=== PATIENT | male | born 1955 | race Caucasian/White ===

== ENCOUNTER 2022-06-04 18:42 | Emergency (ER) | payer MEDICARE, SELFPAY ==
[2022-06-04 18:58] VITALS: BP 175/78; PULSE 93; RESP 16; TEMP 36.4; O2SAT 98; BMI 31.8
--- NOTE | 2022-06-04 19:09 | CRLHL7_ITS ---
For Patients: As a result of the Cures Act, medical imaging exams and procedure reports are released immediately into your electronic medical record. You may view this report before your referring provider. If you have questions, please contact your health care provider. INDICATION: Fall. COMPARISON: None. TECHNIQUE: Standing AP and lateral views of both knees. FINDINGS: Right knee: No acute fracture or dislocation. Mild medial compartment narrowing. Spurring of the patella. Trace knee joint effusion. Mild soft tissue swelling in the infrapatellar region. Left knee: No acute fracture or dislocation. Mild to moderate medial compartment narrowing. Spurring of patella and tibial spines. Trace knee joint effusion. Mild soft tissue swelling in the infrapatellar region. IMPRESSION: 1. Mild soft tissue swelling in the infrapatellar region of both knees. No other acute findings. 2. Degenerative changes of the knees with trace bilateral knee joint effusions. Dictated by Josefina Siu MD @ 06/04/2022 8:05:44 PM (Electronically Signed)
--- NOTE | 2022-06-04 19:09 | ED_ITS ---
HPI - Extremity Injury (Lower) General Chief Complaint: Extremity Pain/Injury, Lower Stated Complaint: Bilateral Knee Injury/Pain Time Seen by Provider: 06/04/22 19:02 History of Present Illness HPI Narrative: This 66-year-old male comes in with an injury to his knees that occurred about 6 hours prior to arrival. He states that he was loading some garbage in a been and bent over to poultry picker a box that was on the ground. The wind blew the box and as he walked forward there was a curb that he did not anticipate. He fell forward onto both of his knees. He did not hit his head or have loss of consciousness. He has an abrasion on his right knee. He has been able to get up and ambulate but does have some discomfort. Related Data Home Medications Medication Instructions Recorded Confirmed albuterol sulfate 90 mcg/actuation 2 puff INHALATION Q4H PRN 06/04/22 06/04/22 aerosol inhaler aspirin 81 mg capsule 81 mg PO DAILY 06/04/22 06/04/22 atorvastatin 80 mg tablet 80 mg PO HS 06/04/22 06/04/22 carbidopa 25 mg-levodopa 100 mg 1 tab PO BID 06/04/22 06/04/22 tablet glipizide 5 mg tablet 5 mg PO BID 06/04/22 06/04/22 lisinopril 20 mg tablet 20 mg PO DAILY 06/04/22 06/04/22 loratadine 10 mg tablet (Claritin) 10 mg PO DAILY 06/04/22 06/04/22 meclizine 25 mg tablet 25 mg PO TID PRN 06/04/22 06/04/22 metformin 1,000 mg tablet 1,000 mg PO BID 06/04/22 06/04/22 Allergies Allergy/AdvReac Type Severity Reaction Status Date / Time gadodiamide Allergy Unknown Verified 06/04/22 19:05 diagnostic x-ray materials Allergy Unknown Uncoded 06/04/22 19:05 Review of Systems Status of ROS: Reports: 10 or more systems reviewed and unremarkable except as noted in History and below Narrative: Constitutional: No fevers, no weight gain or loss. Eyes: No discharge. No vision changes. HENT: No congestion, no sore throat, no ear pain. Cardiovascular: No chest pain, no palpitations. Respiratory: No shortness of breath, no wheezes, no cough. Gastrointestinal: No abdominal pain, no vomiting, no diarrhea. Genitourinary: No dysuria, no hematuria. Musculoskeletal: Normal range of motion. Bilateral knee pain. Skin: No rashes, no pruritis. Neurological: No dizziness, weakness, sensory change, speech change. Endo/Heme/Allergies: No bruising or bleeding. No polydipsia. Pysch: no suicidality, no anxiety, no insomnia. All other systems reviewed and are negative. [facility] Medical History (Updated 06/04/22 @ 20:19 by José Olivares MD) CAD (coronary artery disease) Chest pain COPD (chronic obstructive pulmonary disease) CVA (cerebral vascular accident) Gastric ulcer H/O TIA (transient ischemic attack) and stroke Meniere disease Mixed hyperlipidemia GREGORIO (obstructive sleep apnea) Syncope Type 2 diabetes mellitus Vertigo Surgical History (Updated 06/04/22 @ 19:39 by Luis Daniel Lemons RN) No significant past surgical history Social History Smoking Status: Former smoker How often do you have a drink containing alcohol: never How often do you have six or more drinks on one occasion: Never AUDIT-C Alcohol total score: 0 Non-prescribed substance use: denies use Exam Narrative: Exam Narrative: Constitutional: Well-developed, well-nourished, no acute distress. HEENT: Normocephalic, atraumatic. Neck: Normal range of motion. Nontender. Supple. Heart: Intact distal pulses. Lungs: No chest discomfort. No wheezes, rhonchi, or rales. Abdomen: Nontender. Back: Normal range of motion. Extremities: Normal range of motion. Superficial abrasion over the right knee. There is no joint instability or effusion. Range of motion is intact. He is able to ambulate. Skin: Intact. No rash. Warm. No erythema or pallor. Neurologic: No altered sensation. No weakness. Alert and oriented. Psychiatric: No suicidality. No anxiety or depression. No insomnia. Nursing notes and vitals signs are reviewed. Const: Vital Signs, click to edit/add: Vital Signs - 24 hr 06/04/22 18:58 06/04/22 19:40 Temperature 97.6 F Pulse Rate [Right Pulse Oximeter] 93 89 Respiratory Rate 16 Blood Pressure [Ri ght Upper Arm] 175/78 H Pulse Oximetry 98 Course Vital Signs Vital signs: Initial Vital Signs Temperature 97.6 F 06/04/22 18:58 Temperature Source Temporal Artery Scan 06/04/22 18:58 Pulse Rate 93 06/04/22 18:58 Respiratory Rate 16 06/04/22 18:58 Blood Pressure 175/78 H 06/04/22 18:58 Blood Pressure Mean 110 06/04/22 18:58 Blood Pressure Position Sitting 06/04/22 18:58 Pulse Oximetry 98 06/04/22 18:58 Oxygen Delivery Method 06/04/22 18:58 Vital Signs Temperature 97.6 F 06/04/22 18:58 Pulse Rate 93 06/04/22 18:58 Respiratory Rate 16 06/04/22 18:58 Blood Pressure 175/78 H 06/04/22 18:58 Pulse Oximetry 98 06/04/22 18:58 Temperature 97.6 F 06/04/22 18:58 Pulse Rate 89 06/04/22 19:40 Respiratory Rate 16 06/04/22 18:58 Blood Pressure 175/78 H 06/04/22 18:58 Pulse Oximetry 98 06/04/22 18:58 MDM - Extremity Injury (Lower) MDM Narrative Medical decision making narrative: This patient comes in for evaluation of injury to both knees because of a fall that occurred earlier today. He has been ambulatory since then. He has an abrasion that is superficial on his right knee. X-ray imaging of both knees show no sign of acute injury. There is some degenerative changes that is pre- existing. This was reassuring to the patient who will use Tylenol as needed and directed and increase activity as tolerated. He has a cane that he can use if needed. Imaging Data XR Bilateral knees: Radiologist's impression: 1. Mild soft tissue swelling in the infrapatellar region of both knees. No other acute findings. 2. Degenerative changes of the knees with trace bilateral knee joint effusions. Discharge Plan Discharge Clinical Impression: Contusion of knee, left, Contusion of knee, right Patient Disposition: Home, Self-Care Condition: Stable Instructions: Contusion in Adults (ED) Additional Instructions: Use Tylenol as needed and directed for symptomatic relief. Increase activity as tolerated. Follow up with MD or return if worsening. Prescriptions: No Action albuterol sulfate 90 mcg/actuation HFA aerosol inhaler 2 puff INHALATION Q4H PRN0RF Label Comments: Inhale 2 Puffs by mouth every 4 hours if needed. atorvastatin 80 mg tablet 80 mg PO HS 0RF Label Comments: Take 1 tablet by mouth once daily with evening meal. glipizide 5 mg tablet 5 mg PO BID 0RF lisinopril 20 mg tablet 20 mg PO DAILY 0RF meclizine 25 mg tablet 25 mg PO TID PRN0RF metformin 1,000 mg tablet 1,000 mg PO BID 0RF loratadine [Claritin] 10 mg tablet 10 mg PO DAILY 0RF aspirin 81 mg capsule 81 mg PO DAILY 0RF carbidopa-levodopa 25-100 mg tablet 1 tab PO BID 0RF Follow Up/Referrals: Hannah Stein DO [Primary Care Provider] - Stand Alone Forms: [facility]
[2022-06-04 19:40] VITALS: PULSE 89
[2022-06-04 20:29] VITALS: BP 165/72; PULSE 84; RESP 16; TEMP 36.4; O2SAT 98
== END 2022-06-04 20:30 | disposition home or self-care (01) ==
PROVIDERS: Emergency Provider Emergency Medicine Emergency Medical Services; PCP Family Medicine
DX: S80.02XA Contusion of left knee, initial encounter (principal); S80.01XA Contusion of right knee, initial encounter; W01.0XXA Fall on same level from slipping, tripping and stumbling without subsequent striking against object, initial encounter
CPT/HCPCS: 73560; 99283

== ENCOUNTER 2022-08-14 14:40 | Inpatient (IN) | payer MEDICARE, SELFPAY ==
[2022-08-14] VITALS (11 sets, daily range): BP systolic 160–191; BP diastolic 64–107; PULSE 110–113; RESP 20–28; TEMP 36.8; O2SAT 86–106; BMI 27.5; BMI 39.0
[2022-08-14] MEDS: IPRAT-ALBUT 0.5-2.5 MG/3 ML NEB 1 NEB IH ×4 (15:40→22:00)
--- NOTE | 2022-08-14 16:02 | ED.GENADULT ---
HPI - General Adult General Time Seen by Provider: 16:02 Date Seen: 08/14/22 Chief complaint: Shortness of Breath/Dyspnea Stated complaint: Short of breath Time Seen by Provider: 08/14/22 14:42 Source: patient and RN notes reviewed Mode of arrival: ambulatory Limitations: no limitations History of Present Illness HPI narrative: Patient is standing in the room leaning over the counter when I come into the room, here with complaint of shortness of breath. Patient has known COPD in the last 3 days or so he has been having increasing difficulty breathing, states he cannot catch his breath. He has not had any fevers but is coughing more. He has been trying his albuterol nebs at home without any relief but had not tried any today. He does not think he has used prednisone in quite a long time. Denies any fevers or body aches, has been having a lot of clear nasal drainage but no sore throat, no headache. He states his appetite has been good in there has been no abdominal pain or GI symptoms associated with this. He has had no chest pain. He states he has not had any sense of increased swelling in his extremities or his abdomen. He does tell me he recently got new diabetic shoes and he is happy with them. No travel or no definite known ill contacts. He does think that we should test him for COVID however. He states he is not sure if his albuterol is perhaps out of date at home. Related Data Home Medications Medication Instructions Recorded Confirmed albuterol sulfate 90 mcg/actuation 2 puff inhalation Q4H PRN 06/04/22 08/14/22 aerosol inhaler carbidopa 25 mg-levodopa 100 mg 1 tab PO BID 06/04/22 08/14/22 tablet glipizide 5 mg tablet 5 mg PO BID 06/04/22 08/14/22 lisinopril 20 mg tablet 20 mg PO DAILY 06/04/22 08/14/22 meclizine 25 mg tablet 25 mg PO TID PRN 06/04/22 08/14/22 metformin 1,000 mg tablet 1,000 mg PO BID 06/04/22 08/14/22 Allergies Allergy/AdvReac Type Severity Reaction Status Date / Time gadodiamide Allergy Unknown Verified 08/14/22 21:01 diagnostic x-ray materials Allergy Unknown Uncoded 08/14/22 21:01 Review of Systems Status of ROS: Reports: 10 or more systems reviewed and unremarkable except as noted in History and below [facility] Medical History (Updated 08/14/22 @ 21:40 by Destinee Jensen MD) CAD (coronary artery disease) Chest pain COPD (chronic obstructive pulmonary disease) CVA (cerebral vascular accident) Essential hypertension Gastric ulcer H/O TIA (transient ischemic attack) and stroke Meniere disease Mixed hyperlipidemia GREGORIO (obstructive sleep apnea) Syncope Type 2 diabetes mellitus Vertigo Surgical History (Updated 06/04/22 @ 19:39 by Luis Daniel Lemons RN) No significant past surgical history Social History Smoking Status: Former smoker Do you use any of these nicotine containing products: None How often do you have a drink containing alcohol: never How often do you have six or more drinks on one occasion: Never AUDIT-C Alcohol total score: 0 Non-prescribed substance use: denies use Exam Const: Vital Signs, click to edit/add: Vital Signs - 24 hr 08/14/22 15:26 08/14/22 16:11 08/14/22 17:30 Temperature 98.2 F Pulse Rate [Pulse Oximeter] 113 H 112 H Respiratory Rate 28 H 22 Blood Pressure [Ri ght Upper Arm] 191/91 H 170/107 H Pulse Oximetry 92 96 94 Oxygen Delivery Me thod Room Air Room Air 08/14/22 17:00 08/14/22 16:00 08/14/22 15:30 Temperature Pulse Rate [Pulse Oximeter] 111 H 110 H 111 H Respiratory Rate 22 22 22 Blood Pressure [Ri ght Upper Arm] 164/64 H 160/79 H 185/77 H Pulse Oximetry 94 94 94 Oxygen Delivery Me thod Room Air Room Air Room Air 08/14/22 18:25 08/14/22 20:30 08/14/22 20:00 Temperature Pulse Rate [Pulse Oximeter] 111 H 110 H 110 H Respiratory Rate 20 20 20 Blood Pressure [Ri ght Upper Arm] 169/81 H 173/70 H 168/93 H Pulse Oximetry 92 94 94 Oxygen Delivery Me thod Room Air Room Air Documenting provider has reviewed patient's vital signs: yes Common normals: no apparent distress, oriented x3, no limitations, healthy appearing, alert and well nourished General appearance: cooperative, comfortable and well kempt Nutritional appearance: obese HENMT: Common normals: normocephalic, head/scalp atraumatic, hearing grossly normal bilaterally, external ears normal, EAC's normal, external nose normal, nasal mucous membranes and turbinates normal, moist oral mucous membranes, oropharynx normal (Edentulous) and gingiva normal Head and scalp: normocephalic and atraumatic Nose: external nose normal and nasal mucous membranes and turbinates normal External ear: external ears normal External auditory canal: EAC's normal Eye: Common normals: PERRL, EOMs intact bilaterally, conjunctivae normal and no scleral icterus Conjunctiva: conjunctiva(e) normal Pupil: PERRL Neck & C-Spine: Common normals: full ROM, no lymphadenopathy, supple, no meningeal signs, no JVD and thyroid normal Thyroid: thyroid normal Chest: Common normals: inspection of chest normal and palpation of chest normal Resp: Common normals: normal respiratory effort, no retractions and no use of accessory muscles Other: Diminished lung sounds on the left with prolonged expiratory phase; right side had rhonchi heard throughout. Note patient did get a DuoNeb on arrival per request of nursing staff and auscultation was after this DuoNeb, proximally about 30 minutes after and patient reported he did feel better afterwards. Cardio: Common normals: no JVD, regular rhythm, S1 normal heart sound, S2 normal heart sound, no gallops, no clicks and no murmurs Rate: tachycardic Rhythm: regular rhythm Heart sounds: S1 normal and S2 normal GI: Common normals: Normal to inspection, nondistended, normoactive bowel sounds present, soft to palpation, non-tender, no hepatosplenomegaly and no masses Palpation: soft and no hepatosplenomegaly Extremity: Other: About 2+ pretibial pitting edema and noted bilateral sock lines that are symmetric. No overlying skin changes such as erythema. Calves are nontender. Neuro: Common normals: oriented x3, moves all extremities, no focal motor deficits and gait normal Sensorium/orientation: alert Meningeal signs: no meningeal signs Speech: speech normal Psych: Appearance: well kempt Course Course Hospital Course: Patient will be monitored on pulse oximetry. Will initiate further DuoNebs if needed. He is requesting 1 at this time he is oxygenating at 94% and will start with IV Solu-Medrol 125 mg IV. Will be getting portable chest x-ray, testing for COVID/influenza/RSV. Will also consider bacterial entities such as pneumonia which we should be able to differentiate with labs and chest x-ray. We will consider cardiac possibilities with thromboembolic disease, CHF, ischemic heart disease. Right now is hemodynamically stable and certainly this seems like it is respiratory based on examination. COPD exacerbation versus viral entities such as COVID or pneumonia are all possibilities. Reevaluation(s) Reevaluation #1: Reviewed with patient his elevated troponin and did my best to try to explain what could be elevated. He has not had any chest pain with this. It could conceivably be cardiac strain from COPD with some underlying coronary artery disease. It is possible it is a non-STEMI. At this time we may not have bed availability here. He understands they need to talk to Cardiology but I would like a followup troponin to ensure that it is not changing. I also see that his D-dimer is mildly elevated at 0.98. We ultimately may need to do chest CT PE protocol and then would talk to Radiology given his allergy. He states his breathing is better. Denies any chest pain but notes he is still coughing. Time: 18:31 Reevaluation #2: Nursing staff felt patient was quite wheezy and were wondering about nebulization. I had ordered DuoNebs p.r.n. q.2 hours. I did go back and assessed him and he has audible rhonchi and wheezing throughout the right lung field more rhonchi type sounds on the left. He is oxygenating well with out oxygen. He understands that he is going to get a chest CT PE protocol and we have premedicated. AM awaiting to talk to Cardiology as his troponin did go up. Time: 19:59 Consultations Consultation #1: Spoke with Dr. Peañ from [facility]. He thinks is this is likely the from the COPD, would not treat for any ACS with heparin. He does agree with doing the chest CT PE protocol. He stated that the patient really does not need cardiology and he does not believe the patient needs to be up there to see them. In any event, there on admit gentle which is beyond capacity to accept patients. Time: 20:09 Vital Signs Vital signs: Initial Vital Signs Temperature 98.2 F 08/14/22 15:26 Temperature Source Temporal Artery Scan 08/14/22 15:26 Pulse Rate 113 H 08/14/22 15:26 Respiratory Rate 28 H 08/14/22 15:26 Blood Pressure 191/91 H 08/14/22 15:26 Blood Pressure Mean 124 08/14/22 15:26 Pulse Oximetry 92 08/14/22 15:26 Oxygen Delivery Method 08/14/22 15:26 Vital Signs Temperature 98.2 F 08/14/22 15:26 Pulse Rate 113 H 08/14/22 15:26 Respiratory Rate 28 H 08/14/22 15:26 Blood Pressure 191/91 H 08/14/22 15:26 Pulse Oximetry 92 08/14/22 15:26 Oxygen Delivery Method 08/14/22 15:26 Temperature 98.2 F 08/14/22 15:26 Pulse Rate 110 H 08/14/22 20:30 Respiratory Rate 20 08/14/22 20:30 Blood Pressure 173/70 H 08/14/22 20:30 Pulse Oximetry 94 08/14/22 20:30 Oxygen Delivery Method 08/14/22 20:30 Medical Decision Making Lab Data Lab results reviewed: Yes I reviewed the patient's lab results Labs: Lab Results 08/14/22 08/14/22 08/14/22 Range/Units 16:11 16:11 16:32 WBC 8.04 (4.50-11.00) K/uL RBC 4.51 (4.30-5.90) m/uL Hgb 13.7 (13.5-17.5) gm/dL Hct 42.1 (37.0-53.0) % MCV 93 (80-100) fL MCH 30 (26-34) pg MCHC 33 (32-36) gm/dL RDW Coeff of Scott 12.5 (11.5-15.5) % Plt Count 214 (140-440) K/uL Neut % (Auto) 81.6 H (42.0-72.0) % Lymph % (Auto) 9.0 L (20-44) % Woodford % (Auto) 8.7 (0.0-11.0) % Eos % (Auto) 0.2 (0.0-7.0) % Baso % (Auto) 0.4 (0.0-3.0) % Neut # (Auto) 6.60 (1.7-7.0) K/uL Lymph # (Auto) 0.70 L (0.90-2.90) K/uL Woodford # (Auto) 0.70 (0.00-0.90) K/UL Eos # (Auto) 0.02 (0.00-0.50) K/uL Baso # (Auto) 0.03 (0.00-0.30) K/uL Abs Immat Gran (auto) 0.01 (0.00-0.30) K/uL D-Dimer Quant (PE/DVT) (0.00-0.50) ug/ml VBG pH (7.32-7.43) VBG pCO2 (40-50) mmHG VBG pO2 (25-47) mmHG VBG HCO3 (21-28) mmol/L Sodium 135 (135-149) mmol/L Potassium 3.5 L (3.6-5.1) mmol/L Chloride 99 (96-114) mmol/L Carbon Dioxide 25 (20-32) mmol/L BUN 14 (7-30) mg/dL Creatinine 0.8 (0.5-1.5) mg/dL Estimated Creat Clear 61.67 Estimated GFR 98 ml/min Glucose 244 H (60-115) mg/dL Calcium 9.1 (8.4-10.6) mg/dL Total Bilirubin 0.5 (0.1-1.5) mg/dL AST 41 H (12-35) U/L ALT 37 (4-50) U/L Alkaline Phosphatase 128 (40-150) U/L Troponin I 0.24 H* (0.01-0.04) ng/mL C-Reactive Protein 2.5 H (0.5-1.0) mg/dL NT-Pro-B Natriuret Pep 1440 H (0-125) PG/mL Total Protein 7.6 (6.0-8.3) g/dL Albumin 4.3 (3.3-5.0) g/dL SARS-CoV-2 (PCR) Negative SARS-CoV-2 (Negative) Influenza Type A (PCR) Negative PCR FLU A (Negative) Influenza Type B (PCR) Negative PCR FLU B (Negative) RSV (PCR) Negative PCR RSV (Negative) 09/29/22 09/29/22 09/29/22 Range/Units 16:32 16:32 18:40 WBC (4.50-11.00) K/uL RBC (4.30-5.90) m/uL Hgb (13.5-17.5) gm/dL Hct (37.0-53.0) % MCV (80-100) fL MCH (26-34) pg MCHC (32-36) gm/dL RDW Coeff of Scott (11.5-15.5) % Plt Count (140-440) K/uL Neut % (Auto) (42.0-72.0) % Lymph % (Auto) (20-44) % Woodford % (Auto) (0.0-11.0) % Eos % (Auto) (0.0-7.0) % Baso % (Auto) (0.0-3.0) % Neut # (Auto) (1.7-7.0) K/uL Lymph # (Auto) (0.90-2.90) K/uL Woodford # (Auto) (0.00-0.90) K/UL Eos # (Auto) (0.00-0.50) K/uL Baso # (Auto) (0.00-0.30) K/uL Abs Immat Gran (auto) (0.00-0.30) K/uL D-Dimer Quant (PE/DVT) 0.98 H (0.00-0.50) ug/ml VBG pH 7.397 (7.32-7.43) VBG pCO2 45 (40-50) mmHG VBG pO2 45.6 (25-47) mmHG VBG HCO3 28 (21-28) mmol/L Sodium (135-149) mmol/L Potassium (3.6-5.1) mmol/L Chloride (96-114) mmol/L Carbon Dioxide (20-32) mmol/L BUN (7-30) mg/dL Creatinine (0.5-1.5) mg/dL Estimated Creat Clear Estimated GFR ml/min Glucose (60-115) mg/dL Calcium (8.4-10.6) mg/dL Total Bilirubin (0.1-1.5) mg/dL AST (12-35) U/L ALT (4-50) U/L Alkaline Phosphatase (40-150) U/L Troponin I 0.42 H* (0.01-0.04) ng/mL C-Reactive Protein (0.5-1.0) mg/dL NT-Pro-B Natriuret Pep (0-125) PG/mL Total Protein (6.0-8.3) g/dL Albumin (3.3-5.0) g/dL SARS-CoV-2 (PCR) (Negative) Influenza Type A (PCR) (Negative) Influenza Type B (PCR) (Negative) RSV (PCR) (Negative) Imaging Data CT scan - chest: Attestation: I have reviewed the pertinent imaging results. My impression: On my preliminary review, I do think that there is infiltrates within the lung parenchyma. We will await Radiology over read but given his COPD exacerbation, am initiating antibiotics with Rocephin and azithromycin. Have reviewed this with the hospitalist. Radiologist's impression: Patient: MELISSA INIGUEZ Facility:?[facility] Patient ID:?[id number] Site Patient ID:?[id number]. Site :?[id number] Study:?CT Chest Angio 95CC ISOVUE 370-08/14/2022 9:06:21 PM Ordering Physician:?Guerline Das Final Report: INDICATION: Chest pain, elevated D-dimer. TECHNIQUE: CT chest PE was acquired with 95 mL Isovue 370 IV contrast. Coronal and sagittal reformats were generated. COMPARISON: None. FINDINGS: Pulmonary arteries: The quality of enhancement of the pulmonary arteries is adequate. No filling defects to suggest pulmonary emboli. No findings of pulmonary artery hypertension. Thyroid: Unremarkable. Thoracic lymph nodes: No enlarged supraclavicular, mediastinal, hilar, or axillary lymph nodes. Prominent thoracic nodes could be reactive or infectious. Mediastinum and esophagus: Unremarkable. Heart and vasculature: Unremarkable. Lungs: Numerous patchy ground-glass areas of nodularity distributed throughout the right lung, with few small foci in the left lower lobe. Pleura: Unremarkable. Chest wall: Unremarkable. Upper abdomen: No acute or significant findings. Bones: Unremarkable for age. IMPRESSION: 1. No pulmonary emboli. 2. Numerous patchy ground-glass opacities throughout both lungs are suggestive of infectious or inflammatory etiologies. Please note that all CT scans at this facility use dose modulation, iterative reconstruction, and/or weight-based dosing when appropriate to reduce radiation dose to as low as reasonably achievable. Dictated by Fitz Bull MD @ 08/14/2022 9:20:51 PM (Electronic Signature) ECG Data Attestation: I personally reviewed and interpreted this ECG as follows: (Sinus tachycardia, 109 beats per minute. Left anterior fascicular block, no ischemic changes noted.) Prior ECG tracings: not available for review Interpretation: Repeat EKG at 19:41 shows sinus tachycardia, 110 beats per minute, left anterior fascicular block. No changes compared to prior EKG as far as ischemia. QT corrected 452 milliseconds. Critical Care Time Critical Care Time Critical Care Time: No Discharge Plan Discharge Clinical Impression: Elevated troponin, Acute exacerbation of chronic obstructive pulmonary disease, Pneumonia Patient Disposition: Admitted As Inpatient Condition: Stable
--- NOTE | 2022-08-14 16:11 | CRLHL7_ITS ---
For Patients: As a result of the Century Cures Act, medical imaging exams and procedure reports are released immediately into your electronic medical record. You may view this report before your referring provider. If you have questions, please contact your health care provider. INDICATION: Dyspnea COMPARISON: November 15, 2021 TECHNIQUE: Portable AP semi upright single view examination. FINDINGS: TUBES AND LINES: None. HEART AND MEDIASTINUM: The heart size is normal. The mediastinal contour appears normal for patient age. LUNGS AND PLEURAL SPACES: The lungs appear normal.The pleural spaces are unremarkable. OSSEOUS STRUCTURES: Age-appropriate appearance. No acute focal finding. IMPRESSION: Normal single-view portable chest radiograph. No acute focal finding. Dictated by Dylan Cole MD @ 08/14/2022 5:08:08 PM (Electronically Signed)
[2022-08-14] MEDS: METHYLPREDNISOLONE SOD SUCC 62.5 MG/ML (125) 125 MG IVP ×2 (16:25→23:23)
--- OUTSIDE RECORDS SUMMARY | 2022-08-14 16:29 | XMS_ITS | Clinical Summary ---
:1955 External Reference #:RESEARCH Author Organization [employer] [facility] [place] [address] Care Team Providers Name Role Phone Hannah Stein DO Primary Care Provider Rufus Rucker MD Unavailable Unavailable Sosa Guthrie Unavailable [phone] Allergies Active Allergy Reactions Severity Noted Date Comments Iodinated Contrast Media Syncope 09/26/2008 Medications Medication Sig Dispensed Refills Start Date End Date Status Lancing Device As directed. 3 100 Each 3 01/26/2012 Active (LANCING DEVICE times daily WITH LANCETS) MiscIndications: Diabetes mellitus (HC) blood-glucose As directed. Dispense glucos e meter, test strips and lancets covered by the patient insurance. Test 3 times per day. 1 Device 0 02/06/2012 Active meter Has contour meter aspirin 81 mg Take 81 mg by 0 Ac tive tablet mouth once daily with a meal. CPAPIndications: CPAP, heated 1 unit 0 05/03/2014 Active Obstructive sleep humidifier, apnea (adult) mask, headgear, (pediatric) filters and tubing. For home use. Per Dr. Harris Diabetic As directed 1 1 Each 0 05/24/2018 Activ e ShoeIndications: Each. Type 2 diabetes mellitus without complication, without long-term current use of insulin (HC) blood sugar USE FOR TESTING 100 Each 3 05/10/2019 A ctive diagnostic BLOOD SUGAR (PRODIGY NO ONCE A DAY CODING) stripIndications: Type 2 diabetes mellitus without complication, without long-term current use of insulin (HC) loratadine Take 1 tablet 30 tablet 5 06/13/2020 Acti ve (CLARITIN) 10 mg by mouth once tabletIndications: daily. Non-recurrent acute serous otitis media of right ear carbidopa-levodopa 0 07/02/2020 Active , 25-100 mg, (SINEMET 25-100) 25-100 mg tablet meclizine Take 1 Tablet 30 Tablet 2 04/29/2021 Activ e (ANTIVERT) 25 mg (25 mg) by tabletIndications: mouth 3 times Meniere's disease daily if of left ear needed. albuterol HFA Inhale 2 Puffs 1 Each 3 10/02/2021 Active (ProAir HFA) 90 by mouth every mcg/actuation 4 hours if inhalerIndications needed for : Chronic Shortness of obstructive Breath 1st pulmonary disease, choice. unspecified COPD type (HC) atorvastatin Take 1 Tablet 90 tablet. 3 10/03/2021 A ctive (LIPITOR) 80 mg (80 mg) by tabletIndications: mouth once Type 2 diabetes daily with mellitus without evening meal. complication, without long-term current use of insulin (HC), Mixed hyperlipidemia, Coronary artery disease due to lipid rich plaque lisinopriL TAKE ONE TABLET 90 Tablet 0 02/23/2022 Ac tive (PRINIVIL; BY MOUTH EVERY ZESTRIL) 20 mg DAY tabletIndications: Essential hypertension glipiZIDE TAKE ONE TABLET 60 Tablet 0 08/14/2022 Act paul (GLUCOTROL) 5 mg BY MOUTH TWICE tabletIndications: A DAY BEFORE Type 2 diabetes MEALS mellitus without complication, without long-term current use of insulin (HC) metFORMIN TAKE ONE TABLET 60 Tablet 0 08/14/2022 Act paul (GLUCOPHAGE) 1,000 BY MOUTH TWICE mg A DAY WITH tabletIndications: MEALS Type 2 diabetes mellitus without complication, without long-term current use of insulin (HC) glipiZIDE TAKE 1 TABLET 60 Tablet 0 06/22/2022 Disco ntinued (GLUCOTROL) 5 mg BY MOUTH TWICE 2 tabletIndications: A DAY BEFORE Type 2 diabetes MEALS. mellitus without complication, without long-term current use of insulin (HC) metFORMIN TAKE 1 TABLET 60 Tablet 0 06/22/2022 Disco ntinued (GLUCOPHAGE) 1,000 BY MOUTH TWICE 2 mg A DAY WITH tabletIndications: MEALS. Type 2 diabetes mellitus without complication, without long-term current use of insulin (HC) glipiZIDE TAKE ONE TABLET 60 Tablet 0 07/22/2022 Dis continued (GLUCOTROL) 5 mg BY MOUTH TWICE 2 tabletIndications: DAILY BEFORE Type 2 diabetes MEALS mellitus without complication, without long-term current use of insulin (HC) metFORMIN TAKE ONE TABLET 60 Tablet 0 07/22/2022 Dis continued (GLUCOPHAGE) 1,000 BY MOUTH TWICE 2 mg DAILY WITH tabletIndications: MEALS Type 2 diabetes mellitus without complication, without long-term current use of insulin (HC) Active Problems Problem Noted Date Coronary artery disease, mild 07/17/2015 Type 2 diabetes mellitus without complication, without long-term current 12/12/2013 use of insulin ACP (advance care planning) 12/12/2013 Overview: CODE STATUS: FULL POA: JOEL KHAN ([place]) [phone] or [phone] Hx-TIA (transient ischemic attack) 12/12/2013 Gastric ulcer 09/28/2013 Overview: EGD 09/2013 large ulcer EGD 11/2013 partially healed ulcer, repea t EGD in 3 months EGD 02/2014 ulcer has healed Sensorineural hearing loss, bilateral 03/30/2012 Meniere's disease, unspecified 03/30/2012 Abnormality of gait 01/08/2010 Numbness of leg 01/07/2010 COPD (chronic obstructive pulmonary disease) 0 GREGORIO 08/17/2009 AHI- 18 09/17/2009 Mixed hyperlipidemia 09/11/2003 HYPERTENSION - ESSENTIAL 09/11/2003 Morbid obesity Resolved Problems Problem Noted Date Resolved Date Type 2 diabetes mellitus with complication 04/29/2021 10/03/2021 Acute ischemic stroke 07/14/2018 10/03/2021 Overview: 07/12/2018 brain MRI/MRA results showed: Posterior left limb of the internal caps ule Chronic arterial ischemic stroke 07/14/2018 021 Overview: 07/12/2018 brain MRI/MRA results showed: Small chronic lacunar infarcts in the ri ght basal ganglia and right cerebellar hemisphere Small vessel ischemic changes also noted in the brainstem and deep cerebral white matter Acute chest pain 06/11/2015 10/03/2021 Right sided weakness 12/12/2013 06/09/2015 Diabetes mellitus type II 05/10/2012 10/04/2014 Overview: a system change updated this record. Thi s will not affect patient care or billing. This comment can be deleted. Hyperlipidemia 02/08/2010 04/04/2011 Hypertension 02/08/2010 04/04/2011 Prostatitis 02/08/2010 08/17/2012 Unspecified examination 02/08/2010 08/17/2012 Overview: Last Px 11/2006 Last Lipid 11/2005 Last Colonoscopy 06/2006 Diabetes mellitus type II 01/01/2010 02/27/2010 Overview: a system change updated this record. Thi s will not affect patient care or billing. This comment can be deleted. Chest pain, unspecified 11/06/2009 08/17/2012 Lightheadedness 11/05/2009 08/17/2012 Right hemiparesis 11/05/2009 11/21/2009 Bradycardia 11/01/2009 10/03/2021 Diabetes mellitus type II 08/30/2009 11/30/2009 Overview: a system change updated this record. Thi s will not affect patient care or billing. This comment can be deleted. Presbyopia 08/01/2009 08/17/2012 Hyperopia 08/01/2009 08/17/2012 Headache(784.0) 12/29/2008 08/17/2012 Syncope 12/29/2008 08/17/2012 Acute right hemiparesis 12/29/2008 10/03/2021 SOB (shortness of breath) 11/29/2008 08/17/2012 Smoker 09/26/2008 08/04/2009 Overview: Quit 01/2009 Chest pain, unspecified 09/26/2008 08/17/2012 Overview: Suspect secondary to COPD or GI etiology . Positive D dimer 09/26/2008 12/12/2013 Overview: Barely elevated D-Dimer on 09/26/08; 0.5 5 with <0.51 normal range COPD 09/26/2008 11/30/2009 Encounters Date Type Specialty Care Team Description 08/13/2022 Refill DetertHannah, DO Refil l Request (Glipizide, Metformin) 07/16/2022 Refill DetertHannah DO Refil l Request (Glipizide, Metformin) 06/19/2022 Telephone DetertHannah, DO Form (Diabetic shoes) 06/19/2022 Refill DetertHannah DO Refil l Request (Glipizide, Metformin) 05/15/2022 Refill Detert, Hannah Landis DO Refil l Request (Metformin, Glipizide) from Last 3 Months Immunizations Name Administration Dates Next Due COVID-19 vaccine (Moderna 04/30/2021, 04/03/2021 100mcg/0.5mL) PF, MDV Hepatitis B (Adult) 02/08/2014 Hepatitis B (Peds) 03/20/2014 Influenza A (H1N1), Inactivated 08/07/2021 Influenza, IIV3 (Age >=3 years) 09/28/2012, 10/30/2011, 09/16, 08/15/2009, 09/27/2008, 09/12/2003 Influenza, IIV4 08/07/2021, 09/07/2019, 08/27/2018, 08/1708/10/2017, 10/29/2016, 08/30/2014 Influenza, IIV4 (=>6mos) MDV 09/21/2015 Influenza,CCIIV4 PRESERV FREE 08/22/2020 Pneumococcal Poly,23-Valent 09/27/2008 (Pneumovax) Td (Age >=7 Years) 01/16/2006 Family History Medical History Relation Name Comments Heart Disease Brother 1 Stroke Brother 2 hemorrhagic Heart Disease Father age 54 - he art enlargement Hypertension Father Edema Sister lymphadema Other Sister migraine Relation Name Status Comments Brother 1 Brother 2 Father Sister Social History Tobacco Use Types Packs/Day Years Used Date Light Tobacco Smoker 2 20 Quit: 0 11/16/2008 Smokeless Tobacco: Never Used Tobacco Cessation: Ready to Quit: Yes; C ounseling Given: Yes Alcohol Use Standard Drinks/Week Comments No 0 (1 standard drink = 0.6 oz pure recove rin alcoholicx 12y. alcoholic, alcohol) s/p detox/treatment Alcohol Habits Answer Date Recorded How often do you have a drink Not asked containing alcohol? How many drinks containing alcohol Not asked do you have on a typical day when you are drinking? How often do you have six or more Not asked drinks on one occasion? Comment: henok alcoholicx 13y. 12/12/2013 alcoholic, s/p detox/treatment Sex Assigned at Date Recorded Not on file Obstetrics History Last Filed Vital Signs Vital Sign Reading Time Taken Comments Blood Pressure 170/81 10/28/2021 1:24 PM [employer] Pulse 113 10/28/2021 1:24 PM [employer] Temperature 37.1 ??C (98.8 ??F) 10/25/2021 1:13 PM [employer] Respiratory Rate 16 01/23/2016 10:09 AM [employer] Oxygen Saturation 96% 10/28/2021 1:24 PM [employer]FORM [employer] Inhaled Oxygen Concentration - - Weight 112 kg (247 lb) 10/28/2021 1:24 PM [employer] Height 166.4 cm (5' 5.5) 10/28/2021 1:24 PM [employer] Body Mass Index 40.48 10/28/2021 1:24 PM [employer]FORM [employer] Plan of Treatment Health Maintenance Due Date Last Done Comments Tdap 1967 Zoster (shingles) series 2006 for age 50+ (1 of 2) Pneumococcal series for age 1109/27/2009 09/27/2008 65+ (2 - PCV) AAA screening age 55-77 2011 Tetanus booster 01/17/2016 01/16/2006 Colonoscopy through age 75 01/06/2021 01/06/2011 COVID-19 vaccine series (3 09/30/2021 04/30/2021, 1 - Booster for Moderna series) Medicare Wellness for age 0112/14/2021 05/24/2018 65+ Depression screening for 01/24/2022 01/24/2021, 01/21/2021, age 12+ 09/08/2019, Additional history exists Influenza for age 65+ 07/17/2022 08/07/2021, 08/07/2021, 08/22/2020, Additional history exists BMI (ht and wt on same day) 10/28/2022 10/28/2021, 06/13/20 20, for age 18+ 09/07/2019, Additional history exists Low Dose CT (for lung CA) 12/07/2024 Postpo eduin from age 50-80 2006 (Othe r) Lipids for age 45-75 10/02/2026 10/02/2021, 01/21/2021, 05/18/2020, Additional history exists Hepatitis C screening for Completed 09/07/2019 age 18-79 Goals Goal Patient Goal Associated Recent Patient-Stated? Author Type Problems Progress BLOOD Blood Pressure No Minat, PRESSURE-EVAN Lundberg BP DO LESS THAN 130/80 Results Not on filefrom Last 3 Months Insurance Payer Benefit Plan / Subscriber ID Effective Dates Phone Addre ss Type Group [employer] xxxxARCH 2015-Presen In ternal [address] [address] [facility] MR [id number] 2020-Presen [address] [facility] [place] [address] Advance Directives Latest Code Status on File Code Status Date Activated Date Inactivated Comments Full Code 06/19/2015 12:44 PM 06/21/2015 5:35 PM Full Code 12/12/2013 9:40 AM 12/13/2013 4:52 PM Full Code 01/07/2010 2:39 AM 01/08/2010 3:19 PM Full Code 01/01/2010 8:14 PM 01/03/2010 6:12 PM Full Code 11/05/2009 9:49 PM 11/07/2009 7:22 PM Care Teams Saxophone Teacher Relationship Specialty Start Date End Date Hannah Stein DO PCP - General 06/26/09 Rufus Rucker MD Neurology Neurology 11/29/12 Sosa Guthrie AuD Audiology 02/06/11
[2022-08-14 16:40] LABS: HCO3 VBG 28 mmol/L (21-28); PCO2 VBG 45 mmHG (40-50); PO2 VBG 45.6 mmHG (25-47); pH VBG 7.397 (7.32-7.43)
[2022-08-14 16:44] LABS: Basophils Absolute Auto 0.03 K/uL (0.00-0.30); Basophils Percent Auto 0.4 % (0.0-3.0); Eosinophils Absolute Auto 0.02 K/uL (0.00-0.50); Eosinophils Percent Auto 0.2 % (0.0-7.0); Hematocrit 42.1 % (37.0-53.0); Hemoglobin* 13.7 gm/dL (13.5-17.5); Immature Granulocytes Abs Auto 0.01 K/uL (0.00-0.30); Mean Corpuscular HGB Conc 33 gm/dL (32-36); Mean Corpuscular Hemoglobin 30 pg (26-34); Mean Corpuscular Volume 93 fL (80-100); Monocytes Percent Auto 8.7 % (0.0-11.0); Neutrophils Percent Auto 81.6 % (42.0-72.0); Platelet Count* 214 K/uL (140-440); RDW Coefficient of Variation % 12.5 % (11.5-15.5); Red Blood Count 4.51 m/uL (4.30-5.90); White Blood Count* 8.04 K/uL (4.50-11.00)
[2022-08-14 16:47] LABS: Slide Review Reflex No
[2022-08-14 17:01] LABS: Albumin* 4.3 g/dL (3.3-5.0); Chloride* 99 mmol/L (96-114); Sodium* 135 mmol/L (135-149)
[2022-08-14 17:02] LABS: Potassium* 3.5 mmol/L (3.6-5.1)
[2022-08-14 17:04] LABS: Alkaline Phosphatase* 128 U/L (40-150); Aspartate Amino Transferase* 41 U/L (12-35); Bilirubin Total* 0.5 mg/dL (0.1-1.5); Blood Urea Nitrogen* 14 mg/dL (7-30); Carbon Dioxide* 25 mmol/L (20-32); Creatinine* 0.8 mg/dL (0.5-1.5); Est. Creatinine Clearance* 61.67; Estimated Glomerular Filt Rate 98 ml/min; Total Protein* 7.6 g/dL (6.0-8.3)
[2022-08-14 17:05] LABS: D Dimer Quantitative* 0.98 ug/ml (0.00-0.50)
[2022-08-14 17:05] LABS: Alanine Aminotransferase* 37 U/L (4-50); Calcium* 9.1 mg/dL (8.4-10.6); Glucose* 244 mg/dL (60-115)
[2022-08-14 17:07] LABS: C Reactive Protein* 2.5 mg/dL (0.5-1.0)
[2022-08-14 17:13] LABS: NT Pro B Type NatriureticPept* 1440 PG/mL (0-125)
[2022-08-14 17:20] LABS: Troponin I* 0.24 ng/mL (0.01-0.04)
--- NOTE | 2022-08-14 17:35 | ED.NURSE ---
md feliz updated on elevated troponin
[2022-08-14 18:13] LABS: PCR FLU A Negative PCR FLU A (Negative); PCR FLU B Negative PCR FLU B (Negative); PCR RSV Negative PCR RSV (Negative)
[2022-08-14 18:22] LABS: SARS PCR* Negative SARS-CoV-2 (Negative)
[2022-08-14 19:21] LABS: Troponin I* 0.42 ng/mL (0.01-0.04)
--- NOTE | 2022-08-14 19:28 | CRLHL7_ITS ---
For Patients: As a result of the Century Cures Act, medical imaging exams and procedure reports are released immediately into your electronic medical record. You may view this report before your referring provider. If you have questions, please contact your health care provider. INDICATION: Chest pain, elevated D-dimer. TECHNIQUE: CT chest PE was acquired with 95 mL Isovue 370 IV contrast. Coronal and sagittal reformats were generated. COMPARISON: None. FINDINGS: Pulmonary arteries: The quality of enhancement of the pulmonary arteries is adequate. No filling defects to suggest pulmonary emboli. No findings of pulmonary artery hypertension. Thyroid: Unremarkable. Thoracic lymph nodes: No enlarged supraclavicular, mediastinal, hilar, or axillary lymph nodes. Prominent thoracic nodes could be reactive or infectious. Mediastinum and esophagus: Unremarkable. Heart and vasculature: Unremarkable. Lungs: Numerous patchy ground-glass areas of nodularity distributed throughout the right lung, with few small foci in the left lower lobe. Pleura: Unremarkable. Chest wall: Unremarkable. Upper abdomen: No acute or significant findings. Bones: Unremarkable for age. IMPRESSION: 1. No pulmonary emboli. 2. Numerous patchy ground-glass opacities throughout both lungs are suggestive of infectious or inflammatory etiologies. Please note that all CT scans at this facility use dose modulation, iterative reconstruction, and/or weight-based dosing when appropriate to reduce radiation dose to as low as reasonably achievable. Dictated by Fitz Bull MD @ 08/14/2022 9:20:51 PM (Electronically Signed)
[2022-08-14] MEDS: diphenhydrAMINE 50 MG/ML inj IVP (19:42)
[2022-08-14] MEDS: ASPIRIN 81 MG TAB.CHEW 324 MG PO (19:49)
[2022-08-14] MEDS: METFORMIN 1,000 MG TABLET 1000 MG PO (20:02)
[2022-08-14] MEDS: glipiZIDE 5 MG TABLET PO (20:11)
--- NOTE | 2022-08-14 21:25 | P.IMHP_ITS ---
Hospitalist- H&P: HPI History of Present Illness Date Seen: 08/14/22 Chief complaint: Short of breath Narrative: Dimitri Khan is a 66 year old male who presented to the ED today for a 2-3 day history of dyspnea. Also notes a dry cough, no hemoptysis. No fevers. No chest pain. Symptoms seemed improved when Lalo was outside, didn't not much relief with his inhaler or home nebs. No sick contacts. Notes bilateral lower extremity edema, which is not new. He has not had orthopnea nor PND. Symptoms of dry cough and dyspnea worsened today, which prompted his ER visit. ER Course and Findings: - elevated troponin (0.24 --> 0.42) - bilateral GGOs on Chest CT, no PE - felt better after neb treatments (noted to be wheezing upon arrival) - Negative COVID, flu A/B, and RSV - Dr. Sullivan in the emergency department discussed the patient with Cardiology, who did not feel that is elevated troponin required urgent intervention given his lack of chest pain and clinical COPD exacerbation Hospitalist team was asked to admit patient for COPD exacerbation and ground- glass opacities bilaterally, concerning for infectious process, in addition to followup of elevated troponins. Lalo has a known history of COPD, also has GREGORIO. Not compliant with CPAP (hasn't worn for years). Had a CVA in 2018, has mild residual L sided weakness (uses a cane for ambulation). Also has Meniere's disease, and he uses Meclizine TID prn for symptom management. He is not taking lisinopril for his history of essential hypertension (self discontinued this a few months ago, per his report). PCP is Dr. Emil haile. Lives alone in [place], 2 adult sons (one in [place], one in [place], [place]). Son Gordon and April ([place], ) would be medical decision makers if needed. Quit smoking in approximately 2017. Quit drinking ETOH in 2001. Not currently working (on disability). Has had 4 COVID vaccines. Requests Full Code status. Review of Systems Status of ROS: Reports: 10 or more systems reviewed and unremarkable except as noted in History and below [facility] Medical History (Updated 08/14/22 @ 21:40 by Destinee Jensen MD) CAD (coronary artery disease) Chest pain COPD (chronic obstructive pulmonary disease) CVA (cerebral vascular accident) Essential hypertension Gastric ulcer H/O TIA (transient ischemic attack) and stroke Meniere disease Mixed hyperlipidemia GREGORIO (obstructive sleep apnea) Syncope Type 2 diabetes mellitus Vertigo Surgical History (Updated 06/04/22 @ 19:39 by Luis Daniel Lemons RN) No significant past surgical history Social History Smoking Status: Former smoker Do you use any of these nicotine containing products: None How often do you have a drink containing alcohol: never How often do you have six or more drinks on one occasion: Never AUDIT-C Alcohol total score: 0 Non-prescribed substance use: denies use Meds Home Medications and Allergies Home Medications Medication Instructions Recorded Confirmed Type albuterol sulfate 90 mcg/actuation 2 puff inhalation Q4H PRN 06/04/22 08/14/22 History aerosol inhaler carbidopa 25 mg-levodopa 100 mg 1 tab PO BID 06/04/22 08/14/22 History tablet glipizide 5 mg tablet 5 mg PO BID 06/04/22 08/14/22 History lisinopril 20 mg tablet 20 mg PO DAILY 06/04/22 08/14/22 History meclizine 25 mg tablet 25 mg PO TID PRN 06/04/22 08/14/22 History metformin 1,000 mg tablet 1,000 mg PO BID 06/04/22 08/14/22 History Home Medication Comments: Patient not taking Sinemet (unsure what it was for), also not taking Lisinopril. Allergies Allergy/AdvReac Type Severity Reaction Status Date / Time gadodiamide Allergy Unknown Verified 08/14/22 21:01 diagnostic x-ray materials Allergy Unknown Uncoded 08/14/22 21:01 Exam Narrative: Exam Narrative: GEN: Alert and oriented, answering questions appropriately and speaking in full sentences HEENT: Normal external ears, EOMIs bilaterally, no scleral icterus CV: Regular rhythm, mild tachycardia with rate in the 100 range during my exam. No concerning murmurs, rubs, or gallops R: Mild wheezing and rhonchi in bilateral bases, air movement slightly decreased. Ext: 2-3+ pitting edema to just below the knee bilaterally Skin: No concerning skin lesions or rashes on exposed skin Neuro: Nonfocal, no resting tremor, gait not observed Psych: Appropriate Const: Vital Signs, click to edit/add: Vital Signs - 24 hr 08/14/22 15:26 08/14/22 16:11 08/14/22 17:30 Temperature 98.2 F Pulse Rate [Pulse Oximeter] 113 H 112 H Respiratory Rate 28 H 22 Blood Pressure [Ri ght Upper Arm] 191/91 H 170/107 H Pulse Oximetry 92 96 94 Oxygen Delivery Me thod Room Air Room Air 08/14/22 17:00 08/14/22 16:00 08/14/22 15:30 Temperature Pulse Rate [Pulse Oximeter] 111 H 110 H 111 H Respiratory Rate 22 22 22 Blood Pressure [Ri ght Upper Arm] 164/64 H 160/79 H 185/77 H Pulse Oximetry 94 94 94 Oxygen Delivery Me thod Room Air Room Air Room Air 08/14/22 18:25 08/14/22 20:30 08/14/22 20:00 Temperature Pulse Rate [Pulse Oximeter] 111 H 110 H 110 H Respiratory Rate 20 20 20 Blood Pressure [Ri ght Upper Arm] 169/81 H 173/70 H 168/93 H Pulse Oximetry 92 94 94 Oxygen Delivery Me thod Room Air Room Air Hospitalist - H&P: Result Labs Labs: Short CBC 08/14/22 Range/Units 16:32 WBC 8.04 (4.50-11.00) K/uL Hgb 13.7 (13.5-17.5) gm/dL Hct 42.1 (37.0-53.0) % Plt Count 214 (140-440) K/uL BMP 08/14/22 16:11 Sodium 135 Potassium 3.5 L Chloride 99 Carbon Dioxide 25 BUN 14 Creatinine 0.8 Glucose 244 H Calcium 9.1 Cardiac Enzymes 08/14/22 08/14/22 Range/Units 16:11 18:40 Troponin I 0.24 H* 0.42 H* (0.01-0.04) ng/mL Liver Function 08/14/22 Range/Units 16:11 Total Bilirubin 0.5 (0.1-1.5) mg/dL AST 41 H (12-35) U/L ALT 37 (4-50) U/L Alkaline Phosphatase 128 (40-150) U/L Albumin 4.3 (3.3-5.0) g/dL Assessment and Plan Assessment and plan (1) Ground glass opacity present on imaging of lung: Status: Acute Assessment and Plan: Negative COVID, 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 Amenable to treatment with ceftriaxone and azithromycin. (2) Acute exacerbation of chronic obstructive pulmonary disease: Status: Acute Assessment and Plan: - neb treatments p.r.n. - IV Solu-Medrol - RT referral (3) Elevated troponin: Status: Acute Assessment and Plan: Patient has had no acute EKG changes and has no chest pain. Elevated troponin is likely secondary to demand ischemia from COPD exacerbation, possible CHF exacerbation given clinical findings on exam. - TTE has been ordered - follow troponins to peak (4) Pneumonia: Status: Acute (5) Essential hypertension: Status: Acute Assessment and Plan: Suboptimal control, noncompliant with Lisinopril as an outpatient. Amenable to restarting this now. Plan - per above - Lovenox for prophylaxis - Patient requests full code status
--- NOTE | 2022-08-14 21:47 | W.PC.EDHO ---
Primary Language: Preferred Language: Orientation Status: [x] Alert & Oriented [] Slight Confusion [] Known Dx Dementia Transfers By: [x] Assist of 1 [] Assist of 2 [] Lift Active Medications Generic Name Dose Route Start Last Admin Trade Name Freq PRN Reason Stop Dose Admin Albuterol/Ipratropium 1 neb 08/14/22 16:10 08/14/22 20:02 Iprat-Albut 0.5-2.5 Mg/3 Ml Neb 1 neb Q2H PRN Administration Glipizide 5 mg 08/14/22 19:30 08/14/22 20:11 Glipizide 5 Mg Tablet PO 5 mg DAILYWM JAIRO Administration Metformin HCl 1,000 mg 08/14/22 19:30 08/14/22 20:02 Metformin 1,000 Mg Tablet PO 1,000 mg BIDWM JAIRO Administration Discontinued Medications Generic Name Dose Route Start Last Admin Trade Name Freq PRN Reason Stop Dose Admin Albuterol/Ipratropium 1 neb 08/14/22 16:10 08/14/22 15:40 Iprat-Albut 0.5-2.5 Mg/3 Ml Neb IH 08/14/22 16:11 1 neb ONCE ONE Administration Aspirin 324 mg 08/14/22 19:29 08/14/22 19:49 Aspirin 81 Mg Tab.Chew PO 08/14/22 19:30 324 mg ONCE ONE Administration Diphenhydramine HCl 50 mg 08/14/22 19:31 08/14/22 19:42 Diphenhydramine 50 Mg/Ml Inj IVP 08/14/22 19:32 50 mg ONCE ONE Administration Methylprednisolone Sodium Succinate 125 mg 08/14/22 16:10 08/14/22 16:25 Methylprednisolone Sod Succ 62.5 Mg/Ml (125) IVP 08/14/22 16:11 125 mg ONCE ONE Administration Description of Symptoms ED Triage Present Problem Shortness of breath x3 days, cough. COPD history, Description my breathing treatments aren't working. Hasn't done any breathing treatments today. ED Triage Date of Onset of 08/11/22 Symptoms Pain Pain Scale Used Numeric (1 - 10) IV Insertion/Site Date of IV Line Insertion [ 08/14/22 Right Antecubital] Oxygen Administration Pulse Oximetry 94 Pulse Oximetry 94 Pulse Oximetry 92 Pulse Oximetry 94 Pulse Oximetry 94 Pulse Oximetry 96 Pulse Oximetry 94 Pulse Oximetry 94 Pulse Oximetry 92 Oxygen Delivery Method Room Air Oxygen Delivery Method Room Air Oxygen Delivery Method Room Air Oxygen Delivery Method Room Air Oxygen Delivery Method Room Air Oxygen Delivery Method Room Air Oxygen Delivery Method Room Air Cardiac Monitoring EKG Method 12 Lead EKG Method 12 Lead EKG Method 12 Lead
[2022-08-14] MEDS: AZITHROMYCIN 250 MG TABLET 500 MG PO (21:52)
[2022-08-14] MEDS: cefTRIAXone 2 GM in 0.9 % SODIUM CHLORIDE Mini-bag 100 ML IVPB (21:52)
[2022-08-15] VITALS (9 sets, daily range): BP systolic 138–166; BP diastolic 67–90; PULSE 79–104; RESP 20–33; TEMP 36.5–36.9; O2SAT 90–95
[2022-08-15] MEDS: METHYLPREDNISOLONE SOD SUCC 62.5 MG/ML (125) 125 MG IVP (04:08)
--- NOTE | 2022-08-15 07:25 | PC.NURSE ---
END OF SHIFT NOTE: PT IS PLEASANT AND COOPERATIVE. PT SOB WITH ACTIVITY AND AT REST. TACHYPNEIC WITH RR28 & 26. PT DENIES PAIN. PT AFEBRILE. HR 104 & 101. PT MOVES INDEPENDENTLY WITH CANE IN ROOM. TELE READS NSR.
[2022-08-15 08:40] LABS: Hematocrit 42.8 % (37.0-53.0); Hemoglobin* 13.9 gm/dL (13.5-17.5); Immature Granulocytes Abs Auto 0.03 K/uL (0.00-0.30); Lymphocytes Percent Auto 8.3 % (20-44); Mean Corpuscular HGB Conc 33 gm/dL (32-36); Mean Corpuscular Hemoglobin 31 pg (26-34); Mean Corpuscular Volume 94 fL (80-100); Monocytes Percent Auto 1.9 % (0.0-11.0); Neutrophils Percent Auto 89.3 % (42.0-72.0); Platelet Count* 209 K/uL (140-440); RDW Coefficient of Variation % 12.5 % (11.5-15.5); Red Blood Count 4.56 m/uL (4.30-5.90); White Blood Count* 5.66 K/uL (4.50-11.00)
[2022-08-15 08:44] LABS: Slide Review Reflex No
[2022-08-15 08:52] LABS: Albumin* 4.4 g/dL (3.3-5.0); Chloride* 100 mmol/L (96-114); Sodium* 136 mmol/L (135-149)
[2022-08-15 08:53] LABS: Potassium* 3.9 mmol/L (3.6-5.1)
[2022-08-15 08:55] LABS: Alanine Aminotransferase* 36 U/L (4-50); Alkaline Phosphatase* 133 U/L (40-150); Aspartate Amino Transferase* 27 U/L (12-35); Bilirubin Total* 0.6 mg/dL (0.1-1.5); Blood Urea Nitrogen* 22 mg/dL (7-30); Carbon Dioxide* 26 mmol/L (20-32); Creatinine* 0.7 mg/dL (0.5-1.5); Est. Creatinine Clearance* 61.67; Estimated Glomerular Filt Rate 102 ml/min; Glucose* 260 mg/dL (60-115); Total Protein* 7.7 g/dL (6.0-8.3)
[2022-08-15 08:56] LABS: Calcium* 9.3 mg/dL (8.4-10.6)
[2022-08-15 09:10] LABS: Troponin I* 0.43 ng/mL (0.01-0.04)
[2022-08-15] MEDS: METOPROLOL TARTRATE 25 MG TABLET PO ×3 (09:28→21:02)
[2022-08-15] MEDS: glipiZIDE 5 MG TABLET PO ×2 (09:28→21:02)
[2022-08-15] MEDS: METFORMIN 1,000 MG TABLET 1000 MG PO ×2 (09:28→21:02)
[2022-08-15] MEDS: lisinopriL 5 MG TABLET PO (10:28)
[2022-08-15] MEDS: ASPIRIN 81 MG TAB.CHEW PO (10:29)
[2022-08-15] MEDS: predniSONE 20 MG TABLET 60 MG PO (10:29)
--- NOTE | 2022-08-15 11:58 | P.IMPN_ITS ---
Progress Note: A&P Assessment and plan (1) Acute respiratory failure: Problem details: multifactorial Status: Acute (2) Ground glass opacity present on imaging of lung: Status: Acute (3) Pneumonia: Status: Acute (4) Elevated troponin: Problem details: Possible nonSTEMI, peak 0.43 ECHO 08/15/2022 LVH, nml LV size and systolic funcion, mild-mod MR Status: Acute (5) Acute exacerbation of chronic obstructive pulmonary disease: Status: Acute (6) Ascending aorta dilation: Problem details: 4 cm on ECHO 08/15/2022 Status: Acute (7) Aortic dilatation: Problem details: 3.9 cm on ECHO 08/15/2022 Status: Acute (8) Essential hypertension: Status: Acute (9) Type 2 diabetes mellitus: Status: Chronic (10) H/O medication noncompliance: Status: Acute Plan * Respiratory failure resolving. * Continue IV antibiotics for probable community acquired pneumonia. Physician to oral antibiotics when ready for discharge home, possibly tomorrow. * For history of coronary artery disease, suspect non-STEMI, since troponin has not yet peaked, continue to follow troponins, await final read of echocardiogram, patient was started on a beta-shalom this admission, continue this, consider increasing if blood pressure tolerates addition of lisinopril this morning. Adding statin, daily aspirin, and lisinopril this morning. Patient has self discontinued medications, possibly secondary to cost. I have asked social Work to meet with him regarding outpatient options. * For COPD exacerbation he was started on Solu-Medrol yesterday. Patient also is diabetic. Continue his usual home medications of glipizide and metformin, and add insulin sliding scale. Transition to oral prednisone today and do a rapid taper or stop altogether as he improves and is ready for discharge. * Follow-up with his primary care provider for repeat echocardiogram in 1 year to follow-up ascending aortic and aortic dilatations. Subjective Time Seen by Provider: 09:55 Date Seen: 08/15/22 Interval history: Lalo tells me he is feeling a bit better today. SOB is better, almost back to baseline. Was able to shower off oxygen and was satting 93% on RA after shower. Has not noticed LE edema at home or here, even though it is present. Self discontinued insulin at home due to cost. Also self discontinued lisinopril for unclear reasons. He is okay with restarting this as well as other cardiac meds. States gastric ulcer was many years ago. No problems since. Denies melena or hematechezia. EXAM General: No acute distress. Withdrawn, uses only a word or two to answer. Appeared almost teary-eyed when hearing about staying one more night and starting new meds. Awake, alert, oriented x3. No pallor. No jaundice. Oropharynx: Clear. Mucous membranes moist. Cardiovascular: Regular rate and rhythm. No murmurs, gallops, or rubs. Respiratory: Clear to auscultation bilaterally. No wheezes or crackles. Decreased air movement noted. Abdomen: Bowel sounds present. Soft, nondistended, nontender. Extremities: 1 to 2+ bilateral pretibial edema. Exam Const: Vital Signs, click to edit/add: Vital Signs - 24 hr 08/14/22 15:26 08/14/22 16:11 08/14/22 17:30 Temperature 98.2 F Pulse Rate Pulse Rate [Pulse Oximeter] 113 H 112 H Respiratory Rate 28 H 22 Blood Pressure [Le ft Arm] Blood Pressure [Ri ght Upper Arm] 191/91 H 170/107 H Pulse Oximetry 92 96 94 Oxygen Delivery Me thod Room Air Room Air 08/14/22 17:00 08/14/22 16:00 08/14/22 15:30 Temperature Pulse Rate Pulse Rate [Pulse Oximeter] 111 H 110 H 111 H Respiratory Rate 22 22 22 Blood Pressure [Le ft Arm] Blood Pressure [Ri ght Upper Arm] 164/64 H 160/79 H 185/77 H Pulse Oximetry 94 94 94 Oxygen Delivery Oh thod Room Air Room Air Room Air 08/14/22 18:25 08/14/22 20:30 08/14/22 20:00 Temperature Pulse Rate Pulse Rate [Pulse Oximeter] 111 H 110 H 110 H Respiratory Rate 20 20 20 Blood Pressure [Le ft Arm] Blood Pressure [Ri ght Upper Arm] 169/81 H 173/70 H 168/93 H Pulse Oximetry 92 94 94 Oxygen Delivery Oh thod Room Air Room Air 08/14/22 22:13 08/14/22 23:06 08/15/22 01:15 Temperature 98.2 F Pulse Rate 95 Pulse Rate [Pulse Oximeter] Respiratory Rate 22 Blood Pressure [Le ft Arm] Blood Pressure [Ri ght Upper Arm] Pulse Oximetry 86 L 106 H Oxygen Delivery Me thod Room Air Room Air 08/15/22 00:30 08/15/22 00:40 08/15/22 04:00 Temperature 97.7 F 98.5 F Pulse Rate Pulse Rate [Pulse Oximeter] 104 H 104 H 101 H Respiratory Rate 28 H 28 H 26 H Blood Pressure [Le ft Arm] 138/67 144/79 H Blood Pressure [Ri ght Upper Arm] Pulse Oximetry 93 91 Oxygen Delivery Me thod Room Air Room Air 08/15/22 07:00 08/15/22 07:00 Temperature 98.1 F Pulse Rate Pulse Rate [Pulse Oximeter] 98 98 Respiratory Rate 32 H 32 H Blood Pressure [Le ft Arm] 166/90 H Blood Pressure [Ri ght Upper Arm] Pulse Oximetry 90 Oxygen Delivery Me thod Room Air Documenting provider has reviewed patient's vital signs: yes Labs Labs: Laboratory Results - last 24 hr 08/14/22 08/14/22 08/14/22 16:11 16:11 16:32 WBC 8.04 RBC 4.51 Hgb 13.7 Hct 42.1 MCV 93 MCH 30 MCHC 33 RDW Coeff of Scott 12.5 Plt Count 214 Neut % (Auto) 81.6 H Lymph % (Auto) 9.0 L [place] % (Auto) 8.7 Eos % (Auto) 0.2 Baso % (Auto) 0.4 Neut # (Auto) 6.60 Lymph # (Auto) 0.70 L [place] # (Auto) 0.70 Eos # (Auto) 0.02 Baso # (Auto) 0.03 Abs Immat Gran (auto) 0.01 D-Dimer Quant (PE/DVT) VBG pH VBG pCO2 VBG pO2 VBG HCO3 Sodium 135 Potassium 3.5 L Chloride 99 Carbon Dioxide 25 BUN 14 Creatinine 0.8 Estimated Creat Clear 61.67 Estimated GFR 98 Glucose 244 H Calcium 9.1 Total Bilirubin 0.5 AST 41 H ALT 37 Alkaline Phosphatase 128 Troponin I 0.24 H* C-Reactive Protein 2.5 H NT-Pro-B Natriuret Pep 1440 H Total Protein 7.6 Albumin 4.3 SARS-CoV-2 (PCR) Negative SARS-CoV-2 Influenza Type A (PCR) Negative PCR FLU A Influenza Type B (PCR) Negative PCR FLU B RSV (PCR) Negative PCR RSV 08/14/22 08/14/22 08/14/22 16:32 16:32 18:40 WBC RBC Hgb Hct MCV MCH MCHC RDW Coeff of Scott Plt Count Neut % (Auto) Lymph % (Auto) [place] % (Auto) Eos % (Auto) Baso % (Auto) Neut # (Auto) Lymph # (Auto) [place] # (Auto) Eos # (Auto) Baso # (Auto) Abs Immat Gran (auto) D-Dimer Quant (PE/DVT) 0.98 H VBG pH 7.397 VBG pCO2 45 VBG pO2 45.6 VBG HCO3 28 Sodium Potassium Chloride Carbon Dioxide BUN Creatinine Estimated Creat Clear Estimated GFR Glucose Calcium Total Bilirubin AST ALT Alkaline Phosphatase Troponin I 0.42 H* C-Reactive Protein NT-Pro-B Natriuret Pep Total Protein Albumin SARS-CoV-2 (PCR) Influenza Type A (PCR) Influenza Type B (PCR) RSV (PCR) 08/15/22 08/15/22 08:10 08:10 WBC 5.66 RBC 4.56 Hgb 13.9 Hct 42.8 MCV 94 MCH 31 MCHC 33 RDW Coeff of Scott 12.5 Plt Count 209 Neut % (Auto) 89.3 H Lymph % (Auto) 8.3 L [place] % (Auto) 1.9 Eos % (Auto) 0.0 Baso % (Auto) 0.0 Neut # (Auto) 5.10 Lymph # (Auto) 0.50 L [place] # (Auto) 0.10 Eos # (Auto) 0.00 Baso # (Auto) 0.00 Abs Immat Gran (auto) 0.03 D-Dimer Quant (PE/DVT) VBG pH VBG pCO2 VBG pO2 VBG HCO3 Sodium 136 Potassium 3.9 Chloride 100 Carbon Dioxide 26 BUN 22 Creatinine 0.7 Estimated Creat Clear 61.67 Estimated GFR 102 Glucose 260 H Calcium 9.3 Total Bilirubin 0.6 AST 27 ALT 36 Alkaline Phosphatase 133 Troponin I 0.43 H* C-Reactive Protein NT-Pro-B Natriuret Pep Total Protein 7.7 Albumin 4.4 SARS-CoV-2 (PCR) Influenza Type A (PCR) Influenza Type B (PCR) RSV (PCR)
[2022-08-15] MEDS: IPRAT-ALBUT 0.5-2.5 MG/3 ML NEB 1 NEB IH ×2 (16:23→22:34)
--- NOTE | 2022-08-15 18:29 | PC.NURSE ---
shift [phone] pt this shift calm and cooperative. Pt joking with staff but has a blunted expression. Stable on room air, took shower with assist of OT, and ambulated halls with PT. New IS given and pt educated on use. 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 PRN albuterol neb given for SOB at rest and tachypnea at a rate of 28-32. IV flushed and patent. Increased blood glucose likely due to prednisone treated with sliding scale insulin. Skin intact, pt independent in room.
[2022-08-15] MEDS: cefTRIAXone 1 GM in 0.9 % SODIUM CHLORIDE Mini-bag 100 ML IVPB (21:01)
[2022-08-15] MEDS: ENOXAPARIN 40 MG/0.4 ML INJ SUBCUT (21:02)
[2022-08-15] MEDS: SIMVASTATIN 20 MG TABLET PO (21:02)
[2022-08-15] MEDS: AZITHROMYCIN 250 MG TABLET PO (21:02)
[2022-08-16] VITALS (8 sets, daily range): BP systolic 121–144; BP diastolic 64–86; PULSE 64–84; RESP 18–24; TEMP 36.6–36.8; O2SAT 91–96
[2022-08-16] MEDS: IPRAT-ALBUT 0.5-2.5 MG/3 ML NEB 1 NEB IH ×2 (03:17→20:35)
--- NOTE | 2022-08-16 06:29 | PC.NURSE ---
Shift note: Pt is SOB with rest, RN administered DuoNeb PRN with some relief throughout the night. Pt stated he was crabby, and he thinks about stopping all we are doing here and just let him
[2022-08-16 07:13] LABS: Basophils Percent Auto 0.1 % (0.0-3.0); Eosinophils Percent Auto 0.1 % (0.0-7.0); Hematocrit 42.7 % (37.0-53.0); Hemoglobin* 13.7 gm/dL (13.5-17.5); Immature Granulocytes Abs Auto 0.04 K/uL (0.00-0.30); Lymphocytes Percent Auto 13.4 % (20-44); Mean Corpuscular HGB Conc 32 gm/dL (32-36); Mean Corpuscular Hemoglobin 31 pg (26-34); Mean Corpuscular Volume 95 fL (80-100); Monocytes Percent Auto 8.8 % (0.0-11.0); Neutrophils Percent Auto 77.3 % (42.0-72.0); Platelet Count* 225 K/uL (140-440); RDW Coefficient of Variation % 12.5 % (11.5-15.5); Red Blood Count 4.49 m/uL (4.30-5.90); White Blood Count* 12.24 K/uL (4.50-11.00)
[2022-08-16 07:22] LABS: Slide Review Reflex No
[2022-08-16 07:35] LABS: Chloride* 102 mmol/L (96-114); Potassium* 3.8 mmol/L (3.6-5.1); Sodium* 137 mmol/L (135-149)
[2022-08-16 07:38] LABS: Blood Urea Nitrogen* 40 mg/dL (7-30); Carbon Dioxide* 27 mmol/L (20-32); Creatinine* 0.9 mg/dL (0.5-1.5); Est. Creatinine Clearance* 61.67; Estimated Glomerular Filt Rate 95 ml/min; Glucose* 128 mg/dL (60-115)
[2022-08-16 07:39] LABS: Calcium* 9.2 mg/dL (8.4-10.6)
[2022-08-16] MEDS: predniSONE 20 MG TABLET 60 MG PO (07:41)
[2022-08-16 07:51] LABS: Troponin I* 0.57 ng/mL (0.01-0.04)
[2022-08-16] MEDS: lisinopriL 5 MG TABLET PO (09:03)
[2022-08-16] MEDS: METFORMIN 1,000 MG TABLET 1000 MG PO ×2 (09:03→19:27)
[2022-08-16] MEDS: METOPROLOL TARTRATE 50 MG TABLET PO ×2 (09:04→19:27)
[2022-08-16] MEDS: ASPIRIN 81 MG TAB.CHEW PO (09:04)
[2022-08-16] MEDS: glipiZIDE 5 MG TABLET PO ×2 (09:04→19:27)
--- NOTE | 2022-08-16 13:50 | PM.IMPN1 ---
Progress Note: A&P Assessment and plan (1) Acute respiratory failure: Problem details: multifactorial, both pneumonia and COPD exacerbations appear better Status: Acute (2) Pneumonia: Problem details: Community-acquired pneumonia treatment with a Zithromax and ceftriaxone Status: Acute (3) Elevated troponin: Problem details: Possible nonSTEMI, mild increase in troponin. No chest pain. Uncertain whether his exertional dyspnea may be a sign of this. ECHO 08/15/2022 LVH, nml LV size and systolic funcion, mild-mod MR. Optimize care for coronary disease with statin, beta shalom, aspirin Status: Acute (4) Acute exacerbation of chronic obstructive pulmonary disease: Problem details: Better. Status: Acute (5) Aortic dilatation: Problem details: 3.9 cm on ECHO 08/15/2022 Status: Acute (6) Essential hypertension: Status: Acute (7) Type 2 diabetes mellitus: Problem details: Monitor and manage. Status: Chronic (8) H/O medication noncompliance: Problem details: Address barriers to compliance Status: Acute Time Spent With Patient Total time spent: Total time spent today is 50 minutes, 30 minutes in coordination of care discussing with patient and other providers management of coronary disease, pneumonia. Subjective Date Seen: 08/16/22 Interval history: 66-year-old male seen in followup of hospitalization for pneumonia and non STEMI. On admission patient was primarily noting relatively severe dyspnea and cough. He reports feeling much better today. He thinks his breathing is better. He is not requiring any oxygen. He is not aware of any fever. He has had no chest pain associated with any of these other symptoms of illness. He reports a good appetite no nausea vomiting or diarrhea. He feels like he is back to baseline and is anxious to go home. Exam Narrative: Exam Narrative: He is alert and in no distress. Speech is normal. Respirations with diminished breath sounds. No wheezing, rales, rhonchi. He does have a few basilar crackles. Cardiovascular: S1, S2, regular rate and rhythm. Abdomen is soft without tenderness or mass. Extremities without edema. Const: Vital Signs, click to edit/add: Vital Signs - 24 hr 08/15/22 15:00 08/15/22 15:00 08/15/22 19:15 Temperature 98.2 F Pulse Rate Pulse Rate [Pulse Oximeter] 79 79 91 Respiratory Rate 28 H 33 H 20 Blood Pressure [Le ft Arm] 150/74 H 158/74 H Pulse Oximetry 93 94 Oxygen Delivery Me thod Room Air Room Air 08/15/22 23:00 08/15/22 23:00 08/15/22 23:00 Temperature 98.3 F Pulse Rate 86 Pulse Rate [Pulse Oximeter] 87 Respiratory Rate 22 Blood Pressure [Le ft Arm] 151/73 H Pulse Oximetry 95 95 Oxygen Delivery Me thod Room Air Room Air 08/16/22 03:00 08/16/22 07:00 08/16/22 07:00 Temperature 98 F Pulse Rate Pulse Rate [Pulse Oximeter] 69 68 Respiratory Rate 24 24 24 Blood Pressure [Le ft Arm] 138/66 Pulse Oximetry 94 94 Oxygen Delivery Me thod Room Air Room Air 08/16/22 07:00 08/16/22 07:00 08/16/22 11:00 Temperature 98.1 F 98.2 F Pulse Rate 84 Pulse Rate [Pulse Oximeter] 68 64 Respiratory Rate 24 24 Blood Pressure [Le ft Arm] 121/71 121/86 Pulse Oximetry 93 94 Oxygen Delivery Me thod Room Air Room Air Documenting provider has reviewed patient's vital signs: yes Labs Labs: Laboratory Results - last 24 hr 08/16/22 08/16/22 06:03 06:03 WBC 12.24 H RBC 4.49 Hgb 13.7 Hct 42.7 MCV 95 MCH 31 MCHC 32 RDW Coeff of Scott 12.5 Plt Count 225 Neut % (Auto) 77.3 H Lymph % (Auto) 13.4 L [place] % (Auto) 8.8 Eos % (Auto) 0.1 Baso % (Auto) 0.1 Neut # (Auto) 9.50 H Lymph # (Auto) 1.60 [place] # (Auto) 1.10 H Eos # (Auto) 0.00 Baso # (Auto) 0.00 Abs Immat Gran (auto) 0.04 Sodium 137 Potassium 3.8 Chloride 102 Carbon Dioxide 27 BUN 40 H Creatinine 0.9 Estimated Creat Clear 61.67 Estimated GFR 95 Glucose 128 H Calcium 9.2 Troponin I 0.57 H*
--- NOTE | 2022-08-16 17:19 | W.SUR.HO ---
Primary Language: Occitan Preferred Language: Occitan Orientation Status: [x4] Alert & Oriented [] Slight Confusion [] Known Dx Dementia NPO Since: GREGORIO: IV Size: 20G IV Site Location: right AC EBL: QBL: Duramorph Given (If Yes, Indicate Time): Equipment: [] NG [] Maria [] ARSALAN [] CBI [] Compression Device Name of Patient's Escort: Phone Number of Escort: Escort's Relationship to Patient: Active Medications Generic Name Dose Route Start Last Admin Trade Name Freq PRN Reason Stop Dose Admin Acetaminophen 975 mg 08/14/22 22:13 Acetaminophen 325 Mg Tablet PO Q8H PRN Albuterol 2 puff 08/14/22 21:42 Albuterol Inhaler IH Q4H PRN Albuterol/Ipratropium 1 neb 08/14/22 16:10 08/16/22 03:17 Iprat-Albut 0.5-2.5 Mg/3 Ml Neb IH 1 neb Q2H PRN Administration Aspirin 81 mg 08/15/22 09:55 08/16/22 09:04 Aspirin 81 Mg Tab.Chew PO 81 mg DAILY JAIRO Administration Atorvastatin Calcium 40 mg 08/16/22 21:00 Atorvastatin 10 Mg Tablet PO HS JAIRO Azithromycin 500 mg 08/15/22 21:00 08/15/22 21:02 Azithromycin 250 Mg Tablet PO 08/20/22 20:59 500 mg Q24H JAIRO Administration Taper Enoxaparin Sodium 40 mg 08/15/22 21:00 08/15/22 21:02 Enoxaparin 40 Mg/0.4 Ml Inj SUBCUT 40 mg HS JAIRO Administration Glipizide 5 mg 08/15/22 09:00 08/16/22 09:04 Glipizide 5 Mg Tablet PO 5 mg BID JAIRO Administration Ceftriaxone Sodium 1 gm/ 100 mls @ 200 mls/hr 08/15/22 21:00 08/15/22 21:58 Sodium Chloride IVPB Infused Q24H JAIRO Infusion Insulin Aspart 0 unit 08/15/22 11:30 08/16/22 16:38 Insulin Aspart 100 Unit/Ml (Novolog) SUBCUT 3 unit ACHS JAIRO Administration Protocol Lisinopril 5 mg 08/15/22 10:30 08/16/22 09:03 Lisinopril 5 Mg Tablet PO 5 mg DAILY JAIRO Administration Lorazepam 0.5 - 1 mg 08/14/22 22:13 Lorazepam 0.5 Mg Tablet PO Q4H PRN Meclizine HCl 25 mg 08/14/22 21:42 Meclizine Hcl 25 Mg Tablet PO TID PRN Metformin HCl 1,000 mg 08/15/22 09:00 08/16/22 09:03 Metformin 1,000 Mg Tablet PO 1,000 mg BID JAIRO Administration Metoprolol Tartrate 50 mg 08/16/22 09:00 08/16/22 09:04 Metoprolol Tartrate 50 Mg Tablet PO 50 mg BID JAIRO Administration Prednisone 40 mg 08/17/22 08:00 Prednisone 20 Mg Tablet PO DAILYWM JAIRO
--- NOTE | 2022-08-16 18:16 | PC.NURSE ---
Pt. alert and oriented x3. Pt. is pleasant and cooperative. Pt. denies any pain, no chest pain, N/V. Pt. mildly SOB at exertion. Pt. did not need PRN duoneb and has stated that he feels like he is ready to go home. Pt. afebrile. Pt's BG was 112, 233, and 298. Sliding scale administered. see eMAR. IV in right AC intact and patent. VSS. Pt. on tele w/NSR. Pt. trops elevated and plan for him: will remain in hospital possibly one more day to monitor levels.
[2022-08-16] MEDS: ATORVASTATIN 10 MG TABLET 40 MG PO (19:26)
[2022-08-16] MEDS: ACETAMINOPHEN 325 MG TABLET 975 MG PO (19:26)
[2022-08-16] MEDS: ENOXAPARIN 40 MG/0.4 ML INJ SUBCUT (19:27)
[2022-08-16] MEDS: AZITHROMYCIN 250 MG TABLET PO (19:27)
[2022-08-16] MEDS: cefTRIAXone 1 GM in 0.9 % SODIUM CHLORIDE Mini-bag 100 ML IVPB (20:53)
[2022-08-16 21:58] LABS: Troponin I* 0.34 ng/mL (0.01-0.04)
[2022-08-16] MEDS: LORazepam 0.5 MG TABLET PO (21:59)
[2022-08-17] VITALS (7 sets, daily range): BP systolic 133–178; BP diastolic 67–93; PULSE 62–88; RESP 20–24; TEMP 36.2–37.1; O2SAT 90–96
--- NOTE | 2022-08-17 05:47 | PC.NURSE ---
SHIFT NOTE : Pt A&O. Afebrile. Oxygen saturations 90% and greater on room air. SOB with exertion, pt complained of chest tightness last evening with noted wheezing, duoneb given with some relief. MD updated, EKG obtained and Troponin drawn. EKG unchanged and troponin level was better than previous. Pt relieved and reported his symptoms were better. Tele reads NSR. Pt denies N/V and has had no other episodes of chest pain/pressure/tightness. Pt had a headache last evening, PRN Tylenol given with relief, pt otherwise denies pain. PRN Ativan given for sleep, effective. HS blood sugar 255, SS insulin given per eMAR. Pt up independent in room and tolerating well.
[2022-08-17 06:20] LABS: Eosinophils Percent Auto 0.4 % (0.0-7.0); Hematocrit 44.8 % (37.0-53.0); Hemoglobin* 14.3 gm/dL (13.5-17.5); Immature Granulocytes Abs Auto 0.03 K/uL (0.00-0.30); Lymphocytes Percent Auto 22.5 % (20-44); Mean Corpuscular HGB Conc 32 gm/dL (32-36); Mean Corpuscular Hemoglobin 30 pg (26-34); Mean Corpuscular Volume 95 fL (80-100); Monocytes Percent Auto 8.2 % (0.0-11.0); Neutrophils Percent Auto 68.6 % (42.0-72.0); Platelet Count* 222 K/uL (140-440); RDW Coefficient of Variation % 12.2 % (11.5-15.5); Red Blood Count 4.74 m/uL (4.30-5.90); Slide Review Reflex No; White Blood Count* 11.04 K/uL (4.50-11.00)
[2022-08-17 06:35] LABS: Chloride* 102 mmol/L (96-114); Potassium* 4.1 mmol/L (3.6-5.1); Sodium* 137 mmol/L (135-149)
[2022-08-17 06:37] LABS: Creatinine* 0.8 mg/dL (0.5-1.5); Est. Creatinine Clearance* 61.67; Estimated Glomerular Filt Rate 98 ml/min
[2022-08-17 06:38] LABS: Blood Urea Nitrogen* 42 mg/dL (7-30); Calcium* 9.1 mg/dL (8.4-10.6); Carbon Dioxide* 26 mmol/L (20-32); Glucose* 93 mg/dL (60-115)
[2022-08-17 06:51] LABS: Troponin I* 0.34 ng/mL (0.01-0.04)
[2022-08-17] MEDS: predniSONE 20 MG TABLET 40 MG PO (07:34)
[2022-08-17] MEDS: glipiZIDE 5 MG TABLET PO ×2 (08:58→20:50)
[2022-08-17] MEDS: lisinopriL 5 MG TABLET PO ×2 (08:58→20:50)
[2022-08-17] MEDS: METOPROLOL TARTRATE 50 MG TABLET PO ×2 (08:58→20:50)
[2022-08-17] MEDS: METFORMIN 1,000 MG TABLET 1000 MG PO ×2 (08:59→20:50)
[2022-08-17] MEDS: ASPIRIN 81 MG TAB.CHEW PO (08:59)
[2022-08-17] MEDS: IPRAT-ALBUT 0.5-2.5 MG/3 ML NEB 1 NEB IH ×3 (09:17→22:15)
--- NOTE | 2022-08-17 11:05 | CRLHL7_ITS ---
For Patients: As a result of the Century Cures Act, medical imaging exams and procedure reports are released immediately into your electronic medical record. You may view this report before your referring provider. If you have questions, please contact your health care provider. INDICATION: Hypoxia. TECHNIQUE: PA and lateral. COMPARISON: Chest CT of 08/14/2022. FINDINGS: Lungs low in volume with crowded markings in the bases. No obvious acute infiltrate. No pleural effusion. Heart size and pulmonary vasculature within normal limits, allowing for the shallow inspiration. No significant bony abnormality. IMPRESSION: Negative chest, allowing for shallow inspiration. Dictated by Manuel Ford MD @ 08/17/2022 12:40:26 PM (Electronically Signed)
[2022-08-17 11:56] LABS: NT Pro B Type NatriureticPept* 1750 PG/mL (0-125)
--- NOTE | 2022-08-17 15:56 | PM.IMPN1 ---
Progress Note: A&P Assessment and plan (1) Acute respiratory failure: Problem details: He was getting better until today. Now appears to be a bit worse possibly heart failure with some orthopnea playing a role. Status: Acute (2) Pneumonia: Problem details: Community-acquired pneumonia treatment with a Zithromax and ceftriaxone. Status: Acute (3) Elevated troponin: Problem details: Possible nonSTEMI, mild increase in troponin. No chest pain. Uncertain whether his exertional dyspnea may be a sign of this. I think is a component of heart failure with preserved ejection fraction. ECHO 08/15/2022 LVH, nml LV size and systolic funcion, mild-mod MR. Optimize care for coronary disease with statin, beta shalom, aspirin When clinically stable get outpatient stress test Status: Acute (4) Acute exacerbation of chronic obstructive pulmonary disease: Problem details: Wheezing may be from COPD or possibly from heart failure. Treat both. Status: Acute (5) Aortic dilatation: Problem details: 3.9 cm on ECHO 08/15/2022 Status: Acute (6) Essential hypertension: Problem details: Continue to optimize medicine for coronary disease and heart failure Status: Acute (7) Type 2 diabetes mellitus: Problem details: Monitor and manage. Suboptimal control probably due to prednisone. Patient is reluctant to have additional diabetes medicines due to cost Status: Chronic (8) H/O medication noncompliance: Problem details: It appears financial considerations are barrier to compliance. Will work with him tomorrow to make sure that he can get his prescriptions filled. Status: Acute (9) Heart failure with preserved ejection fraction: Problem details: May need a diuretic. Status: Acute Plan Continue in hospital for another day for treatment of hypoxic respiratory failure. Possible discharge tomorrow if clinically improved. Time Spent With Patient Total time spent: Total time spent today is 45 minutes, 30 minutes in coordination of care discussing management of heart failure, COPD, pneumonia, diabetes. Subjective Date Seen: 08/17/22 Interval history: 66-year-old male seen in followup of hypoxic respiratory distress, pneumonia, acute coronary syndrome. This morning when I saw the patient he was more dyspneic and had an O2 sat in the mid 80s.. Nurse noted that he seemed to be doing okay when he sitting up in the chair but when he was lying down he became more short of breath and wheezy. He did respond nicely to a nebulizer treatment with improvement in his wheezing but was still borderline hypoxic. Chest x-ray did not show significant change in his infiltrates though question of a left lower lobe infiltrate versus atelectasis. He is very anxious to go home. Unfortunately he does not think he has the money to buy his medications until tomorrow. Exam Narrative: Exam Narrative: He is alert and appears mildly dyspneic with increased rate and work of breathing. Respirations initially with diffuse expiratory wheezes and a few basilar crackles. This improved after the nebulizer but did not completely returned to normal. Cardiovascular: S1, S2, regular rate and rhythm. Abdomen is soft without tenderness or mass. Extremities without significant edema. Const: Vital Signs, click to edit/add: Vital Signs - 24 hr 08/16/22 19:00 08/16/22 23:00 08/16/22 23:00 Temperature 98.1 F Pulse Rate Pulse Rate [Pulse Oximeter] 78 68 Respiratory Rate 20 22 22 Blood Pressure [Le ft Arm] 141/80 H Pulse Oximetry 96 93 Oxygen Delivery [facility] Room Air Room Air 08/16/22 23:00 08/16/22 23:00 08/17/22 03:00 Temperature 98 F 98.8 F Pulse Rate 76 Pulse Rate [Pulse Oximeter] 68 74 Respiratory Rate 22 24 Blood Pressure [Le ft Arm] 138/64 133/93 H Pulse Oximetry 93 90 [facility] Room Air 08/17/22 07:00 08/17/22 07:00 08/17/22 07:00 Temperature 97.9 F Pulse Rate Pulse Rate [Pulse Oximeter] 71 71 Respiratory Rate 20 20 20 Blood Pressure [Le ft Arm] 158/84 H Pulse Oximetry 92 92 [facility] Room Air 08/17/22 07:00 08/17/22 11:00 08/17/22 14:45 Temperature 97.1 F L Pulse Rate 79 Pulse Rate [Pulse Oximeter] 85 85 Respiratory Rate 22 20 Blood Pressure [Le ft Arm] 151/71 H Pulse Oximetry 92 [facility] 08/17/22 14:45 08/17/22 14:45 08/17/22 15:00 Temperature 97.9 F Pulse Rate 62 Pulse Rate [Pulse Oximeter] 85 Respiratory Rate 20 20 Blood Pressure [Le ft Arm] 156/67 H Pulse Oximetry 92 92 [facility] Room Air Labs Labs: Laboratory Results - last 24 hr 08/16/22 08/17/22 08/17/22 21:14 06:10 06:10 WBC 11.04 H RBC 4.74 Hgb 14.3 Hct 44.8 MCV 95 MCH 30 MCHC 32 RDW Coeff of Scott 12.2 Plt Count 222 Neut % (Auto) 68.6 Lymph % (Auto) 22.5 [place] % (Auto) 8.2 Eos % (Auto) 0.4 Baso % (Auto) 0.0 Neut # (Auto) 7.60 H Lymph # (Auto) 2.50 [place] # (Auto) 0.90 Eos # (Auto) 0.00 Baso # (Auto) 0.00 Abs Immat Gran (auto) 0.03 Sodium 137 Potassium 4.1 Chloride 102 Carbon Dioxide 26 BUN 42 H Creatinine 0.8 Estimated Creat Clear 61.67 Estimated GFR 98 Glucose 93 Calcium 9.1 Troponin I 0.34 H* 0.34 H* NT-Pro-B Natriuret Pep 1750 H
[2022-08-17] MEDS: POTASSIUM CHLORIDE 10 MEQ CAPSULE ER 20 MEQ PO (16:25)
[2022-08-17] MEDS: FUROSEMIDE 10 MG/ML inj 20 MG IVP (16:25)
--- NOTE | 2022-08-17 18:33 | PC.NURSE ---
Pt. alert and oriented x3. Pt. is pleasant and cooperative. Pt. denies any pain, no chest pain, N/V. Pt. SOB at exertion, Duoneb administered x2. Wheezing on auscultation after pt. ambulated in the hallway. Pt. afebrile. Pt's BG was 86, 143, 220, 263. Sliding scale administered. see eMAR. IV in right AC intact and patent. VSS. Pt. on tele w/NSR. Pt. trops elevated, ProBNP elevated and plan for him: will remain in hospital possibly one more day to monitor levels and see if things improve.?
[2022-08-17] MEDS: ENOXAPARIN 40 MG/0.4 ML INJ SUBCUT (20:49)
[2022-08-17] MEDS: cefTRIAXone 1 GM in 0.9 % SODIUM CHLORIDE Mini-bag 100 ML IVPB (20:49)
[2022-08-17] MEDS: AZITHROMYCIN 250 MG TABLET PO (20:50)
[2022-08-17] MEDS: ATORVASTATIN 10 MG TABLET 40 MG PO (20:50)
[2022-08-17] MEDS: LORazepam 0.5 MG TABLET PO (22:12)
[2022-08-18 03:00] VITALS: BP 148/66; PULSE 75; RESP 22; TEMP 36.6; O2SAT 92
--- NOTE | 2022-08-18 06:14 | PC.NURSE ---
SHIFT NOTE : Pt is anxious about his discharge, states he wants to go home one minute but then he states he is also nervous to go home, PRN Ativan given with minor relief. Pt up independent in room, VSS on RA, tele reads NSR. Pt denies pain, CP, and N/V. Pt gets quite SOB with exertion, PRN nebulizer given x1 with some relief.
[2022-08-18 06:48] LABS: Eosinophils Absolute Auto 0.14 K/uL (0.00-0.50); Eosinophils Percent Auto 1.5 % (0.0-7.0); Hematocrit 46.1 % (37.0-53.0); Immature Granulocytes Abs Auto 0.04 K/uL (0.00-0.30); Lymphocytes Absolute Auto 2.28 K/uL (0.90-2.90); Lymphocytes Percent Auto 23.7 % (20-44); Mean Corpuscular HGB Conc 33 gm/dL (32-36); Mean Corpuscular Hemoglobin 30 pg (26-34); Mean Corpuscular Volume 93 fL (80-100); Monocytes Percent Auto 8.4 % (0.0-11.0); Neutrophils Absolute Auto 6.37 K/uL (1.7-7.0); Platelet Count* 242 K/uL (140-440); Red Blood Count 4.95 m/uL (4.30-5.90); White Blood Count* 9.64 K/uL (4.50-11.00)
[2022-08-18 07:00] VITALS: BP 161/94; PULSE 82; RESP 26; TEMP 36.4; O2SAT 94
[2022-08-18 07:02] LABS: Chloride* 96 mmol/L (96-114); Potassium* 3.8 mmol/L (3.6-5.1); Sodium* 138 mmol/L (135-149)
[2022-08-18 07:05] LABS: Carbon Dioxide* 32 mmol/L (20-32); Creatinine* 0.9 mg/dL (0.5-1.5); Est. Creatinine Clearance* 61.67; Estimated Glomerular Filt Rate 95 ml/min
[2022-08-18 07:06] LABS: Blood Urea Nitrogen* 31 mg/dL (7-30); Calcium* 9.4 mg/dL (8.4-10.6); Glucose* 92 mg/dL (60-115)
[2022-08-18 07:12] LABS: Slide Review Reflex No
[2022-08-18 07:21] LABS: Troponin I* 0.27 ng/mL (0.01-0.04)
[2022-08-18 07:29] VITALS: PULSE 84
[2022-08-18] MEDS: predniSONE 20 MG TABLET 40 MG PO (07:52)
[2022-08-18] MEDS: ASPIRIN 81 MG TAB.CHEW PO (09:27)
[2022-08-18] MEDS: TORSEMIDE 5 MG TABLET 10 MG PO (09:28)
[2022-08-18] MEDS: METOPROLOL TARTRATE 50 MG TABLET PO (09:28)
[2022-08-18] MEDS: METFORMIN 1,000 MG TABLET 1000 MG PO (09:28)
[2022-08-18] MEDS: glipiZIDE 5 MG TABLET PO (09:28)
[2022-08-18] MEDS: POTASSIUM CHLORIDE 10 MEQ CAPSULE ER PO (09:28)
[2022-08-18] MEDS: lisinopriL 5 MG TABLET PO (09:28)
--- NOTE | 2022-08-18 09:46 | PC.SOCIAL ---
Met with pt. who has insurance but has limited income. Advised pt. to go to the [facility] for assistance with applying for additional insurance coverage, food help, and home making if needed. Gave pt. an MA application and a [employer] Rx prescription drug card to assist with medication costs. Pt. states he already utilizes the food shelf at the [facility].
[2022-08-18 09:57] VITALS: PULSE 84; RESP 26; TEMP 36.4
[2022-08-18] MEDS: METOPROLOL SUCCINATE (XL) 50 MG TAB PO (10:08)
[2022-08-18] MEDS: AZITHROMYCIN 250 MG TABLET 500 MG PO (10:08)
--- NOTE | 2022-08-18 10:37 | PC.NURSE ---
Discharge: Patient pleasant and cooperative. Patient hypertensive but vitally stable, lungs with course crackles and expiratory wheezes posteriorly, BS WNL, IV removed, catheter intact. Patient denied pain. Patient independent in room. BS 88, tolerating regular diet, urinating and had 1 small BM. Patient signed belongings sheet and discharge form. Patient had no further questions regarding discharge. Patient educated on weighing self daily and eating low sodium diet. Patient left the floor by wheelchair at 1034 with belongings, driving self home.
--- NOTE | 2022-08-18 11:56 | PM.DS1 ---
DS: Providers Provider Date Seen: 08/18/22 Date of admission: 08/14/22 22:26 Primary care physician: Hannah Stein DO Admitting Clinician: Destinee Jensen MD Attending Physician on discharge: Destinee Jensen MD Date of Discharge: 08/18/22 DS: Diagnosis Discharge Diagnosis (1) Pneumonia: Status: Acute Problem details: Community-acquired pneumonia treatment with a Zithromax and ceftriaxone. (2) Heart failure with preserved ejection fraction: Status: Acute Problem details: Started on torsemide as well as Toprol and lisinopril. (3) Acute respiratory failure: Status: Acute Problem details: Multifactorial. Initially felt to be primarily pneumonia and COPD. Later felt that heart failure also contributing. Episodes of hypoxic respiratory failure occurred but resolved with medical treatment. No longer needing oxygen (4) Acute exacerbation of chronic obstructive pulmonary disease: Status: Acute Problem details: Improved (5) Essential hypertension: Status: Acute Problem details: Added lisinopril, torsemide, Toprol XL to treat heart failure and hypertension (6) Non-STEMI (non-ST elevated myocardial infarction): Status: Acute Problem details: Elevation of troponins to moderate degree with improvement over the last couple days. Not associated with chest pain. Not associated with new wall motion abnormality on echo. No diagnostic EKG changes. Recommend outpatient stress test when clinical symptoms of COPD and pneumonia have resolved (7) H/O medication noncompliance: Status: Acute Problem details: It appears financial considerations are barrier to compliance. Discussed with him the importance of taking medications. I have prescribed a number of new medications which are all generic. At this time he thinks he can work out a plan to get these prescriptions filled (8) Type 2 diabetes mellitus: Status: Chronic Problem details: Monitor and manage. Suboptimal control probably due to prednisone. Patient is reluctant to have additional diabetes medicines due to cost DS: Summary Hospital Course Hospital Course: 66-year-old male admitted to the hospital with cough and dyspnea. He was found to have hypoxic respiratory failure. Imaging showed bilateral pulmonary infiltrates. He is treated for community-acquired pneumonia with ceftriaxone and azithromycin. He was also treated for COPD exacerbation with prednisone and inhaled bronchodilators. At time of admission he was also noted to have elevated troponin. This continued to increase for the 1st 2 days in a hospital. Echocardiogram did not show new wall motion abnormalities. Electrocardiogram did not show diagnostic ST-T changes. He was felt to have heart failure as a contributor to his dyspnea and was initiated on a low dose of torsemide 10 mg daily which seem to be beneficial as well. Blood sugar control was suboptimal during his hospital stay presumably due to prednisone therapy. Status at Discharge Functional status at discharge: independent ambulation Overall status at discharge: patient is back to baseline Time Spent with Patient Time attestation: Total time spent providing and/or coordinating discharge services: Time spent: Greater than 30 minutes Exam Narrative: Exam Narrative: He is alert and appears in no distress. Respiratory effort is improved today. No significant wheezing noted today compared to yesterday where he had moderate wheezing. Cardiovascular: S1, S2, regular rate and rhythm. Abdomen is soft without tenderness. Const: Vital Signs, click to edit/add: Vital Signs - 24 hr 08/17/22 14:45 08/17/22 14:45 08/17/22 14:45 Temperature 97.9 F Pulse Rate Pulse Rate [Pulse Oximeter] 85 85 Respiratory Rate 20 20 20 Blood Pressure [Le ft Arm] 156/67 H Blood Pressure [Ri ght Arm] Pulse Oximetry 92 92 Oxygen Delivery Me thod Room Air Room Air 08/17/22 15:00 08/17/22 19:00 08/17/22 23:00 Temperature 98 F Pulse Rate 62 74 Pulse Rate [Pulse Oximeter] 88 Respiratory Rate 22 Blood Pressure [Le ft Arm] 178/86 H Blood Pressure [Ri ght Arm] Pulse Oximetry 91 Oxygen Delivery Hi thod Room Air 08/17/22 23:00 08/17/22 23:00 08/17/22 23:00 Temperature 98.1 F Pulse Rate Pulse Rate [Pulse Oximeter] 78 78 Respiratory Rate 20 20 20 Blood Pressure [Le ft Arm] 148/73 H Blood Pressure [Ri ght Arm] Pulse Oximetry 96 96 Oxygen Delivery Me thod Room Air Room Air 08/18/22 03:00 08/18/22 07:29 08/18/22 07:00 Temperature 97.9 F Pulse Rate 84 Pulse Rate [Pulse Oximeter] 75 82 Respiratory Rate 22 26 H Blood Pressure [Le ft Arm] 148/66 H Blood Pressure [Ri ght Arm] Pulse Oximetry 92 Oxygen Delivery Me thod Room Air 08/18/22 07:00 08/18/22 07:00 08/18/22 09:57 Temperature 97.6 F 97.6 F Pulse Rate 84 Pulse Rate [Pulse Oximeter] 82 Respiratory Rate 26 H 26 H 26 H Blood Pressure [Le ft Arm] Blood Pressure [Ri ght Arm] 161/94 H Pulse Oximetry 94 94 Oxygen Delivery Me thod Room Air Room Air Documenting provider has reviewed patient's vital signs: yes DS: Data Data Completed and Pending Labs on day of discharge: Labs from last 24 hours 08/18/22 08/18/22 08/17/22 06:23 06:23 06:10 WBC 9.64 RBC 4.95 Hgb 15.0 Hct 46.1 MCV 93 MCH 30 MCHC 33 RDW Coeff of Scott 12.0 Plt Count 242 Neut % (Auto) 66.0 Lymph % (Auto) 23.7 [place] % (Auto) 8.4 Eos % (Auto) 1.5 Baso % (Auto) 0.0 Neut # (Auto) 6.37 Lymph # (Auto) 2.28 [place] # (Auto) 0.80 Eos # (Auto) 0.14 Baso # (Auto) 0.00 Abs Immat Gran (auto) 0.04 Sodium 138 Potassium 3.8 Chloride 96 Carbon Dioxide 32 BUN 31 H Creatinine 0.9 Estimated Creat Clear 61.67 Estimated GFR 95 Glucose 92 Calcium 9.4 Troponin I 0.27 H* NT-Pro-B Natriuret Pep 1750 H Discharge Plan Discharge Disposition: Home, Self-Care Date of Admission: 08/14/22 22:26 Attending Provider on Discharge: Manuel Harper Primary Care Provider: Hannah Stein Condition: Stable Anticipated Discharge Date/Time: 08/18/22 10:00 Discharge Medications: New lisinopril 10 mg tablet 10 mg PO DAILY Qty: 30 2RF torsemide 10 mg tablet 10 mg PO DAILY Qty: 30 2RF potassium chloride 10 mEq capsule, extended release 10 meq PO DAILY Qty: 30 2RF prednisone 20 mg tablet 20 mg PO DAILY Qty: 4 0RF atorvastatin 40 mg tablet 40 mg PO DAILY Qty: 30 2RF metoprolol succinate 100 mg capsule,sprinkle,ER 24hr 100 mg PO DAILY Qty: 30 2RF aspirin 81 mg capsule 81 mg PO DAILY Qty: 30 2RF ipratropium-albuterol 0.5 mg-3 mg(2.5 mg base)/3 mL Solution For Nebulization 3 ml inhalation TID Qty: 180 0RF Continued albuterol sulfate 90 mcg/actuation HFA aerosol inhaler 2 puff INHALATION Q4H PRN Label Comments: Inhale 2 Puffs by mouth every 4 hours if needed. glipizide 5 mg tablet 5 mg PO BID meclizine 25 mg tablet 25 mg PO TID PRN metformin 1,000 mg tablet 1,000 mg PO BID loratadine [Claritin] 10 mg tablet 10 mg PO DAILY PRN aspirin [Adult Low Dose Aspirin] 81 mg tablet,delayed release (DR/EC) 81 mg PO DAILY Discharge Orders: Discharge Order (Routine); Ordered 08/18/22 Ordered By: Manuel Harper Patient Education: Metoprolol (By mouth), Lisinopril (By mouth), Prednisone (By mouth), Potassium Chloride (By mouth), Aspirin (By mouth), Atorvastatin (By mouth), Torsemide (By mouth), Ipratropium/Albuterol (By breathing), Community Acquired Pneumonia (DC) Activity Restrictions/Additional Instructions: Check your weight every day at the same time. Contact your doctor if your weight increases by 2 lb in 1 day or 4 lb in a week. This may indicate more fluid retention. Activity Level: Activity as Tolerated Discharge Diet: 2 gm Sodium Follow Up Appointments: Hannah Stein DO [Primary Care Provider] - 08/22/22 1:50 pm (Check in with lab at 1:30pm for CBC and Basic Metabolic Panel.) Forms: [employer] Info Instructions Discharge Comments: Will need followup of heart failure with monitoring of dyspnea, weight, fluid status and electrolytes. Follow-up of pneumonia with clinical reassessment of signs and symptoms. Follow-up of COPD with clinical reassessment of signs and symptoms. Follow-up of non STEMI with outpatient stress test once his signs and symptoms of pneumonia and COPD have resolved.
== END 2022-08-18 10:34 | disposition home or self-care (01) | DRG 190 ==
LOC: ED 21:33 → MEDSURG 22:29
PROVIDERS: Family Medicine; Admitting Provider Family Medicine; Emergency Provider Family Medicine; PCP Family Medicine; Visit Provider Family Medicine
DX: J44.0 Chronic obstructive pulmonary disease with (acute) lower respiratory infection (principal); J18.9 Pneumonia, unspecified organism; J96.01 Acute respiratory failure with hypoxia; I21.4 Non-ST elevation (NSTEMI) myocardial infarction; I50.30 Unspecified diastolic (congestive) heart failure; J44.1 Chronic obstructive pulmonary disease with (acute) exacerbation; I44.4 Left anterior fascicular block; G47.33 Obstructive sleep apnea (adult) (pediatric); H81.09 Meniere's disease, unspecified ear; Z87.891 Personal history of nicotine dependence; I25.10 Atherosclerotic heart disease of native coronary artery without angina pectoris; I10 Essential (primary) hypertension; Z86.73 Personal history of transient ischemic attack (TIA), and cerebral infarction without residual deficits; E11.9 Type 2 diabetes mellitus without complications; E78.2 Mixed hyperlipidemia; I77.819 Aortic ectasia, unspecified site; I11.0 Hypertensive heart disease with heart failure; Z91.14 Patient's other noncompliance with medication regimen; Z59.89 Other problems related to housing and economic circumstances
CPT/HCPCS: 36415; 71045; 71046; 71260; 80048; 80053; 82803; 82947; 82962; 83880; 84484; 85025; 85379; 86140; 87502; 87634; 87635; 93005; 93306; 94640; 94761; 97161; 97165; 97535; 99284; 99285; A9270; J0696; J1200; J1650; J1940; J2930; J7512; Q9967

== ENCOUNTER 2022-08-29 22:36 | Outpatient (CLI) | payer MEDICARE, SELFPAY ==
--- OUTSIDE RECORDS SUMMARY | 2022-08-30 09:22 | XMS_ITS | Clinical Summary ---
:1955 External Reference #:RESEARCH Author Organization [employer] [facility] [place] [address] Care Team Providers Name Role Phone Emil Hannah Sabiha GAN Primary Care Provider Rufus Rucker MD Unavailable Unavailable Sosa Guthrie Unavailable [phone] Allergies Active Allergy Reactions Severity Noted Date [...] 25-100 mg tablet com plete/Level of care [facility]) atorvastatin Take 1 Tablet 90 tablet. [...] tablet complete/R egimen complete/L evel of care [facility]) aspirin 81 mg cap Daily 0 08/18/2022 D iscontinued 2 (Duplicate therapy (E-cancel not sent)) Active Problems Problem Noted Date Noncompliance with medication regimen 08/22/2022 Coronary artery disease, mild 07/17/2015 Type 2 diabetes mellitus without complication, without long-term current 12/12/2013 use of insulin ACP (advance care planning) 12/12/2013 Overview: CODE STATUS: FULL POA: JOEL KHAN (SON) [phone] or [phone] Hx-TIA (transient ischemic attack) 12/12/2013 Gastric ulcer [...] CDT Respiratory Rate 16 01/23/2016 10:09 AM COMPLIANCE EXAMINER Oxygen Saturation 95% 08/27/2022 11:32 AM CDT Inhaled Oxygen Concentration - - Weight 98.7 kg (217 lb 11.2 oz) 08/27/2022 11:32 AM CDT Height 166.4 cm (5' 5.5) 10/28/2021 1:24 PM COMPLIANCE EXAMINER Body Mass Index 35.68 10/28/2021 1:24 PM COMPLIANCE EXAMINER Plan of Treatment Health Maintenance Due Date [...] WITH AUTO DIFFERENTIAL (08/22/2022 3:14 PM CDT) [facility] gist Method Time Signature WHITE BLOOD 11.5 (H) 4.5 - 11.0 08/22/2022 [facility] COUNT thou/cu mm 4:11 PM T [facility] RED BLOOD COUNT 5.00 4.30 - 08/22/2022 [facility] 5.90 4:11 PM CDT [facility] mil/cu mm CLINIC HEMOGLOBIN 15.3 13.5 - 08/22/2022 [facility] 17.5 g/dL 4:11 PM T [facility] HEMATOCRIT 46.8 37.0 - 08/22/2022 [facility] 53.0 % 4:11 PM CDT [facility] MCV 94 80 - 100 08/22/2022 [facility] fL 4:11 PM CDT [facility] MCH 30.6 26.0 - 08/22/2022 [facility] 34.0 pg 4:11 PM CDT [facility] MCHC 32.7 32.0 - 08/22/2022 [facility] 36.0 g/dL 4:11 PM CDT [facility] RDW 12.8 11.5 - 08/22/2022 [facility] 15.5 % 4:11 PM CDT [facility] PLATELET COUNT 249 140 - 440 08/22/2022 [facility] thou/cu mm 4:11 PM CDT [facility] MPV 9.6 6.5 - 11.0 08/22/2022 [facility] fL 4:11 PM CDT [facility] Specimen Anatomical Collection Method / Collection Time Recei sidney Time (Source) Location / Volume Laterality Blood BLOOD SPECIMEN / Venipuncture / 08/22/2022 3:14 2021 3:15 Unknown Unknown PM CDT PM CDT Hannah Stein DO HEMATOLOGY Performing Organization Address City/State/ZIP Code Phon e Number [facility] [address] [place] [address] [facility]ORPH[facility]Y (08/22/2022 3:14 PM CDT) [facility] Method Time Signature RBC COMMENT RBC RBC 08/22/2022 [facility] morphology morphology 4:11 PM CDT [facility] CLINIC normal normal, RBC morphology within normal limits for newborns. WBC REACTIVE Present 08/22/2022 [facility] LYMPHS 4:11 PM CDT [facility] Specimen Anatomical Collection Method / Collection Time Recei sidney Time (Source) Location / Volume Laterality Blood BLOOD SPECIMEN / Venipuncture / 08/22/2022 3:14 2021 3:15 Unknown Unknown PM CDT PM CDT Hannah Stein DO HEMATOLOGY Performing Organization Address City/State/ZIP Code Phon e Number [facility] [address] [place] [address] PLATELET ESTIMATE (08/22/2022 3:14 PM CDT) Patholo gist Method Time Signature PLATELET Adequate Adequate, No 08/22/2022 [employer] ESTIMATE estimate 4:11 PM CDT [facility] Specimen Anatomical Collection Method / Collection Time Recei sidney Time (Source) Location / Volume Laterality Blood BLOOD SPECIMEN / Venipuncture / 08/22/2022 3:14 2021 3:15 Unknown Unknown PM CDT PM CDT Hannah Stein DO HEMATOLOGY Performing Organization Address City/[facility]/ZIP Code Phon e Number [facility] [address] [place] [address] (ABNORMAL) LIPID PANEL W REFLEX MEASURED LDL (08/22/2022 3:14 PM CDT) [facility] Time Signature CHOLESTEROL,TOTAL 210 (H) 100 - 199 08/23/2022 [facility] mg/dL 10:36 AM CDT [facility] TRIGLYCERIDES 154 (H) <150 08/23/2022 [facility] mg/dL 10:36 AM CDT [facility] HDL CHOLESTEROL 34 (L) >40 mg/dL 08/23/2022 [facility] 10:36 AM CDT [facility] NON-HDL 176 (H) <145 08/23/2022 [facility] CHOLESTEROL mg/dl 10:36 AM CDT [facility] CHOL/HDL RATIO 6.18 (H) <4.50 08/23/2022 [facility] [employer] 10:36 AM CDT [facility] LDL CHOLESTEROL 145 (H) <=130 08/23/2022 [facility] mg/dL 10:36 AM CDT [facility] TRAL [...] Organization Address City/State/ZIP Code Phon e Number [facility] [address] [place] [address] LAB[facility]ATORY-CENTRAL [address] LABORATORY (ABNORMAL) MANUAL DIFFERENTIAL (08/22/2022 3:14 PM CDT) [facility] gist Method Time Signature % NEUTROPHILS 64.0 % 08/22/2022 [facility] 4:11 PM CDT [facility] % LYMPHOCYTES 22.0 % 08/22/2022 [facility] 4:11 PM CDT [facility] % MONOCYTES 12.0 % 08/22/2022 [facility] 4:11 PM CDT [facility] % EOSINOPHILS 2.0 % 08/22/2022 [facility] 4:11 PM CDT [facility] % BASOPHILS 0.0 % 08/22/2022 [facility] 4:11 PM CDT [facility] NEUTROPHILS 7.4 (H) 1.7 - 7.0 08/22/2022 [facility] ABSOLUTE thou/cu mm 4:11 PM CDT [facility] LYMPHOCYTES 2.5 0.9 - 2.9 08/22/2022 [facility] ABSOLUTE thou/cu mm 4:11 PM CDT [facility] MONOCYTES 1.4 (H) <0.9 08/22/2022 [facility] ABSOLUTE thou/cu mm 4:11 PM CDT [facility] EOSINOPHILS 0.2 <0.5 08/22/2022 [facility] ABSOLUTE thou/cu mm 4:11 PM CDT [facility] BASOPHILS 0.0 <0.3 08/22/2022 [facility] ABSOLUTE thou/cu mm 4:11 PM T [facility] Specimen Anatomical Collection Method / Collection Time Recei sidney Time (Source) Location / Volume Laterality Blood BLOOD SPECIMEN / Venipuncture / 08/22/2022 3:14 2021 3:15 Unknown Unknown PM CDT PM CDT Hannah Stein DO HEMATOLOGY Performing Organization Address City/State/ZIP Code Phon e Number [facility] [address] [place] [address] (ABNORMAL) HEMOGLOBIN A1C MONITORING (POCT) (08/22/2022 3:14 PM CDT) Analysis Performed At [facility] logist Time Signature HEMOGLOBIN A1C 7.0 (H) <=6.4 % 08/22/2022 [facility] MONITORING 3:46 PM CDT [facility] (POCT) [facility] Specimen Anatomical Collection Method / Collection Time Recei sidney Time (Source) Location / Volume Laterality Blood BLOOD SPECIMEN / Venipuncture / 08/22/2022 3:14 2021 3:15 Unknown Unknown PM CDT PM CDT Narrative [facility] - 2021 3:46 PM CDT ? (<=6.9%) [...] Organization Address City/State/ZIP Code Phon e Number [facility] [address] [place] [address] (ABNORMAL) BASIC METABOLIC PANEL (08/22/2022 3:14 PM CDT) Analysis Performed At Patho logist Time Signature SODIUM 137 135 - 145 08/23/2022 [employer] mmol/L 10:35 AM CDT [facility] POTASSIUM 4.6 3.5 - 5.0 08/23/2022 [employer] mmol/L 10:35 AM CDT [facility] CHLORIDE 99 98 - 110 08/23/2022 [facility] [employer] mmol/L 10:35 AM CDT [facility] CO2,TOTAL 31 21 - 31 08/23/2022 [employer] mmol/L 10:35 AM CDT [facility] ANION GAP 7 5 - 18 08/23/2022 [employer] 10:35 AM CDT [facility] GLUCOSE 268 (H) 65 - 100 08/23/2022 [facility] mg/dL 10:35 AM CDT [facility] CALCIUM 9.4 8.5 - 10.5 08/23/2022 [facility] mg/dL 10:35 AM CDT [facility] BUN 12 8 - 25 08/23/2022 [facility] mg/dL 10:35 AM CDT [facility] CREATININE 0.87 0.72 - 08/23/2022 [facility] 1.25 mg/dL 10:35 AM CDT [facility] BUN/CREAT RATIO 14 10 - 20 08/23/2022 [facility] 10:35 AM CDT [facility] eGFR >90 >90 08/23/2022 [facility] mL/min/1.7 10:35 AM CDT [facility] 3m2 TRAL [...] Address City/State/ZIP Code Phon e Number [facility] [address] [place] [address] LABORATORY-CENTRAL 1999 LABORATORY SCAN CORRESP-EKG RESULTS (08/21/2022 [...] ECHOCARDIOGRAM MELISSA KHAN ? Accessi on#: ?? [id number] : ?1955 66 years Study Date: ?? 08/15/2022 8:50:49 AM Gender: M ?BP: ? 166/90 mmHg Height: 168.00 cm ?BSA: ?1.83 m? ?? Weight: 73.00 kg ? Tech: ? MJS ? Referring MD: DESTINEE JENSEN Site: ? [facility] Reading Location: MOBILE [...] . This study was interpreted by an [facility] redited facility. CC: [facility] [place], Med/ Surg - IP [facility]. ??Final ?? Procedure Note Hermelindo López MD - 08/15/2022Fo rmatting of this note might be different from the original. ECHOCARDIOGRAM MELISSA KHAN : 1955 66 years Study Date: 08/15 8:50:49 AM Gender: M BP: 166/90 mmHg Height: 168.00 cm BSA: 1.83 m? ?? Weight: 73.00 kg Tech: [facility] Referring MD: DESTINEE JENSEN Site: [facility] Reading Location: MOBILE [place] Procedure: 2D, [...] . This study was interpreted by an [facility] redited facility. CC: [facility] [place], Med/ Surg - IP [facility]. Final Destinee Jensen MD ECHO ORD SCAN-CT INTERPRETATION (08/14/2022 12:00 AM CDT) Narrative This result has an attachment that is no t available. Scanner OTHER from Last 3 Months Insurance Payer Benefit Plan / Subscriber ID Effective Dates Phone Addre ss Type Group [employer] xxxxARCH 2015-Presen In ternal [facility] [facility] [id number] [place] [id number] [facility] MR [id number] 2020-Presen [address] [place] [address] [place] [address] Advance Directives Latest Code Status on File Code Status Date Activated Date Inactivated Comments Full Code 06/19/2015 12:44 PM 06/21/2015 5:35 PM Full Code 12/12/2013 9:40 AM 12/13/2013 4:52 PM Full Code 01/07/2010 2:39 AM 01/08/2010 3:19 PM Full Code 01/01/2010 8:14 PM 01/03/2010 6:12 PM Full Code 11/05/2009 9:49 PM 11/07/2009 7:22 PM Care Teams Slitter And Cutter Operator Relationship Specialty Start Date End Date Hannah Stein DO PCP - General 06/26/09 Rufus Rucker MD Neurology Neurology 11/29/12 Sosa Guthrie, [facility] 02/06/11
== END 2022-08-29 22:37 | disposition home or self-care (01) ==
LOC: AMB 08-30 09:20
PROVIDERS: PCP Family Medicine; Visit Provider Emergency Medicine
DX: R07.89 Other chest pain (principal)
CPT/HCPCS: A0425; A0427

== ENCOUNTER 2022-08-29 23:13 | Inpatient (IN) | payer MEDICARE, SELFPAY ==
[2022-08-29 23:16] VITALS: BP 162/87; PULSE 106; RESP 32; TEMP 36.7; O2SAT 95; BMI 27.5
[2022-08-29 23:30] VITALS: BP 155/77; PULSE 105; RESP 26; O2SAT 94
--- NOTE | 2022-08-29 23:33 | CRLHL7_ITS ---
For Patients: As a result of the Century Cures Act, medical imaging exams and procedure reports are released immediately into your electronic medical record. You may view this report before your referring provider. If you have questions, please contact your health care provider. Indication: Shortness of breath Technique: Chest 1 view Comparison: August 17, 2022 Findings/Impression: Stable cardiomediastinal silhouette. Normal pulmonary vasculature. No pneumothorax or effusion. No focal consolidation. Osseous structures intact. Dictated by Cecilia Cooper MD @ 08/29/2022 11:52:38 PM (Electronically Signed)
--- NOTE | 2022-08-29 23:37 | ED.GENADULT ---
HPI - General Adult General Date Seen: 08/29/22 Chief complaint: Chest Pain Stated complaint: Chest Pain Time Seen by Provider: 08/29/22 23:25 Source: patient History of Present Illness HPI narrative: Patient is a 66-year-old male with complex past medical history including non STEMI, congestive heart failure, COPD, diabetes, who presents by EMS for evaluation of 2 episodes of chest pain today. He was recently hospitalized for COPD exacerbation, pneumonia, and congestive heart failure exacerbation, discharged on August 18. He had elevations in his troponins, but did not have any EKG changes or wall motion abnormalities on echo. He says today he was watching TV at about 130 when he had said some onset of what he rates as severe central chest tightness. He says that lasted for about half an hour and then resolved. He says that it was not bad enough that he decided to come in at the time, he decided just wait and see if it got better. It was not associated with diaphoresis, nausea, vomiting, shortness of breath, lightheadedness or other symptoms. He felt fine afterwards. Tonight, he was again watching TV when he had onset of the same type of pain. This time, he decided to call EMS. He receive 4 baby aspirin and a nitroglycerin in the ambulance, did feel some relief with the nitroglycerin. On arrival, he says the pain is largely gone although not completely. He says since getting home his breathing has been pretty good, he has been using his inhaler sporadically, the last time he used was yesterday. He does not check daily weights. He says he was able to fill all of his medications and has been taking them. He does feel right now like his breathing is a little harder than usual. He is not on home oxygen. He continues to smoke he says ?a little bit?. Pack of cigarettes lasts him approximately 2 weeks. Related Data Home Medications Medication Instructions Recorded Confirmed albuterol sulfate 90 mcg/actuation 2 puff inhalation Q4H PRN 06/04/22 08/29/22 aerosol inhaler glipizide 5 mg tablet 5 mg PO BID 06/04/22 08/29/22 meclizine 25 mg tablet 25 mg PO TID PRN 06/04/22 08/29/22 metformin 1,000 mg tablet 1,000 mg PO BID 06/04/22 08/29/22 aspirin 81 mg tablet,delayed 81 mg PO DAILY 08/15/22 08/15/22 release (Adult Low Dose Aspirin) loratadine 10 mg tablet (Claritin) 10 mg PO DAILY PRN 08/15/22 08/29/22 Previous Rx's Medication Instructions Recorded aspirin 81 mg capsule 81 mg PO DAILY #30 caps 08/18/22 atorvastatin 40 mg tablet 40 mg PO DAILY #30 tabs 08/18/22 ipratropium 0.5 mg-albuterol 3 mg 3 ml inhalation TID #180 mL 08/18/22 (2.5 mg base)/3 mL nebulization soln lisinopril 10 mg tablet 10 mg PO DAILY #30 tabs 08/18/22 metoprolol succinate 100 mg 100 mg PO DAILY #30 ea 08/18/22 capsule sprinkle, ext. release 24 hr potassium chloride 10 mEq 10 meq PO DAILY #30 caps 08/18/22 capsule,extended release prednisone 20 mg tablet 20 mg PO DAILY #4 tabs 08/18/22 torsemide 10 mg tablet 10 mg PO DAILY #30 tabs 08/18/22 Allergies Allergy/AdvReac Type Severity Reaction Status Date / Time gadodiamide Allergy Unknown Verified 08/29/22 23:22 diagnostic x-ray materials Allergy Unknown Uncoded 08/14/22 21:01 Review of Systems Status of ROS: Reports: 10 or more systems reviewed and unremarkable except as noted in History and below [facility] Medical History Aortic dilatation Ascending aorta dilation CAD (coronary artery disease) Chest pain COPD (chronic obstructive pulmonary disease) CVA (cerebral vascular accident) Essential hypertension Gastric ulcer Ground glass opacity present on imaging of lung H/O TIA (transient ischemic attack) and stroke Meniere disease Mixed hyperlipidemia GREGORIO (obstructive sleep apnea) Syncope Type 2 diabetes mellitus Vertigo Surgical History No significant past surgical history Social History Smoking Status: Current every day smoker Do you use any of these nicotine containing products: None How often do you have a drink containing alcohol: never How often do you have six or more drinks on one occasion: Never AUDIT-C Alcohol total score: 0 Non-prescribed substance use: denies use Caffeine: Yes (1 cup of coffee/day) service: No Exam Narrative: Exam Narrative: Vital signs as noted above. In general, an alert, nontoxic male, somewhat tachypneic. Head: Normocephalic, atraumatic. Eyes: Pupils are equal reactive. Extraocular movements are full. Conjunctivae are normal. ENT: Mucous membranes are moist. Throat is normal. Neck: Supple without lymphadenopathy. No stridor. Heart: Mildly tachycardic, regular. No murmur or rub. Lungs: Decreased breath sounds on the left. Couple of wheezes on the right. Tachypneic, no accessory muscle use. Abdomen: Soft and nontender. Protuberant. Extremities: Well perfused. No edema. No calf tenderness. Pulses intact. Neurologic: Patient is alert and oriented to person and place. Speech is fluent. Face is symmetric. Moves all extremities equally. Affect: Normal. Skin: Warm and dry. Well perfused. Const: Vital Signs, click to edit/add: Vital Signs - 24 hr 08/29/22 23:16 08/30/22 00:05 Temperature 98.1 F Pulse Rate [Left P ulse Oximeter] 106 H Respiratory Rate 32 H Blood Pressure [Ri ght Upper Arm] 162/87 H Pulse Oximetry 95 93 Oxygen Delivery Me thod Room Air Documenting provider has reviewed patient's vital signs: yes Course Course Hospital Course: On arrival, patient was maintained on the monitor and oximetry. His O2 sats on room air are 94-95%, and thus I have not placed him on oxygen at this time. Initial EKG shows a sinus tachycardia, ventricular rate of 108 beats per minute. I have compared this with an old EKG, I do not see any acute ST segment changes, nor significant changes compared to previous EKG from August 18 of this year. Point of care troponin and portable chest x-ray at this time show no evidence of significant congestive heart failure or pleural effusion, no change from August 18. Initial point of care troponin is 1.01. It looks like peak troponin during his last hospital stay was about 0.5. I did talk with Cardiology at [facility], Dr. Hatch, about the elevated troponin. He feels overall that this is likely not acute coronary syndrome, and does not recommend heparin at this time. He said that he would recommended the patient have evocative testing, which was the plan on discharge on August 18 but I do not believe has happened yet. He recommended a Lexiscan on Thursday or Thursday, and is aware that the patient will come into the hospital on a weekend and that no other testing will be accomplished prior to the patient's discharge. I did ask if there was a threshold at which he would recommend starting heparin, and he did not feel that there likely was, although if there was a significant increase in the troponin we would consult Cardiology again. There are at this time no available beds in the [facility], so the patient will need to stay here regardless. Other labs at this time show a white blood cell count is 6.65, hemoglobin of 13.8. Venous gas shows a normal pH of 7.39, pCO2 is 47. Bicarb is 29. Metabolic panel is partially returned with a sodium of 133 and a potassium of 4.1 other labs are pending. LFTs are unremarkable. I gave him a DuoNeb after seeing that the chest x-ray was clear. He did improve from a respiratory standpoint after that. His respiratory rate is slower and he is more comfortable, his tachycardia is improved as well. However, D-dimer is elevated at 1.25; was elevated previously as well although to a lesser degree. With his tachycardia, tachypnea, recent hospitalization and chest pain, I do think unfortunately he should have a repeat CT scan of the chest. This is been ordered. I have talked to You, plan at this time will be admission to the hospitalist for repeat troponins and observation. Dr. Garrett will follow-up on the chest CT and make sure that they are aware if there are any acute findings. Patient has been hemodynamically stable and without further complaints of chest pain while in the emergency department. Vital Signs Vital signs: Initial Vital Signs Temperature 98.1 F 08/29/22 23:16 Temperature Source Temporal Artery Scan 08/29/22 23:16 Pulse Rate 106 H 08/29/22 23:16 Respiratory Rate 32 H 08/29/22 23:16 Blood Pressure 162/87 H 08/29/22 23:16 Blood Pressure Mean 112 08/29/22 23:16 Blood Pressure Position Supine 08/29/22 23:16 Pulse Oximetry 95 08/29/22 23:16 Oxygen Delivery Method 08/29/22 23:16 Vital Signs Temperature 98.1 F 08/29/22 23:16 Pulse Rate 106 H 08/29/22 23:16 Respiratory Rate 32 H 08/29/22 23:16 Blood Pressure 162/87 H 08/29/22 23:16 Pulse Oximetry 95 08/29/22 23:16 Oxygen Delivery Method 08/29/22 23:16 Temperature 98.1 F 08/29/22 23:16 Pulse Rate 106 H 08/29/22 23:16 Respiratory Rate 32 H 08/29/22 23:16 Blood Pressure 162/87 H 08/29/22 23:16 Pulse Oximetry 93 08/30/22 00:05 Oxygen Delivery Method 08/29/22 23:16 Medical Decision Making Lab Data Labs: Lab Results 08/29/22 08/29/22 08/29/22 Range/Units 23:36 23:59 23:59 WBC 6.65 (4.50-11.00) K/uL RBC 4.57 (4.30-5.90) m/uL Hgb 13.8 (13.5-17.5) gm/dL Hct 42.4 (37.0-53.0) % MCV 93 (80-100) fL MCH 30 (26-34) pg MCHC 33 (32-36) gm/dL RDW Coeff of Scott 12.0 (11.5-15.5) % Plt Count 204 (140-440) K/uL Neut % (Auto) 76.2 H (42.0-72.0) % Lymph % (Auto) 14.0 L (20-44) % [place] % (Auto) 7.4 (0.0-11.0) % Eos % (Auto) 1.5 (0.0-7.0) % Baso % (Auto) 0.6 (0.0-3.0) % Neut # (Auto) 5.10 (1.7-7.0) K/uL Lymph # (Auto) 0.90 (0.90-2.90) K/uL [place] # (Auto) 0.50 (0.00-0.90) K/UL Eos # (Auto) 0.10 (0.00-0.50) K/uL Baso # (Auto) 0.04 (0.00-0.30) K/uL Abs Immat Gran (auto) 0.02 (0.00-0.30) K/uL INR (0.91-1.10) D-Dimer Quant (PE/DVT) 1.25 H (0.00-0.50) ug/ml VBG pH (7.32-7.43) VBG pCO2 (40-50) mmHG VBG pO2 (25-47) mmHG VBG HCO3 (21-28) mmol/L Sodium (135-149) mmol/L Potassium (3.6-5.1) mmol/L Chloride (96-114) mmol/L Carbon Dioxide (20-32) mmol/L BUN (7-30) mg/dL Creatinine (0.5-1.5) mg/dL Estimated Creat Clear Estimated GFR ml/min Glucose (60-115) mg/dL Calcium (8.4-10.6) mg/dL Total Bilirubin (0.1-1.5) mg/dL Direct Bilirubin (0.0-0.5) mg/dL AST (12-35) U/L ALT (4-50) U/L Alkaline Phosphatase (40-150) U/L C-Reactive Protein (0.5-1.0) mg/dL NT-Pro-B Natriuret Pep (0-125) PG/mL Total Protein (6.0-8.3) g/dL Albumin (3.3-5.0) g/dL SARS-CoV-2 (PCR) Negative SARS-CoV-2 (Negative) POC Troponin I (0.01-0.04) ng/ml 08/29/22 08/29/22 08/29/22 Range/Units 23:59 23:59 23:59 WBC (4.50-11.00) K/uL RBC (4.30-5.90) m/uL Hgb (13.5-17.5) gm/dL Hct (37.0-53.0) % MCV (80-100) fL MCH (26-34) pg MCHC (32-36) gm/dL RDW Coeff of Scott (11.5-15.5) % Plt Count (140-440) K/uL Neut % (Auto) (42.0-72.0) % Lymph % (Auto) (20-44) % [place] % (Auto) (0.0-11.0) % Eos % (Auto) (0.0-7.0) % Baso % (Auto) (0.0-3.0) % Neut # (Auto) (1.7-7.0) K/uL Lymph # (Auto) (0.90-2.90) K/uL [place] # (Auto) (0.00-0.90) K/UL Eos # (Auto) (0.00-0.50) K/uL Baso # (Auto) (0.00-0.30) K/uL Abs Immat Gran (auto) (0.00-0.30) K/uL INR 0.94 (0.91-1.10) D-Dimer Quant (PE/DVT) (0.00-0.50) ug/ml VBG pH (7.32-7.43) VBG pCO2 (40-50) mmHG VBG pO2 (25-47) mmHG VBG HCO3 (21-28) mmol/L Sodium 133 L (135-149) mmol/L Potassium 4.1 (3.6-5.1) mmol/L Chloride 98 (96-114) mmol/L Carbon Dioxide 26 (20-32) mmol/L BUN 13 (7-30) mg/dL Creatinine 0.7 (0.5-1.5) mg/dL Estimated Creat Clear 61.67 Estimated GFR 102 ml/min Glucose 316 H (60-115) mg/dL Calcium 9.0 (8.4-10.6) mg/dL Total Bilirubin 0.3 (0.1-1.5) mg/dL Direct Bilirubin 0.1 (0.0-0.5) mg/dL AST 25 (12-35) U/L ALT 21 (4-50) U/L Alkaline Phosphatase 117 (40-150) U/L C-Reactive Protein < 0.5 L (0.5-1.0) mg/dL NT-Pro-B Natriuret Pep 1960 H (0-125) PG/mL Total Protein 6.6 (6.0-8.3) g/dL Albumin 3.8 (3.3-5.0) g/dL SARS-CoV-2 (PCR) (Negative) POC Troponin I (0.01-0.04) ng/ml 08/29/22 08/29/22 Range/Units 23:59 23:59 WBC (4.50-11.00) K/uL RBC (4.30-5.90) m/uL Hgb (13.5-17.5) gm/dL Hct (37.0-53.0) % MCV (80-100) fL MCH (26-34) pg MCHC (32-36) gm/dL RDW Coeff of Scott (11.5-15.5) % Plt Count (140-440) K/uL Neut % (Auto) (42.0-72.0) % Lymph % (Auto) (20-44) % [place] % (Auto) (0.0-11.0) % Eos % (Auto) (0.0-7.0) % Baso % (Auto) (0.0-3.0) % Neut # (Auto) (1.7-7.0) K/uL Lymph # (Auto) (0.90-2.90) K/uL [place] # (Auto) (0.00-0.90) K/UL Eos # (Auto) (0.00-0.50) K/uL Baso # (Auto) (0.00-0.30) K/uL Abs Immat Gran (auto) (0.00-0.30) K/uL INR (0.91-1.10) D-Dimer Quant (PE/DVT) (0.00-0.50) ug/ml VBG pH 7.394 (7.32-7.43) VBG pCO2 47 (40-50) mmHG VBG pO2 30.8 (25-47) mmHG VBG HCO3 29 H (21-28) mmol/L Sodium (135-149) mmol/L Potassium (3.6-5.1) mmol/L Chloride (96-114) mmol/L Carbon Dioxide (20-32) mmol/L BUN (7-30) mg/dL Creatinine (0.5-1.5) mg/dL Estimated Creat Clear Estimated GFR ml/min Glucose (60-115) mg/dL Calcium (8.4-10.6) mg/dL Total Bilirubin (0.1-1.5) mg/dL Direct Bilirubin (0.0-0.5) mg/dL AST (12-35) U/L ALT (4-50) U/L Alkaline Phosphatase (40-150) U/L C-Reactive Protein (0.5-1.0) mg/dL NT-Pro-B Natriuret Pep (0-125) PG/mL Total Protein (6.0-8.3) g/dL Albumin (3.3-5.0) g/dL SARS-CoV-2 (PCR) (Negative) POC Troponin I 1.01 H (0.01-0.04) ng/ml Discharge Plan Discharge Prescriptions: No Action albuterol sulfate 90 mcg/actuation HFA aerosol inhaler 2 puff INHALATION Q4H PRN Label Comments: Inhale 2 Puffs by mouth every 4 hours if needed. glipizide 5 mg tablet 5 mg PO BID meclizine 25 mg tablet 25 mg PO TID PRN metformin 1,000 mg tablet 1,000 mg PO BID loratadine [Claritin] 10 mg tablet 10 mg PO DAILY PRN aspirin [Adult Low Dose Aspirin] 81 mg tablet,delayed release (DR/EC) 81 mg PO DAILY lisinopril 10 mg tablet 10 mg PO DAILY Qty: 30 2RF torsemide 10 mg tablet 10 mg PO DAILY Qty: 30 2RF potassium chloride 10 mEq capsule, extended release 10 meq PO DAILY Qty: 30 2RF prednisone 20 mg tablet 20 mg PO DAILY Qty: 4 0RF atorvastatin 40 mg tablet 40 mg PO DAILY Qty: 30 2RF metoprolol succinate 100 mg capsule,sprinkle,ER 24hr 100 mg PO DAILY Qty: 30 2RF aspirin 81 mg capsule 81 mg PO DAILY Qty: 30 2RF ipratropium-albuterol 0.5 mg-3 mg(2.5 mg base)/3 mL Solution For Nebulization 3 ml inhalation TID Qty: 180 0RF Follow Up/Referrals: Hannah Stein DO [Primary Care Provider] -
[2022-08-30] VITALS (10 sets, daily range): BP systolic 138–178; BP diastolic 64–83; PULSE 86–98; RESP 20–30; TEMP 36.7–37.4; O2SAT 93–97; BMI 35.4
[2022-08-30] MEDS: IPRAT-ALBUT 0.5-2.5 MG/3 ML NEB 1 NEB IH ×2 (00:04→09:11)
--- OUTSIDE RECORDS SUMMARY | 2022-08-30 00:05 | XMS_ITS | Clinical Summary ---
:1955 External Reference #:RESEARCH Author Organization [facility] [place] [address] Care Team Providers Name Role Phone Emil Hannah Sabiha GAN Primary Care Provider Rufus Rucker MD Unavailable Unavailable Sosa Guthrie Unavailable [phone] Allergies Active Allergy Reactions Severity Noted [...] Active Obstructive sleep humidifier, apnea (adult) mask, (pediatric) headgear, filters and tubing. For home use. Per Dr. Harris Diabetic As directed 1 1 Each 0 05/24/2018 Activ e ShoeIndications: Each. Type 2 diabetes mellitus without complication, without long-term current use of insulin (HC) blood sugar USE FOR 100 Each 3 05/10/2019 Active diagnostic TESTING BLOOD (PRODIGY NO SUGAR ONCE A CODING) DAY stripIndications: Type 2 diabetes mellitus without complication, without long-term current use of insulin (HC) loratadine Take 1 tablet 30 tablet 5 06/13/2020 Acti ve (CLARITIN) 10 mg by mouth once tabletIndications daily. : Non-recurrent acute serous otitis media of right ear meclizine Take 1 Tablet 30 Tablet 2 04/29/2021 Activ e (ANTIVERT) 25 mg (25 mg) by tabletIndications mouth 3 times : Meniere's daily if disease of left needed. 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 disease, unspecified COPD type (HC) lisinopriL TAKE ONE 90 Tablet 0 02/23/2022 Active (PRINIVIL; TABLET BY ZESTRIL) 20 mg MOUTH EVERY tabletIndications DAY : Essential hypertension glipiZIDE TAKE ONE 60 Tablet 0 08/14/2022 Active (GLUCOTROL) 5 mg TABLET BY tabletIndications MOUTH TWICE A : Type 2 diabetes DAY BEFORE mellitus without MEALS complication, without long-term current use of insulin (HC) metFORMIN TAKE ONE 60 Tablet 0 08/14/2022 Active (GLUCOPHAGE) TABLET BY 1,000 mg MOUTH TWICE A tabletIndications DAY WITH MEALS : Type 2 diabetes mellitus without complication, without long-term current use of insulin (HC) potassium 0 08/18/2022 Active chloride (MICRO-K) 10 mEq Controlled-releas e capsule atorvastatin Take 1 Tablet 90 tablet. 3 08/27/2022 A ctive (LIPITOR) 80 mg (80 mg) by tabletIndications mouth once : Type 2 diabetes daily with mellitus without evening meal. complication, without long-term current use of insulin (HC), Mixed hyperlipidemia, Coronary artery disease due to lipid rich plaque metoprolol Take 1 Tablet 90 Tablet 1 08/27/2022 Acti ve succinate (Toprol (100 mg) by XL) 100 mg mouth once Sustained-Release daily. tabletIndications : Coronary artery disease due to lipid rich plaque, HTN (hypertension) torsemide Take 1 Tablet 90 Tablet 0 08/27/2022 Activ e (DEMADEX) 10 mg (10 mg) by tabletIndications mouth once : HTN daily. (hypertension) carbidopa-levodop 0 07/02/2020 D iscontinued a, 25-100 mg, 2 (*Med (SINEMET 25-100) com plete/Regimen 25-100 mg tablet com plete/Level of care [facility]) atorvastatin Take 1 Tablet 90 tablet. 3 10/03/2021 D iscontinued (LIPITOR) 80 mg (80 mg) by 2 (Re order tabletIndications mouth once ( E-cancel not : Type 2 diabetes daily with s ent)) mellitus without evening meal. complication, without long-term current use of insulin (HC), Mixed hyperlipidemia, Coronary artery disease due to lipid rich plaque glipiZIDE TAKE ONE 60 Tablet 0 07/22/2022 Discontin ued (GLUCOTROL) 5 mg TABLET BY 2 tabletIndications MOUTH TWICE : Type 2 diabetes DAILY BEFORE mellitus without MEALS complication, without long-term current use of insulin (HC) metFORMIN TAKE ONE 60 Tablet 0 07/22/2022 Discontin ued (GLUCOPHAGE) TABLET BY 2 1,000 mg MOUTH TWICE tabletIndications DAILY WITH : Type 2 diabetes MEALS mellitus without complication, without long-term current use of insulin (HC) predniSONE 0 08/18/2022 Disconti nued (DELTASONE) 20 mg 2 (* Med tablet complete/R egimen complete/L evel of care [facility]) aspirin 81 mg cap Daily 0 08/18/2022 D iscontinued 2 (Duplicate therapy (E-cancel not sent)) Active Problems Problem Noted Date Noncompliance with medication regimen 08/22/2022 Coronary artery disease, mild 07/17/2015 Type 2 diabetes mellitus without complication, without long-term current 12/12/2013 use of insulin ACP (advance care planning) 12/12/2013 Overview: CODE STATUS: FULL POA: JOEL KHAN (SON) [phone] or [phone] Hx-TIA (transient ischemic attack) 12/12/2013 Gastric ulcer [...] Encounters Date Type Specialty Care Team Description 08/27/2022 Office Visit Hannah Stein DO Follo w Up (Pneumonia ); Immunization/In jection 08/27/2022 Travel 08/26/2022 Patient Outreach [facility] (Referral/) 08/26/2022 Telephone Hannah Stein DO Medic ation Management (non compliance suspected. requ est refill report. ) 08/22/2022 Office Visit Hannah Stein DO Hospi meri F/U (SOB and Pneumonia 09/13 to 08/19) 08/22/2022 Travel 08/20/2022 Orders Only Staff, Other Clinical <No sc ans attached> 08/20/2022 Orders Only Staff, Other Clinical <No sc ans attached> 08/20/2022 Orders Only Staff, Other Clinical <No sc ans attached> 08/20/2022 Orders Only Staff, Other Clinical <No sc ans attached> 08/19/2022 Telephone Hannah Stein DO Lab ( Labwork needed?) 08/17/2022 Orders Only Scanner <No scans attac hed> 08/15/2022 Orders Only <No scans attac hed> 08/14/2022 Orders Only Staff, Other Clinical <No sc ans attached> 08/14/2022 Orders Only Scanner <No scans attac hed> 08/13/2022 Refill Detert, Hannah Landis, DO Refil l Request (Glipizide, Met formin) 07/16/2022 Refill DetertHannah DO Refil l Request (Glipizide, Met formin) 06/19/2022 Telephone DetertHannah, DO Form (Diabetic shoes) 06/19/2022 Refill DetertHannah DO Refil l Request (Glipizide, Met formin) from Last 3 Months Immunizations Name Administration Dates Next Due COVID-19 vaccine (Moderna 04/30/2021, 04/03/2021 100mcg/0.5mL) PF, MDV Hepatitis B (Adult) 02/08/2014 Hepatitis B (Peds) 03/20/2014 Influenza A (H1N1), Inactivated 08/07/2021 Influenza, IIV3 (Age >=3 years) 09/28/2012, 10/30/2011, 09/16, 08/15/2009, 09/27/2008, 09/12/2003 Influenza, IIV4 08/07/2021, 09/07/2019, 08/27/2018, 08/1708/10/2017, 10/29/2016, 08/30/2014 Influenza, IIV4 (=>6mos) MDV 09/21/2015 Influenza, Inactivated AIIV4 (Age 1008/27/2022 65+ Years) Preserv Free Influenza,CCIIV4 PRESERV FREE 08/22/2020 Pneumococcal Poly,23-Valent 09/27/2008 [...] 11/16/2008 Smokeless Tobacco: Never Used Tobacco Cessation: Counseling Given: Yes Alcohol Use Standard Drinks/Week Comments [...] Not asked drinks on one occasion? 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 Obstetrics History Last Filed Vital Signs Vital Sign Reading Time Taken Comments Blood Pressure 185/85 08/27/2022 11:32 AM CDT Pulse 101 08/27/2022 11:32 AM CDT Temperature 36.8 ??C (98.3 ??F) 08/22/2022 2:08 PM CDT Respiratory Rate 16 01/23/2016 10:09 AM BREAKER HAND Oxygen Saturation 95% 08/27/2022 11:32 AM CDT Inhaled Oxygen Concentration - - Weight 98.7 kg (217 lb 11.2 oz) 08/27/2022 11:32 AM CDT Height 166.4 cm (5' 5.5) 10/28/2021 1:24 PM BREAKER HAND Body Mass Index 35.68 10/28/2021 1:24 PM BREAKER HAND Plan of Treatment Health Maintenance Due Date Last Done Comments Tdap 1967 Zoster (shingles) series 2006 for age 50+ (1 of 2) Pneumococcal series for age 1109/27/2009 09/27/2008 65+ (2 - PCV) AAA screening age 55-77 2011 Tetanus booster 01/17/2016 01/16/2006 Colonoscopy through age 75 01/06/2021 01/06/2011 Medicare Wellness for age 0112/14/2021 05/24/2018 65+ COVID-19 vaccine series (5 07/16/2022 05/21/2022, , - Booster for Moderna 04/30/2021, Additional series) history exists BMI (ht and wt on same day) 10/28/2022 10/28/2021, 06/13/20 20, for age 18+ 09/07/2019, Additional history exists Depression screening for 08/27/2023 08/27/2022, 08/26/2022, age 12+ 08/22/2022, Additional history exists Low Dose CT (for lung CA) 12/07/2024 Postpo eduin from age 50-80 2006 (Othe r) Lipids for age 45-75 08/22/2027 08/22/2022, 10/02/2021, 01/21/2021, Additional history exists Hepatitis C screening for Completed 09/07/2019 age 18-79 Influenza for age 65+ Completed 08/27/2022, 08/07/2021, 08/07/2021, Additional history exists Goals Goal Patient Goal Associated Recent Patient-Stated? Author Type Problems Progress BLOOD Blood Pressure No Detert, PRESSURE-EVAN Lundberg BP DO LESS THAN 130/80 Procedures Procedure Name Priority Date/Time Associated Diagnosis Comme nts RED CELL MORPHOLOGY Routine 08/22/2022 3:14 Pulmonary emphysem a, Results for this PM CDT unspecified procedure are i n emphysema type (HC) the resu lts section. PLATELET ESTIMATE Routine 08/22/2022 3:14 Pulmonary emphysema, Results for this PM CDT unspecified procedure are i n emphysema type (HC) the resu lts section. MANUAL DIFFERENTIAL Routine 08/22/2022 3:14 Pulmonary emphysem a, Results for this PM CDT unspecified procedure are i n emphysema type (HC) the resu lts section. CBC WITH AUTO Routine 08/22/2022 3:14 Pulmonary emphysema, Res ults for this DIFFERENTIAL PM CDT unspecified procedure are i n emphysema type (HC) the resu lts section. LIPID PANEL W REFLEX Routine 08/22/2022 3:14 HYPERTENSION - Re sults for this MEASURED LDL PM CDT ESSENTIAL procedure are in Type 2 diabetes the results mellitus without section. complication, without long-term current use of insulin (HC) BASIC METABOLIC PANEL Routine 08/22/2022 3:14 HYPERTENSION - R esults for this PM CDT ESSENTIAL procedure are in Type 2 diabetes the results mellitus without section. complication, without long-term current use of insulin (HC) CBC WITH AUTO Routine 08/22/2022 3:14 Pulmonary emphysema, Res ults for this DIFFERENTIAL PM CDT unspecified procedure are i n emphysema type (HC) the resu lts section. HEMOGLOBIN A1C Routine 08/22/2022 3:14 Type 2 diabetes Results for this PM CDT mellitus without procedure a re in complication, the results without long-term section. current use of insulin (HC) SCAN CORRESP-EKG 08/21/2022 9:39 Results for this RESULTS AM CDT procedure are i n the results section. SCAN 08/20/2022 12:00 Results for this CORRESP-LABORATORY AM CDT procedure are in RESULTS the results section. SCAN CORRESP-IMAGING 08/20/2022 12:00 Res ults for this AM CDT procedure are i n the results section. SCAN CORRESP-IMAGING 08/20/2022 12:00 Res ults for this AM CDT procedure are i n the results section. SCAN 08/20/2022 12:00 Results for this CORRESP-DIAGNOSTICS AM CDT procedur e are in the results section. SCAN-RADIOLOGY REPORT 08/17/2022 12:00 Re sults for this AM CDT procedure are i n the results section. ECHO COMPLETE WO Routine 08/15/2022 9:26 Edema Results for this CONTRAST AM CDT Elevated brain procedure are in natriuretic peptide the resu lts (BNP) level section. SCAN-CT INTERPRETATION 08/14/2022 12:00 AM CDT from Last 3 Months Results (ABNORMAL) CBC WITH AUTO DIFFERENTIAL (08/22/2022 3:14 PM CDT) [facility] gist Method Time Signature WHITE BLOOD 11.5 (H) 4.5 - 11.0 08/22/2022 [facility] COUNT thou/cu mm 4:11 PM T [facility] RED BLOOD COUNT 5.00 4.30 - 08/22/2022 [facility] 5.90 4:11 PM CDT [facility] mil/cu mm CLINIC HEMOGLOBIN 15.3 13.5 - 08/22/2022 [facility] 17.5 g/dL 4:11 PM T [facility] HEMATOCRIT 46.8 37.0 - 08/22/2022 [facility] 53.0 % 4:11 PM CDT [facility] MCV 94 80 - 100 08/22/2022 [facility] fL 4:11 PM CDT [facility] MCH 30.6 26.0 - 08/22/2022 [facility] 34.0 pg 4:11 PM CDT [facility] MCHC 32.7 32.0 - 08/22/2022 [facility] 36.0 g/dL 4:11 PM CDT [facility] RDW 12.8 11.5 - 08/22/2022 [facility] 15.5 % 4:11 PM CDT [facility] PLATELET COUNT 249 140 - 440 08/22/2022 [facility] thou/cu mm 4:11 PM CDT [facility] MPV 9.6 6.5 - 11.0 08/22/2022 [facility] fL 4:11 PM CDT [facility] Specimen Anatomical Collection Method / Collection Time Recei sidney Time (Source) Location / Volume Laterality Blood BLOOD SPECIMEN / Venipuncture / 08/22/2022 3:14 2021 3:15 Unknown Unknown PM CDT PM CDT Hannah Stein DO HEMATOLOGY Performing Organization Address City/State/ZIP Code Phon e Number [facility] [address] [place] [address] RED CELL MORPHOLOGY (08/22/2022 3:14 PM CDT) [facility] Method Time Signature RBC COMMENT RBC RBC 08/22/2022 [facility] morphology morphology 4:11 PM CDT [facility] normal normal, RBC morphology within normal limits for newborns. WBC REACTIVE Present 08/22/2022 [facility] LYMPHS 4:11 PM CDT [facility] Specimen Anatomical Collection Method / Collection Time Recei sidney Time (Source) Location / Volume Laterality Blood BLOOD SPECIMEN / Venipuncture / 08/22/2022 3:14 2021 3:15 Unknown Unknown PM CDT PM CDT Hannah Stein DO HEMATOLOGY Performing Organization Address City/State/ZIP Code Phon e Number [facility] [address] [place] [address] PLATELET ESTIMATE (08/22/2022 3:14 PM CDT) Patholo gist Method Time Signature PLATELET Adequate Adequate, No 08/22/2022 [facility] ESTIMATE estimate 4:11 PM CDT [facility] Specimen Anatomical Collection Method / Collection Time Recei sidney Time (Source) Location / Volume Laterality Blood BLOOD SPECIMEN / Venipuncture / 08/22/2022 3:14 2021 3:15 Unknown Unknown PM CDT PM CDT Hannah Stein DO HEMATOLOGY Performing Organization Address City/[facility]/ZIP Code Phon e Number [facility] [address] [place] [address] (ABNORMAL) LIPID PANEL W REFLEX MEASURED LDL (08/22/2022 3:14 PM CDT) [facility] Method Time Signature CHOLESTEROL,TOTAL 210 (H) 100 - 199 08/23/2022 [facility] mg/dL 10:36 AM CDT [facility] TRIGLYCERIDES 154 (H) <150 08/23/2022 [facility] mg/dL 10:36 AM CDT [facility] HDL CHOLESTEROL 34 (L) >40 mg/dL 08/23/2022 [facility] 10:36 AM CDT [facility] NON-HDL 176 (H) <145 08/23/2022 [facility] CHOLESTEROL mg/dl 10:36 AM CDT [facility] CHOL/HDL RATIO 6.18 (H) <4.50 08/23/2022 [facility] 10:36 AM CDT [facility] LDL CHOLESTEROL 145 (H) <=130 08/23/2022 [facility] mg/dL 10:36 AM CDT [facility] VLDL CHOLESTEROL 31 (H) <=30 08/23/2022 [facility] mg/dL 10:36 AM CDT [facility] PROVIDER ORDERED RANDOM 08/23/2022 [facility] STATUS 10:36 AM CDT [facility] Specimen Anatomical Collection Method / Collection Time Recei sidney Time (Source) Location / Volume Laterality Blood BLOOD SPECIMEN / Venipuncture / 08/22/2022 3:14 2021 3:15 Unknown Unknown PM CDT PM CDT Hannah Stein DO CHEMISTRY Performing Organization Address City/State/ZIP Code Phon e Number [facility] [address] [place] [address] LAB[facility] [address] LABORATORY (ABNORMAL) MANUAL DIFFERENTIAL (08/22/2022 3:14 PM CDT) [facility] gist Method Time Signature % NEUTROPHILS 64.0 % 08/22/2022 [facility] 4:11 PM CDT [facility] % LYMPHOCYTES 22.0 % 08/22/2022 [facility] 4:11 PM CDT [facility] % MONOCYTES 12.0 % 08/22/2022 [facility] 4:11 PM CDT [facility] % EOSINOPHILS 2.0 % 08/22/2022 [facility] 4:11 PM CDT [facility] % BASOPHILS 0.0 % 08/22/2022 [facility] 4:11 PM CDT [facility] NEUTROPHILS 7.4 (H) 1.7 - 7.0 08/22/2022 [facility] ABSOLUTE thou/cu mm 4:11 PM CDT [facility] LYMPHOCYTES 2.5 0.9 - 2.9 08/22/2022 [facility] ABSOLUTE thou/cu mm 4:11 PM CDT [facility] MONOCYTES 1.4 (H) <0.9 08/22/2022 [facility] ABSOLUTE thou/cu mm 4:11 PM CDT [facility] EOSINOPHILS 0.2 <0.5 08/22/2022 [facility] ABSOLUTE thou/cu mm 4:11 PM CDT [facility] BASOPHILS 0.0 <0.3 08/22/2022 [facility] ABSOLUTE thou/cu mm 4:11 PM T [facility] Specimen Anatomical Collection Method / Collection Time Recei sidney Time (Source) Location / Volume Laterality Blood BLOOD SPECIMEN / Venipuncture / 08/22/2022 3:14 2021 3:15 Unknown Unknown PM CDT PM CDT Hannah Stein DO HEMATOLOGY Performing Organization Address City/State/ZIP Code Phon e Number [facility] [address] [place] [address] (ABNORMAL) HEMOGLOBIN A1C MONITORING (POCT) (08/22/2022 3:14 PM CDT) Analysis Performed At [facility] logist Time Signature HEMOGLOBIN A1C 7.0 (H) <=6.4 % 08/22/2022 [facility] MONITORING 3:46 PM CDT [facility] (POCT) [facility] Specimen Anatomical Collection Method / Collection Time Recei sidney Time (Source) Location / Volume Laterality Blood BLOOD SPECIMEN / Venipuncture / 08/22/2022 3:14 2021 3:15 Unknown Unknown PM CDT PM CDT Narrative [facility] - 2021 3:46 PM CDT ? (<=6.9%) ? Indicates good control ? (7.0% to 7.9%) ? Indicates fa ir control ? (>=8.0%) ? Indicates poor control ?? NOTE: ??These thresholds are guideli reji and ?individual targets may va ry. Falsely low levels may be seen with: Recent Transfusion, Recent Significant B lood Loss, Hemolytic Diseases, or Falsely elevated levels may be seen with : Untreated Anemias, Splenectomy ? Hannah Stein DO CHEMISTRY Performing Organization Address City/State/ZIP Code Phon e Number [facility] [address] [place] [address] (ABNORMAL) BASIC METABOLIC PANEL (08/22/2022 3:14 PM CDT) Analysis Performed At Patho logist Time Signature SODIUM 137 135 - 145 08/23/2022 [employer] mmol/L 10:35 AM CDT [facility] POTASSIUM 4.6 3.5 - 5.0 08/23/2022 [facility] mmol/L 10:35 AM CDT [facility] CHLORIDE 99 98 - 110 08/23/2022 [facility] [employer] [facility] mmol/L 10:35 AM CDT [facility] CO2,TOTAL 31 21 - 31 08/23/2022 [employer] mmol/L 10:35 AM CDT [facility] ANION GAP 7 5 - 18 08/23/2022 [facility] 10:35 AM CDT [facility] GLUCOSE 268 (H) 65 - 100 08/23/2022 [facility] mg/dL 10:35 AM CDT [facility] CALCIUM 9.4 8.5 - 10.5 08/23/2022 [facility] mg/dL 10:35 AM CDT [facility] BUN 12 8 - 25 08/23/2022 [facility] mg/dL 10:35 AM CDT [facility] CREATININE 0.87 0.72 - 08/23/2022 [facility] 1.25 mg/dL 10:35 AM CDT [facility] BUN/CREAT RATIO 14 10 - 20 08/23/2022 [facility] 10:35 AM CDT [facility] eGFR >90 >90 08/23/2022 [facility] mL/min/1.7 10:35 AM CDT [facility] 3m2 TRAL LABORATORY Comment: As of 2022, eGFR is calcu lated by the CKD-EPI creatinine equation without race adjustment. eGFR can be inf luenced by muscle mass, exercise, and diet. The reported eGFR is an estimation only and is only applicable if the renal function is stable. Specimen Anatomical Collection Method / Collection Time Recei sidney Time (Source) Location / Volume Laterality Blood BLOOD SPECIMEN / Venipuncture / 08/22/2022 3:14 2021 3:15 Unknown Unknown PM CDT PM CDT Hannah Stein DO CHEMISTRY Performing Organization Address City/State/ZIP Code Phon e Number [facility] [address] [place] [address] LABORATORY-CENTRAL 1999 LABORATORY SCAN CORRESP-EKG RESULTS (08/21/2022 9:39 AM CDT) Narrative 08/21/2022 9:39 AM CDT This result has an attachment that is no t available. Ordered by an unspecified provider. Other Clinical Staff OTHER SCAN CORRESP-LABORATORY RESULTS (08/20/2022 12:00 AM CDT) Narrative 08/20/2022 12:00 AM CDT This result has an attachment that is no t available. Ordered by an unspecified provider. Other Clinical Staff OTHER SCAN CORRESP-DIAGNOSTICS (08/20/2022 12:00 AM CDT) Narrative 08/20/2022 12:00 AM CDT This result has an attachment that is no t available. Ordered by an unspecified provider. Other Clinical Staff OTHER SCAN CORRESP-IMAGING (08/20/2022 12:00 AM CDT)Only the most recent of2 results within the time period is included. Narrative 08/20/2022 12:00 AM CDT This result has an attachment that is no t available. Ordered by an unspecified provider. Other Clinical Staff OTHER SCAN-RADIOLOGY REPORT (08/17/2022 12:00 AM CDT) Narrative This result has an attachment that is no t available. Scanner OTHER ECHO COMPLETE WO CONTRAST (08/15/2022 9:26 AM CDT) P athologist Signature AORTIC VALVE 6 mmHg MEAN PG EJECTION 55 % FRACTION LVEDD 5.2 cm Anatomical Region Laterality Modality HEART Ultrasound Specimen (Source) Anatomical Collection Method Collection Time Re ceived Time Location / / Volume Laterality 08/15/2022 8:50 AM CDT Narrative 08/15/2022 9:54 AM CDT ECHOCARDIOGRAM MELISSA KHAN ? Accessi on#: ?? [id number] : ?1955 66 years Study Date: ?? 08/15/2022 8:50:49 AM Gender: M ?BP: ? 166/90 mmHg Height: 168.00 cm ?BSA: ?1.83 m? ?? Weight: 73.00 kg ? Tech: ? MJS ? Referring MD: DESTINEE JENSEN Site: ? [facility] Reading Location: [facility] Procedure: 2D, Color Doppler and Spectra l Doppler. Indication for study: EDEMA ELEVATED TRO PONIN Cardiac Rhythm: Regular.Study quality: G ood. Final Impressions: 1. Normal left ventricular size, mildly increased wall thickness, normal global systolic function, calculated EF of 55 %. 2. The mitral valve is normal, mild to moderate mitral regurgitation. 3. The ascending aorta is normal for ag e/sex/bsa with a maximal diameter of 4.0 cm. Chamber Sizes and Function Normal left ventricular size, mildly inc reased wall thickness, normal global systolic function, calculated EF of 55 %. Left atrial size is normal. Right ventricular cavity size is normal, global systoli c RV function is normal. The right atriu m is normal. Right atrial volume index is 15 ml/m? ??. Right atrial area is 11 cm? ??. The pulmonary artery is of normal size and origin. The sinus of Valsalva is normal sized. The ascending aorta is no rmal for age/sex/bsa. Valves, RV Pressures and Diastolic Funct ion The aortic valve is trileaflet, no steno sis and mild to moderate regurgitation. The mitral valve is normal in structure, mild to moderate mitral regurgitation. Indeterminate pattern of LV diastolic fill ing. The tricuspid valve is normal in st ructure. Tricuspid regurgitation is regurgitation is not evident. The pulmonic valve is normal. Trace pulmonary regurgitation. TTE images do not appear adequate for transcather intervention with patient supine. Masses, Effusion, Shunts There is no pericardial effusion. The in ferior vena cava is normal sized, respiratory size variation greater than 50%. No left to right shunting was detected by limited color flow Doppler interrogation of the interatrial septum. MEASUREMENTS AND CALCULATIONS 2-D Measurements and LV Function: LVID (d) 5.2 cm Planimetered EF 55 % LVID (s) 3.6 cm LV FS% (2D) ? 30 % IVS (d) ??1.3 cm LVOT diameter ?? 2.2 cm LVPW (d) 1.3 cm HR ?9 9 bpm Ao Sinus 3.9 cm LA Vol index ?28 ml/ m2 Asc Ao ?? 4.0 cm RA Vol index ?15 ml /m2 LA ? 3.9 cm RA area ? 1 1 cm?RV Max 4C (d) ?? 2.8 cm Diastology: Mitral E Peak 1.0 m/s A Peak 1.3 m/s E/A ?0.8 Aortic Valve: Vmax ? 1.6 m/s ??SEPIDEH (V) ?? 2.24 cm? ?? VTI ?0.31 m ?? SEPIDEH (I) ?? 2.33 cm? ?? LVOT V max 0.9 m/s ??Max PG ?10 mmHg LVOT VTI ?? 0.19 m ?? Mean PG ?? 6 mmHg SV ? 71 ml ?Dim Index 0.62 SV index ?? 39 ml/m? ?? CO ?7.0 l/min ?CI ?3.9 l/min/m? ?? Tricuspid Valve and estimated PA pressur es: TAPSE 2.2 cm . This study was interpreted by an [facility] redited facility. CC: [facility] [place], Med/ Surg - IP [facility]. ??Final ?? Procedure Note Hermelindo López MD - 08/15/2022Fo rmatting of this note might be different from the original. ECHOCARDIOGRAM MELISSA KHAN : 1955 66 years Study Date: 08/15 8:50:49 AM Gender: M BP: 166/90 mmHg Height: 168.00 cm BSA: 1.83 m? ?? Weight: 73.00 kg [place] [facility] [place] Referring MD: DESTINEE JENSEN Site: [facility] Reading Location: [facility] Procedure: 2D, Color Doppler and Spectra l Doppler. Indication for study: EDEMA ELEVATED TRO PONIN Cardiac Rhythm: Regular.Study quality: G ood. Final Impressions: 1. Normal left ventricular size, mildly increased wall thickness, normal global systolic function, calculated EF of 55 %. 2. The mitral valve is normal, mild to moderate mitral regurgitation. 3. The ascending aorta is normal for ag e/sex/bsa with a maximal diameter of 4.0 cm. Chamber Sizes and Function Normal left ventricular size, mildly inc reased wall thickness, normal global systolic function, calculated EF of 55 %. Left atrial size is normal. Right ventricular cavity size is normal, global systolic RV function is normal. The right atrium is normal. Right atrial volume index is 15 ml/m? ??. Right atrial area is 11 cm? ??. The pulmonary artery is of normal size and origin. The sinus of Valsalva is normal sized. The ascending aorta is normal for age/sex/bs a. Valves, RV Pressures and Diastolic Funct ion The aortic valve is trileaflet, no steno sis and mild to moderate regurgitation. The mitral valve is normal in structure, mild to moderate mitral regurgitation. Indeterminate pattern of LV diastolic filling. The tricuspid valve is normal in structure. Tricuspid regurgitation is regurgitation is not evident. The pulmonic valve is normal. Trace pulmonary regurgitation. TTE images do not appear adequate for transcather intervention with patient supine. Masses, Effusion, Shunts There is no pericardial effusion. The in ferior vena cava is normal sized, respiratory size variation greater than 50%. No left to right shunting was detected by limited color flow Doppler interrogation of the interatrial septum. MEASUREMENTS AND CALCULATIONS 2-D Measurements and LV Function: LVID (d) 5.2 cm Planimetered EF 55 % LVID (s) 3.6 cm LV FS% (2D) 30 % IVS (d) 1.3 cm LVOT diameter 2.2 cm LVPW (d) 1.3 cm HR 99 bpm Ao Sinus 3.9 cm LA Vol index 28 ml/m2 Asc Ao 4.0 cm RA Vol index 15 ml/m2 LA 3.9 cm RA area 11 cm? ?? RV Max 4C (d) 2.8 cm Diastology: Mitral E Peak 1.0 m/s A Peak 1.3 m/s E/A 0.8 Aortic Valve: Vmax 1.6 m/s SEPIDEH (V) 2.24 cm? ?? VTI 0.31 m SEPIDEH (I) 2.33 cm? ?? LVOT V max 0.9 m/s Max PG 10 mmHg LVOT VTI 0.19 m Mean PG 6 mmHg SV 71 ml Dim Index 0.62 SV index 39 ml/m? ?? CO 7.0 l/min CI 3.9 l/min/m? ?? Tricuspid Valve and estimated PA pressur es: TAPSE 2.2 cm . This study was interpreted by an [facility] redited facility. CC: [facility] [place], [facility] - IP [facility]. Final Destinee Jensen MD ECHO ORD SCAN-CT INTERPRETATION (08/14/2022 12:00 AM CDT) Narrative This result has an attachment that is no t available. Scanner OTHER from Last 3 Months Insurance Payer Benefit Plan / Subscriber ID Effective Dates Phone Addre ss Type Group [employer] xxxxARCH 2015-Presen In ternal [facility] [id number] [place] [id number] [facility] MR [id number] 2020-Presen [address] [place] [address] [place] [address] Advance Directives Latest Code Status on File Code Status Date Activated Date Inactivated Comments Full Code 06/19/2015 12:44 PM 06/21/2015 5:35 PM Full Code 12/12/2013 9:40 AM 12/13/2013 4:52 PM Full Code 01/07/2010 2:39 AM 01/08/2010 3:19 PM Full Code 01/01/2010 8:14 PM 01/03/2010 6:12 PM Full Code 11/05/2009 9:49 PM 11/07/2009 7:22 PM Care Teams Software Client Architect Relationship Specialty Start Date End Date Hannah Stein DO PCP - General 06/26/09 Rufus Rucker MD Neurology Neurology 11/29/12 Sosa Guthrie, [facility] 02/06/11
[2022-08-30 00:09] LABS: HCO3 VBG 29 mmol/L (21-28); PCO2 VBG 47 mmHG (40-50); PO2 VBG 30.8 mmHG (25-47); pH VBG 7.394 (7.32-7.43)
[2022-08-30 00:11] LABS: Basophils Absolute Auto 0.04 K/uL (0.00-0.30); Basophils Percent Auto 0.6 % (0.0-3.0); Eosinophils Percent Auto 1.5 % (0.0-7.0); Hematocrit 42.4 % (37.0-53.0); Hemoglobin* 13.8 gm/dL (13.5-17.5); Immature Granulocytes Abs Auto 0.02 K/uL (0.00-0.30); Mean Corpuscular HGB Conc 33 gm/dL (32-36); Mean Corpuscular Hemoglobin 30 pg (26-34); Mean Corpuscular Volume 93 fL (80-100); Monocytes Percent Auto 7.4 % (0.0-11.0); Neutrophils Percent Auto 76.2 % (42.0-72.0); Platelet Count* 204 K/uL (140-440); Red Blood Count 4.57 m/uL (4.30-5.90); White Blood Count* 6.65 K/uL (4.50-11.00)
[2022-08-30 00:14] LABS: Troponin, Point-of-Care* 1.01 ng/ml (0.01-0.04)
[2022-08-30 00:18] LABS: Slide Review Reflex No
[2022-08-30 00:25] LABS: Albumin* 3.8 g/dL (3.3-5.0)
[2022-08-30 00:28] LABS: Alanine Aminotransferase* 21 U/L (4-50); Alkaline Phosphatase* 117 U/L (40-150); Aspartate Amino Transferase* 25 U/L (12-35); Bilirubin Direct* 0.1 mg/dL (0.0-0.5); Bilirubin Total* 0.3 mg/dL (0.1-1.5); INR 0.94 (0.91-1.10); Prothrombin Time 12.9 Seconds; Total Protein* 6.6 g/dL (6.0-8.3)
[2022-08-30 00:34] LABS: Chloride* 98 mmol/L (96-114); Potassium* 4.1 mmol/L (3.6-5.1); Sodium* 133 mmol/L (135-149)
[2022-08-30 00:37] LABS: Blood Urea Nitrogen* 13 mg/dL (7-30); Carbon Dioxide* 26 mmol/L (20-32); Creatinine* 0.7 mg/dL (0.5-1.5); Est. Creatinine Clearance* 61.67; Estimated Glomerular Filt Rate 102 ml/min; NT Pro B Type NatriureticPept* 1960 PG/mL (0-125)
[2022-08-30 00:38] LABS: Glucose* 316 mg/dL (60-115)
[2022-08-30 00:42] LABS: C Reactive Protein* < 0.5 mg/dL (0.5-1.0)
[2022-08-30 00:49] LABS: SARS PCR* Negative SARS-CoV-2 (Negative)
[2022-08-30 00:49] LABS: D Dimer Quantitative* 1.25 ug/ml (0.00-0.50)
--- NOTE | 2022-08-30 00:55 | CRLHL7_ITS ---
For Patients: As a result of the Century Cures Act, medical imaging exams and procedure reports are released immediately into your electronic medical record. You may view this report before your referring provider. If you have questions, please contact your health care provider. INDICATION: SOB, ELEVATED D-DIMER COMPARISON: 08/14/2022 TECHNIQUE: CT volumetric acquisition was performed of the thorax during intravenous infusion of 95 cc Isovue 370 nonionic intravenous contrast. Please note that all CT scans at this facility use dose modulation, iterative reconstruction, and/or weight-based dosing when appropriate to reduce radiation dose to as low as reasonably achievable. FINDINGS: The CT images are of acceptable quality and demonstrate normal uniform vascular enhancement within the pulmonary arteries. There are no suspicious filling defects which would indicate pulmonary thromboemboli. There is no evidence of pleural or pericardial fluid. Atherosclerotic disease. Coronary artery calcifications. There is no evidence of lymphadenopathy within the central mediastinum or within either axilla. On lung window settings, there is no evidence of pneumothorax. Resolution of previously noted infiltrates. Thickening of the adrenal glands. No hiatal hernia. IMPRESSION: No evidence of pulmonary thromboembolism. Resolution of previously noted infiltrates. Please note that all CT scans at this facility use dose modulation, iterative reconstruction, and/or weight-based dosing when appropriate to reduce radiation dose to as low as reasonably achievable. Dictated by Ted Brown MD @ 09/01/2022 10:52:20 AM (Electronically Signed)
[2022-08-30] MEDS: HYDROCORTISONE SOD SUCCINATE 50 MG/ML inj 200 MG IVP (01:47)
[2022-08-30] MEDS: diphenhydrAMINE 50 MG in 0.9 % SODIUM CHLORIDE 100 ml 100 ML 404 MG IVPB (01:47)
--- NOTE | 2022-08-30 04:42 | W.PC.EDHO ---
Primary Language: Preferred Language: Orientation Status: [x] Alert & Oriented [] Slight Confusion [] Known Dx Dementia Transfers By: [x] Assist of 1 [] Assist of 2 [] Lift Active Medications Discontinued Medications Generic Name Dose Route Start Last Admin Trade Name Lele PRN Reason Stop Dose Admin Albuterol/Ipratropium 1 neb 08/29/22 23:48 08/30/22 00:04 Iprat-Albut 0.5-2.5 Mg/3 Ml Neb IH 08/29/22 23:49 1 neb ONCE ONE Administration Hydrocortisone Sodium Succinate 200 mg 08/30/22 01:24 08/30/22 01:47 Hydrocortisone Sod Succinate 50 Mg/Ml Inj IVP 08/30/22 01:25 200 mg ONCE ONE Administration Diphenhydramine HCl 50 mg/ 101 mls @ 404 mls/hr 08/30/22 01:24 08/30/22 02:10 Sodium Chloride IVPB 08/30/22 01:25 Infused ONCE ONE Infusion Description of Symptoms ED Triage Present Problem was here in ER about a week ago, diagnosed with Description pneum, states heart enzymes were up. this afternoon developed chest pain just watching tv, pain went away and then returned this evening. ems reports systolic bp as high as 200 ED Triage Date of Onset of 08/29/22 Symptoms Female History Patient Pain Pain Intensity [Medial Chest] 4 Pain Intensity 5 Pain Scale Used [Medial Chest] Numeric (1 - 10) Pain Scale Used Numeric (1 - 10) Oxygen Administration Pulse Oximetry 95 Pulse Oximetry 97 Pulse Oximetry 93 Pulse Oximetry 97 Pulse Oximetry 94 Pulse Oximetry 95 Oxygen Delivery Method Room Air Oxygen Delivery Method Room Air Oxygen Delivery Method Room Air Oxygen Delivery Method Room Air Cardiac Monitoring EKG Method arviem AG EKG Method 12 Lead
--- NOTE | 2022-08-30 05:29 | P.IMCN_ITS ---
Date of Consult Consult date: 08/30/22 Primary Care Provider: Hannah Stein DO Consult Narrative Narrative: You Rodgers Hospitalist ADMISSION SUPPORT NOTE eHospitalist was contacted by Dr. Kahn with request of admission support. Chief complaint: Chest Pain HPI: The patient reports that he had 2 episodes of chest pain yesterday. The first was in the afternoon when he was sitting down. This lasted for about 1 hour and then resolved. Later on in the evening he developed chest pain while watching television and this prompted him to call EMS for assistance. The chest pain was worse during the second episode, substernal, described as heavy, nonradiating, 8/10 in intensity. When EMS arrived they gave him aspirin and a sublingual nitroglycerin which he states helped his symptoms but did not completely resolve them. I am uncertain why he did not receive 2 additional doses of nitroglycerin in that regard. He did complain of some shortness of breath. He was recently hospitalized with COPD exacerbation and had elevated troponin. [id number] troponin in the ED was elevated, see ED providers documentation for details regarding the value and the case discussed with cardiology, see ED provider's documentation regarding that discussion. Review of systems other than mentioned above is negative Home Medications/Pertinent Medical History/Pertinent Social History: Reviewed see EMR for details PFSH PFS Medical History Aortic dilatation Ascending aorta dilation CAD (coronary artery disease) Chest pain COPD (chronic obstructive pulmonary disease) CVA (cerebral vascular accident) Essential hypertension Gastric ulcer Ground glass opacity present on imaging of lung H/O TIA (transient ischemic attack) and stroke Meniere disease Mixed hyperlipidemia GREGORIO (obstructive sleep apnea) Syncope Type 2 diabetes mellitus Vertigo Surgical History No significant past surgical history Social History Smoking Status: Current every day smoker Do you use any of these nicotine containing products: None How often do you have a drink containing alcohol: never How often do you have six or more drinks on one occasion: Never AUDIT-C Alcohol total score: 0 Non-prescribed substance use: denies use Caffeine: Yes (1 cup of coffee/day) service: No Meds Home Medications and Allergies Home Medications Medication Instructions Recorded Confirmed Type albuterol sulfate 90 mcg/actuation 2 puff inhalation Q4H PRN 06/04/22 08/29/22 History aerosol inhaler glipizide 5 mg tablet 5 mg PO BID 06/04/22 08/29/22 History meclizine 25 mg tablet 25 mg PO TID PRN 06/04/22 08/29/22 History metformin 1,000 mg tablet 1,000 mg PO BID 06/04/22 08/29/22 History aspirin 81 mg tablet,delayed 81 mg PO DAILY 08/15/22 08/15/22 History release (Adult Low Dose Aspirin) loratadine 10 mg tablet (Claritin) 10 mg PO DAILY PRN 08/15/22 08/29/22 History Allergies Allergy/AdvReac Type Severity Reaction Status Date / Time gadodiamide Allergy Unknown Verified 08/29/22 23:22 diagnostic x-ray materials Allergy Unknown Uncoded 08/14/22 21:01 Exam Narrative: Exam Narrative: Exam (performed via interactive video with assistance of bedside nurse): General: Alert, cooperative, no acute distress, obese HEENT: Oral mucosa pink and moist without erythema Lungs: Clear to auscultation bilaterally without crackle or wheeze but significantly diminished throughout more particularly at the lung bases CV: Regular rate and rhythm without loud murmur rub or gallop Ext: 1+ pitting edema bilaterally Skin: No rashes, bruises or lesions appreciated on gross visualization of exposed skin Neuro: Alert, oriented x 3. CN III -VII, XI, XII grossly intact, moves all extremities without any significant focal deficit appreciated Const: Vital Signs, click to edit/add: Vital Signs - 24 hr 08/29/22 23:16 08/30/22 00:05 08/30/22 02:53 Temperature 98.1 F Pulse Rate [Left P ulse Oximeter] 106 H 92 Respiratory Rate 32 H 20 Blood Pressure [Ri ght Upper Arm] 162/87 H 169/78 H Pulse Oximetry 95 93 95 Oxygen Delivery Me thod Room Air Room Air 08/30/22 00:30 08/30/22 00:00 08/29/22 23:30 Temperature Pulse Rate [Left P ulse Oximeter] 98 96 105 H Respiratory Rate 30 H 21 26 H Blood Pressure [Ri ght Upper Arm] 138/66 141/64 H 155/77 H Pulse Oximetry 97 97 94 Oxygen Delivery Me thod Room Air Room Air Labs Labs: Short CBC 08/29/22 Range/Units 23:59 WBC 6.65 (4.50-11.00) K/uL Hgb 13.8 (13.5-17.5) gm/dL Hct 42.4 (37.0-53.0) % Plt Count 204 (140-440) K/uL BMP 08/29/22 23:59 Sodium 133 L Potassium 4.1 Chloride 98 Carbon Dioxide 26 BUN 13 Creatinine 0.7 Glucose 316 H Calcium 9.0 Liver Function 08/29/22 Range/Units 23:59 Total Bilirubin 0.3 (0.1-1.5) mg/dL Direct Bilirubin 0.1 (0.0-0.5) mg/dL AST 25 (12-35) U/L ALT 21 (4-50) U/L Alkaline Phosphatase 117 (40-150) U/L Albumin 3.8 (3.3-5.0) g/dL Assessment and Plan Assessment and plan (1) Chest pain: Status: Acute Plan Recent lab/CXR: Reviewed see EMR for details EKG: Per my interpretation showed sinus tachycardia at 108 bpm with no acute ST- T wave abnormalities Official report of CTA of chest was pending at the time of this documentation Assessment and Plan: 1. Chest pain-concern for acute coronary syndrome. Continue to trend troponin. Continue aspirin. History of nonobstructive coronary artery disease 2. COPD-as needed albuterol inhaler 3. DM2-stable sliding scale insulin. Hold oral agents for now 4. Dyslipidemia-stable on statin 5. Hypertension-stable continue lisinopril, metoprolol 6. Congestive heart failure with preserved ejection fraction-Per documentation, stable 7. DVT prophylaxis-Lovenox 8. CODE STATUS full code discussed with patient Chart review was performed as well as evaluation of the patient via video. Thank you for involving ehospitalist. Please contact [phone] if further assistance is needed.
--- NOTE | 2022-08-30 06:46 | PC.NURSE ---
admit: patient arrived to unit approx 0540, patient up ad wilver, alert/oriented. no current chest pain, denies SOB.
[2022-08-30 07:25] LABS: Basophils Absolute Auto 0.01 K/uL (0.00-0.30); Basophils Percent Auto 0.2 % (0.0-3.0); Eosinophils Absolute Auto 0.02 K/uL (0.00-0.50); Eosinophils Percent Auto 0.3 % (0.0-7.0); Hematocrit 45.1 % (37.0-53.0); Hemoglobin* 14.8 gm/dL (13.5-17.5); Immature Granulocytes Abs Auto 0.02 K/uL (0.00-0.30); Lymphocytes Percent Auto 8.6 % (20-44); Mean Corpuscular HGB Conc 33 gm/dL (32-36); Mean Corpuscular Hemoglobin 30 pg (26-34); Mean Corpuscular Volume 92 fL (80-100); Monocytes Percent Auto 1.5 % (0.0-11.0); Neutrophils Percent Auto 89.1 % (42.0-72.0); Platelet Count* 223 K/uL (140-440); RDW Coefficient of Variation % 11.9 % (11.5-15.5); Red Blood Count 4.91 m/uL (4.30-5.90); White Blood Count* 6.52 K/uL (4.50-11.00)
[2022-08-30 07:26] LABS: Slide Review Reflex No
[2022-08-30 07:38] LABS: Albumin* 4.2 g/dL (3.3-5.0)
[2022-08-30 07:39] LABS: Chloride* 98 mmol/L (96-114); Potassium* 4.4 mmol/L (3.6-5.1); Sodium* 134 mmol/L (135-149)
[2022-08-30 07:41] LABS: Bilirubin Total* 0.4 mg/dL (0.1-1.5); Creatinine* 0.7 mg/dL (0.5-1.5); Est. Creatinine Clearance* 66.46; Estimated Glomerular Filt Rate 102 ml/min
[2022-08-30 07:42] LABS: Alanine Aminotransferase* 23 U/L (4-50); Alkaline Phosphatase* 131 U/L (40-150); Aspartate Amino Transferase* 26 U/L (12-35); Blood Urea Nitrogen* 12 mg/dL (7-30); Carbon Dioxide* 28 mmol/L (20-32); Glucose* 269 mg/dL (60-115); Total Protein* 7.3 g/dL (6.0-8.3)
--- NOTE | 2022-08-30 08:20 | PC.NURSE ---
Critical value reported by lab - Troponin 1.50, Dr. Goss notified - see orders.
[2022-08-30] MEDS: ASPIRIN 81 MG TAB.CHEW 324 MG PO (08:30)
--- NOTE | 2022-08-30 08:51 | P.IMPN_ITS ---
Subjective Time Seen by Provider: 08:30 Date Seen: 08/30/22 Interval history: Mild diaphoresis noted by nursing staff. Patient had just returned from bathroom after having a normal BM. According to nursing staff, diaphoresis was mild and lasted only a few minutes and had already resolved by the time I saw him. Denied CP, SOB. Denies nausea or lightheadedness. Just ate breakfast, feels fine. Patient did not notice diaphoresis or any symptoms. Exam Narrative: Exam Narrative: General: [No acute distress.] No diaphoresis at this time. [Awake, alert, oriented x3.] [No pallor.] [No jaundice.] Oropharynx: Clear. Mucous membranes [moist]. Cardiovascular: [Regular rate and rhythm]. [No murmurs, gallops, or rubs]. Respiratory: [Clear to auscultation bilaterally. No wheezes or crackles]. Abdomen: Bowel sounds [present]. [Soft, nondistended, nontender]. Extremities: [No] pedal edema. [] Const: Vital Signs, click to edit/add: Vital Signs - 24 hr 08/29/22 23:16 08/30/22 00:05 08/30/22 02:53 Temperature 98.1 F Pulse Rate [Left A pical] Pulse Rate [Left P ulse Oximeter] 106 H 92 Respiratory Rate 32 H 20 Blood Pressure [Le ft Arm] Blood Pressure [Ri ght Upper Arm] 162/87 H 169/78 H Pulse Oximetry 95 93 95 [facility] Room Air 08/30/22 00:30 08/30/22 00:00 08/29/22 23:30 Temperature Pulse Rate [Left A pical] Pulse Rate [Left P ulse Oximeter] 98 96 105 H Respiratory Rate 30 H 21 26 H Blood Pressure [Le ft Arm] Blood Pressure [Ri ght Upper Arm] 138/66 141/64 H 155/77 H Pulse Oximetry 97 97 94 Oxygen Delivery Sc thod Room Air Room Air 08/30/22 05:27 08/30/22 05:27 08/30/22 06:00 Temperature 98.1 F 98.1 F Pulse Rate [Left A pical] 86 86 Pulse Rate [Left P ulse Oximeter] Respiratory Rate 24 24 24 Blood Pressure [Le ft Arm] 178/82 H 178/82 H Blood Pressure [Ri ght Upper Arm] Pulse Oximetry 96 96 96 Oxygen Delivery Me thod Room Air Room Air Room Air Labs Labs: Laboratory Results - last 24 hr 08/29/22 08/29/22 08/29/22 23:36 23:59 23:59 WBC 6.65 RBC 4.57 Hgb 13.8 Hct 42.4 MCV 93 MCH 30 MCHC 33 RDW Coeff of Scott 12.0 Plt Count 204 Neut % (Auto) 76.2 H Lymph % (Auto) 14.0 L Spencer % (Auto) 7.4 Eos % (Auto) 1.5 Baso % (Auto) 0.6 Neut # (Auto) 5.10 Lymph # (Auto) 0.90 Spencer # (Auto) 0.50 Eos # (Auto) 0.10 Baso # (Auto) 0.04 Abs Immat Gran (auto) 0.02 INR D-Dimer Quant (PE/DVT) 1.25 H VBG pH VBG pCO2 VBG pO2 VBG HCO3 Sodium Potassium Chloride Carbon Dioxide BUN Creatinine Estimated Creat Clear Estimated GFR Glucose Calcium Total Bilirubin Direct Bilirubin AST ALT Alkaline Phosphatase Troponin I C-Reactive Protein NT-Pro-B Natriuret Pep Total Protein Albumin SARS-CoV-2 (PCR) Negative SARS-CoV-2 POC Troponin I 08/29/22 08/29/22 08/29/22 23:59 23:59 23:59 WBC RBC Hgb Hct MCV MCH MCHC RDW Coeff of Scott Plt Count Neut % (Auto) Lymph % (Auto) Spencer % (Auto) Eos % (Auto) Baso % (Auto) Neut # (Auto) Lymph # (Auto) Spencer # (Auto) Eos # (Auto) Baso # (Auto) Abs Immat Gran (auto) INR 0.94 D-Dimer Quant (PE/DVT) VBG pH VBG pCO2 VBG pO2 VBG HCO3 Sodium 133 L Potassium 4.1 Chloride 98 Carbon Dioxide 26 BUN 13 Creatinine 0.7 Estimated Creat Clear 61.67 Estimated GFR 102 Glucose 316 H Calcium 9.0 Total Bilirubin 0.3 Direct Bilirubin 0.1 AST 25 ALT 21 Alkaline Phosphatase 117 Troponin I C-Reactive Protein < 0.5 L NT-Pro-B Natriuret Pep 1960 H Total Protein 6.6 Albumin 3.8 SARS-CoV-2 (PCR) POC Troponin I 08/29/22 08/29/2222 23:59 23:59 07:15 WBC 6.52 RBC 4.91 Hgb 14.8 Hct 45.1 MCV 92 MCH 30 MCHC 33 RDW Coeff of Scott 11.9 Plt Count 223 Neut % (Auto) 89.1 H Lymph % (Auto) 8.6 L Spencer % (Auto) 1.5 Eos % (Auto) 0.3 Baso % (Auto) 0.2 Neut # (Auto) 5.80 Lymph # (Auto) 0.60 L Spencer # (Auto) 0.10 Eos # (Auto) 0.02 Baso # (Auto) 0.01 Abs Immat Gran (auto) 0.02 INR D-Dimer Quant (PE/DVT) VBG pH 7.394 VBG pCO2 47 VBG pO2 30.8 VBG HCO3 29 H Sodium Potassium Chloride Carbon Dioxide BUN Creatinine Estimated Creat Clear Estimated GFR Glucose Calcium Total Bilirubin Direct Bilirubin AST ALT Alkaline Phosphatase Troponin I C-Reactive Protein NT-Pro-B Natriuret Pep Total Protein Albumin SARS-CoV-2 (PCR) POC Troponin I 1.01 H 08/30/22 07:15 WBC RBC Hgb Hct MCV MCH MCHC RDW Coeff of Scott Plt Count Neut % (Auto) Lymph % (Auto) Spencer % (Auto) Eos % (Auto) Baso % (Auto) Neut # (Auto) Lymph # (Auto) Spencer # (Auto) Eos # (Auto) Baso # (Auto) Abs Immat Gran (auto) INR D-Dimer Quant (PE/DVT) VBG pH VBG pCO2 VBG pO2 VBG HCO3 Sodium 134 L Potassium 4.4 Chloride 98 Carbon Dioxide 28 BUN 12 Creatinine 0.7 Estimated Creat Clear 66.46 Estimated GFR 102 Glucose 269 H Calcium 9.0 Total Bilirubin 0.4 Direct Bilirubin AST 26 ALT 23 Alkaline Phosphatase 131 Troponin I 1.50 H* C-Reactive Protein NT-Pro-B Natriuret Pep Total Protein 7.3 Albumin 4.2 SARS-CoV-2 (PCR) POC Troponin I
--- NOTE | 2022-08-30 09:00 | PM.IMHP1 ---
Hospitalist- H&P: HPI History of Present Illness Time Seen by Provider: 08:30 Date Seen: 08/30/22 Chief complaint: Chest Pain Narrative: Lalo is a 66-year-old male with a history of coronary artery disease and non STEMI, COPD, congestive heart failure, diabetes mellitus type 2, history of TIA and stroke, and aortic dilatation who is admitted for recurrent chest pain. He was hospitalized earlier this month for chest pain and had elevated troponins without EKG changes or wall motion abnormalities on echocardiogram. An outpatient stress test was recommended. He has not yet had that done. He then had chest pain again at home while watching TV for which he called 911. He was brought to the emergency department where he had recurrent chest pain and was noted to have an elevated troponin. He is admitted overnight for observation on telemetry with serial troponins. His troponin this morning is even more elevated, now at 1.5 up from 1. I went in to see him this morning immediately and his nurses were noting that he had a brief episode of diaphoresis which they noted but he did not. Patient had just returned from bathroom after having a normal BM. According to nursing staff, diaphoresis was mild and lasted only a few minutes and had already resolved by the time I saw him. Denied CP, SOB. Denies nausea or lightheadedness. Just ate breakfast, feels fine. Patient did not notice diaphoresis or any symptoms. EKG was unchanged. I reviewed the preliminary results of the CTA done last night which showed no PE or acute abnormality. Coronary artery disease was noted. Review of Systems Status of ROS: Reports: 10 or more systems reviewed and unremarkable except as noted in History and below [facility] Medical History (Updated 08/30/22 @ 09:08 by Gabrielle Goss MD) Aortic dilatation Ascending aorta dilation CAD (coronary artery disease) Chest pain COPD (chronic obstructive pulmonary disease) CVA (cerebral vascular accident) Essential hypertension Gastric ulcer Ground glass opacity present on imaging of lung H/O TIA (transient ischemic attack) and stroke Meniere disease Mixed hyperlipidemia GREGORIO (obstructive sleep apnea) Syncope Type 2 diabetes mellitus Vertigo Surgical History No significant past surgical history Social History Smoking Status: Current every day smoker Do you use any of these nicotine containing products: None How often do you have a drink containing alcohol: never How often do you have six or more drinks on one occasion: Never AUDIT-C Alcohol total score: 0 Non-prescribed substance use: denies use Caffeine: Yes (1 cup of coffee/day) service: No Meds Home Medications and Allergies Home Medications Medication Instructions Recorded Confirmed Type albuterol sulfate 90 mcg/actuation 2 puff inhalation Q4H PRN 06/04/22 08/29/22 History aerosol inhaler glipizide 5 mg tablet 5 mg PO BID 06/04/22 08/29/22 History meclizine 25 mg tablet 25 mg PO TID PRN 06/04/22 08/29/22 History metformin 1,000 mg tablet 1,000 mg PO BID 06/04/22 08/29/22 History aspirin 81 mg tablet,delayed 81 mg PO DAILY 08/15/22 08/30/22 History release (Adult Low Dose Aspirin) loratadine 10 mg tablet (Claritin) 10 mg PO DAILY PRN 08/15/22 08/29/22 History atorvastatin 80 mg tablet 80 mg PO HS 08/30/22 08/30/22 History metoprolol succinate 100 mg 100 mg PO DAILY 08/30/22 08/30/22 History tablet,extended release 24 hr Allergies Allergy/AdvReac Type Severity Reaction Status Date / Time gadodiamide Allergy Unknown Verified 08/29/22 23:22 diagnostic x-ray materials Allergy Unknown Uncoded 08/14/22 21:01 Exam Narrative: Exam Narrative: General: No acute distress. Awake alert oriented x3. No diaphoresis. HEENT: Normocephalic atraumatic. Oropharynx clear. Mucous membranes are moist. No cervical lymphadenopathy. No JVD. Cardiovascular: Regular rate and rhythm. No murmurs, gallops, or rubs. Chest: No increased work of breathing. Clear to auscultation bilaterally. No crackles. Scattered expiratory wheezes. Abdomen: Bowel sounds present. Soft, nondistended, nontender. No hepatosplenomegaly or masses. Extremities: No edema, no cyanosis or clubbing. Skin: No jaundice, no pallor, no rashes. Const: Vital Signs, click to edit/add: Vital Signs - 24 hr 08/29/22 23:16 08/30/22 00:05 08/30/22 02:53 Temperature 98.1 F Pulse Rate [Left A pical] Pulse Rate [Left P ulse Oximeter] 106 H 92 Respiratory Rate 32 H 20 Blood Pressure [Le ft Arm] Blood Pressure [Ri ght Upper Arm] 162/87 H 169/78 H Pulse Oximetry 95 93 95 Oxygen Delivery Me thod Room Air Room Air 08/30/22 00:30 08/30/22 00:00 08/29/22 23:30 Temperature Pulse Rate [Left A pical] Pulse Rate [Left P ulse Oximeter] 98 96 105 H Respiratory Rate 30 H 21 26 H Blood Pressure [Le ft Arm] Blood Pressure [Ri ght Upper Arm] 138/66 141/64 H 155/77 H Pulse Oximetry 97 97 94 Oxygen Delivery Me thod Room Air Room Air 08/30/22 05:27 08/30/22 05:27 08/30/22 06:00 Temperature 98.1 F 98.1 F Pulse Rate [Left A pical] 86 86 Pulse Rate [Left P ulse Oximeter] Respiratory Rate 24 24 24 Blood Pressure [Le ft Arm] 178/82 H 178/82 H Blood Pressure [Ri ght Upper Arm] Pulse Oximetry 96 96 96 Oxygen Delivery Ks thod Room Air Room Air Room Air Hospitalist - H&P: Result Labs Labs: Short CBC 08/29/22 08/30/22 Range/Units 23:59 07:15 WBC 6.65 6.52 (4.50-11.00) K/uL Hgb 13.8 14.8 (13.5-17.5) gm/dL Hct 42.4 45.1 (37.0-53.0) % Plt Count 204 223 (140-440) K/uL BMP 08/29/22 08/30/22 23:59 07:15 Sodium 133 L 134 L Potassium 4.1 4.4 Chloride 98 98 Carbon Dioxide 26 28 BUN 13 12 Creatinine 0.7 0.7 Glucose 316 H 269 H Calcium 9.0 9.0 Cardiac Enzymes 08/30/22 Range/Units 07:15 Troponin I 1.50 H* (0.01-0.04) ng/mL Liver Function 08/29/22 08/30/22 Range/Units 23:59 07:15 Total Bilirubin 0.3 0.4 (0.1-1.5) mg/dL Direct Bilirubin 0.1 (0.0-0.5) mg/dL AST 25 26 (12-35) U/L ALT 21 23 (4-50) U/L Alkaline Phosphatase 117 131 (40-150) U/L Albumin 3.8 4.2 (3.3-5.0) g/dL Ordering Physician: Nicole Kahn MD Date of Service: 08/29/22 Procedure(s): XR chest 1V portable Accession Number(s): [id number] cc: Nicole Kahn MD; Hannah Stein DO~ For Patients: As a result of the Cures Act, medical imaging exams and procedure reports are released immediately into your electronic medical record. You may view this report before your referring provider. If you have questions, please contact your health care provider. Indication: Shortness of breath Technique: Chest 1 view Comparison: August 17, 2022 Findings/Impression: Stable cardiomediastinal silhouette. Normal pulmonary vasculature. No pneumothorax or effusion. No focal consolidation. Osseous structures intact. Dictated by Cecilia Cooper MD @ 08/29/2022 11:52:38 PM (Electronically Signed) Preliminary results of the CTA chest for PE were: no PE or acute abnormality. CAD. EKG from 08/29/2022, 23:15 Sinus tachycardia, heart rate 108 beats per minute, possible left atrial enlargement, left anterior fascicular block. EKG from 08/30/2022, 08:22 Sinus tachycardia, 104 beats per minute, possible left atrial enlargement, left anterior fascicular block, nonspecific ST abnormality. Assessment and Plan Assessment and plan (1) Chest pain: Status: Acute (2) Non-STEMI (non-ST elevated myocardial infarction): Problem comment: Elevation of troponins to moderate degree with improvement over the last couple days. Not associated with chest pain. Not associated with new wall motion abnormality on echo. No diagnostic EKG changes. Recommend outpatient stress test when clinical symptoms of COPD and pneumonia have resolved Status: Acute (3) Heart failure with preserved ejection fraction: Problem comment: Started on torsemide as well as Toprol and lisinopril. Status: Acute (4) H/O medication noncompliance: Problem comment: It appears financial considerations are barrier to compliance. Discussed with him the importance of taking medications. I have prescribed a number of new medications which are all generic. At this time he thinks he can work out a plan to get these prescriptions filled Status: Acute (5) Type 2 diabetes mellitus: Problem comment: Monitor and manage. Suboptimal control probably due to prednisone. Patient is reluctant to have additional diabetes medicines due to cost Status: Chronic (6) Pneumonia: Problem comment: Community-acquired pneumonia treatment with a Zithromax and ceftriaxone. Status: Acute (7) Elevated troponin: Problem comment: Possible nonSTEMI, mild increase in troponin. No chest pain. Uncertain whether his exertional dyspnea may be a sign of this. I think is a component of heart failure with preserved ejection fraction. ECHO 08/15/2022 LVH, nml LV size and systolic funcion, mild-mod MR. Optimize care for coronary disease with statin, beta shalom, aspirin When clinically stable get outpatient stress test Status: Acute (8) Essential hypertension: Problem comment: Added lisinopril, torsemide, Toprol XL to treat heart failure and hypertension Status: Acute Plan This is a 66-year-old male with known coronary artery disease who has had recurrent chest pain over the last few weeks for which he was admitted last night. He now has a rising troponin associated with diaphoresis. He is otherwise asymptomatic. No changes on telemetry or EKG. Repeat echocardiogram is pending. Have another troponin pending for 10:00 a.m.. He has gotten another 324 mg aspirin this morning, metoprolol, atorvastatin, and lisinopril. Since he was not having chest pain or shortness of breath, no nitroglycerin was admitted this morning. He is no longer diaphoretic. I have ordered nitroglycerin sublingual to be given as needed if any of these symptoms arise. He does have an expiratory wheeze for which he has nebulizers ordered. Have reviewed the ER note as well as the overnight hospitalist note. I have contacted Cardiology from [facility], spoke with Dr. Lovell, who recommended transfer for cardiac catheterization and starting heparin IV, and patient was placed on the waiting list and was at position 11. We called around to 9 more facilities. The closest facility with a bed available now is [facility]. I spoke with Dr. Coronel from cardiology and Dr. Tai from the hospitalist service accepted this patient in transfer. They had a telemetry bed available immediately. I have started heparin IV per ACS protocol.
[2022-08-30] MEDS: METOPROLOL SUCCINATE (XL) 100 MG TAB PO (09:11)
[2022-08-30] MEDS: TORSEMIDE 5 MG TABLET 10 MG PO (09:11)
[2022-08-30] MEDS: lisinopriL 10 MG TABLET PO (09:11)
[2022-08-30 10:14] LABS: Hematocrit 46.4 % (37.0-53.0); Hemoglobin* 15.3 gm/dL (13.5-17.5); Mean Corpuscular HGB Conc 33 gm/dL (32-36); Mean Corpuscular Hemoglobin 30 pg (26-34); Mean Corpuscular Volume 92 fL (80-100); Platelet Count* 243 K/uL (140-440); Red Blood Count 5.05 m/uL (4.30-5.90); White Blood Count* 6.71 K/uL (4.50-11.00)
[2022-08-30 10:19] LABS: Slide Review Reflex No
[2022-08-30 10:31] LABS: INR 0.98 (0.91-1.10); Prothrombin Time 13.4 Seconds
[2022-08-30 10:32] LABS: Partial Thromboplastin Time* 29 Seconds (23-33)
--- NOTE | 2022-08-30 11:15 | PC.NURSE ---
Critical value reported by lab - Troponin 1.30, Dr. Goss notified.
[2022-08-30] MEDS: HEPARIN 25,000 UNIT/500 ML BAG 20 UNIT IV (11:19)
[2022-08-30] MEDS: HEPARIN 5,000 UNIT/0.5 ML INJ 4000 UNIT IVP (11:21)
[2022-08-30] MEDS: ACETAMINOPHEN 325 MG TABLET 650 MG PO (12:41)
--- NOTE | 2022-08-30 12:58 | PM.DS1 ---
DS: Providers Provider Date Seen: 08/30/22 Date of admission: 08/30/22 08:57 Primary care physician: Hannah Stein DO Admitting Clinician: Gabrielle Goss MD Attending Physician on discharge: Gabrielle Goss MD Date of Discharge: 08/30/22 DS: Diagnosis Discharge Diagnosis (1) Non-STEMI (non-ST elevated myocardial infarction): Status: Acute Problem details: Elevation of troponin, no changes on EKG, recurrent CP on admission, none overnight (2) COPD (chronic obstructive pulmonary disease): Status: Chronic (3) Heart failure with preserved ejection fraction: Status: Acute Problem details: Stable on torsemide as well as Toprol and lisinopril. (4) Cognitive decline: Status: Acute (5) H/O medication noncompliance: Status: Acute Problem details: It appears financial considerations are barrier to compliance. Discussed with him the importance of taking medications. (6) Type 2 diabetes mellitus: Status: Chronic Problem details: Patient is reluctant to have additional diabetes medicines due to cost (7) Essential hypertension: Status: Acute Problem details: lisinopril, torsemide, Toprol XL to treat heart failure and hypertension (8) Elevated troponin: Status: Acute Problem details: From 08/18/22: Possible nonSTEMI, mild increase in troponin. No chest pain. Uncertain whether his exertional dyspnea may be a sign of this. I think is a component of heart failure with preserved ejection fraction. ECHO 08/15/2022 LVH, nml LV size and systolic funcion, mild-mod MR. Optimize care for coronary disease with statin, beta shalom, aspirin Outpatient stress test recommended DS: Summary Hospital Course Hospital Course: This is a 66-year-old male with known coronary artery disease who has had recurrent chest pain over the last few weeks for which he was admitted last night. He now has a rising troponin associated with diaphoresis. He is otherwise asymptomatic. No changes on telemetry or EKG. Repeat echocardiogram is pending. Have another troponin pending for 10:00 a.m.. He has gotten another 324 mg aspirin this morning, metoprolol, atorvastatin, and lisinopril. Since he was not having chest pain or shortness of breath, no nitroglycerin was admitted this morning. He is no longer diaphoretic. I have ordered nitroglycerin sublingual to be given as needed if any of these symptoms arise. He does have an expiratory wheeze for which he has nebulizers ordered. Have reviewed the ER note as well as the overnight hospitalist note. I have contacted Cardiology from [place], spoke with Dr. Lovell, who recommended transfer for cardiac catheterization and starting heparin IV, and patient was placed on the waiting list and was at position 11. We called around to 9 more facilities. The closest facility with a bed available now is [facility]. I spoke with Dr. Coronel from cardiology and Dr. Tai from the hospitalist service accepted this patient in transfer. They had a telemetry bed available immediately. I have started heparin IV per ACS protocol. When I went in to tele patient that he would be going to [place] for cardiac catheterization, the patient's son had arrived and told me that he was concerned about Lalo's cognitive decline over the last few months. He is noted worsening short-term memory and over the last few days Lalo has seemed confused and has even been urinating outside instead of in the bathroom in the house. Time Spent with Patient Time attestation: Total time spent providing and/or coordinating discharge services: Exam Narrative: Exam Narrative: See my H&P from the same day. Const: Vital Signs, click to edit/add: Vital Signs - 24 hr 08/29/22 23:16 08/30/22 00:05 08/30/22 02:53 Temperature 98.1 F Pulse Rate Pulse Rate [Left A pical] Pulse Rate [Left P ulse Oximeter] 106 H 92 Respiratory Rate 32 H 20 Blood Pressure [Le ft Arm] Blood Pressure [Ri ght Upper Arm] 162/87 H 169/78 H Pulse Oximetry 95 93 95 Oxygen Delivery Me thod Room Air Room Air 08/30/22 00:30 08/30/22 00:00 08/29/22 23:30 Temperature Pulse Rate Pulse Rate [Left A pical] Pulse Rate [Left P ulse Oximeter] 98 96 105 H Respiratory Rate 30 H 21 26 H Blood Pressure [Le ft Arm] Blood Pressure [Ri ght Upper Arm] 138/66 141/64 H 155/77 H Pulse Oximetry 97 97 94 Oxygen Delivery Me thod Room Air Room Air 08/30/22 05:27 08/30/22 05:27 08/30/22 06:00 Temperature 98.1 F 98.1 F Pulse Rate Pulse Rate [Left A pical] 86 86 Pulse Rate [Left P ulse Oximeter] Respiratory Rate 24 24 24 Blood Pressure [Le ft Arm] 178/82 H 178/82 H Blood Pressure [Ri ght Upper Arm] Pulse Oximetry 96 96 96 Oxygen Delivery Me thod Room Air Room Air Room Air 08/30/22 05:46 08/30/22 07:00 08/30/22 08:58 Temperature 98.1 F Pulse Rate 96 Pulse Rate [Left A pical] 94 Pulse Rate [Left P ulse Oximeter] Respiratory Rate 24 Blood Pressure [Le ft Arm] 165/77 H Blood Pressure [Ri ght Upper Arm] Pulse Oximetry 94 94 Oxygen Delivery Me thod Room Air 08/30/22 08:58 08/30/22 07:00 Temperature Pulse Rate 96 Pulse Rate [Left A pical] 94 Pulse Rate [Left P ulse Oximeter] Respiratory Rate Blood Pressure [Le ft Arm] Blood Pressure [Ri ght Upper Arm] Pulse Oximetry Oxygen Delivery Me thod DS: Data Data Completed and Pending Completed studies during hospitalization: Ordering Physician: Nicole Kahn MD Date of Service: 08/29/22 Procedure(s): XR chest 1V portable Accession Number(s): [id number] cc: Nicole Kahn MD; Hannah Stein DO~ For Patients: As a result of the Cures Act, medical imaging exams and procedure reports are released immediately into your electronic medical record. You may view this report before your referring provider. If you have questions, please contact your health care provider. Indication: Shortness of breath Technique: Chest 1 view Comparison: August 17, 2022 Findings/Impression: Stable cardiomediastinal silhouette. Normal pulmonary vasculature. No pneumothorax or effusion. No focal consolidation. Osseous structures intact. Dictated by Cecilia Cooper MD @ 08/29/2022 11:52:38 PM (Electronically Signed) Preliminary results of the CTA chest for PE were: no PE or acute abnormality. CAD. EKG from 08/29/2022, 23:15 Sinus tachycardia, heart rate 108 beats per minute, possible left atrial enlargement, left anterior fascicular block. EKG from 08/30/2022, 08:22 Sinus tachycardia, 104 beats per minute, possible left atrial enlargement, left anterior fascicular block, nonspecific ST abnormality. Labs on day of discharge: Labs from last 24 hours 08/30/22 08/30/22 08/30/22 09:56 09:56 09:56 WBC 6.71 RBC 5.05 Hgb 15.3 Hct 46.4 MCV 92 MCH 30 MCHC 33 RDW Coeff of Scott Plt Count 243 Neut % (Auto) Lymph % (Auto) [place] % (Auto) Eos % (Auto) Baso % (Auto) Neut # (Auto) Lymph # (Auto) [place] # (Auto) Eos # (Auto) Baso # (Auto) Abs Immat Gran (auto) INR 0.98 APTT 29 D-Dimer Quant (PE/DVT) VBG pH VBG pCO2 VBG pO2 VBG HCO3 Sodium Potassium Chloride Carbon Dioxide BUN Creatinine Estimated Creat Clear Estimated GFR Glucose Calcium Total Bilirubin Direct Bilirubin AST ALT Alkaline Phosphatase Troponin I 1.30 H* C-Reactive Protein NT-Pro-B Natriuret Pep Total Protein Albumin SARS-CoV-2 (PCR) POC Troponin I 08/30/22 08/30/22 08/29/22 07:15 07:15 23:59 WBC 6.52 RBC 4.91 Hgb 14.8 Hct 45.1 MCV 92 MCH 30 MCHC 33 RDW Coeff of Scott 11.9 Plt Count 223 Neut % (Auto) 89.1 H Lymph % (Auto) 8.6 L [place] % (Auto) 1.5 Eos % (Auto) 0.3 Baso % (Auto) 0.2 Neut # (Auto) 5.80 Lymph # (Auto) 0.60 L [place] # (Auto) 0.10 Eos # (Auto) 0.02 Baso # (Auto) 0.01 Abs Immat Gran (auto) 0.02 INR APTT D-Dimer Quant (PE/DVT) VBG pH 7.394 VBG pCO2 47 VBG pO2 30.8 VBG HCO3 29 H Sodium 134 L Potassium 4.4 Chloride 98 Carbon Dioxide 28 BUN 12 Creatinine 0.7 Estimated Creat Clear 66.46 Estimated GFR 102 Glucose 269 H Calcium 9.0 Total Bilirubin 0.4 Direct Bilirubin AST 26 ALT 23 Alkaline Phosphatase 131 Troponin I 1.50 H* C-Reactive Protein NT-Pro-B Natriuret Pep Total Protein 7.3 Albumin 4.2 SARS-CoV-2 (PCR) POC Troponin I 10/08/29/22 08/29/22 23:59 23:59 23:59 WBC RBC Hgb Hct MCV MCH MCHC RDW Coeff of Scott Plt Count Neut % (Auto) Lymph % (Auto) [place] % (Auto) Eos % (Auto) Baso % (Auto) Neut # (Auto) Lymph # (Auto) [place] # (Auto) Eos # (Auto) Baso # (Auto) Abs Immat Gran (auto) INR 0.94 APTT D-Dimer Quant (PE/DVT) VBG pH VBG pCO2 VBG pO2 VBG HCO3 Sodium Potassium Chloride Carbon Dioxide BUN Creatinine Estimated Creat Clear Estimated GFR Glucose Calcium Total Bilirubin 0.3 Direct Bilirubin 0.1 AST 25 ALT 21 Alkaline Phosphatase 117 Troponin I C-Reactive Protein NT-Pro-B Natriuret Pep 1960 H Total Protein 6.6 Albumin 3.8 SARS-CoV-2 (PCR) POC Troponin I 1.01 H 08/29/22 08/29/22 08/29/22 23:59 23:59 23:59 WBC 6.65 RBC 4.57 Hgb 13.8 Hct 42.4 MCV 93 MCH 30 MCHC 33 RDW Coeff of Scott 12.0 Plt Count 204 Neut % (Auto) 76.2 H Lymph % (Auto) 14.0 L [place] % (Auto) 7.4 Eos % (Auto) 1.5 Baso % (Auto) 0.6 Neut # (Auto) 5.10 Lymph # (Auto) 0.90 [place] # (Auto) 0.50 Eos # (Auto) 0.10 Baso # (Auto) 0.04 Abs Immat Gran (auto) 0.02 INR APTT D-Dimer Quant (PE/DVT) 1.25 H VBG pH VBG pCO2 VBG pO2 VBG HCO3 Sodium 133 L Potassium 4.1 Chloride 98 Carbon Dioxide 26 BUN 13 Creatinine 0.7 Estimated Creat Clear 61.67 Estimated GFR 102 Glucose 316 H Calcium 9.0 Total Bilirubin Direct Bilirubin AST ALT Alkaline Phosphatase Troponin I C-Reactive Protein < 0.5 L NT-Pro-B Natriuret Pep Total Protein Albumin SARS-CoV-2 (PCR) POC Troponin I 08/29/22 23:36 WBC RBC Hgb Hct MCV MCH MCHC RDW Coeff of Scott Plt Count Neut % (Auto) Lymph % (Auto) [place] % (Auto) Eos % (Auto) Baso % (Auto) Neut # (Auto) Lymph # (Auto) [place] # (Auto) Eos # (Auto) Baso # (Auto) Abs Immat Gran (auto) INR APTT D-Dimer Quant (PE/DVT) VBG pH VBG pCO2 VBG pO2 VBG HCO3 Sodium Potassium Chloride Carbon Dioxide BUN Creatinine Estimated Creat Clear Estimated GFR Glucose Calcium Total Bilirubin Direct Bilirubin AST ALT Alkaline Phosphatase Troponin I C-Reactive Protein NT-Pro-B Natriuret Pep Total Protein Albumin SARS-CoV-2 (PCR) Negative SARS-CoV-2 POC Troponin I Discharge Plan Discharge Disposition: Xfer Other Date of Admission: 08/30/22 08:57 Attending Provider on Discharge: Gabrielle Goss Primary Care Provider: Hannah Stein Condition: Unchanged Discharge Medications: Continued albuterol sulfate 90 mcg/actuation HFA aerosol inhaler 2 puff INHALATION Q4H PRN Label Comments: Inhale 2 Puffs by mouth every 4 hours if needed. glipizide 5 mg tablet 5 mg PO BID meclizine 25 mg tablet 25 mg PO TID PRN metformin 1,000 mg tablet 1,000 mg PO BID loratadine [Claritin] 10 mg tablet 10 mg PO DAILY PRN aspirin [Adult Low Dose Aspirin] 81 mg tablet,delayed release (DR/EC) 81 mg PO DAILY lisinopril 10 mg tablet 10 mg PO DAILY Qty: 30 2RF torsemide 10 mg tablet 10 mg PO DAILY Qty: 30 2RF potassium chloride 10 mEq capsule, extended release 10 meq PO DAILY Qty: 30 2RF ipratropium-albuterol 0.5 mg-3 mg(2.5 mg base)/3 mL Solution For Nebulization 3 ml inhalation TID Qty: 180 0RF atorvastatin 80 mg tablet 80 mg PO HS metoprolol succinate 100 mg tablet extended release 24 hr 100 mg PO DAILY Discharge Orders: Discharge Order (Routine); Ordered 08/30/22 Ordered By: Gabrielle Goss Additional Instructions: Transfer to [facility] Follow Up Appointments: Hannah Stein DO [Primary Care Provider] - Forms: MyHealth Info Instructions Hospital Course: This is a 66-year-old male with known coronary artery disease who has had recurrent chest pain over the last few weeks for which he was admitted last night. He now has a rising troponin associated with diaphoresis. He is otherwise asymptomatic. No changes on telemetry or EKG. Repeat echocardiogram is pending. Have another troponin pending for 10:00 a.m.. He has gotten another 324 mg aspirin this morning, metoprolol, atorvastatin, and lisinopril. Since he was not having chest pain or shortness of breath, no nitroglycerin was admitted this morning. He is no longer diaphoretic. I have ordered nitroglycerin sublingual to be given as needed if any of these symptoms arise. He does have an expiratory wheeze for which he has nebulizers ordered. Have reviewed the ER note as well as the overnight hospitalist note. I have contacted Cardiology from [place], spoke with Dr. Lovell, who recommended transfer for cardiac catheterization and starting heparin IV, and patient was placed on the waiting list and was at position 11. We called around to 9 more facilities. The closest facility with a bed available now is [facility]. I spoke with Dr. Coronel from cardiology and Dr. Tai from the hospitalist service accepted this patient in transfer. They had a telemetry bed available immediately. I have started heparin IV per ACS protocol. When I went in to tele patient that he would be going to [place] for cardiac catheterization, the patient's son had arrived and told me that he was concerned about Lalo's cognitive decline over the last few months. He is noted worsening short-term memory and over the last few days Lalo has seemed confused and has even been urinating outside instead of in the bathroom in the house.
--- NOTE | 2022-08-30 15:15 | PC.NURSE ---
TROP 1.50 THIS AM- EKG DONE AT THIS TIME WITH BP NOTED TO BE 193/100 HR 105. AFEBRILE AT THIS TIME. PT MADE NPO AT THIS TIME. TEDS PLACED WITH SCD'S AND PT STRICT BED REST. 324MG OF ASA GIVEN AT 0830. PT DENIED CHEST PAIN WITH ALL OF THIS. HEPARIN GTT STARTED AT 1130 WITH 4000U IVP BOLUS AND GTT STARTED AT 1000U/HR. TEMP AT 1230 99.3 - TYLENOL GIVEN FOR THIS. EMS TRANSPORT FOR TRANSFER TO [facility] AT 1400.
== END 2022-08-30 14:00 | disposition short-term general hospital (02) | DRG 280 ==
LOC: ED 08-30 02:23 → MEDSURG 08-30 05:14
PROVIDERS: Emergency Medicine; Family Medicine; Internal Medicine; Admitting Provider Family Medicine; Emergency Provider Family Medicine; PCP Family Medicine; Visit Provider Family Medicine
DX: I21.4 Non-ST elevation (NSTEMI) myocardial infarction (principal); I50.31 Acute diastolic (congestive) heart failure; J18.9 Pneumonia, unspecified organism; J44.9 Chronic obstructive pulmonary disease, unspecified; G31.84 Mild cognitive impairment of uncertain or unknown etiology; Z91.14 Patient's other noncompliance with medication regimen; I11.0 Hypertensive heart disease with heart failure; E11.9 Type 2 diabetes mellitus without complications; I25.10 Atherosclerotic heart disease of native coronary artery without angina pectoris; I44.4 Left anterior fascicular block; Z86.73 Personal history of transient ischemic attack (TIA), and cerebral infarction without residual deficits; G47.33 Obstructive sleep apnea (adult) (pediatric); E78.2 Mixed hyperlipidemia; H81.09 Meniere's disease, unspecified ear; I77.819 Aortic ectasia, unspecified site; F17.210 Nicotine dependence, cigarettes, uncomplicated
CPT/HCPCS: 36415; 71045; 71260; 80048; 80053; 80076; 82803; 82947; 83880; 84484; 85025; 85027; 85379; 85610; 85730; 86140; 87635; 93005; 94640; 94761; 99251; 99284; 99285; A9270; J1200; J1644; J1720; Q9967

== ENCOUNTER 2022-08-30 14:01 | Outpatient (CLI) | payer MEDICARE, SELFPAY ==
--- OUTSIDE RECORDS SUMMARY | 2022-09-29 16:20 | XMS_ITS | Clinical Summary ---
:1955 External Reference #:RESEARCH Author Organization Instant Information & [facility] [place] [address] Care Team Providers Name Role Phone Emil Hannah Sabiha GAN Primary Care Provider Rufus Rucker MD Unavailable Unavailable Sosa Guthrie Unavailable [phone] Allergies Active Allergy Reactions Severity Noted Date Comments Gadolinium-Containing Other - Describe In High 08/29/2022 States that he passed Contrast Media Comment Field out when giv en this. Iodinated Contrast Syncope 09/26/2008 Media Medications Medication Sig Dispensed Refills Start Date [...] pulmonary disease, choice. unspecified COPD type (HC) lisinopriL TAKE ONE TABLET 90 Tablet 0 02/23/2022 Ac tive (PRINIVIL; BY MOUTH EVERY ZESTRIL) 20 mg DAY tabletIndications: Essential hypertension metFORMIN TAKE ONE TABLET 60 Tablet 0 08/14/2022 Act paul (GLUCOPHAGE) 1,000 BY MOUTH TWICE mg A DAY WITH tabletIndications: MEALS Type 2 diabetes mellitus without complication, without long-term current use of insulin (HC) potassium chloride 0 08/18/2022 Active (MICRO-K) 10 mEq Controlled-release capsule atorvastatin Take 1 Tablet 90 tablet. [...] XL) 100 mg mouth once Sustained-Release daily. tabletIndications: Coronary artery disease due to lipid rich plaque, HTN (hypertension) torsemide Take 1 Tablet 90 Tablet 0 08/27/2022 Activ e (DEMADEX) 10 mg (10 mg) by tabletIndications: mouth once HTN (hypertension) daily. glipiZIDE TAKE ONE TABLET 180 Tablet 0 09/11/2022 Ac tive (GLUCOTROL) 5 mg BY MOUTH TWICE tabletIndications: DAILY BEFORE Type 2 diabetes MEALS mellitus without complication, without long-term current use of insulin (HC) atorvastatin Take 80 mg by 0 08/30/2022 Ac tive (LIPITOR) 80 mg mouth at tablet bedtime. metoprolol Take 100 mg by 0 08/30/2022 Act paul succinate mouth once (KAPSPARGO) 100 mg daily. CSpX sprinkle capsule glipiZIDE TAKE ONE TABLET 60 Tablet 0 08/14/2022 Dis continued (GLUCOTROL) 5 mg BY MOUTH TWICE 2 tabletIndications: A DAY BEFORE Type 2 diabetes MEALS mellitus without complication, without long-term current use of insulin (HC) Active Problems Problem Noted Date Noncompliance with medication regimen 08/22/2022 Coronary artery disease, mild 07/17/2015 Type 2 diabetes mellitus without complication, without long-term current 12/12/2013 use of insulin ACP (advance care planning) 12/12/2013 Overview: CODE STATUS: FULL POA: JOEL INIGUEZ (SON) [phone] or [phone] Hx-TIA (transient ischemic attack) 12/12/2013 Gastric ulcer [...] Encounters Date Type Specialty Care Team Description 09/26/2022 Telephone Hannah Stein DO Appoi ntment 09/23/2022 Lab Requisition Rudy Epperson MD 09/12/2022 Emergency Ball, Derek Chest pain, unspecified MD Lin type (Primary D x) 09/11/2022 Telephone Hannah Stein DO Lab ( Labwork needed?) 09/07/2022 Refill Hannah Stein DO Refil l Request (Glipizide) 09/04/2022 Orders Only Scanner <No scans attac hed> 09/04/2022 Orders Only Scanner <No scans attac hed> 09/04/2022 Orders Only Scanner <No scans attac hed> 09/02/2022 Orders Only Scanner <No scans attac hed> 09/01/2022 [facility] 08/30/2022 Orders Only Scanner <No scans attac hed> 08/29/2022 Orders Only Scanner <No scans attac hed> 08/27/2022 Office Visit Hannah Stein DO Follo w Up (Pneumonia ); Immunization/In jection 08/27/2022 Travel 08/26/2022 Patient Outreach Mini [facility] (Referral/) 08/26/2022 Telephone [...] <No sc ans attached> 08/19/2022 Telephone Hannah Stein, DO Lab ( Labwork needed?) 08/17/2022 Orders Only Scanner <No scans attac hed> 08/15/2022 Orders Only <No scans attac hed> 08/14/2022 Orders Only Staff, Other Clinical <No sc ans attached> 08/14/2022 Orders Only Scanner <No scans attac hed> 08/13/2022 Refill DetertHannah DO Refil l Request (Glipizide, Met formin) 07/16/2022 Refill DeterHannah zhu DO Refil l Request (Glipizide, Met formin) [...] Sign Reading Time Taken Comments Blood Pressure 128/56 09/12/2022 5:07 AM CDT Pulse 73 09/12/2022 5:07 AM CDT Temperature 37.1 ??C (98.8 ??F) 09/12/2022 12:24 AM CDT Respiratory Rate 18 09/12/2022 5:07 AM CDT Oxygen Saturation 96% 09/12/2022 5:07 AM CDT Inhaled Oxygen Concentration - - Weight 94.8 kg (208 lb 15.9 oz) 09/12/2022 12:24 AM CDT Height 167.6 cm (5' 6) 09/12/2022 12:24 AM CDT Body Mass Index 33.73 09/12/2022 12:24 AM CDT Plan of Treatment Health Maintenance Due Date Last Done Comments Tdap 1967 Zoster (shingles) series 2006 for age 50+ (1 of 2) Pneumococcal series for age 1109/27/2009 09/27/2008 65+ (2 - PCV) AAA screening age 55-77 2011 Tetanus booster 01/17/2016 01/16/2006 Colonoscopy through age 75 01/06/2021 01/06/2011 Medicare Wellness for age 0112/14/2021 05/24/2018 65+ COVID-19 vaccine series (5 07/16/2022 05/21/2022, 2, - Booster for Moderna 04/30/2021, Additional series) [...] Name Priority Date/Time Associated Diagnosis Comme nts COMP METABOLIC PANEL Routine 09/24/2022 8:19 Presence of Resu lts for this AM [employer] aortocoronary bypass procedu re are in graft the results section. CBC W PLT NO DIFF Routine 09/24/2022 8:19 Presence of Results for this AM [employer] aortocoronary bypass procedu re are in graft the results section. TROPONIN I STAT 09/12/2022 3:55 Results for this AM CDT procedure are i n the results section. XR CHEST 1 VIEW STAT 09/12/2022 12:53 Results for this PORTABLE AM CDT procedure are i n the results section. MAGNESIUM STAT 09/12/2022 12:41 Results for this AM CDT procedure are i n the results section. TROPONIN I STAT 09/12/2022 12:41 Results for this AM CDT procedure are i n the results section. BASIC METABOLIC PANEL STAT 09/12/2022 12:41 Re sults for this AM CDT procedure are i n the results section. CBC W PLT NO DIFF STAT 09/12/2022 12:41 Result s for this AM CDT procedure are i n the results section. EKG 12 LEAD STAT 09/12/2022 12:19 Results for this AM CDT procedure are i n the results section. SCAN-OPERATIVE/PROCEDU 09/04/2022 12:00 R esults for this RE REPORT AM CDT procedure are i n the results section. SCAN-OPERATIVE/PROCEDU 09/04/2022 12:00 R esults for this RE REPORT AM CDT procedure are i n the results section. SCAN-OPERATIVE/PROCEDU 09/04/2022 12:00 R esults for this RE REPORT AM CDT procedure are i n the results section. SCAN-OPERATIVE/PROCEDU 09/02/2022 12:00 R esults for this RE REPORT AM CDT procedure are i n the results section. SCAN-CT INTERPRETATION 08/30/2022 12:00 AM CDT SCAN-RADIOLOGY REPORT 08/29/2022 12:00 Re sults for this AM CDT procedure are i n the results section. RED CELL MORPHOLOGY Routine 08/22/2022 3:14 Pulmonary emphysem a, Results for this PM CDT unspecified emphysema proced ure are in type (HC) the results section. PLATELET ESTIMATE Routine 08/22/2022 3:14 Pulmonary emphysema, Results for this PM CDT unspecified emphysema proced ure are in type (HC) the results section. MANUAL DIFFERENTIAL Routine 08/22/2022 3:14 Pulmonary emphysem a, Results for this PM CDT unspecified emphysema proced ure are in type (HC) the results section. CBC WITH AUTO Routine 08/22/2022 3:14 Pulmonary emphysema, Res ults for this DIFFERENTIAL PM CDT unspecified emphysema proced ure are in type (HC) the results section. LIPID PANEL W REFLEX Routine 08/22/2022 [...] ults for this DIFFERENTIAL PM CDT unspecified emphysema proced ure are in type (HC) the results section. HEMOGLOBIN A1C Routine 08/22/2022 3:14 Type 2 diabetes Results for this PM CDT mellitus without procedure a re in complication, without the re sults long-term current use sectio n. of insulin (HC) SCAN CORRESP-EKG 08/21/2022 9:39 [...] from Last 3 Months Results (ABNORMAL) CBC W PLT NO DIFF (09/24/2022 8:19 AM [facility])Only the most recent of2 resultswithin the time period is included. [facility] gist Method Time Signature WHITE BLOOD 6.4 4.5 - 11.0 09/24/2022 [place] COUNT thou/cu mm 9:24 AM [facility] RED BLOOD COUNT 3.82 (L) 4.30 - 09/24/2022 [place] 5.90 9:24 AM [facility] mil/cu mm LABORATORY HEMOGLOBIN 11.3 (L) 13.5 - 09/24/2022 [place] 17.5 g/dL 9:24 AM [facility] HEMATOCRIT 36.4 (L) 37.0 - 09/24/2022 [place] 53.0 % 9:24 AM [facility] MCV 95 80 - 100 09/24/2022 [place] fL 9:24 AM [facility] MCH 29.6 26.0 - 09/24/2022 [place] 34.0 pg 9:24 AM [facility] MCHC 31.0 (L) 32.0 - 09/24/2022 [place] 36.0 g/dL 9:24 AM [facility] RDW 13.0 11.5 - 09/24/2022 [place] 15.5 % 9:24 AM [facility] PLATELET COUNT 341 140 - 440 09/24/2022 [place] thou/cu mm 9:24 AM [facility] MPV 9.9 6.5 - 11.0 09/24/2022 [place] fL 9:24 AM [facility] Specimen Anatomical Collection Method Collection Time Receive d Time (Source) Location / / Volume Laterality Blood BLOOD SPECIMEN / Butterfly / 09/24/2022 8:19 AM 09/24 9:04 Unknown Unknown [employer] AM [facility] Rudy Epperson MD HEMATOLOGY Performing Organization Address City/State/ZIP Code Phon e Number [facility] [address] [place] [address] (ABNORMAL) COMP METABOLIC PANEL (09/24/2022 8:19 AM [facility]) [facility] Method Time Signature SODIUM 136 135 - 145 09/24/2022 [place] mmol/L 10:05 AM [facility] POTASSIUM 4.8 3.5 - 5.0 09/24/2022 [place] mmol/L 10:05 AM [facility] CHLORIDE 101 98 - 110 09/24/2022 [place] mmol/L 10:05 AM [facility] CO2,TOTAL 25 21 - 31 09/24/2022 [place] mmol/L 10:05 AM [facility] ANION GAP 10 5 - 18 09/24/2022 [place] 10:05 AM [facility] GLUCOSE 146 (H) 65 - 100 09/24/2022 [place] mg/dL 10:05 AM [facility] CALCIUM 9.4 8.5 - 10.5 09/24/2022 [place] mg/dL 10:05 AM [facility] BUN 21 8 - 25 09/24/2022 [place] mg/dL 10:05 AM [facility] CREATININE 1.16 0.72 - 09/24/2022 [place] 1.25 mg/dL 10:05 AM [facility] BUN/CREAT RATIO 18 10 - 20 09/24/2022 [place] 10:05 AM [facility] ALBUMIN 3.6 3.2 - 4.6 09/24/2022 [place] g/dL 10:05 AM [facility] PROTEIN,TOTAL 7.3 6.0 - 8.0 09/24/2022 [place] g/dL 10:05 AM [facility] GLOBULIN 3.7 2.0 - 3.7 09/24/2022 [place] g/dL 10:05 AM [facility] A/G RATIO 1.0 1.0 - 2.0 09/24/2022 [place] 10:05 AM [facility] BILIRUBIN,TOTAL 0.6 0.2 - 1.2 09/24/2022 [place] mg/dL 10:05 AM [facility] ALK PHOSPHATASE 238 (H) 50 - 136 09/24/2022 [place] IU/L 10:05 AM [facility] ALT (SGPT) 26 8 - 45 09/24/2022 [place] IU/L 10:05 AM [facility] AST (SGOT) 13 2 - 40 09/24/2022 [place] IU/L 10:05 AM [facility] eGFR 70 (L) >90 09/24/2022 [facility] mL/min/1.7 10:05 AM [facility] 3m2 LABORATORY Comment: As of 2022, eGFR is calcu lated by the CKD-EPI creatinine equation without race adjustment. eGFR can be inf luenced by muscle mass, exercise, and diet. The reported eGFR is an estimation only and is only applicable if the renal function is stable. Specimen Anatomical Collection Method Collection Time Receive d Time (Source) Location / / Volume Laterality Blood BLOOD SPECIMEN / Butterfly / 09/24/2022 8:19 AM 09/24 9:04 Unknown Unknown [employer] AM [facility] Rudy Epperson MD CHEMISTRY Performing Organization Address City/State/ZIP Code Phon e Number [facility] [address] [place] [address] (ABNORMAL) TROPONIN I (09/12/2022 3:55 AM CDT)Only the most recent of2 results within the time period is included. P athologist Signature TROPONIN I 1.146 (H) <0.034 09/12/2022 [place] ng/mL 4:23 AM CDT [facility] Specimen Anatomical Collection Method Collection Time Receive d Time (Source) Location / / Volume Laterality Blood BLOOD SPECIMEN / Butterfly / 09/12/2022 3:55 AM 09/12 3:57 Unknown Unknown CDT AM CDT Derek Stock MD CHEMISTRY Performing Organization Address City/State/ZIP Code Phon e Number [facility] [address] [place] [address] XR CHEST 1 VIEW PORTABLE (09/12/2022 12:53 AM CDT) Anatomical Region Laterality Modality HEART, THORAX, CHEST Digital Radiography Specimen (Source) Anatomical Collection Method Collection Time Re ceived Time Location / / Volume Laterality 09/12/2022 12:59 AM CDT Impressions 09/12/2022 12:59 AM CDT No evidence of an acute pulmonary process. Dictated by Anson Lepe MD @ 12:59:37 AM (Electronically Signed) Narrative 09/12/2022 12:59 AM CDT For Patients: ??As a result of the Cures Act, medical imaging exams and procedure report s are released immediately into your [facility] medical record. ??You may view this report before your referring provider. ??If you have questions, please contact your health care provider. INDICATION: Chest pain. TECHNIQUE: Chest 1 views. COMPARISON: None. FINDINGS: Cardiovascular and mediastinum: ??Cardio megaly. Median sternotomy wires and mediastinal surgical clips. Uncoiled thoracic aorta. Lungs and pleural spaces: ??No consolida tion. Mild left basilar scarring versus atelectasis. No pleural effusion or pneumothorax. Bones and soft tissues: ??Degenerative c hanges of the spine and bilateral shoulders. Procedure Note Anson Lepe MD - 09/12/2022For matting of this note might be different from the original. For Patients: As a result of the Cures Act, medical imaging exams and procedure reports are released immediately into your electronic medical record. You may view this report before your referring provider. If you have questions, please contact yo ur health care provider. INDICATION: Chest pain. TECHNIQUE: Chest 1 views. COMPARISON: None. FINDINGS: Cardiovascular and mediastinum: Cardiome geraldo. Median sternotomy wires and mediastinal surgical clips. Uncoiled thoracic aorta. Lungs and pleural spaces: No consolidati on. Mild left basilar scarring versus atelectasis. No pleural effusion or pneumothorax. Bones and soft tissues: Degenerative sandrine nges of the spine and bilateral shoulders. IMPRESSION: No evidence of an acute pulmonary proces s. Dictated by Anson Lepe MD @ 12:59:37 AM (Electronically Signed) Derek Stock MD GENERAL IMAGING MAGNESIUM (09/12/2022 12:41 AM CDT) athologist Signature MAGNESIUM 1.9 1.6 - 2.6 09/12/2022 [place] mg/dL 1:03 AM [facility] Specimen Anatomical Collection Method Collection Time Receive d Time (Source) Location / / Volume Laterality Blood BLOOD SPECIMEN / Butterfly / 09/12/2022 12:41 022 Unknown Unknown AM CDT 12:45 AM CDT Derek Stock MD CHEMISTRY Performing Organization Address City/State/ZIP Code Phon e Number [facility] [address] [place] [address] (ABNORMAL) BASIC METABOLIC PANEL (09/12/2022 12:41 AM CDT)Only the most recent of2 resultswithin the time period is included. [facility] Method Time Signature SODIUM 133 (L) 135 - 145 09/12/2022 [place] mmol/L 1:02 AM [facility] POTASSIUM 3.7 3.5 - 5.0 09/12/2022 [place] mmol/L 1:02 AM [facility] CHLORIDE 92 (L) 98 - 110 09/12/2022 [place] mmol/L 1:02 AM [facility] CO2,TOTAL 29 21 - 31 09/12/2022 [place] mmol/L 1:02 AM [facility] ANION GAP 12 5 - 18 09/12/2022 [place] 1:02 AM [facility] GLUCOSE 181 (H) 65 - 100 09/12/2022 [place] mg/dL 1:02 AM [facility] CALCIUM 8.8 8.5 - 10.5 09/12/2022 [place] mg/dL 1:02 AM [facility] BUN 19 8 - 25 09/12/2022 [facility] mg/dL 1:02 AM [facility] CREATININE 1.29 (H) 0.72 - 09/12/2022 [facility] 1.25 mg/dL 1:02 AM [facility] BUN/CREAT RATIO 15 10 - 20 09/12/2022 [facility] 1:02 AM [facility] eGFR 62 (L) >90 09/12/2022 [place] mL/min/1.7 1:02 AM [facility] 3m2 LABORATORY Comment: As of 2022, eGFR is calcu lated by the CKD-EPI creatinine equation without race adjustment. eGFR can be inf luenced by muscle mass, exercise, and diet. The reported eGFR is an estimation only and is only applicable if the renal function is stable. Specimen Anatomical Collection Method Collection Time Receive d Time (Source) Location / / Volume Laterality Blood BLOOD SPECIMEN / Butterfly / 09/12/2022 12:41 022 Unknown Unknown AM CDT 12:45 AM CDT Derek Stock MD CHEMISTRY Performing Organization Address City/State/ZIP Code Phon e Number [facility] [address] [place] [address] EKG 12 LEAD (09/12/2022 12:19 AM CDT) [facility] Method Time Signature Interpretation Normal sinus rhythm BEYON D NOW Incomplete left bundle branch block Prolonged QT Abnormal ECG When compared with ECG of 19-JUN-2015 12:20, Left anterior fascicular block is no longer Present Incomplete left bundle branch block is now Present Criteria for Septal infarct are no longer Present Ventricular Rate 71 BPM BEYOND NOW Atrial Rate 71 BPM BEYOND NOW P-R Interval 168 ms BEYOND NOW QRS Duration 108 ms BEYOND NOW QT 444 ms BEYOND NOW QTc 482 ms BEYOND NOW P [place] 33 degrees BEYOND NOW R [place] -19 degrees BEYOND NOW T [place] 41 degrees BEYOND NOW Specimen Anatomical Collection Method Collection Time Receive d Time (Source) Location / / Volume Laterality 09/12/2022 12:19 09/12/2022 7:59 AM CDT AM CDT Derek Stock MD EKG ORD Performing Organization Address City/[facility]/ZIP Code Phon e Number BEYOND NOW [place], [place] SCAN-OPERATIVE/PROCEDURE REPORT (09/04/2022 12:00 AM CDT) Narrative This result has an attachment that is no t available. Scanner OTHER SCAN-OPERATIVE/PROCEDURE REPORT (09/04/2022 12:00 AM CDT) Narrative This result has an attachment that is no t available. Scanner OTHER SCAN-OPERATIVE/PROCEDURE REPORT (09/04/2022 12:00 AM CDT) Narrative This result has an attachment that is no t available. Scanner OTHER SCAN-OPERATIVE/PROCEDURE REPORT (09/02/2022 12:00 AM CDT) Narrative This result has an attachment that is no t available. Scanner OTHER SCAN-CT INTERPRETATION (08/30/2022 12:00 AM CDT)Only the most recent of2 results within the time period is included. Narrative This result has an attachment that is no t available. Scanner OTHER SCAN-RADIOLOGY REPORT (08/29/2022 12:00 AM CDT)Only the most recent of2 results within the time period is included. Narrative This result has an attachment that is no t available. Scanner OTHER (ABNORMAL) CBC WITH AUTO DIFFERENTIAL (08/22/2022 3:14 PM CDT) [facility] Time Signature WHITE BLOOD 11.5 (H) 4.5 - 11.0 08/22/2022 [facility] COUNT thou/cu mm 4:11 PM CDT [facility] RED BLOOD COUNT 5.00 4.30 - 08/22/2022 [place] [place] 5.90 4:11 PM CDT [place] mil/cu mm CLINIC HEMOGLOBIN 15.3 13.5 - 08/22/2022 [place] [place] 17.5 g/dL 4:11 PM CDT [facility] HEMATOCRIT 46.8 37.0 - 08/22/2022 [place] 53.0 % 4:11 PM CDT [facility] MCV 94 80 - 100 08/22/2022 [facility] [place] fL 4:11 PM CDT [facility] MCH 30.6 26.0 - 08/22/2022 [place] 34.0 pg 4:11 PM CDT [facility] MCHC 32.7 32.0 - 08/22/2022 [facility] 36.0 g/dL 4:11 PM CDT [facility] RDW 12.8 11.5 - 08/22/2022 [facility] 15.5 % 4:11 PM CDT [facility] PLATELET COUNT 249 140 - 440 08/22/2022 [facility] thou/cu mm 4:11 PM CDT [facility] MPV 9.6 6.5 - 11.0 08/22/2022 [facility] fL 4:11 PM CDT [facility] Specimen Anatomical Collection Method / Collection Time Recei sidney Time (Source) Location / Volume Laterality Blood BLOOD SPECIMEN / Venipuncture / 08/22/2022 3:14 2021 3:15 Unknown Unknown PM CDT PM CDT Hannah Stein DO HEMATOLOGY Performing Organization Address City/State/ZIP Code Phon e Number [facility] [address] [place] [address] RED CELL MORPHOLOGY (08/22/2022 3:14 PM CDT) [place] Method Time Signature RBC COMMENT RBC RBC 08/22/2022 [facility] morphology morphology 4:11 PM CDT [facility] normal normal, RBC morphology within normal limits for newborns. WBC REACTIVE Present 08/22/2022 [facility] LYMPHS 4:11 PM CDT [facility] Specimen Anatomical Collection Method / Collection Time Recei sidney Time (Source) Location / Volume Laterality Blood BLOOD SPECIMEN / Venipuncture / 08/22/2022 3:14 2021 3:15 Unknown Unknown PM CDT PM CDT Hannah Stein DO HEMATOLOGY Performing Organization Address City/State/ZIP Code Phon e Number [facility] [address] [place] [address] PLATELET ESTIMATE (08/22/2022 3:14 PM CDT) [place] Method Time Signature PLATELET Adequate Adequate, No 08/22/2022 [facility] ESTIMATE estimate 4:11 PM CDT [facility] Specimen Anatomical Collection Method / Collection Time Recei sidney Time (Source) Location / Volume Laterality Blood BLOOD SPECIMEN / Venipuncture / 08/22/2022 3:14 2021 3:15 Unknown Unknown PM CDT PM CDT Hannah Stein DO HEMATOLOGY Performing Organization Address City/State/ZIP Code Phon e Number [facility] [address] [place] [address] (ABNORMAL) LIPID PANEL W REFLEX MEASURED LDL (08/22/2022 3:14 PM CDT) [facility] [employer] Method Time Signature CHOLESTEROL,TOTAL 210 (H) 100 - 199 08/23/2022 [facility] mg/dL 10:36 AM CDT [facility] TRIGLYCERIDES 154 (H) <150 08/23/2022 [facility] mg/dL 10:36 AM CDT [facility] HDL CHOLESTEROL 34 (L) >40 mg/dL 08/23/2022 [facility] 10:36 AM CDT [facility] NON-HDL 176 (H) <145 08/23/2022 [facility] CHOLESTEROL mg/dl 10:36 AM CDT [facility] CHOL/HDL RATIO 6.18 (H) <4.50 08/23/2022 [facility] 10:36 AM CDT [facility] LDL CHOLESTEROL 145 (H) <=130 08/23/2022 [facility] mg/dL 10:36 AM CDT LABORAT[facility] TRAL [...] Organization Address City/State/ZIP Code Phon e Number [facility] [address] [place] [address] LABORATORY-[facility] [address] LABORATORY (ABNORMAL) MANUAL DIFFERENTIAL (08/22/2022 3:14 PM CDT) [facility] [employer] Method Time Signature % NEUTROPHILS 64.0 % 08/22/2022 [facility] 4:11 PM CDT [facility] % LYMPHOCYTES 22.0 % 08/22/2022 [facility] 4:11 PM CDT [facility] % MONOCYTES 12.0 % 08/22/2022 [facility] 4:11 PM CDT [facility] % EOSINOPHILS 2.0 % 08/22/2022 [facility] 4:11 PM CDT [facility] % BASOPHILS 0.0 % 08/22/2022 [facility] 4:11 PM CDT [facility] NEUTROPHILS 7.4 (H) 1.7 - 7.0 08/22/2022 [facility] ABSOLUTE thou/cu mm 4:11 PM CDT [facility] LYMPHOCYTES 2.5 0.9 - 2.9 08/22/2022 [facility] ABSOLUTE thou/cu mm 4:11 PM CDT [facility] MONOCYTES 1.4 (H) <0.9 08/22/2022 [facility] ABSOLUTE thou/cu mm 4:11 PM CDT [facility] EOSINOPHILS 0.2 <0.5 08/22/2022 [facility] ABSOLUTE thou/cu mm 4:11 PM CDT [facility] BASOPHILS 0.0 <0.3 08/22/2022 [facility] ABSOLUTE thou/cu mm 4:11 PM T [facility] Specimen Anatomical Collection Method / Collection Time Recei sidney Time (Source) Location / Volume Laterality Blood BLOOD SPECIMEN / Venipuncture / 08/22/2022 3:14 2021 3:15 Unknown Unknown PM CDT PM CDT Hannah Stein DO HEMATOLOGY Performing Organization Address City/State/ZIP Code Phon e Number [facility] [address] [place] [address] (ABNORMAL) HEMOGLOBIN A1C MONITORING (POCT) (08/22/2022 3:14 PM CDT) Analysis Performed At Patho logist Time Signature HEMOGLOBIN A1C 7.0 (H) <=6.4 % 08/22/2022 [facility] MON[facility]OR[facility] 3:46 PM CDT [facility] Specimen Anatomical Collection Method / Collection Time Recei sidney Time (Source) Location / Volume Laterality Blood BLOOD SPECIMEN / Venipuncture / 08/22/2022 3:14 2021 3:15 Unknown Unknown PM CDT PM CDT Narrative [facility] - 2021 3:46 PM CDT ? [...] Organization Address City/State/ZIP Code Phon e Number [facility] [address] [place] [address] SCAN CORRESP-EKG RESULTS (08/21/2022 9:39 AM CDT) [...] an unspecified provider. Other Clinical Staff OTHER ECHO COMPLETE WO CONTRAST (08/15/2022 9:26 AM CDT) P athologist Signature AORTIC VALVE 6 mmHg MEAN PG EJECTION 55 % FRACTION LVEDD 5.2 cm Anatomical Region Laterality Modality HEART Ultrasound Specimen (Source) Anatomical Collection Method Collection Time Re ceived Time Location / / Volume Laterality 08/15/2022 8:50 AM CDT Narrative 08/15/2022 9:54 AM CDT ECHOCARDIOGRAM MELISSA INIGUEZ ? Accessi on#: ?? [id number] : ?1955 66 years Study Date: ?? 08/15/2022 8:50:49 AM Gender: M ?BP: ? 166/90 mmHg Height: 168.00 cm ?BSA: ?1.83 m? ?? Weight: 73.00 kg ? Tech: ? MJS ? Referring MD: DESTINEE TAVARES Site: ? [facility] Reading Location: [facility] Procedure: [...] . This study was interpreted by an [facility] redited facility. CC: [facility], Med/ Surg - IP [facility]. ??Final ?? Procedure Note Hermelindo López MD - 08/15/2022Fo rmatting of this note might be different from the original. ECHOCARDIOGRAM MELISSA INIGUEZ : 1955 66 years Study Date: 08/15 8:50:49 AM Gender: M BP: 166/90 mmHg Height: 168.00 cm BSA: 1.83 m? ?? Weight: 73.00 kg Tech: S Referring MD: DESTINEE TAVARES Site: [facility] Reading Location: [facility] [...] . This study was interpreted by an [facility] redited facility. CC: [facility], [facility]urg - IP [facility]. Final Destinee Tavares MD ECHO ORD from Last 3 Months Insurance Payer Benefit Plan / Subscriber ID Effective Dates Phone Addre ss Type Group [employer] INST xxxxARCH 2015-Presen In ternal [facility] [id number] [place] [address] [facility] MR [id number] 2021-Presen [address] [place] [address] Advance Directives Latest Code Status on File Code Status Date Activated Date Inactivated Comments Full Code 06/19/2015 12:44 PM 06/21/2015 5:35 PM Full Code 12/12/2013 9:40 AM 12/13/2013 4:52 PM Full Code 01/07/2010 2:39 AM 01/08/2010 3:19 PM Full Code 01/01/2010 8:14 PM 01/03/2010 6:12 PM Full Code 11/05/2009 9:49 PM 11/07/2009 7:22 PM Care Teams Landscape Nurseryman Relationship Specialty Start Date End Date Hannah Stein DO PCP - General 06/26/09 Rufus Rucker MD Neurology Neurology 11/29/12 Sosa Guthrie, [facility] 02/06/11
== END 2022-08-30 14:02 | disposition home or self-care (01) ==
LOC: AMB 09-29 16:18
PROVIDERS: PCP Family Medicine; Visit Provider Family Medicine
DX: I21.4 Non-ST elevation (NSTEMI) myocardial infarction (principal)
CPT/HCPCS: A0425; A0426

== ENCOUNTER 2023-01-10 08:04 | Outpatient (CLI) | payer MEDICARE, SELFPAY | END 2023-01-10 08:05 | disposition home or self-care (01) | LOC: AMB 01-13 10:25 | PROVIDERS: PCP Family Medicine; Visit Provider Family Medicine | DX: R42 Dizziness and giddiness (principal) | CPT/HCPCS: A0425; A0427 ==

== ENCOUNTER 2023-01-10 08:28 | Emergency (ER) | payer MEDICARE, SELFPAY ==
[2023-01-10] VITALS (15 sets, daily range): BP systolic 124–170; BP diastolic 49–85; PULSE 46–66; RESP 16; TEMP 37.1; O2SAT 98–100; BMI 37.8
--- NOTE | 2023-01-10 09:12 | ED.DIZZY ---
HPI - Dizziness General Chief Complaint: Dizziness/Vertigo Stated Complaint: Dizziness Time Seen by Provider: 01/10/23 08:51 History of Present Illness HPI Narrative: 67-year-old man brought to the emergency department by EMS with complaint of dizziness. He has received some Zofran he says but he denies being nauseated prior or now. Underlying history of many years and some procedure for dizziness. History of TIA. On my review medications looks to be managed on aspirin and Plavix. Was hospitalized in August of this last year and had a triple bypass. He is not feeling chest pain or chest pressure. He maintains that this is dizziness even at rest and just much worse than usual upon waking this morning. He does describe stumbling to the bathroom due to things spinning. He is also feeling lightheaded. I would note that his pulse is in the 40s. He looks to have been on metoprolol at 100 mg when seen at this facility in August of last year with a pulse in the 90s. Orthostatics have already been done by the time I am seeing Mr. Stringer. Pulse does come up to 75 upon standing. He does have a positive systolic drop and elevation and his pulse rate. He does not have a headache. No visual disturbance. He denies a history of heart failure though I note that he is on torsemide and heart failure was noted in August hospitalization. Interview is challenged by some cognitive difficulties I think and being hard of hearing. He does however quickly name the date. Further upon exam I would actually score him 0 on NIH stroke scale though the still the matter of this dizziness Pending record and vital review from heart hospitalization in August of 2022. Reviewing the records that we were able to obtain from [place] end august hospitalization, did have post operative paroxysmal atrial fibrillation apparently. Was given amiodarone at that time. Related Data Home Medications Medication Instructions Recorded Confirmed albuterol sulfate 90 mcg/actuation 2 puff inhalation Q4H PRN 06/04/22 08/29/22 aerosol inhaler glipizide 5 mg tablet 5 mg PO BID 06/04/22 08/29/22 meclizine 25 mg tablet 25 mg PO TID PRN 06/04/22 08/29/22 metformin 1,000 mg tablet 1,000 mg PO BID 06/04/22 08/29/22 aspirin 81 mg tablet,delayed 81 mg PO DAILY 08/15/22 08/30/22 release (Adult Low Dose Aspirin) loratadine 10 mg tablet (Claritin) 10 mg PO DAILY PRN 08/15/22 08/29/22 atorvastatin 80 mg tablet 80 mg PO HS 08/30/22 08/30/22 metoprolol succinate 100 mg 100 mg PO DAILY 08/30/22 08/30/22 tablet,extended release 24 hr Previous Rx's Medication Instructions Recorded ipratropium 0.5 mg-albuterol 3 mg 3 ml inhalation TID #180 mL 08/18/22 (2.5 mg base)/3 mL nebulization soln lisinopril 10 mg tablet 10 mg PO DAILY #30 tabs 08/18/22 potassium chloride 10 mEq 10 meq PO DAILY #30 caps 08/18/22 capsule,extended release torsemide 10 mg tablet 10 mg PO DAILY #30 tabs 08/18/22 aspirin 81 mg tablet,delayed 81 mg PO DAILY stroke prevention 01/10/23 release #30 tabs Allergies Allergy/AdvReac Type Severity Reaction Status Date / Time gadodiamide Allergy Unknown Verified 08/29/22 23:22 diagnostic x-ray materials Allergy Unknown Uncoded 08/14/22 21:01 Review of Systems Status of ROS: Reports: 10 or more systems reviewed and unremarkable except as noted in History and below [facility] Medical History (Updated 01/10/23 @ 15:57 by Ted Rosales MD) Aortic dilatation Ascending aorta dilation CAD (coronary artery disease) Chest pain COPD (chronic obstructive pulmonary disease) CVA (cerebral vascular accident) Essential hypertension Gastric ulcer Ground glass opacity present on imaging of lung H/O medication noncompliance H/O TIA (transient ischemic attack) and stroke Heart failure with preserved ejection fraction Meniere disease Mixed hyperlipidemia GREGORIO (obstructive sleep apnea) Syncope Type 2 diabetes mellitus Vertigo Surgical History No significant past surgical history Social History Smoking Status: Current every day smoker Do you use any of these nicotine containing products: None How often do you have a drink containing alcohol: never How often do you have six or more drinks on one occasion: Never AUDIT-C Alcohol total score: 0 Non-prescribed substance use: denies use Caffeine: Yes (1 cup of coffee/day) service: No Exam Narrative: Exam Narrative: Pleasant. Relaxed. Flatter affect. NAD. Moving all extremities without difficulty. Well perfused peripherally. Breathing easily. Lungs are clear. Heart is bradycardic in a regular rhythm. He has no focal deficits or loss of sensation. There is no nystagmus. Any movement of his head seems to elicit worst dizziness per his report. Abdomen is soft and nontender. There is no peripheral edema. Head impulse testing Const: Vital Signs, click to edit/add: Vital Signs - 24 hr 01/10/23 08:39 01/10/23 09:05 01/10/23 09:26 Temperature 98.7 F Pulse Rate 49 L Pulse Rate [Left P ulse Oximeter] 46 L Respiratory Rate 16 Blood Pressure Blood Pressure [Ri ght Upper Arm] 139/61 Pulse Oximetry 98 99 99 Oxygen Delivery Me thod Room Air 01/10/23 09:30 01/10/23 10:02 01/10/23 10:32 Temperature Pulse Rate 48 L Pulse Rate [Left P ulse Oximeter] Respiratory Rate Blood Pressure 125/50 L 124/49 L Blood Pressure [Ri ght Upper Arm] Pulse Oximetry 98 Oxygen Delivery Me thod 01/10/23 11:01 01/10/23 11:35 01/10/23 12:00 Temperature Pulse Rate 49 L 57 L Pulse Rate [Left P ulse Oximeter] Respiratory Rate Blood Pressure 129/51 L Blood Pressure [Ri ght Upper Arm] Pulse Oximetry 99 98 Oxygen Delivery Me thod 01/10/23 12:03 01/10/23 12:30 01/10/23 12:32 Temperature Pulse Rate 57 L 66 54 L Pulse Rate [Left P ulse Oximeter] Respiratory Rate Blood Pressure 148/82 H 170/68 H Blood Pressure [Ri ght Upper Arm] Pulse Oximetry 98 98 98 Oxygen Delivery Me thod 01/10/23 13:00 01/10/23 13:03 01/10/23 13:30 Temperature Pulse Rate 62 64 62 Pulse Rate [Left P ulse Oximeter] Respiratory Rate Blood Pressure 165/85 H Blood Pressure [Ri ght Upper Arm] Pulse Oximetry 99 100 98 Oxygen Delivery Me thod Documenting provider has reviewed patient's vital signs: yes Course Vital Signs Vital signs: Initial Vital Signs Temperature 98.7 F 01/10/23 08:39 Temperature Source Temporal Artery Scan 01/10/23 08:39 Pulse Rate 46 L 01/10/23 08:39 Pulse Rhythm 01/10/23 08:39 Pulse Strength 3+ Normal 01/10/23 08:39 Respiratory Rate 16 01/10/23 08:39 Blood Pressure 139/61 01/10/23 08:39 Blood Pressure Mean 87 01/10/23 08:39 Blood Pressure Position Sitting 01/10/23 08:39 Pulse Oximetry 98 01/10/23 08:39 Oxygen Delivery Method 01/10/23 08:39 Vital Signs Temperature 98.7 F 01/10/23 08:39 Pulse Rate 46 L 01/10/23 08:39 Respiratory Rate 16 01/10/23 08:39 Blood Pressure 139/61 01/10/23 08:39 Pulse Oximetry 98 01/10/23 08:39 Oxygen Delivery Method 01/10/23 08:39 Temperature 98.7 F 01/10/23 08:39 Pulse Rate 62 01/10/23 13:30 Respiratory Rate 16 01/10/23 08:39 Blood Pressure 165/85 H 01/10/23 13:03 Pulse Oximetry 98 01/10/23 13:30 Oxygen Delivery Method 01/10/23 08:39 MDM - Dizziness MDM Narrative Medical decision making narrative: given ivf and valium. shortly after receiving valium nursing noticed more slurring of speech and decreased alertness. I assessed and when pressed, Mr. Khan alerts normally into typical speech I think. I suspect Valium effect. transient. chronic h/o dizziness but also with new bradycardia. on beta shalom but unchanged dosing. orthostatics positive? dizziness nearly completely resolved after treatment as above. however Mr. Khan notes that this is different than prior and admittedly has been present independent of movement per his report. d-dimer rather elevated. no pulm/chest sxs. I did speak with hospitalist contemplating admission. can't in timely manner do both contrasted head stroke protocol and contrasted chest. already treated for cva; will prioritize chest. further, though it seems that iodine is the issue, will need pretreatment for potential contrast allergy. discussed with radiology. Chest CT reviewed by me and radiology, no pe or acute abn. CT head IMPRESSION: 1. Small focus of hypoattenuation within the right occipital lobe, new since prior CT and possibly reflecting a small area of recent ischemia. Consider MRI for further assessment if clinically indicated. 2. No evidence of recent ischemia elsewhere. No acute intracranial hemorrhage.with small Doubtful to do brain MRI over the weekend and Mr. Khan feels at baseline he says. probably subacute cva per radiology. I discussed admit vs home with close follow up mri. given asa and plavix in ER. Mr. Khan preferes to go home. plans to stay with family. Medical Records Attestation: I reviewed the patient's medical records. Lab Data Attestation: I reviewed the patient's lab results. Labs: Lab Results 01/10/23 01/10/23 01/10/23 Range/Units 09:06 09:40 09:40 WBC 7.49 (4.50-11.00) K/uL RBC 3.79 L (4.30-5.90) m/uL Hgb 11.5 L (13.5-17.5) gm/dL Hct 35.2 L (37.0-53.0) % MCV 93 (80-100) fL MCH 30 (26-34) pg MCHC 33 (32-36) gm/dL RDW Coeff of Scott 13.1 (11.5-15.5) % Plt Count 227 (140-440) K/uL Neut % (Auto) 76.5 H (42.0-72.0) % Lymph % (Auto) 16.7 L (20-44) % [place] % (Auto) 4.8 (0.0-11.0) % Eos % (Auto) 1.2 (0.0-7.0) % Baso % (Auto) 0.4 (0.0-3.0) % Neut # (Auto) 5.70 (1.7-7.0) K/uL Lymph # (Auto) 1.30 (0.90-2.90) K/uL [place] # (Auto) 0.40 (0.00-0.90) K/UL Eos # (Auto) 0.09 (0.00-0.50) K/uL Baso # (Auto) 0.03 (0.00-0.30) K/uL D-Dimer Quant (PE/DVT) 6.19 H (0.00-0.50) ug/ml Sodium (135-149) mmol/L Potassium (3.6-5.1) mmol/L Chloride (96-114) mmol/L Carbon Dioxide (20-32) mmol/L BUN (7-30) mg/dL Creatinine (0.5-1.5) mg/dL Estimated Creat Clear Estimated GFR ml/min Glucose (60-115) mg/dL Calcium (8.4-10.6) mg/dL Magnesium (1.5-2.6) mg/dL Troponin I (0.01-0.04) ng/mL C-Reactive Protein (0.5-1.0) mg/dL NT-Pro-B Natriuret Pep pg/mL Ethyl Alcohol (0.01-0.03) % SARS-CoV-2 (PCR) (Negative) POC Troponin I 0.00 L (0.01-0.04) ng/ml 01/10/23 01/10/23 Range/Units 09:40 11:10 WBC (4.50-11.00) K/uL RBC (4.30-5.90) m/uL Hgb (13.5-17.5) gm/dL Hct (37.0-53.0) % MCV (80-100) fL MCH (26-34) pg MCHC (32-36) gm/dL RDW Coeff of Scott (11.5-15.5) % Plt Count (140-440) K/uL Neut % (Auto) (42.0-72.0) % Lymph % (Auto) (20-44) % [place] % (Auto) (0.0-11.0) % Eos % (Auto) (0.0-7.0) % Baso % (Auto) (0.0-3.0) % Neut # (Auto) (1.7-7.0) K/uL Lymph # (Auto) (0.90-2.90) K/uL [place] # (Auto) (0.00-0.90) K/UL Eos # (Auto) (0.00-0.50) K/uL Baso # (Auto) (0.00-0.30) K/uL D-Dimer Quant (PE/DVT) (0.00-0.50) ug/ml Sodium 135 (135-149) mmol/L Potassium 5.3 H (3.6-5.1) mmol/L Chloride 107 (96-114) mmol/L Carbon Dioxide 20 (20-32) mmol/L BUN 28 (7-30) mg/dL Creatinine 1.4 (0.5-1.5) mg/dL Estimated Creat Clear 43.46 Estimated GFR 55 ml/min Glucose 147 H (60-115) mg/dL Calcium 8.6 (8.4-10.6) mg/dL Magnesium 2.1 (1.5-2.6) mg/dL Troponin I < 0.01 L (0.01-0.04) ng/mL C-Reactive Protein < 0.5 L (0.5-1.0) mg/dL NT-Pro-B Natriuret Pep 454 pg/mL Ethyl Alcohol < 0.01 L (0.01-0.03) % SARS-CoV-2 (PCR) Negative SARS-CoV-2 (Negative) POC Troponin I (0.01-0.04) ng/ml ECG Data Attestation: I personally reviewed and interpreted this ECG as follows: (Sinus bradycardia there is a PAC. Rate of 54) Discharge Plan Discharge Clinical Impression: Dizziness, Bradycardia, CVA (cerebral vascular accident) Patient Disposition: Home w/ Parent or Adult Condition: Improved Additional Instructions: Do stay well hydrated with water. Remember to take your Plavix daily. Would also take 81 mg of aspirin daily. I am refilling the prescription you last got when you were here I think. Please see your primary care provider this next week. It would be important to be scheduled for a brain MRI as soon as possible that we can not do here this weekend. I think staying with family tonight is a fine idea. I would also like you to take half the dose of metoprolol that you have been taking. Just cut 1 of those tablets in half for a total of 50 mg once daily. Then recheck pulse on follow-up in clinic. Prescriptions: New aspirin 81 mg tablet,delayed release (DR/EC) 81 mg PO DAILY Qty: 30 0RF No Action albuterol sulfate 90 mcg/actuation HFA aerosol inhaler 2 puff INHALATION Q4H PRN Label Comments: Inhale 2 Puffs by mouth every 4 hours if needed. glipizide 5 mg tablet 5 mg PO BID meclizine 25 mg tablet 25 mg PO TID PRN metformin 1,000 mg tablet 1,000 mg PO BID loratadine [Claritin] 10 mg tablet 10 mg PO DAILY PRN aspirin [Adult Low Dose Aspirin] 81 mg tablet,delayed release (DR/EC) 81 mg PO DAILY lisinopril 10 mg tablet 10 mg PO DAILY Qty: 30 2RF torsemide 10 mg tablet 10 mg PO DAILY Qty: 30 2RF potassium chloride 10 mEq capsule, extended release 10 meq PO DAILY Qty: 30 2RF ipratropium-albuterol 0.5 mg-3 mg(2.5 mg base)/3 mL Solution For Nebulization 3 ml inhalation TID Qty: 180 0RF atorvastatin 80 mg tablet 80 mg PO HS metoprolol succinate 100 mg tablet extended release 24 hr 100 mg PO DAILY Follow Up/Referrals: Hannah Stein DO [Primary Care Provider] - Stand Alone Forms: [facility] Info Instructions
[2023-01-10] MEDS: diazePAM 5 MG/ML inj IV (09:25)
[2023-01-10] MEDS: 0.9 % SODIUM CHLORIDE 500 ML 500 ML 6000 ML IV (09:44)
[2023-01-10 09:50] LABS: Basophils Absolute Auto 0.03 K/uL (0.00-0.30); Basophils Percent Auto 0.4 % (0.0-3.0); Eosinophils Absolute Auto 0.09 K/uL (0.00-0.50); Eosinophils Percent Auto 1.2 % (0.0-7.0); Hematocrit 35.2 % (37.0-53.0); Hemoglobin* 11.5 gm/dL (13.5-17.5); Immature Granulocytes Abs Auto 0.03 K/uL (0.00-0.30); Immature Granulocytes Pct Auto 0.4 %; Lymphocytes Percent Auto 16.7 % (20-44); Mean Corpuscular HGB Conc 33 gm/dL (32-36); Mean Corpuscular Hemoglobin 30 pg (26-34); Mean Corpuscular Volume 93 fL (80-100); Monocytes Percent Auto 4.8 % (0.0-11.0); Neutrophils Percent Auto 76.5 % (42.0-72.0); Platelet Count* 227 K/uL (140-440); RDW Coefficient of Variation % 13.1 % (11.5-15.5); Red Blood Count 3.79 m/uL (4.30-5.90); White Blood Count* 7.49 K/uL (4.50-11.00)
[2023-01-10 09:59] LABS: Slide Review Reflex No
[2023-01-10 10:02] LABS: Chloride* 107 mmol/L (96-114); Sodium* 135 mmol/L (135-149)
[2023-01-10 10:03] LABS: Potassium* 5.3 mmol/L (3.6-5.1)
[2023-01-10 10:05] LABS: Creatinine* 1.4 mg/dL (0.5-1.5); Est. Creatinine Clearance* 43.46; Estimated Glomerular Filt Rate 55 ml/min
[2023-01-10 10:06] LABS: Blood Urea Nitrogen* 28 mg/dL (7-30); Calcium* 8.6 mg/dL (8.4-10.6); Carbon Dioxide* 20 mmol/L (20-32); Glucose* 147 mg/dL (60-115)
[2023-01-10 10:07] LABS: Magnesium* 2.1 mg/dL (1.5-2.6)
--- NOTE | 2023-01-10 10:10 | ED.NURSE ---
Orthostatic: Lying- 139/61 , 46 Sit- 145/61 , 60 Stand- 125/62 , 75
[2023-01-10 10:14] LABS: D Dimer Quantitative* 6.19 ug/ml (0.00-0.50)
[2023-01-10 10:24] LABS: C Reactive Protein* < 0.5 mg/dL (0.5-1.0); Ethanol* < 0.01 % (0.01-0.03); NT Pro B Type NatriureticPept* 454 pg/mL; Troponin I* < 0.01 ng/mL (0.01-0.04)
--- NOTE | 2023-01-10 10:51 | CRLHL7_ITS ---
For Patients: As a result of the Century Cures Act, medical imaging exams and procedure reports are released immediately into your electronic medical record. You may view this report before your referring provider. If you have questions, please contact your health care provider. INDICATION: High D-dimer. Bradycardia. TECHNIQUE: CT chest PE was acquired with 95 cc Isovue 370 IV contrast. COMPARISON: 08/30/2022. FINDINGS: Heart and vasculature: Contrast opacification of the pulmonary arterial tree is adequate. No sign of pulmonary embolism. Heart size is normal. Thoracic aorta and pulmonary artery are normal in caliber. Lungs and pleura: No suspicious nodules or infiltrates. No pleural effusions, pleural thickening, or pneumothorax. Lymph nodes/mediastinum: No mediastinal, hilar, or axillary adenopathy. Chest wall: No masses. Upper abdomen: No acute or significant findings. Bones: Unremarkable for age. IMPRESSION: No acute or significant findings. No pulmonary embolism and the lungs are clear. Please note that all CT scans at this facility use dose modulation, iterative reconstruction, and/or weight-based dosing when appropriate to reduce radiation dose to as low as reasonably achievable. Dictated by Colt Marrero MD @ 01/10/2023 3:25:11 PM (Electronically Signed)
--- NOTE | 2023-01-10 10:51 | CRLHL7_ITS ---
For Patients: As a result of the Century Cures Act, medical imaging exams and procedure reports are released immediately into your electronic medical record. You may view this report before your referring provider. If you have questions, please contact your health care provider. INDICATION: Dizziness. TECHNIQUE: CT of the head without contrast. Coronal and sagittal reformats are included. COMPARISON: Head CT from 05/07/2022. FINDINGS: Subtle wedge-shaped focus of hypoattenuation within the right occipital lobe, new since prior CT. Possibly a small area of recent ischemia. Scattered foci of hypoattenuation within the supratentorial white matter, typical for chronic microvascular ischemic change. Multiple chronic basal ganglia lacunar infarcts. No hyperdense vessels to suggest intracranial thrombus. No acute intracranial hemorrhage. No mass effect or midline shift. No hydrocephalus or extra-axial collections. No acute osseous abnormalities. Mastoid air cells and paranasal sinuses are clear. Normal soft tissues. IMPRESSION: 1. Small focus of hypoattenuation within the right occipital lobe, new since prior CT and possibly reflecting a small area of recent ischemia. Consider MRI for further assessment if clinically indicated. 2. No evidence of recent ischemia elsewhere. No acute intracranial hemorrhage. Please note that all CT scans at this facility use dose modulation, iterative reconstruction, and/or weight-based dosing when appropriate to reduce radiation dose to as low as reasonably achievable. Dictated by Lionel Baumann MD @ 01/10/2023 12:03:11 PM (Electronically Signed)
[2023-01-10 11:51] LABS: SARS PCR* Negative SARS-CoV-2 (Negative)
[2023-01-10] MEDS: diphenhydrAMINE 50 MG/ML inj IVP (12:53)
[2023-01-10] MEDS: HYDROCORTISONE SOD SUCCINATE 50 MG/ML inj 200 MG IVP (12:53)
[2023-01-10] MEDS: ASPIRIN 81 MG TABLET EC 324 MG PO (16:03)
== END 2023-01-10 16:18 | disposition home or self-care (01) ==
PROVIDERS: Emergency Provider Family Medicine; PCP Family Medicine
DX: R00.1 Bradycardia, unspecified (principal); I63.9 Cerebral infarction, unspecified
CPT/HCPCS: 36415; 70450; 71260; 80048; 82077; 83735; 83880; 84484; 85025; 85379; 86140; 87635; 93005; 94761; 96374; 96375; 99285; A9270; J1200; J1720; J3360; J7120; Q9967

== ENCOUNTER 2023-11-10 10:01 | Emergency (ER) | payer MEDICARE, SELFPAY ==
[2023-11-10] VITALS (14 sets, daily range): BP systolic 117–137; BP diastolic 48–64; PULSE 53–62; RESP 20; TEMP 36.5; O2SAT 94–98; BMI 39.9
--- NOTE | 2023-11-10 10:06 | CRLHL7_ITS ---
For Patients: As a result of the Century Cures Act, medical imaging exams and procedure reports are released immediately into your electronic medical record. You may view this report before your referring provider. If you have questions, please contact your health care provider. Indication: Dizziness and vertigo Technique: Volumetric multidetector CT images of the head were obtained without the administration of low osmolar intravenous contrast. Comparison: None available Findings: Exam is mildly limited due to motion artifact. No obvious intra-axial or extra-axial hemorrhage is identified. There is no mass effect or midline shift. There is age-related cortical atrophy with mild sulcal widening and ex vacuo dilatation of the lateral ventricles. There are chronic small vessel disease changes in the subcortical and periventricular white matter without lost colbert-white differentiation. The orbits and their contents are grossly within normal limits. The bony calvarium is grossly intact. The paranasal sinuses are clear. The mastoid air cells are well aerated. Impression: 1. Age-related changes of the brain without acute intracranial abnormality. A report was sent to Dr. Morgan at 10:43 a.m. November 10, 2023 Please note that all CT scans at this facility use dose modulation, iterative reconstruction, and/or weight-based dosing when appropriate to reduce radiation dose to as low as reasonably achievable. Dictated by Osiel Carpenter MD @ 11/10/2023 10:45:37 AM (Electronically Signed)
--- NOTE | 2023-11-10 10:09 | ED_ITS ---
HPI - Dizziness General Time Seen by Provider: 10:09 Date Seen: 11/10/23 Chief Complaint: Dizziness/Vertigo Stated Complaint: dizziness Time Seen by Provider: 11/10/23 10:06 Source: patient, EMS, RN notes reviewed and old records reviewed Mode of arrival: EMS Limitations: no limitations History of Present Illness HPI Narrative: Patient is a 67-year-old male coming in from home by EMS with complaint vertigo. He got up this morning around 530-6 a.m., got up to go to the bathroom, he noted at that time he felt like he was spinning, had difficulty ambulating to the bathroom due to feeling unsteady. He notes he did urinate. He came back to bed, sat down, took meclizine and rub some type of oil behind his ear that he uses for vertigo, ended up feeling his stomach was irritated and had an episode of fecal incontinence. He continues to feel dizzy or like the room is spinning. He reportedly has had a history of TIAs before, chart notes a history of a CVA but I do not know further details, he did have of I believe a 3 vessel CABG in August of 2022, also diabetic. He is noting no specific incoordination but feels vertigo just lying in bed. He is on aspirin, did have a history of being on both aspirin and Plavix. Of note, we did see him in December of 2022 for dizziness. IMPRESSION: 1. Small focus of hypoattenuation within the right occipital lobe, new since prior CT and possibly reflecting a small area of recent ischemia. Consider MRI for further assessment if clinically indicated. 2. No evidence of recent ischemia elsewhere. No acute intracranial hemorrhage. Please note that all CT scans at this facility use dose modulation, iterative reconstruction, and/or weight-based dosing when appropriate to reduce radiation dose to as low as reasonably achievable. Above is the report from the CT when he was seen in December of 2022. He did go home that night as he felt back to baseline, was on aspirin and Plavix. Did not want hospitalization. He states he has not had symptoms of his vertigo for quite sometime, believes that it may have been the last time we saw him here. I do not know if patient followed up with his primary, followed up with Neurology or had outpatient MRI. He does tell us that he is allergic to contrast dye. He thinks he was going to have a surgery at [facility], the contrast was given in he simply passed out. I do not have further details, this could be an anaphylactic type reaction. My plan is to talk to Stroke Neurology, start with a noncontrast head CT, will do this stroke protocol. Patient realistically is out of the window for any lytic therapy. He does not seem to be on dual anti-platelet therapy anymore. May have to end up gaining a noncontrast MRI. I do not think we can do the CTA is at this time without talking to Neurology and further assessing this allergy history. MD elicited complaint: dizziness, vertigo and disequilibrium History of similar symptoms: Yes Related Data Home Medications Medication Instructions Recorded Confirmed albuterol sulfate 90 mcg/actuation 2 puff inhalation Q4H PRN 06/04/22 08/29/22 aerosol inhaler glipizide 5 mg tablet 5 mg PO BID 06/04/22 08/29/22 meclizine 25 mg tablet 25 mg PO TID PRN 06/04/22 08/29/22 metformin 1,000 mg tablet 1,000 mg PO BID 06/04/22 08/29/22 aspirin 81 mg tablet,delayed 81 mg PO DAILY 08/15/22 08/30/22 release (Adult Low Dose Aspirin) loratadine 10 mg tablet (Claritin) 10 mg PO DAILY PRN 08/15/22 08/29/22 atorvastatin 80 mg tablet 80 mg PO HS 08/30/22 08/30/22 metoprolol succinate 100 mg 100 mg PO DAILY 08/30/22 08/30/22 tablet,extended release 24 hr Previous Rx's Medication Instructions Recorded ipratropium 0.5 mg-albuterol 3 mg 3 ml inhalation TID #180 mL 08/18/22 (2.5 mg base)/3 mL nebulization soln lisinopril 10 mg tablet 10 mg PO DAILY #30 tabs 08/18/22 potassium chloride 10 mEq 10 meq PO DAILY #30 caps 08/18/22 capsule,extended release torsemide 10 mg tablet 10 mg PO DAILY #30 tabs 08/18/22 aspirin 81 mg tablet,delayed 81 mg PO DAILY stroke prevention 01/10/23 release #30 tabs Allergies Allergy/AdvReac Type Severity Reaction Status Date / Time gadodiamide Allergy Unknown Verified 08/29/22 23:22 diagnostic x-ray materials Allergy Unknown Uncoded 08/14/22 21:01 Review of Systems Status of ROS: Reports: 6 or more systems reviewed and unremarkable except as noted in History and below [facility] Medical History Heart failure with preserved ejection fraction ?I50.30 - Unspecified diastolic (congestive) heart failure (ICD-10) H/O medication noncompliance ?Z91.14 - Patient's other noncompliance with medication regimen (ICD-10) Aortic dilatation ?I77.819 - Aortic ectasia, unspecified site (ICD-10) Ascending aorta dilation ?I77.810 - Thoracic aortic ectasia (ICD-10) Essential hypertension ?I10 - Essential (primary) hypertension (ICD-10) Ground glass opacity present on imaging of lung ?R91.8 - Other nonspecific abnormal finding of lung field (ICD-10) Vertigo ?R42 - Dizziness and giddiness (ICD-10) CVA (cerebral vascular accident) ?I63.9 - Cerebral infarction, unspecified (ICD-10) Chest pain ?R07.9 - Chest pain, unspecified (ICD-10) Syncope ?R55 - Syncope and collapse (ICD-10) GREGORIO (obstructive sleep apnea) ?G47.33 - Obstructive sleep apnea (adult) (pediatric) (ICD-10) Mixed hyperlipidemia ?E78.2 - Mixed hyperlipidemia (ICD-10) Meniere disease ?H81.09 - Meniere's disease, unspecified ear (ICD-10) Gastric ulcer ?K25.9 - Gastric ulcer, unspecified as acute or chronic, without hemorrhage or perforation (ICD-10) H/O TIA (transient ischemic attack) and stroke ?Z86.73 - Personal history of transient ischemic attack (TIA), and cerebral infarction without residual deficits (ICD-10) Type 2 diabetes mellitus ?E11.9 - Type 2 diabetes mellitus without complications (ICD-10) CAD (coronary artery disease) ?I25.10 - Atherosclerotic heart disease of creek coronary artery without angina pectoris (ICD-10) COPD (chronic obstructive pulmonary disease) ?J44.9 - Chronic obstructive pulmonary disease, unspecified (ICD-10) Surgical History No significant past surgical history Social History Smoking Status: Former smoker Do you use any of these nicotine containing products: None Second hand tobacco smoke exposure: No How often do you have a drink containing alcohol: never How often do you have six or more drinks on one occasion: Never AUDIT-C Alcohol total score: 0 Non-prescribed substance use: denies use Caffeine: Yes (1 cup of coffee/day) service: No Exam Const: Vital Signs, click to edit/add: Vital Signs - 24 hr 11/10/23 10:04 11/10/23 10:07 11/10/23 10:13 Temperature 97.7 F Pulse Rate 61 Pulse Rate [Pulse Oximeter] 55 L Respiratory Rate 20 Blood Pressure Blood Pressure [Ri ght Upper Arm] 137/64 Pulse Oximetry 94 95 97 Oxygen Delivery Me thod Room Air 11/10/23 10:15 11/10/23 10:52 11/10/23 10:54 Temperature Pulse Rate 57 L 54 L 58 L Pulse Rate [Pulse Oximeter] Respiratory Rate Blood Pressure 127/48 L Blood Pressure [Ri ght Upper Arm] Pulse Oximetry 96 97 97 Oxygen Delivery Me thod 11/10/23 11:00 11/10/23 11:02 11/10/23 11:03 Temperature Pulse Rate 58 L 61 59 L Pulse Rate [Pulse Oximeter] Respiratory Rate Blood Pressure 118/57 L Blood Pressure [Ri ght Upper Arm] Pulse Oximetry 96 95 96 Oxygen Delivery Me thod 11/10/23 11:15 11/10/23 11:16 11/10/23 11:30 Temperature Pulse Rate 53 L 55 L 58 L Pulse Rate [Pulse Oximeter] Respiratory Rate Blood Pressure 117/50 L Blood Pressure [Ri ght Upper Arm] Pulse Oximetry 97 97 97 Oxygen Delivery Me thod 11/10/23 11:32 11/10/23 11:33 Temperature Pulse Rate 60 62 Pulse Rate [Pulse Oximeter] Respiratory Rate Blood Pressure 123/57 L Blood Pressure [Ri ght Upper Arm] Pulse Oximetry 97 98 Oxygen Delivery Me thod This 67-year-old male is alert, interactive, no apparent distress. He is hard of hearing at times. His speech is normal. He has symmetrical facial function. Pupils are equal round and reactive. Extraocular muscles are intact. I do not get any significant nystagmus. He does not appear to have catch-up saccades. Neck is thick, no masses, difficult to assess jugular venous distension. Lungs are clear, no wheezing or crackles. CV regular rate and rhythm, no murmur, normal S1-S2, no S3-S4. He has well-healed scars anteriorly from his prior cardiac surgery. Strength is 5/5 and symmetric throughout. He has no arm drift, no tremor, no dysmetria on [id number] or heel bella. Did not ambulate him at this point. Documenting provider has reviewed patient's vital signs: yes Course Course ED Course: Patient will have a stat head CT, have paged stroke Neurology for guidance on this patient. I do not think that they need to do an emergent stroke telehealth but certainly can do so if they feel applicable. IA just really need to talk to them. He will be on cardiac monitoring, pulse oximetry, will get appropriate labs and EKG. Reevaluation(s) Time of Reevaluation #1: 15:48 Reevaluation #1: Having patient ambulate with staff to see if he is safe to discharge to home. MRI showing old infarcts but no acute ischemic change. Have not been able to touch base with Neurology myself, have had staff call, neurology is aware of his negative MRI report. Based on my prior conversation with Dr. Morgan, patient will be discharged to home with presumed benign positional vertigo with ongoing use of meclizine if he can safely ambulate. Will update patient if we do find out anything new from Neurology, if they have any other recommendations. In the meantime, will allow discharge to home if he safely ambulates. Consultations Consultation #1: Did speak with Stroke Neurology on-call Dr. Morgan. Reviewed my concerns that I do think that this has enough concerning features and with a history, worry that this is cerebrovascular disease for this patient. Reviewed the IV contrast allergy issue with him. Patient's head CT has just been done, make sure this as well as the old head CTs are transmitted to him. He plans on seen the patient once he is reviewed the CTs, will do the tele stroke consult and review with me after that. May be necessary that we might do an MRI later. Reviewed with him that I also see that the patient is only on aspirin now. Time: 10:35 Consultation #2: Did hear Dr. Morgan consulting on this patient and did hear the end where he was talking about having the patient get a brain MRI. I was able to find out that we can do this here today, did jump in and talk to him while he was on the telehealth. He is wondering if this perhaps could be peripheral neuropathy, the meclizine can suppress nystagmus. He agrees he did not see any nystagmus on the exam and when he did get the patient up, patient was quite ataxic. CT in December had a concerning area. Our CT today is not showing this. Thus he wants to ensure no central process for this vertigo with a brain MRI. We will be in touch once we have that result. Time: 11:38 Vital Signs Vital signs: Initial Vital Signs Temperature 97.7 F 11/10/23 10:04 Temperature Source Temporal Artery Scan 11/10/23 10:04 Pulse Rate 55 L 11/10/23 10:04 Respiratory Rate 20 11/10/23 10:04 Blood Pressure 137/64 11/10/23 10:04 Blood Pressure Mean 88 11/10/23 10:04 Blood Pressure Position Supine 11/10/23 10:04 Pulse Oximetry 94 11/10/23 10:04 Oxygen Delivery Method Room Air 11/10/23 10:04 Vital Signs Temperature 97.7 F 11/10/23 10:04 Pulse Rate 55 L 11/10/23 10:04 Respiratory Rate 20 11/10/23 10:04 Blood Pressure 137/64 11/10/23 10:04 Pulse Oximetry 94 11/10/23 10:04 Oxygen Delivery Method Room Air 11/10/23 10:04 Temperature 97.7 F 11/10/23 10:04 Pulse Rate 62 11/10/23 11:33 Respiratory Rate 20 11/10/23 10:04 Blood Pressure 123/57 L 11/10/23 11:32 Pulse Oximetry 98 11/10/23 11:33 Oxygen Delivery Method Room Air 11/10/23 10:04 Medications Administered Medications: Discontinued Medications Generic Name Dose Route Start Last Admin Trade Name Freq PRN Reason Stop Dose Admin Ondansetron HCl 4 mg 11/10/23 10:51 11/10/23 11:01 Ondansetron 2 Mg/Ml Inj IVP 11/10/23 10:52 4 mg ONCE ONE Administration MDM - Dizziness Lab Data Attestation: I reviewed the patient's lab results. Labs: Lab Results 11/10/23 Range/Units 10:30 WBC 7.94 (4.50-11.00) K/uL RBC 3.89 L (4.30-5.90) m/uL Hgb 11.4 L (13.5-17.5) gm/dL Hct 35.9 L (37.0-53.0) % MCV 92 (80-100) fL MCH 29 (26-34) pg MCHC 32 (32-36) gm/dL RDW Coeff of Scott 13.0 (11.5-15.5) % Plt Count 192 (140-440) K/uL Neut % (Auto) 83.4 H (42.0-72.0) % Lymph % (Auto) 12.1 L (20-44) % [place] % (Auto) 3.3 (0.0-11.0) % Eos % (Auto) 0.4 (0.0-7.0) % Baso % (Auto) 0.3 (0.0-3.0) % Neut # (Auto) 6.60 (1.7-7.0) K/uL Lymph # (Auto) 1.00 (0.90-2.90) K/uL [place] # (Auto) 0.30 (0.00-0.90) K/UL Eos # (Auto) 0.03 (0.00-0.50) K/uL Baso # (Auto) 0.02 (0.00-0.30) K/uL Abs Immat Gran (auto) 0.04 (0.00-0.30) K/uL Imm/Tot Granulo (auto) 0.5 % Diff Slide Review Acceptable Review (Acceptable) Sodium 135 (135-149) mmol/L Potassium 5.0 (3.6-5.1) mmol/L Chloride 104 (96-114) mmol/L Carbon Dioxide 20 (20-32) mmol/L Anion Gap 11 (7-15) mEq/L BUN 27 (7-30) mg/dL Creatinine 1.5 (0.5-1.5) mg/dL Estimated Creat Clear 42.14 Estimated GFR 51 ml/min Glucose 181 H (60-115) mg/dL Lactate 1.9 (0.5-1.9) mmol/L Calcium 8.8 (8.4-10.6) mg/dL Magnesium 1.5 (1.5-2.6) mg/dL Total Bilirubin 0.3 (0.1-1.5) mg/dL AST 21 (12-35) U/L ALT 25 (4-50) U/L Alkaline Phosphatase 181 H (40-150) U/L Total Protein 6.9 (6.0-8.3) g/dL Albumin 4.1 (3.3-5.0) g/dL Imaging Data CT scan - head: Attestation: I have reviewed the pertinent imaging results. Radiologist's impression: Patient: MELISSA INIGUEZ Facility:?[facility] Patient ID:?[id number] Site Patient ID:?[id number]. Site :?[id number] Study:?CT Head STROKE CODE without contrast-11/10/2023 10:38:24 AM Ordering Physician:?Guerline Das Final Report: Indication: Dizziness and vertigo Technique: Volumetric multidetector CT images of the head were obtained without the administration of low osmolar intravenous contrast. Comparison: None available Findings: Exam is mildly limited due to motion artifact. No obvious intra-axial or extra- axial hemorrhage is identified. There is no mass effect or midline shift. There is age-related cortical atrophy with mild sulcal widening and ex vacuo dilatation of the lateral ventricles. There are chronic small vessel disease changes in the subcortical and periventricular white matter without lost colbert-white differentiation. The orbits and their contents are grossly within normal limits. The bony calvarium is grossly intact. The paranasal sinuses are clear. The mastoid air cells are well aerated. Impression: 1. Age-related changes of the brain without acute intracranial abnormality. A report was sent to Dr. Morgan at 10:43 a.m. November 10, 20[address] note [address] all [address] scans at this facility use dose modulation, iterative reconstruction, and/or weight-based dosing when appropriate to reduce radiation dose to as low as reasonably achievable. Dictated by Osiel Carpenter MD @ 11/10/2023 10:45:37 AM (Electronic Signature) MRI - head: Attestation: I have reviewed the pertinent imaging results. Radiologist's impression: Patient: MELISSA INIGUEZ Facility:?[facility] Patient ID:?[id number] Site Patient ID:?[id number]. Site :?[id number] Study:?MRI Head W/O-11/10/2023 12:38:14 PM Ordering Physician:Caleb Das Final Report: Indication: Vertigo and ataxia. Technique: Noncontrast sagittal T1 weighted, axial FLAIR, axial T2 weighted, axial SWI, and axial diffusion weighted sequences are provided. Comparison: CT 11/10/2023 Findings: Mild generalized parenchymal volume loss. Prominent perivascular spaces. The midline structures are centrally located with no evidence of shift. Chronic lacunar infarcts in the right cerebellar hemisphere and franco, left thalamus and bilateral caudate nuclei and basal ganglia. No suspicious intra or extra-axial fluid collections. No region of restricted diffusion. Expected flow voids in the cavernous carotids and basilar artery. Moderate left and mild right mastoid effusions. Leftward deviation of the nasal septum. Findings discussed with Dr. Sullivan at 12:45 p.m. Impression: 1. No evidence of acute ischemic infarct. 2. Chronic lacunar infarcts in the right cerebellar hemisphere and franco, left thalamus, bilateral caudate nuclei and basal ganglia. 3. Mild parenchymal volume loss. 4. Moderate left and mild right mastoid effusions. Dictated by Ted Diop MD @ 11/10/2023 12:46:16 PM (Electronic Signature) ECG Data Attestation: I personally reviewed and interpreted this ECG as follows: (Sinus bradycardia, 56 beats per minute. Nonspecific ST segment changes but not definitive of active ischemia. QT corrected 416 milliseconds.) ECG interpretation date: 11/10/23 ECG interpretation time: 10:33 Critical Care Time Critical Care Time Critical Care Time: No Discharge Plan Discharge Clinical Impression: Benign paroxysmal positional vertigo Patient Disposition: Home, Self-Care Condition: Stable Instructions: Benign Paroxysmal Positional Vertigo (ED) Additional Instructions: You do have evidence of old strokes on your MRI but nothing acutely today. This vertigo is likely episodic benign positional vertigo. Can continue with the meclizine that you have at home. If you find that you are unable to safely ambulate because of your symptoms, return to the ER. Activity Level: Activity as Tolerated Prescriptions: No Action albuterol sulfate 90 mcg/actuation HFA aerosol inhaler 2 puff INHALATION Q4H PRN Patient Comments: Inhale 2 Puffs by mouth every 4 hours if needed. glipizide 5 mg tablet 5 mg PO BID meclizine 25 mg tablet 25 mg PO TID PRN metformin 1,000 mg tablet 1,000 mg PO BID aspirin 81 mg tablet,delayed release (DR/EC) 81 mg PO DAILY Qty: 30 0RF loratadine [Claritin] 10 mg tablet 10 mg PO DAILY PRN aspirin [Adult Low Dose Aspirin] 81 mg tablet,delayed release (DR/EC) 81 mg PO DAILY lisinopril 10 mg tablet 10 mg PO DAILY Qty: 30 2RF torsemide 10 mg tablet 10 mg PO DAILY Qty: 30 2RF potassium chloride 10 mEq capsule, extended release 10 meq PO DAILY Qty: 30 2RF ipratropium-albuterol 0.5 mg-3 mg(2.5 mg base)/3 mL Solution For Nebulization 3 ml inhalation TID Qty: 180 0RF atorvastatin 80 mg tablet 80 mg PO HS metoprolol succinate 100 mg tablet extended release 24 hr 100 mg PO DAILY Follow Up/Referrals: Hannah Stein DO [Primary Care Provider] - Stand Alone Forms: [facility] Info Instructions
[2023-11-10 10:41] LABS: Lactate* 1.9 mmol/L (0.5-1.9)
[2023-11-10 10:46] LABS: Basophils Absolute Auto 0.02 K/uL (0.00-0.30); Basophils Percent Auto 0.3 % (0.0-3.0); Eosinophils Absolute Auto 0.03 K/uL (0.00-0.50); Eosinophils Percent Auto 0.4 % (0.0-7.0); Hematocrit 35.9 % (37.0-53.0); Hemoglobin* 11.4 gm/dL (13.5-17.5); Immature Granulocytes Abs Auto 0.04 K/uL (0.00-0.30); Immature Granulocytes Pct Auto 0.5 %; Lymphocytes Percent Auto 12.1 % (20-44); Mean Corpuscular HGB Conc 32 gm/dL (32-36); Mean Corpuscular Hemoglobin 29 pg (26-34); Mean Corpuscular Volume 92 fL (80-100); Monocytes Percent Auto 3.3 % (0.0-11.0); Neutrophils Percent Auto 83.4 % (42.0-72.0); Platelet Count* 192 K/uL (140-440); Red Blood Count 3.89 m/uL (4.30-5.90); White Blood Count* 7.94 K/uL (4.50-11.00)
[2023-11-10] MEDS: ONDANSETRON 2 MG/ML inj 4 MG IVP (11:01)
[2023-11-10 11:09] LABS: Slide Review Reflex Yes
[2023-11-10 11:10] LABS: Slide Review Acceptable Review (Acceptable)
[2023-11-10 11:35] LABS: Albumin* 4.1 g/dL (3.3-5.0); Chloride* 104 mmol/L (96-114)
[2023-11-10 11:36] LABS: Sodium* 135 mmol/L (135-149)
--- NOTE | 2023-11-10 11:37 | CRLHL7_ITS ---
For Patients: As a result of the Century Cures Act, medical imaging exams and procedure reports are released immediately into your electronic medical record. You may view this report before your referring provider. If you have questions, please contact your health care provider. Indication: Vertigo and ataxia. Technique: Noncontrast sagittal T1 weighted, axial FLAIR, axial T2 weighted, axial SWI, and axial diffusion weighted sequences are provided. Comparison: CT 11/10/2023 Findings: Mild generalized parenchymal volume loss. Prominent perivascular spaces. The midline structures are centrally located with no evidence of shift. Chronic lacunar infarcts in the right cerebellar hemisphere and franco, left thalamus and bilateral caudate nuclei and basal ganglia. No suspicious intra or extra-axial fluid collections. No region of restricted diffusion. Expected flow voids in the cavernous carotids and basilar artery. Moderate left and mild right mastoid effusions. Leftward deviation of the nasal septum. Findings discussed with Dr. Sullivan at 12:45 p.m. Impression: 1. No evidence of acute ischemic infarct. 2. Chronic lacunar infarcts in the right cerebellar hemisphere and franco, left thalamus, bilateral caudate nuclei and basal ganglia. 3. Mild parenchymal volume loss. 4. Moderate left and mild right mastoid effusions. Dictated by Ted Diop MD @ 11/10/2023 12:46:16 PM (Electronically Signed)
[2023-11-10 11:38] LABS: Alkaline Phosphatase* 181 U/L (40-150); Anion Gap 11 mEq/L (7-15); Aspartate Amino Transferase* 21 U/L (12-35); Bilirubin Total* 0.3 mg/dL (0.1-1.5); Carbon Dioxide* 20 mmol/L (20-32); Creatinine* 1.5 mg/dL (0.5-1.5); Est. Creatinine Clearance* 42.14; Estimated Glomerular Filt Rate 51 ml/min; Total Protein* 6.9 g/dL (6.0-8.3)
[2023-11-10 11:39] LABS: Alanine Aminotransferase* 25 U/L (4-50); Blood Urea Nitrogen* 27 mg/dL (7-30); Calcium* 8.8 mg/dL (8.4-10.6); Glucose* 181 mg/dL (60-115); Magnesium* 1.5 mg/dL (1.5-2.6)
--- NOTE | 2023-11-10 11:57 | ED.NURSE ---
This movie writer present in room for video assessment performed by Dr. Hunt. Pt very wobbly when attempting to stand at the bedside. This movie writer assisted pt to sit back down after assessment of balance complete.
[2023-11-10] MEDS: METFORMIN 1,000 MG TABLET 1000 MG PO (15:00)
[2023-11-10] MEDS: glipiZIDE 5 MG TABLET PO (15:00)
--- NOTE | 2023-11-10 15:54 | ED.NURSE ---
Pt able to tolerate ambulation around unit w/ standby assist and cane.
== END 2023-11-10 16:12 | disposition home or self-care (01) ==
PROVIDERS: Emergency Provider Family Medicine; PCP Family Medicine
DX: H81.10 Benign paroxysmal vertigo, unspecified ear (principal)
CPT/HCPCS: 36415; 70450; 70551; 80053; 83605; 83735; 85025; 94761; 96374; 99284; 99285; G0427; A9270; J2405

== ENCOUNTER 2023-11-25 08:33 | Outpatient (CLI) | payer MEDICARE, SELFPAY ==
--- OUTSIDE RECORDS SUMMARY | 2023-11-30 00:39 | XMS_ITS | Clinical Summary ---
Author Name Unknown Organization [facility] Address [place], [place] [address] Care Team Providers Care Spray Gun Striper Name Role Phone Hannah Stein DO Primary Care Provider Rufus Rucker MD Unavailable Unavaila Sosa Bates Unavailable [phone] Allergies Active Allergy Reactions Criticality Noted Date [...] long-term current use of insulin (HC),CAD in [place] artery,S/P triple vessel bypass Take 1 Tablet [...] lipid rich plaque,S/P CABG x 3,CAD in [place] artery,HTN (hypertension) TAKE ONE CAPSULE BY MOUTH [...] plaque,HTN (hypertension),S /P CABG x 3,CAD in [place] artery,Type 2 diabetes mellitus without complication, without long-term current use of insulin (HC) TAKE ONE TABLET BY MOUTH ONCE EVERY DAY . 90 Tablet 3 09/04/2023 Active mirtazapine (REMERON) 7.5 mg tabletIndication s:Insomnia, idiopathic TAKE ONE TABLET BY MOUTH AT BEDTIME 90 Tablet 1 09/04/2023 Active clopidogreL (PLAVIX) 75 mg tabletIndication s:S/P CABG x 3,CAD in [place] artery TAKE ONE TABLET BY MOUTH ONCE [...] 270 Tablet 0 08/19/2023 11/09/20 23 Discontinued glipiZIDE (GLUCOTROL) 5 mg tabletIndication s:Type 2 [...] CODE STATUS: FULL POA: JOEL INIGUEZ (SON) [phone] or [phone] Hx-TIA (transient ischemic attack) 12/12/2013 Gastric ulcer [...] 02/08/2010 04/04/2011 Prostatitis 02/08/2010 08/17/2012 Unspecified examination 02/08/2010/12/2011 Overview: Last Px 11/2006 Last Lipid 11/2005 [...] Encounters Date Type Department Care Team Description 11/26/2023 Orders Only [facility] Scanner 1 scan: (1-Ord) INCOMING RECORDS-DIABETIC EYE, [facility], 11/26/2023 11/25/2023 Orders Only [facility] Scanner 1 scan: (1-Ord) TOR CT HEAD/BRAIN WO CON, 11/25/2023 11/20/2023 10:15 AM AUTOMOTIVE PARTS INTERPRETER Office Visit [facility] [address] [place] [address] Hannah Stein DO Diabetes (diabetic check); Immunization/Injecti on 11/20/2023 Travel 11/10/2023 Orders Only [facility] Scanner 1 scan: (1-Ord) [facility], MR HEAD/BRAIN WO CONTRAST, 11/10/2023 11/10/2023 Orders Only [facility] Scanner 1 scan: (1-Ord) [facility], CT HEAD/BRAIN WO CON, 11/10/2023 11/10/2023 Office Visit [facility] [address] [place] [address] Huey Morgan MD Telehealth ([facility]) 11/07/2023 Refill [facility] [address] [place] [address] Hannah Stein DO Refill Request (Glipizide) 10/05/2023 10:30 AM AUTOMOTIVE PARTS INTERPRETER Office Visit [address] [address] Lucia Ray AuD Hearing Aid (RICHEY consult) 10/05/2023 9:30 AM AUTOMOTIVE PARTS INTERPRETER Office Visit [address] [address] Awais Torres AuD Hearing Problem 10/04/2023 Travel 09/09/[address] [address] Hannah Stein DO Referral (Audiological Evaluation) 09/07/[address] [address] Lucia Ray AuD Appointment 09/06/2023 Refill [facility] [address] [place] [address] Hannah Stein DO Refill Request (Atorvastatin) 09/05/2023 Refill [facility] [address] [place] [address] Hannah Stein DO Refill Request (Torsemide) 09/04/2023 Refill [facility] [address] [place] [address] Hannah Stein DO Refill Request (Metoprolol Succinate, Lisinopril, Mirtazapine, Clopidogrel) from Last 3 Months Immunizations Name Administration Dates Next Due COVID-19 Vaccine Spikevax (M oderna 50mcg/0.5mL) 12YO+ [phone] Formula PF 11/20/2023 COVID-19 vaccine (Moderna 100mcg/0.5mL) [...] Comments Blood Pressure 143/77 11/20/2023 10:22 AM AUTOMOTIVE PARTS INTERPRETER Pulse 83 11/20/2023 10:22 AM AUTOMOTIVE PARTS INTERPRETER Temperature 37.1 ??C (98.8 ??F) 09/12/2022 1 2:24 AM CDT Respiratory Rate 18 09/12/2022 5:07 AM CDT Oxygen Saturation 98% 11/20/2023 10: 22 AM AUTOMOTIVE PARTS INTERPRETER Inhaled Oxygen Concentration - - Weight 107.8 kg (237 lb 9.6 oz) 024 10:22 AM AUTOMOTIVE PARTS INTERPRETER Height 167.6 cm (5' 6) 09/12/2022 12:2 4 AM CDT Body Mass Index 38.35 09/12/2022 12:24 AM CDT Plan of Treatment Upcoming Encounters Date Type Department Care Team (Late st Contact Info) Description 12/08/2023 10:30 AM AUTOMOTIVE PARTS INTERPRETER Office [facility] [address] [facility] [address] Claudy Justice MD [address] [place] [address] 02/19/2024 9:00 AM CDT Office Visit [facility] [address] [place] [address] Hannah Stein, [address] [place] [address] Health Maintenance Due Date Last Done Comments [...] LESS THAN 130/80 Blood Pressure No Hannah Stein, Procedures Procedure Name Priority Date/Time Associated Diagnosis Comments SCAN-EYE EXAM 11/26/2023 12:00 AM AUTOMOTIVE PARTS INTERPRETER SCAN-CT INTERPRETATION 12:00 AM AUTOMOTIVE PARTS INTERPRETER CBC WITH AUTO DIFFERENTIAL Add On 11/20/2023 10:13 AM AUTOMOTIVE [employer]S INTERPRETER Low hemoglobin CBC WITH AUTO DIFFERENTIAL Add On 11/20/2023 10:13 AM AUTOMOTIVE [employer]S INTERPRETER Low hemoglobin BASIC METABOLIC PANEL Routine 11/20/2023 10:13 AM AUTOMOTIVE [employer]S INTERPRETER Type 2 diabetes mellitus with diabetic neuropathy, without long-term current use of insulin (HC) HEMOGLOBIN A1C Routine 11/20/2023 10:13 AM AUTOMOTIVE [employer]S INTERPRETER Type 2 diabetes mellitus with diabetic neuropathy, without long-term current use of insulin (HC) SCAN-MRI INTERPRETATION 11/10/20 12:00 AM AUTOMOTIVE PARTS INTERPRETER SCAN-CT INTERPRETATION 12:00 AM AUTOMOTIVE PARTS INTERPRETER from Last 3 Months Results * SCAN-EYE EXAM (11/26/2023 12:00 AM AUTOMOTIVE PARTS INTERPRETER) Scanner OTHER * SCAN-CT INTERPRETATION (11/25/2023 12:00 AM AUTOMOTIVE PARTS INTERPRETER) Only the most recent of2 resultswithin the time period is included. Anatomical Region Laterality Modality Other Scanner OTHER * (ABNORMAL) CBC WITH AUTO DIFFERENTIAL (11/20/2023 10:13 AM AUTOMOTIVE PARTS INTERPRETER) WHITE BLOOD COUNT 7.2 4.5 - 11.0 thou/cu mm 11/20/2023 10:44 AM [facility] RED BLOOD COUNT 4.09(L) 4.30 - 5.90 mil/cu mm 11/20/2023 10:44 AM [facility] HEMOGLOBIN 12.3(L) 13.5 - 17.5 g/dL 11/20/2023 10:44 AM [facility] HEMATOCRIT 38.6 37.0 - 53.0 % 11/20/2023 10:44 AM [facility] MCV 94 80 - 100 fL 11/20/2023 10:44 AM [facility] MCH 30.1 26.0 - 34.0 pg 11/20/2023 10:44 AM [facility] MCHC 31.9(L) 32.0 - 36.0 g/dL 11/20/2023 10:44 AM [facility] RDW 13.7 11.5 - 15.5 % 11/20/2023 10:44 AM [facility] PLATELET COUNT 251 140 - 440 thou/cu mm 11/20/2023 10:44 AM [facility] MPV 9.3 6.5 - 11.0 fL 11/20/2023 10:44 AM [facility] % NEUT 54.3 % 11/20/2023 10:44 AM [facility] % LYMPH 35.3 % 11/20/2023 10:44 AM [facility] % MONO 7.9 % 11/20/2023 10:44 AM [facility] % EOS 1.9 % 11/20/2023 10:44 AM [facility] % BASO 0.6 % 11/20/2023 10:44 AM [facility] ABSOLUTE NEUTROPHILS 3.9 1.7 - 7.0 thou/cu mm 11/20/2023 10:44 AM [facility] ABSOLUTE LYMPHOCYTES 2.5 0.9 - 2.9 thou/cu mm 11/20/2023 10:44 AM [facility] ABSOLUTE MONOCYTES 0.6 <0.9 thou/cu mm 11/20/2023 10:44 AM [facility] ABSOLUTE EOSINOPHILS 0.1 <0.5 thou/cu mm 11/20/2023 10:44 AM [facility] ABSOLUTE BASOPHILS 0.0 <0.3 thou/cu mm 11/20/2023 10:44 AM [facility] Blood BLOOD SPECIMEN / Unknown Venipuncture / Unknown 11/20/2023 10:13 AM AUTOMOTIVE [employer]S INTERPRETER 11/20/2023 10:14 AM AUTOMOTIVE PARTS INTERPRETER Hannah Stein DO HEMATOLOGY [facility] [address] [place] [address], * (ABNORMAL) HEMOGLOBIN A1C MONITORING (POCT) (11/20/2023 10:13 AM AUTOMOTIVE PARTS INTERPRETER) [facility] HEMOGLOBIN A1C MONITORING (POCT) 7.5(H) <=6.4 % 11/20/2023 10:24 AM [facility] Blood BLOOD SPECIMEN / Unknown Venipuncture / Unknown 11/20/2023 10:13 AM AUTOMOTIVE PARTS INTERPRETER 11/20/2023 10:14 AM AUTOMOTIVE PARTS INTERPRETER Narrative [facility] - 11/20/2023 10:24 AM AUTOMOTIVE PARTS INTERPRETER ? (<=6.9%) ? Indicates good control ? (7.0% to 7.9%) ? Indicates fair control ? (>=8.0%) ? Indicates poor control ?? NOTE: ??These thresholds are guidelines and ?individual targets may vary. Falsely low levels may be seen with: Recent Transfusion, Recent Significant Blood Loss, Hemolytic Diseases, or Falsely elevated levels may be seen with: Untreated Anemias, Splenectomy ? Hannah Stein DO CHEMISTRY [facility] [address] [place] [address], * (ABNORMAL) BASIC METABOLIC PANEL (11/20/2023 10:13 AM [facility]) [facility] SODIUM 138 136 - 145 mmol/L 11/20/2023 5:00 PM [facility] POTASSIUM 4.7 3.5 - 5.1 mmol/L 11/20/2023 5:00 PM [facility] CHLORIDE 101 98 - 107 mmol/L 11/20/2023 5:00 PM [facility] CO2,TOTAL 25 22 - 29 mmol/L 11/20/2023 5:00 PM [facility] ANION GAP 12 5 - 18 11/20/2023 5:00 PM [facility] GLUCOSE 220(H) 70 - 99 mg/dL 11/20/2023 5:00 PM [facility] CALCIUM 9.4 8.8 - 10.2 mg/dL 11/20/2023 5:00 PM [facility] BUN 21 8 - 23 mg/dL 11/20/2023 5:00 PM [facility] CREATININE 1.66(H) 0.70 - 1.20 mg/dL 11/20/2023 5:00 PM [facility] BUN/CREAT RATIO 13 10 - 20 5:00 PM [facility] eGFR 45(L) >90 mL/min/1.7 3m2 11/20/2023 5:00 PM [facility] Comment:As of 2022, eG FR is calculated by the CKD-EPI creatinine equation without race adjustment. ??eGFR can be influenced by muscle mass, exercise, and diet. ??The reported eGFR is an estimation only and is only applicable if the renal function is stable. Blood BLOOD SPECIMEN / Unknown Venipuncture / Unknown 11/20/2023 10:13 AM AUTOMOTIVE PARTS INTERPRETER 11/20/2023 10:14 AM AUTOMOTIVE PARTS INTERPRETER Hannah Stein DO CHEMISTRY [facility] [address] [place] [address], * SCAN-MRI INTERPRETATION (11/10/2023 12:00 AM AUTOMOTIVE PARTS INTERPRETER) Anatomical Region Laterality Modality Other Scanner OTHER [...] 9:49 PM 11/07/2009 7:22 PM Care Teams Spray Gun Striper Relationship Specialty Start Date End Date Hannah Stein DO PCP - General 06/26/09 Rufus Rucker MD Neurology Neurology 11/29/12 Sosa Guthrie AuD Audiology 02/06/11
== END 2023-11-25 08:34 | disposition home or self-care (01) ==
LOC: AMB 11-30 00:32
PROVIDERS: PCP Family Medicine; Visit Provider Family Medicine
DX: R42 Dizziness and giddiness (principal)
CPT/HCPCS: A0425; A0427

== ENCOUNTER 2023-11-25 09:05 | Emergency (ER) | payer MEDICARE, SELFPAY ==
[2023-11-25] VITALS (7 sets, daily range): BP systolic 127–130; BP diastolic 62–64; PULSE 58–108; RESP 18; TEMP 36.8; O2SAT 88–98; BMI 41.2
[2023-11-25] MEDS: 0.9 % SODIUM CHLORIDE 500 ML 500 ML IV (09:15)
--- NOTE | 2023-11-25 09:29 | CRLHL7_ITS ---
For Patients: As a result of the Century Cures Act, medical imaging exams and procedure reports are released immediately into your electronic medical record. You may view this report before your referring provider. If you have questions, please contact your health care provider. INDICATION: Vertigo TECHNIQUE: CT head without contrast. COMPARISON: CT and MR brain on 11/10 2023 FINDINGS: CSF spaces: Within normal limits for age and degree of involutional changes. Brain parenchyma and extra-axial spaces: Global cortical involutional changes. Chronic small vessel disease changes in the subcortical and periventricular white matter without lost colbert-white differentiation. Chronic lacunar infarcts in the right cerebellar hemisphere and franco, left thalamus, bilateral caudate nuclei and basal ganglia. No sign of mass, hemorrhage, or midline shift. No extra-axial fluid collection. Skull base and calvarium: The visualized paranasal sinuses and mastoid air cells demonstrate no acute or significant findings. The visualized orbits are grossly unremarkable. No skull fractures. IMPRESSION: 1. No acute intracranial abnormality. 2. Age-related changes of the brain with chronic lacunar infarcts. Please note that all CT scans at this facility use dose modulation, iterative reconstruction, and/or weight-based dosing when appropriate to reduce radiation dose to as low as reasonably achievable. Dictated by Isaac Pitts MD @ 11/25/2023 10:30:42 AM (Electronically Signed)
--- NOTE | 2023-11-25 09:31 | ED_ITS ---
HPI - General Adult General Chief complaint: Dizziness/Vertigo Stated complaint: Dizziness Time Seen by Provider: 11/25/23 09:22 History of Present Illness HPI narrative: Patient is a 67-year-old male brought in by ambulance for dizziness. He was watching TV today and felt dizzy. He has had a recent workup for stroke and he had old evidence of stroke but no acute ischemic event on MRI scan last week. Patient denies fever chills he does report he feels better. He was brought in by ambulance. He had no chest pain, shortness of breath, no weakness or neurologic changes other than feeling the room spinning slightly. He feels a little bit better at this time. He reported that was worse with sitting up or moving. He had old meclizine at home and that did not seem to help much. Related Data Home Medications Medication Instructions Recorded Confirmed albuterol sulfate 90 mcg/actuation 2 puff inhalation Q4H PRN 06/04/22 08/29/22 aerosol inhaler glipizide 5 mg tablet 5 mg PO BID 06/04/22 08/29/22 meclizine 25 mg tablet 25 mg PO TID PRN 06/04/22 08/29/22 metformin 1,000 mg tablet 1,000 mg PO BID 06/04/22 08/29/22 aspirin 81 mg tablet,delayed 81 mg PO DAILY 08/15/22 08/30/22 release (Adult Low Dose Aspirin) loratadine 10 mg tablet (Claritin) 10 mg PO DAILY PRN 08/15/22 08/29/22 atorvastatin 80 mg tablet 80 mg PO HS 08/30/22 08/30/22 metoprolol succinate 100 mg 100 mg PO DAILY 08/30/22 08/30/22 tablet,extended release 24 hr Previous Rx's Medication Instructions Recorded ipratropium 0.5 mg-albuterol 3 mg 3 ml inhalation TID #180 mL 08/18/22 (2.5 mg base)/3 mL nebulization soln lisinopril 10 mg tablet 10 mg PO DAILY #30 tabs 08/18/22 potassium chloride 10 mEq 10 meq PO DAILY #30 caps 08/18/22 capsule,extended release torsemide 10 mg tablet 10 mg PO DAILY #30 tabs 08/18/22 aspirin 81 mg tablet,delayed 81 mg PO DAILY stroke prevention 01/10/23 release #30 tabs meclizine 25 mg tablet 25 mg PO BID PRN #14 tabs 11/25/23 Allergies Allergy/AdvReac Type Severity Reaction Status Date / Time gadodiamide Allergy Unknown Verified 08/29/22 23:22 diagnostic x-ray materials Allergy Unknown Uncoded 08/14/22 21:01 Review of Systems Status of ROS: Reports: 6 or more systems reviewed and unremarkable except as noted in History and below [facility] Medical History Heart failure with preserved ejection fraction ?I50.30 - Unspecified diastolic (congestive) heart failure (ICD-10) H/O medication noncompliance ?Z91.14 - Patient's other noncompliance with medication regimen (ICD-10) Aortic dilatation ?I77.819 - Aortic ectasia, unspecified site (ICD-10) Ascending aorta dilation ?I77.810 - Thoracic aortic ectasia (ICD-10) Essential hypertension ?I10 - Essential (primary) hypertension (ICD-10) Ground glass opacity present on imaging of lung ?R91.8 - Other nonspecific abnormal finding of lung field (ICD-10) Vertigo ?R42 - Dizziness and giddiness (ICD-10) CVA (cerebral vascular accident) ?I63.9 - Cerebral infarction, unspecified (ICD-10) Chest pain ?R07.9 - Chest pain, unspecified (ICD-10) Syncope ?R55 - Syncope and collapse (ICD-10) GREGORIO (obstructive sleep apnea) ?G47.33 - Obstructive sleep apnea (adult) (pediatric) (ICD-10) Mixed hyperlipidemia ?E78.2 - Mixed hyperlipidemia (ICD-10) Meniere disease ?H81.09 - Meniere's disease, unspecified ear (ICD-10) Gastric ulcer ?K25.9 - Gastric ulcer, unspecified as acute or chronic, without hemorrhage or perforation (ICD-10) H/O TIA (transient ischemic attack) and stroke ?Z86.73 - Personal history of transient ischemic attack (TIA), and cerebral infarction without residual deficits (ICD-10) Type 2 diabetes mellitus ?E11.9 - Type 2 diabetes mellitus without complications (ICD-10) CAD (coronary artery disease) ?I25.10 - Atherosclerotic heart disease of [place] coronary artery without angina pectoris (ICD-10) COPD (chronic obstructive pulmonary disease) ?J44.9 - Chronic obstructive pulmonary disease, unspecified (ICD-10) Surgical History No significant past surgical history Social History Smoking Status: Former smoker Do you use any of these nicotine containing products: None Second hand tobacco smoke exposure: No How often do you have a drink containing alcohol: never How often do you have six or more drinks on one occasion: Never AUDIT-C Alcohol total score: 0 Non-prescribed substance use: denies use Caffeine: Yes (1 cup of coffee/day) service: No Exam Narrative: Exam Narrative: Objective: Vital signs are within normal limits Patient is alert orient x3. He is somewhat slow to respond, looks like he has had from his chart review of some cognitive decline. HEENT is unremarkable no facial asymmetry neck is supple chest is clear , heart is rate and rhythm regular 2/6 systolic murmur occasional ectopic beat noted Abdomen obese benign nontender Extremities moves all 4s, no drift in his upper lower extremities. Const: Vital Signs, click to edit/add: Vital Signs - 24 hr 11/25/23 09:12 11/25/23 09:12 11/25/23 09:36 Temperature 98.3 F Pulse Rate 75 Pulse Rate [Pulse Oximeter] 83 Respiratory Rate 18 Blood Pressure Blood Pressure [Ri ght Upper Arm] 130/64 Pulse Oximetry 97 97 97 Oxygen Delivery Me thod Room Air 11/25/23 10:03 11/25/23 10:04 11/25/23 10:31 Temperature Pulse Rate 60 62 108 H Pulse Rate [Pulse Oximeter] Respiratory Rate Blood Pressure Blood Pressure [Ri ght Upper Arm] Pulse Oximetry 97 98 88 Oxygen Delivery Me thod 11/25/23 10:37 11/25/23 10:38 Temperature Pulse Rate 58 L 61 Pulse Rate [Pulse Oximeter] Respiratory Rate Blood Pressure 127/62 Blood Pressure [Ri ght Upper Arm] Pulse Oximetry 98 97 Oxygen Delivery Me thod Course Vital Signs Vital signs: Initial Vital Signs Temperature 98.3 F 11/25/23 09:12 Temperature Source Temporal Artery Scan 11/25/23 09:12 Pulse Rate 83 11/25/23 09:12 Respiratory Rate 18 11/25/23 09:12 Blood Pressure 130/64 11/25/23 09:12 Blood Pressure Mean 86 11/25/23 09:12 Pulse Oximetry 97 11/25/23 09:12 Oxygen Delivery Method Room Air 11/25/23 09:12 Vital Signs Temperature 98.3 F 11/25/23 09:12 Pulse Rate 83 11/25/23 09:12 Respiratory Rate 18 11/25/23 09:12 Blood Pressure 130/64 11/25/23 09:12 Pulse Oximetry 97 11/25/23 09:12 Oxygen Delivery Method Room Air 11/25/23 09:12 Temperature 98.3 F 11/25/23 09:12 Pulse Rate 61 11/25/23 10:38 Respiratory Rate 18 11/25/23 09:12 Blood Pressure 127/62 11/25/23 10:37 Pulse Oximetry 97 11/25/23 10:38 Oxygen Delivery Method Room Air 11/25/23 09:12 Medications Administered Medications: Discontinued Medications Generic Name Dose Route Start Last Admin Trade Name Lele PRN Reason Stop Dose Admin Sodium Chloride 500 mls @ 500 mls/hr 11/25/23 09:29 11/25/23 09:15 0.9 % Sodium Chloride 500 Ml IV 11/25/23 10:28 500 mls/hr .Q1H ONE Administration Meclizine HCl 25 mg 11/25/23 09:29 11/25/23 09:52 Meclizine Hcl 25 Mg Tablet PO 11/25/23 09:30 25 mg ONCE ONE Administration Medical Decision Making MDM Narrative Medical decision making narrative: [age] year white male with cognitive decline, COPD, history of coronary artery disease and history of prior strokes on MRI noted last week. He presented last week with dizziness. He had a little spell today as well. I think repeating his plain CT scan of his head would be reasonable, and then check his laboratory studies given some IV fluid and some Antivert and see if he improves. Will call in additional new Antivert as he reports his medicines at home were old. Would recommend follow-up with his neurologist and regular physician within the next short period of time as discussed with Dr. Margret Ragsdale note. Would have follow-up with primary care in the next 2 days, Neurology as scheduled. He was comfortable this assessment and did not wish further intervention at this time. Addendum 10:45 a.m. the patient's EKG by my read shows sinus tachycardia with frequent PVCs a short MS interval, chronic T-wave abnormality noted on prior EKGs. Head CT scan shows no acute findings, old stroke findings are noted. Lab studies look reassuring, troponin is negative. I think at this point the patient can go home he is feeling better. Nika we called in on a new basis. He reported that his meds might be old at home. He had a full workup last week with MRI scanning and has neurology consult coming up, recommend recheck with primary care in the next few days, return to ED as needed light activity, continue home medications. Lab Data Labs: Lab Results 11/25/23 11/25/23 Range/Units 09:40 09:40 WBC 4.61 (4.50-11.00) K/uL RBC 3.58 L (4.30-5.90) m/uL Hgb 10.6 L (13.5-17.5) gm/dL Hct 33.4 L (37.0-53.0) % MCV 93 (80-100) fL MCH 30 (26-34) pg MCHC 32 (32-36) gm/dL RDW Coeff of Scott 13.1 (11.5-15.5) % Plt Count 189 (140-440) K/uL Neut % (Auto) 67.7 (42.0-72.0) % Lymph % (Auto) 21.0 (20-44) % Evangeline % (Auto) 8.2 (0.0-11.0) % Eos % (Auto) 2.0 (0.0-7.0) % Baso % (Auto) 0.7 (0.0-3.0) % Neut # (Auto) 3.12 (1.7-7.0) K/uL Lymph # (Auto) 0.97 (0.90-2.90) K/uL Evangeline # (Auto) 0.40 (0.00-0.90) K/UL Eos # (Auto) 0.09 (0.00-0.50) K/uL Baso # (Auto) 0.03 (0.00-0.30) K/uL Abs Immat Gran (auto) 0.02 (0.00-0.30) K/uL Imm/Tot Granulo (auto) 0.4 % Sodium 136 (135-149) mmol/L Potassium 4.7 (3.6-5.1) mmol/L Chloride 103 (96-114) mmol/L Carbon Dioxide 27 (20-32) mmol/L Anion Gap 6 L (7-15) mEq/L BUN 23 (7-30) mg/dL Creatinine 1.3 (0.5-1.5) mg/dL Estimated Creat Clear 46.80 Estimated GFR 61 ml/min Glucose 281 H (60-115) mg/dL Calcium 8.6 (8.4-10.6) mg/dL Troponin I < 0.01 L Cancelled (0.01-0.04) ng/mL Discharge Plan Discharge Clinical Impression: Dizziness Patient Disposition: Home w/ Parent or Adult Condition: Improved Additional Instructions: Light activity continue home meds, recheck with the regular doctor within the next few days, follow up with neurology as planned. Will call in new Antivert for you. Use this as needed. Return to ED as needed. Activity Level: Light activity Discharge Diet: Heart Healthy (2 gm sodium, low fat) Prescriptions: New meclizine 25 mg tablet 25 mg PO BID PRNQty: 14 0RF No Action albuterol sulfate 90 mcg/actuation HFA aerosol inhaler 2 puff INHALATION Q4H PRN Patient Comments: Inhale 2 Puffs by mouth every 4 hours if needed. glipizide 5 mg tablet 5 mg PO BID meclizine 25 mg tablet 25 mg PO TID PRN metformin 1,000 mg tablet 1,000 mg PO BID aspirin 81 mg tablet,delayed release (DR/EC) 81 mg PO DAILY Qty: 30 0RF loratadine [Claritin] 10 mg tablet 10 mg PO DAILY PRN aspirin [Adult Low Dose Aspirin] 81 mg tablet,delayed release (DR/EC) 81 mg PO DAILY lisinopril 10 mg tablet 10 mg PO DAILY Qty: 30 2RF torsemide 10 mg tablet 10 mg PO DAILY Qty: 30 2RF potassium chloride 10 mEq capsule, extended release 10 meq PO DAILY Qty: 30 2RF ipratropium-albuterol 0.5 mg-3 mg(2.5 mg base)/3 mL Solution For Nebulization 3 ml inhalation TID Qty: 180 0RF atorvastatin 80 mg tablet 80 mg PO HS metoprolol succinate 100 mg tablet extended release 24 hr 100 mg PO DAILY Follow Up/Referrals: Hannah Stein DO [Primary Care Provider] - Stand Alone Forms: [employer] Info Instructions
[2023-11-25 09:46] LABS: Basophils Absolute Auto 0.03 K/uL (0.00-0.30); Basophils Percent Auto 0.7 % (0.0-3.0); Eosinophils Absolute Auto 0.09 K/uL (0.00-0.50); Hematocrit 33.4 % (37.0-53.0); Hemoglobin* 10.6 gm/dL (13.5-17.5); Immature Granulocytes Abs Auto 0.02 K/uL (0.00-0.30); Immature Granulocytes Pct Auto 0.4 %; Lymphocytes Absolute Auto 0.97 K/uL (0.90-2.90); Mean Corpuscular HGB Conc 32 gm/dL (32-36); Mean Corpuscular Hemoglobin 30 pg (26-34); Mean Corpuscular Volume 93 fL (80-100); Monocytes Percent Auto 8.2 % (0.0-11.0); Neutrophils Absolute Auto 3.12 K/uL (1.7-7.0); Neutrophils Percent Auto 67.7 % (42.0-72.0); Platelet Count* 189 K/uL (140-440); RDW Coefficient of Variation % 13.1 % (11.5-15.5); Red Blood Count 3.58 m/uL (4.30-5.90); White Blood Count* 4.61 K/uL (4.50-11.00)
[2023-11-25 09:47] LABS: Slide Review Reflex No
[2023-11-25] MEDS: MECLIZINE HCL 25 MG TABLET PO (09:52)
[2023-11-25 09:57] LABS: Chloride* 103 mmol/L (96-114); Potassium* 4.7 mmol/L (3.6-5.1); Sodium* 136 mmol/L (135-149)
[2023-11-25 10:00] LABS: Anion Gap 6 mEq/L (7-15); Blood Urea Nitrogen* 23 mg/dL (7-30); Calcium* 8.6 mg/dL (8.4-10.6); Carbon Dioxide* 27 mmol/L (20-32); Creatinine* 1.3 mg/dL (0.5-1.5); Estimated Glomerular Filt Rate 61 ml/min; Glucose* 281 mg/dL (60-115)
[2023-11-25 10:13] LABS: Troponin I* < 0.01 ng/mL (0.01-0.04)
--- OUTSIDE RECORDS SUMMARY | 2023-11-25 10:26 | XMS_ITS | Clinical Summary ---
Author Name Unknown Organization [employer] [facility] [employer] [facility] Address [place], [place] [address] Care Team Providers Care Desktop Technician Name Role Phone Hannah Stein DO Primary Care Provider Rufus Rucker MD Unavailable Unavaila Sosa Bates Unavailable [phone] Allergies Active Allergy Reactions Criticality Noted Date Comments Gadolinium-Containing Contrast Media Other - Describe In Comment Field High 08/29/2022 States that he passed out when given this. Iodinated Contrast Media Syncope 09/26/2008 Medications Medication Sig Dispensed Refills Start Date End Date Status Lancing Device (LANCING DEVICE WITH LANCETS) MiscIndications: Diabetes mellitus (HC) As directed. 3 times daily 100 Each 3 01/26/2012 Active blood-glucose meter As directed. Dispense glucose meter, test strips and lancets covered by the patient insurance. Test 3 times per day. Has contour meter 1 Device 0 02/06/2012 Active CPAPIndications: Obstructive sleep apnea (adult) (pediatric) CPAP, heated humidifier, mask, headgear, filters and tubing. For home use. Per Dr. Harris 1 unit 0 05/03/2014 Active blood sugar diagnostic (PRODIGY NO CODING) stripIndications :Type 2 diabetes mellitus without complication, without long-term current use of insulin (HC) USE FOR TESTING BLOOD SUGAR ONCE A DAY 100 Each 3 05/10/2019 Active albuterol HFA (ProAir HFA) 90 mcg/actuation inhalerIndicatio ns:Chronic obstructive pulmonary disease, unspecified COPD type (HC) Inhale 2 Puffs by mouth every 4 hours if needed for Shortness of Breath 1st choice. 1 Each 3 10/02/2021 Active aspirin (ECOTRIN) 81 mg enteric coated tabletIndication s:Type 2 diabetes mellitus without complication, without long-term current use of insulin (HC),CAD in [place] artery,S/P triple vessel bypass Take 1 Tablet (81 mg) by mouth once daily with a meal. 100 Tablet 3 01/01/2023 Active metFORMIN (GLUCOPHAGE) 1,000 mg tabletIndication s:Type 2 diabetes mellitus with diabetic neuropathy, without long-term current use of insulin (HC) Take 1 Tablet (1,000 mg) by mouth two times daily with meals. 180 Tablet 0 08/19/2023 Active atorvastatin (LIPITOR) 80 mg tabletIndication s:Mixed hyperlipidemia,C oronary artery disease due to lipid rich plaque,Type 2 diabetes mellitus with diabetic neuropathy, without long-term current use of insulin (HC) Take 1 Tablet (80 mg) by mouth once daily with evening meal. 90 Tablet 2 08/19/2023 Active potassium chloride (MICRO-K) 10 mEq Controlled-relea se capsuleIndicatio ns:Coronary artery disease due to lipid rich plaque,S/P CABG x 3,CAD in [place] artery,HTN (hypertension) TAKE ONE CAPSULE BY MOUTH ONCE EVERY DAY - TAKE WITH A MEAL 90 Capsule 1 08/19/2023 Active metoprolol succinate (TOPROL XL) 100 mg Sustained-Releas e tabletIndication s:Coronary artery disease due to lipid rich plaque,HTN (hypertension) TAKE ONE TABLET BY MOUTH ONCE EVERY DAY 90 Tablet 3 09/04/2023 Active lisinopriL (PRINIVIL; ZESTRIL) 2.5 mg tabletIndication s:Coronary artery disease due to lipid rich plaque,HTN (hypertension),S /P CABG x 3,CAD in [place] artery,Type 2 diabetes mellitus without complication, without long-term current use of insulin (HC) TAKE ONE TABLET BY MOUTH ONCE EVERY DAY . 90 Tablet 3 09/04/2023 Active mirtazapine (REMERON) 7.5 mg tabletIndication s:Insomnia, idiopathic TAKE ONE TABLET BY MOUTH AT BEDTIME 90 Tablet 1 09/04/2023 Active clopidogreL (PLAVIX) 75 mg tabletIndication s:S/P CABG x 3,CAD in [place] artery TAKE ONE TABLET BY MOUTH ONCE EVERY DAY IN THE MORNING 90 Tablet 3 09/07/2023 Active torsemide (DEMADEX) 10 mg tabletIndication s:HTN (hypertension) TAKE ONE TABLET BY MOUTH ONCE DAILY 90 Tablet 1 09/05/2023 Active Diabetic ShoeIndications: Type 2 diabetes mellitus with diabetic neuropathy, without long-term current use of insulin (HC) As directed 1 Each. 1 Each 0 10/28/2023 Active glipiZIDE (GLUCOTROL) 5 mg tabletIndication s:Type 2 diabetes mellitus with diabetic neuropathy, without long-term current use of insulin (HC) TAKE TWO TABLETS BY MOUTH EVERY MORNING WITH A MEAL AND TAKE ONE TABLET BY MOUTH IN THE EVENING WITH MEAL 180 Tablet 3 11/20/2023 Active meclizine (ANTIVERT) 25 mg tabletIndication s:Meniere's disease of left ear Take 1 Tablet (25 mg) by mouth 3 times daily if needed for Vertigo. 30 Tablet 2 11/20/2023 Active meclizine (ANTIVERT) 25 mg tabletIndication s:Meniere's disease of left ear Take 1 Tablet (25 mg) by mouth 3 times daily if needed. 30 Tablet 2 04/29/2021 11/20/19 24 Discontinued(Reo rder (E-cancel not sent)) glipiZIDE (GLUCOTROL) 5 mg tabletIndication s:Type 2 diabetes mellitus with diabetic neuropathy, without long-term current use of insulin (HC) Take 2 tablets in the morning with meal and take 1 tablet with evening meal. 270 Tablet 0 08/19/2023 11/09/20 23 Discontinued Diabetic ShoeIndications: Type 2 diabetes mellitus with diabetic neuropathy, without long-term current use of insulin (HC) As directed 1 Each. 1 Each 0 08/19/2023 10/28/20 23 Discontinued(Reo rder (E-cancel not sent)) glipiZIDE (GLUCOTROL) 5 mg tabletIndication s:Type 2 diabetes mellitus with diabetic neuropathy, without long-term current use of insulin (HC) TAKE TWO TABLETS BY MOUTH EVERY MORNING WITH A MEAL AND TAKE ONE TABLET BY MOUTH IN THE EVENING WITH MEAL 90 Tablet 0 11/09/2023 11/20/19 24 Discontinued(Reo rder (E-cancel not sent)) Active Problems Problem Noted Date Diagnosed Date Heart failure with preserved ejection fraction, unspecified HF chronicity 11/22/2023 Moderate dementia without behavioral disturbance 08/20/2023 Ascending aorta dilation 10/08/2022 Noncompliance with medication regimen 08/22/2022 Coronary artery disease, mild 07/17/2015 Type 2 diabetes mellitus wit hout complication, without long-term current use of insulin 12/12/2013 ACP (advance care planning) 12/12/2013 Overview: CODE STATUS: FULL POA: JOEL KHAN (SON) [phone] or [phone] Hx-TIA (transient ischemic attack) 12/12/2013 Gastric ulcer 09/28/2013 Overview: EGD 09/2013 large ulcer EGD 11/2013 partially healed ulcer, repeat EGD in 3 months EGD 02/2014 ulcer has healed Sensorineural hearing loss, bilateral 03/30/2012 Meniere's disease, unspecified 03/30/2012 Abnormality of gait 01/08/2010 Numbness of leg 01/07/2010 COPD (chronic obstructive pulmonary disease) GREGORIO 08/17/2009 AHI- 18 09/17/2009 Mixed hyperlipidemia 09/11/2003 HYPERTENSION - ESSENTIAL 09/11/2003 Morbid obesity Resolved Problems Problem Noted Date Diagnosed Date Resolved Date Type 2 diabetes mellitus with complication 04/29/2021 10/03/2021 Acute ischemic stroke 07/14/20182020 Overview: 07/12/2018 brain MRI/MRA results showed: Posterior left limb of the internal capsule Chronic arterial ischemic stroke 07/14/2018 10/03/2021 Overview: 07/12/2018 brain MRI/MRA results showed: Small chronic lacunar infarcts in the right basal ganglia and right cerebellar hemisphere Small vessel ischemic changes also noted in the brainstem and deep cerebral white matter Acute chest pain 06/11/2015 10/03/2021 Right sided weakness 12/12/2013 015 Diabetes mellitus type II 05/10/2012 Overview: a system change updated this record. This will not affect patient care or billing. This comment can be deleted. Hyperlipidemia 02/08/2010 04/04/2011 Hypertension 02/08/2010 04/04/2011 Prostatitis 02/08/2010 08/17/2012 Unspecified examination 02/08/201012/2011 Overview: Last Px 11/2006 Last Lipid 11/2005 Last Colonoscopy 06/2006 Diabetes mellitus type II 01/01/2010 Overview: a system change updated this record. This will not affect patient care or billing. This comment can be deleted. Chest pain, unspecified 11/06/200912/2011 Lightheadedness 11/05/2009 08/17/2012 Right hemiparesis 11/05/2009 11/21/2009 Bradycardia 11/01/2009 10/03/2021 Diabetes mellitus type II 08/30/2009 Overview: a system change updated this record. This will not affect patient care or billing. This comment can be deleted. Presbyopia 08/01/2009 08/17/2012 Hyperopia 08/01/2009 08/17/2012 Headache(784.0) 12/29/2008 08/17/2012 Syncope 12/29/2008 08/17/2012 Acute right hemiparesis 12/29/200809/16 SOB (shortness of breath) 11/29/2008 Smoker 09/26/2008 08/04/2009 Overview: Quit 01/2009 Chest pain, unspecified 09/26/200812/2011 Overview: Suspect secondary to COPD or GI etiology. Positive D dimer 09/26/2008 12/12/2013 Overview: Barely elevated D-Dimer on 09/26/08; 0.55 with <0.51 normal range COPD 09/26/2008 11/30/2009 Encounters Date Type Department Care Team Description 11/20/2023 10:15 AM [employer] Office Visit [facility] [address] [place] [address] Hannah Stein, Diabetes (diabetic check); Immunization/Injecti on 11/20/2023 Travel 11/10/2023 Orders Only [facility] Scanner 1 scan: (1-Ord) [facility], MR HEAD/BRAIN WO CONTRAST, 11/10/2023 11/10/2023 Orders Only [facility] Scanner 1 scan: (1-Ord) [facility], CT HEAD/BRAIN WO CON, 11/10/2023 11/10/2023 Office Visit [facility] [address] [place] [phone] Huey Morgan MD Telehealth ([facility]) 11/07/2023 Refill [facility] [address] [place] [address] Hannah Stein DO Refill Request (Glipizide) 10/05/2023 10:30 AM [employer] Office Visit [address] [address] Lucia Ray AuD Hearing Aid (RICHEY consult) 10/05/2023 9:30 AM [employer] Office Visit [address] [address] Awais Torres AuD Hearing Problem 10/04/2023 Travel 09/09/[address] [address] Hannah Stein DO Referral (Audiological Evaluation) 09/07/[address] [address] Lucia Ray AuD Appointment 09/06/2023 Refill [facility] [address] [place] [address] Hannah Stein DO Refill Request (Atorvastatin) 09/05/2023 Refill [facility] [address] [place] [address] Hannah Stein DO Refill Request (Torsemide) 09/04/2023 [address] [place] [address] Hannah Stein DO Refill Request (Metoprolol Succinate, Lisinopril, Mirtazapine, Clopidogrel) from Last 3 Months Immunizations Name Administration Dates Next Due COVID-19 Vaccine Spikevax (M oderna 50mcg/0.5mL) 12YO+ [id number] Formula PF 11/20/2023 COVID-19 vaccine (Moderna 100mcg/0.5mL) PF, MDV 04/30/2021,04/03/2021 Hepatitis B (Adult) 02/08/2014 Hepatitis B (Peds) 03/20/2014 Influenza A (H1N1), Inactivated 08/07/2021 Influenza Virus, Unspecified 08/28/2022 Influenza, IIV3 (Age 6-35 mos) 10/30/2011 Influenza, IIV3 (Age >=3 years) 09/28/20 12,10/30/2011,09/25/2010,08/15,09/27/2008,09/12/2003 Influenza, IIV4 08/07/2021, 9,08/27/2018,08/10,10/29/2016,08/30/2014 09/07/2020 Influenza, IIV4 (=>6mos) MDV 09/21/2015 Influenza, Inactivated AIIV4 (Age 65+ Years) Preserv Free 08/27/2022 Influenza,CCIIV4 PRESERV FREE 08/22/2020 Pneumococcal Conj 20-valent (Prevnar 20) 11/20/2023 Pneumococcal Poly,23-Valent (Pneumovax) 09/27/2008 Td (Age >=7 Years) 01/16/2006 Family History Medical History Relation Name Comments Heart Disease Brother 1 Stroke Brother 2 hemorrhagic Heart Disease Father age 54 - heart enlargement Hypertension Father Edema Sister lymphadema Other Sister migraine Relation Name Status Comments Brother 1 Brother 2 Father Sister Social History Tobacco Use Types Packs/Day Years Used Date Smoking Tobacco: Former Cigarettes 1.9 21.2 0 11/16/1988 - 11/16/2008 Smokeless Tobacco: Former Quit: 08/29/2022 Tobacco Cessation:Counseling Given: Not Answered Comments:quit 08/2022 Alcohol Use Standard Drinks/Week Comments No 0 (1 standard drink = 0.6 oz pure alcohol) recoverin alcoholicx 13y. alcoholic, s/p detox/treatment PHQ-2 Answer Date Recorded PHQ-2 TOTAL SCORE 1 08/22/2022 Social Connections Answer Date Recorded Frequency of Communication with Friends and Fami ly Not on file 08/24/2023 Financial Resource Strain Answer Date R ecorded Difficulty of Paying Living Expenses 2 08/22/2022 Difficulty of Paying Living Expenses 1 08/22/2022 Food Insecurity Answer Date Recorded Worried About Running Out of Food in the Last Ye ar 1 08/22/2022 Transportation Needs Answer Date Record ed Lack of Transportation (Medical) 1 08/22/2022 Housing Stability Answer Date Recorded Unable to Pay for Housing in the Last Year 1 08/22/2022 Sex and Gender Information Value Date Recorded Sex Assigned at Not on file Gender Identity Not on file Sexual Orientation Not on file Obstetrics History Last Filed Vital Signs Vital Sign Reading Time Taken Comments Blood Pressure 143/77 11/20/2023 10:22 AM [employer] Pulse 83 11/20/2023 10:22 AM [employer] Temperature 37.1 ??C (98.8 ??F) 09/12/2022 1 2:24 AM CDT Respiratory Rate 18 09/12/2022 5:07 AM CDT Oxygen Saturation 98% 11/20/2023 10: 22 AM [employer] Inhaled Oxygen Concentration - - Weight 107.8 kg (237 lb 9.6 oz) 024 10:22 AM [employer] Height 167.6 cm (5' 6) 09/12/2022 12:2 4 AM CDT Body Mass Index 38.35 09/12/2022 12:24 AM CDT Plan of Treatment Upcoming Encounters Date Type Department Care Team (Late st Contact Info) Description 12/08/2023 10:30 AM [employer] Office Visit [facility] [address] [place] [address] Claudy Justice MD [address] [place] [address] 02/19/2024 9:00 AM CDT Office Visit [facility] [address] [place] [address] Hannah Stein, DO [address] [place] [address] Health Maintenance Due Date Last Done Comments Tdap 1967 Zoster (shingles) series for age 50+ (1 of 2) 2006 Tetanus booster 01/17/2016 01/16/2006 Colonoscopy through age 75 01/06/2021 01/06/2011 AAA screening age 65-74 2021 Medicare Wellness for age 65+ 2021 05/24/2018 BMI (ht and wt on same day) for age 18+ 10/28/2022 10/28/2021, 06/13/2020, 09/07/2019, Additional history exists Influenza for age 65+ 07/17/2023 08/28/2022 , 08/27/2022, 08/07/2021, Additional history exists Depression screening for age 12+ 08/27/2023 08/27/2022, 08/26/2022, 08/22/2022, Additional history exists Low Dose CT (for lung CA) age 50-80 12/07/2024 Postponed from 2006 (Other) Lipids for age 45-75 08/19/2028 08/19/2023, 08/22/2022, 10/02/2021, Additional history exists Hepatitis C screening for age 18-79 Completed 09/07/2019 COVID-19 vaccine series Completed 11/20/19 24, 05/21/2022, 11/26/2021, Additional history exists Pneumococcal series for age 65+ Completed 11/20/2023, 09/27/2008 Goals Goal Patient Goal Type Associated Problems Recent Progress Patient-Stated? Author BLOOD PRESSURE-MA INTAINS BP LESS THAN 130/80 Blood Pressure No Hannah Stein DO Procedures Procedure Name Priority Date/Time Associated Diagnosis Comments CBC WITH AUTO DIFFERENTIAL Add On 11/20/2023 10:13 AM [employer] Low hemoglobin CBC WITH AUTO DIFFERENTIAL Add On 11/20/2023 10:13 AM [employer] Low hemoglobin BASIC METABOLIC PANEL Routine 11/20/2023 10:13 AM [employer] Type 2 diabetes mellitus with diabetic neuropathy, without long-term current use of insulin (HC) HEMOGLOBIN A1C Routine 11/20/2023 10:13 AM [employer] Type 2 diabetes mellitus with diabetic neuropathy, without long-term current use of insulin (HC) SCAN-MRI INTERPRETATION 11/10/20 12:00 AM [employer] SCAN-CT INTERPRETATION 12:00 AM [employer] from Last 3 Months Results * (ABNORMAL) CBC WITH AUTO DIFFERENTIAL (11/20/2023 10:13 AM [facility]) WHITE BLOOD COUNT 7.2 4.5 - 11.0 thou/cu mm 11/20/2023 10:44 AM [facility] RED BLOOD COUNT 4.09(L) 4.30 - 5.90 mil/cu mm 11/20/2023 10:44 AM [facility] HEMOGLOBIN 12.3(L) 13.5 - 17.5 g/dL 11/20/2023 10:44 AM [facility] HEMATOCRIT 38.6 37.0 - 53.0 % 11/20/2023 10:44 AM [facility] MCV 94 80 - 100 fL 11/20/2023 10:44 AM [facility] MCH 30.1 26.0 - 34.0 pg 11/20/2023 10:44 AM [facility] MCHC 31.9(L) 32.0 - 36.0 g/dL 11/20/2023 10:44 AM [facility] RDW 13.7 11.5 - 15.5 % 11/20/2023 10:44 AM [facility] PLATELET COUNT 251 140 - 440 thou/cu mm 11/20/2023 10:44 AM [facility] MPV 9.3 6.5 - 11.0 fL 11/20/2023 10:44 AM [facility] % NEUT 54.3 % 11/20/2023 10:44 AM [facility] % LYMPH 35.3 % 11/20/2023 10:44 AM [facility] % MONO 7.9 % 11/20/2023 10:44 AM [employer] [facility] % EOS 1.9 % 11/20/2023 10:44 AM [employer] [facility] % BASO 0.6 % 11/20/2023 10:44 AM [employer] [facility] ABSOLUTE NEUTROPHILS 3.9 1.7 - 7.0 thou/cu mm 11/20/2023 10:44 AM [employer] [facility] ABSOLUTE LYMPHOCYTES 2.5 0.9 - 2.9 thou/cu mm 11/20/2023 10:44 AM [employer] [facility] ABSOLUTE MONOCYTES 0.6 <0.9 thou/cu mm 11/20/2023 10:44 AM [employer] [facility] ABSOLUTE EOSINOPHILS 0.1 <0.5 thou/cu mm 11/20/2023 10:44 AM [employer] [facility] ABSOLUTE BASOPHILS 0.0 <0.3 thou/cu mm 11/20/2023 10:44 AM [employer] [facility] Blood BLOOD SPECIMEN / Unknown Venipuncture / Unknown 11/20/2023 10:13 AM [employer] 11/20/2023 10:14 AM [employer] Hannah Stein DO HEMATOLOGY [facility] [address] [place] [address], * (ABNORMAL) HEMOGLOBIN A1C MONITORING (POCT) (11/20/2023 10:13 AM [employer]) Pathologist [facility] HEMOGLOBIN A1C MONITORING (POCT) 7.5(H) <=6.4 % 11/20/2023 10:24 AM [employer] [facility] Blood BLOOD SPECIMEN / Unknown Venipuncture / Unknown 11/20/2023 10:13 AM [employer] 11/20/2023 10:14 AM [employer] Narrative [facility] - 11/20/2023 10:24 AM [employer] ? (<=6.9%) ? Indicates good control ? (7.0% to 7.9%) ? Indicates fair control ? (>=8.0%) ? Indicates poor control ?? NOTE: ??These thresholds are guidelines and ?individual targets may vary. Falsely low levels may be seen with: Recent Transfusion, Recent Significant Blood Loss, Hemolytic Diseases, or Falsely elevated levels may be seen with: Untreated Anemias, Splenectomy ? Hannah Stein DO CHEMISTRY [facility] [address] [place] [address], [place] [phone] * (ABNORMAL) BASIC METABOLIC PANEL (11/20/2023 10:13 AM [facility]) SODIUM 138 136 - 145 mmol/L 11/20/2023 5:00 PM [facility] POTASSIUM 4.7 3.5 - 5.1 mmol/L 11/20/2023 5:00 PM [facility] CHLORIDE 101 98 - 107 mmol/L 11/20/2023 5:00 PM [facility] CO2,TOTAL 25 22 - 29 mmol/L 11/20/2023 5:00 PM [facility] ANION GAP 12 5 - 18 11/20/2023 5:00 PM [facility] GLUCOSE 220(H) 70 - 99 mg/dL 11/20/2023 5:00 PM [facility] CALCIUM 9.4 8.8 - 10.2 mg/dL 11/20/2023 5:00 PM [facility] BUN 21 8 - 23 mg/dL 11/20/2023 5:00 PM [facility] CREATININE 1.66(H) 0.70 - 1.20 mg/dL 11/20/2023 5:00 PM [facility] BUN/CREAT RATIO 13 10 - 20 5:00 PM [employer] eGFR 45(L) >90 mL/min/1.7 3m2 11/20/2023 5:00 PM [employer] Comment:As of 2022, eG FR is calculated by the CKD-EPI creatinine equation without race adjustment. ??eGFR can be influenced by muscle mass, exercise, and diet. ??The reported eGFR is an estimation only and is only applicable if the renal function is stable. Blood BLOOD SPECIMEN / Unknown Venipuncture / Unknown 11/20/2023 10:13 AM [employer] 11/20/2023 10:14 AM [employer] Hannah Stein DO CHEMISTRY [facility] [address] [place] [id number], * SCAN-MRI INTERPRETATION (11/10/2023 12:00 AM [employer]) Anatomical Region Laterality Modality Other Scanner OTHER * SCAN-CT INTERPRETATION (11/10/2023 12:00 AM [employer]) Anatomical Region Laterality Modality Other Scanner OTHER from Last 3 Months Advance Directives Latest Code Status on File Code Status Date Activated Date Inactivated Comments Full Code 06/19/2015 12:44 PM 06/21/2015 5:35 PM Code Status History Code Status Date Activated Date Inactivated Comments Full Code 12/12/2013 9:40 AM 12/13/2013 4:52 PM Full Code 01/07/2010 2:39 AM 01/08/2010 3:19 PM Full Code 01/01/2010 8:14 PM 01/03/2010 6:12 PM Full Code 11/05/2009 9:49 PM 11/07/2009 7:22 PM Care Teams Desktop Technician Relationship Specialty Start Date End Date Hannah Stein DO PCP - General 06/26/09 Rufus Rucker MD Neurology Neurology 11/29/12 Sosa Guthrie AuD Audiology 02/06/11
--- NOTE | 2023-11-25 10:55 | ED.NURSE ---
pt trying to find ride home
== END 2023-11-25 11:05 | disposition home or self-care (01) ==
PROVIDERS: Emergency Provider Family Medicine; PCP Family Medicine
DX: R42 Dizziness and giddiness (principal)
CPT/HCPCS: 36415; 70450; 80048; 84484; 85025; 93005; 94761; 99284; 99285; A9270; J7030

== ENCOUNTER 2024-01-13 05:56 | Outpatient (CLI) | payer MEDICARE, SELFPAY | END 2024-01-13 05:57 | disposition home or self-care (01) | LOC: AMB 01-21 22:33 | PROVIDERS: PCP Family Medicine; Visit Provider Family Medicine | DX: R53.1 Weakness (principal); R42 Dizziness and giddiness | CPT/HCPCS: A0425; A0429 ==

== ENCOUNTER 2024-01-13 06:40 | Inpatient (IN) | payer MEDICARE, SELFPAY ==
[2024-01-13] VITALS (27 sets, daily range): BP systolic 90–132; BP diastolic 53–84; PULSE 82–100; RESP 20–24; TEMP 36.3–37.5; O2SAT 89–94; BMI 39.5
--- NOTE | 2024-01-13 07:01 | XR_ITS ---
Patient: MELISSA INIGUEZ Facility:?[facility] Patient ID:?[id number] Site Patient ID:?[id number]. Site :?1955 Study:?XRay-Extremity Right 2V SHOULDER-01/13/2024 8:00:12 AM Ordering Physician:?DR. WHITE Final Report: Indication: Fall Technique: Two views Comparison: None Findings/Impression: Bones: No evidence of fracture. Status post median sternotomy. Joint spaces: No dislocation. Small marginal osteophytes at the acromioclavicular joint. Soft tissues: Unremarkable. Dictated by Raffi Mendoza MD @ 01/13/2024 8:15:39 AM Signed by:?Raffi Mendoza MD @01/13/2024 8:15:39 AM (Electronic Signature)
--- NOTE | 2024-01-13 07:01 | XR_ITS ---
Patient: MELISSA INIGUEZ Facility:?[facility] Patient ID:?[id number] Site Patient ID:?[id number]. Site :?1955 Study:?XRay-Extremity Right 3V ELBOW-01/13/2024 7:58:24 AM Ordering Physician:?DR. WHITE Final Report: Indication: Fall Technique: Three views, 5 films Comparison: None Findings/Impression: Bones: No definite evidence of fracture. Joint spaces: No dislocation. No definite effusion. Soft tissues: Enthesopathic spurring at the olecranon process. Prominent soft tissue swelling, greater medially. Dictated by Raffi Mendoza MD @ 01/13/2024 8:12:59 AM Signed by:?Raffi Mendoza MD @01/13/2024 8:12:59 AM (Electronic Signature)
--- NOTE | 2024-01-13 07:01 | CT_ITS ---
Patient: MELISSA INIGUEZ Facility:?[facility] Patient ID:?[id number] Site Patient ID:?[id number]. Site :?1955 Study:?CT-Spine Cervical W/O-01/13/2024 8:05:27 AM Ordering Physician:JAVAN Final Report: INDICATION: Neck pain, fall TECHNIQUE: CT cervical spine without contrast. COMPARISON: None FINDINGS: Vertebrae: No evidence of fracture. Status post median sternotomy. Status post left partial mastoidectomy. Discs and facet joints: Facet hypertrophy with small posterior osteophytes at C4-5 without significant stenosis. Small posterior osteophytes at C5-6 without significant stenosis. Mild facet hypertrophy C7-T1 without significant stenosis. Extraspinal findings: Atherosclerosis. IMPRESSION: Mild degenerative changes cervical spine without evidence of cervical spine fracture. Please note that all CT scans at this facility use dose modulation, iterative reconstruction, and/or weight-based dosing when appropriate to reduce radiation dose to as low as reasonably achievable. Dictated by Raffi Mendoza MD @ 01/13/2024 8:23:12 AM Signed by:?Raffi Mendoza MD @01/13/2024 8:23:12 AM (Electronic Signature)
--- NOTE | 2024-01-13 07:04 | ED_ITS ---
HPI - General Adult General Chief complaint: Fall/Minor Trauma <Maggi Garrett MD - Last Filed: 01/14/24 23:56> Stated complaint: Repeated falls, arm pain <Maggi Garrett MD - Last Filed: 01/14/24 23:56> Time Seen by Provider: 01/13/24 06:51 <Maggi Garrett MD - Last Filed: 01/14/24 23:56> Source: patient and EMS <Maggi Garrett MD - Last Filed: 01/14/24 23:56> Mode of arrival: EMS <Maggi Garrett MD - Last Filed: 01/14/24 23:56> History of Present Illness HPI narrative: 68-year-old male presents to the emergency department by EMS after a fall in his home. He reports that he has frequent vertigo, an ongoing issue. He states that he got up to go to the bathroom at 5:30 a.m. in the morning. While he was sitting to urinate, he felt the room start to spin. When he tried to get up from the toilet, he fell to the side from a sitting height. Reports that he hit his arm on the floor but not his head. He called EMS for assistance. He states that he has pain in the right elbow area, he points diffusely all over and it is difficult to get him to narrow down. He also states that he has pain on his neck but can not really clarify for me where that is. He states that he falls frequently, last being about 2 weeks ago. He tripped over his shoes attempting to go outside by the door. He states that he has had some mild rib pain ever since. He notes no pain in the abdomen, lower extremities, pelvis, back or hips. He denies any acute illness. No fever, nausea, diarrhea. He states that he has been coughing a little more than usual but is not more short of breath. He denies chest pain or cardiac symptoms. Appetite has been stable. He falls frequently, lives in an apartment complex. He does live in his apartment alone but states that his [id number] lives in the same complex and checks on him frequently. She runs his errands for him as he does not get out much. It looks as though he has been seen in the emergency department 3 times within the last year and a half for similar circumstances. He is a little bit hard of hearing and I do question if he is fully understanding my questions rather than giving answers to the questions he expected me to ask. For example, when I ask him about taking any prescription pain medications, he says ?lots of them?. But when I check his medicine list, he is not prescribed any and I do not have record of him receiving these. I think instead, he takes multiple medications which he does not manage or set up. Blood sugar was normal per EMS. He was able to get himself dressed with EMS standing by and transfer with his walker without much difficulty per their report. Past medical history notable for COPD, chronic cardiac disease, sleep apnea, cognitive decline. Prior notes reviewed. Medications reviewed, he is unable to accurately list these for me. Allergies are really just precautions. Former smoker, quitting a year and half ago, denies use of any alcohol. ROS is positive for generalized weakness, chronic dizziness which are unchanged but acutely for right sided neck and elbow area pain. Otherwise, he denies times 12 systems. <Maggi Garrett MD - Last Filed: 01/14/24 23:56> Related Data Home medications: Home Medications Medication Instructions Recorded Confirmed albuterol sulfate 90 mcg/actuation 2 puff inhalation Q4H PRN 06/04/22 01/13/24 aerosol inhaler glipizide 5 mg tablet 5 - 10 mg PO BID 06/04/22 01/13/24 meclizine 25 mg tablet 25 mg PO TID PRN 06/04/22 01/13/24 metformin 1,000 mg tablet 1,000 mg PO BID 06/04/22 01/13/24 atorvastatin 80 mg tablet 80 mg PO HS 08/30/22 01/13/24 lisinopril 2.5 mg tablet 2.5 mg PO DAILY 01/13/24 01/13/24 mirtazapine 7.5 mg tablet 7.5 mg PO HS 01/13/24 01/13/24 Previous Rx's Medication Instructions Recorded potassium chloride 10 mEq 10 meq PO DAILY #30 caps 08/18/22 capsule,extended release torsemide 10 mg tablet 10 mg PO DAILY #30 tabs 08/18/22 aspirin 81 mg tablet,delayed 81 mg PO DAILY stroke prevention 01/10/23 release #30 tabs <Maggi Garrett MD - Last Filed: 01/14/24 23:56> Allergies/adverse reactions: Allergies Allergy/AdvReac Type Severity Reaction Status Date / Time gadodiamide Allergy Unknown Verified 08/29/22 23:22 diagnostic x-ray materials Allergy Unknown Uncoded 08/14/22 21:01 <Maggi Garrett MD - Last Filed: 01/14/24 23:56> [facility] Medical History: Medical History (Updated 01/14/24 @ 11:21 by Petrona Rogers MD) Heart failure with preserved ejection fraction ?I50.30 - Unspecified diastolic (congestive) heart failure (ICD-10) H/O medication noncompliance ?Z91.14 - Patient's other noncompliance with medication regimen (ICD-10) Ascending aorta dilation ?I77.810 - Thoracic aortic ectasia (ICD-10) Essential hypertension ?I10 - Essential (primary) hypertension (ICD-10) Vertigo ?R42 - Dizziness and giddiness (ICD-10) CVA (cerebral vascular accident) ?I63.9 - Cerebral infarction, unspecified (ICD-10) Syncope ?R55 - Syncope and collapse (ICD-10) GREGORIO (obstructive sleep apnea) ?G47.33 - Obstructive sleep apnea (adult) (pediatric) (ICD-10) Mixed hyperlipidemia ?E78.2 - Mixed hyperlipidemia (ICD-10) Meniere disease ?H81.09 - Meniere's disease, unspecified ear (ICD-10) Gastric ulcer ?K25.9 - Gastric ulcer, unspecified as acute or chronic, without hemorrhage or perforation (ICD-10) H/O TIA (transient ischemic attack) and stroke ?Z86.73 - Personal history of transient ischemic attack (TIA), and cerebral infarction without residual deficits (ICD-10) Type 2 diabetes mellitus ?E11.9 - Type 2 diabetes mellitus without complications (ICD-10) CAD (coronary artery disease) ?I25.10 - Atherosclerotic heart disease of [place] coronary artery without angina pectoris (ICD-10) <Maggi Garrett MD - Last Filed: 01/14/24 23:56> Surgical History: Surgical History (Updated 01/13/24 @ 12:54 by Petrona Rogers MD) History of esophagogastroduodenoscopy ?Z98.890 - Other specified postprocedural states (ICD-10) History of mastoidectomy ?Z90.89 - Acquired absence of other organs (ICD-10) S/P CABG x 3 ?Z95.1 - Presence of aortocoronary bypass graft (ICD-10) <Maggi Garrett MD - Last Filed: 01/14/24 23:56> Social History: Social History What is your current living situation?: I presently have a place to live Problems where you live: no known problems Problems where you live details: N/A In the past 12 months, utilities in danger of being shut off: no In past 12 months, lack of transportation kept you from medical appts, meetings, work, or getting things needed for daily living: no In the past 12 mos, have been you worried that your food would run out before you had money to buy more?: never true In the past 12 mos, the food you bought just didn't last and you didn't have money to buy more?: never true Smoking Status: Former smoker Do you use any of these nicotine containing products: None How often do you have a drink containing alcohol: never How often do you have six or more drinks on one occasion: Never AUDIT-C Alcohol total score: 0 Non-prescribed substance use: denies use Caffeine: Yes (1 cup of coffee/day) How often does anyone, including family, friends and others, physically hurt you : never How often does anyone, including family, friends and others, insult or talk down to you: never How often does anyone, including family, friends and others, threaten you with harm: never How often does anyone, including family, friends and others, scream or curse at you: never service: No <Maggi Garrett MD - Last Filed: 01/14/24 23:56> Exam Const: Vital Signs, click to edit/add: Vital Signs - 24 hr 01/13/24 06:44 01/13/24 08:07 01/13/24 08:08 Temperature 97.5 F L Pulse Rate 89 87 Pulse Rate [Left P ulse Oximeter] 100 Pulse Rate [Right Radial] Respiratory Rate 24 22 Blood Pressure 112/59 L Blood Pressure [Ri ght Arm] Blood Pressure [Ri ght Upper Arm] 100/82 Pulse Oximetry 94 93 90 Oxygen Delivery Me od Room Air 01/13/24 08:15 01/13/24 08:35 01/13/24 08:35 Temperature 97.4 F L Pulse Rate 82 90 Pulse Rate [Left P ulse Oximeter] Pulse Rate [Right Radial] Respiratory Rate Blood Pressure Blood Pressure [Ri ght Arm] Blood Pressure [Ri ght Upper Arm] Pulse Oximetry 90 89 Oxygen Delivery Me od 01/13/24 08:45 01/13/24 09:00 01/13/24 09:02 Temperature Pulse Rate 87 84 86 Pulse Rate [Left P ulse Oximeter] Pulse Rate [Right Radial] Respiratory Rate 22 Blood Pressure 113/58 L Blood Pressure [Ri ght Arm] Blood Pressure [Ri ght Upper Arm] Pulse Oximetry 89 90 [facility] 09:15 01/13/24 09:30 01/13/24 09:32 Temperature Pulse Rate 89 88 90 Pulse Rate [Left P ulse Oximeter] Pulse Rate [Right Radial] Respiratory Rate Blood Pressure 94/53 L Blood Pressure [Ri ght Arm] Blood Pressure [Ri ght Upper Arm] Pulse Oximetry 92 93 92 [facility] 01/13/24 09:45 01/13/24 10:00 01/13/24 10:04 Temperature 97.7 F Pulse Rate 89 91 95 Pulse Rate [Left P ulse Oximeter] Pulse Rate [Right Radial] Respiratory Rate Blood Pressure 124/63 Blood Pressure [Ri ght Arm] Blood Pressure [Ri ght Upper Arm] Pulse Oximetry 92 91 92 [facility] 01/13/24 10:05 01/13/24 10:12 01/13/24 10:14 Temperature Pulse Rate 92 90 94 Pulse Rate [Left P ulse Oximeter] Pulse Rate [Right Radial] Respiratory Rate Blood Pressure 95/58 L 94/56 L Blood Pressure [Ri ght Arm] Blood Pressure [Ri ght Upper Arm] Pulse Oximetry 93 93 93 [facility] 01/13/24 10:15 01/13/24 10:16 01/13/24 10:18 Temperature Pulse Rate 89 93 91 Pulse Rate [Left P ulse Oximeter] Pulse Rate [Right Radial] Respiratory Rate Blood Pressure 90/53 L 117/62 Blood Pressure [Ri ght Arm] Blood Pressure [Ri ght Upper Arm] Pulse Oximetry 93 90 92 Oxygen Delivery Me thod 01/13/24 10:19 01/13/24 10:22 01/13/24 11:36 Temperature 97.7 F 99.5 F Pulse Rate 89 91 Pulse Rate [Left P ulse Oximeter] Pulse Rate [Right Radial] 92 Respiratory Rate 22 20 Blood Pressure 123/57 L 127/84 Blood Pressure [Ri ght Arm] 132/61 Blood Pressure [Ri ght Upper Arm] Pulse Oximetry 93 94 93 Oxygen Delivery Me thod Room Air 01/13/24 11:36 01/13/24 11:36 Temperature Pulse Rate Pulse Rate [Left P ulse Oximeter] Pulse Rate [Right Radial] Respiratory Rate 20 Blood Pressure Blood Pressure [Ri ght Arm] Blood Pressure [Ri ght Upper Arm] Pulse Oximetry 93 93 Oxygen Delivery Me thod Room Air <Maggi Garrett MD - Last Filed: 01/14/24 23:56> Vital Signs, click to edit/add: Vital Signs - 24 hr 01/13/24 06:44 01/13/24 08:07 01/13/24 08:08 Temperature 97.5 F L Pulse Rate 89 87 Pulse Rate [Left P ulse Oximeter] 100 Pulse Rate [Right Radial] Respiratory Rate 24 22 Blood Pressure 112/59 L Blood Pressure [Ri ght Arm] Blood Pressure [Ri ght Upper Arm] 100/82 Pulse Oximetry 94 93 90 Oxygen Delivery Me thod Room Air 01/13/24 08:15 01/13/24 08:35 01/13/24 08:35 Temperature 97.4 F L Pulse Rate 82 90 Pulse Rate [Left P ulse Oximeter] Pulse Rate [Right Radial] Respiratory Rate Blood Pressure Blood Pressure [Ri ght Arm] Blood Pressure [Ri ght Upper Arm] Pulse Oximetry 90 89 Oxygen Delivery Me thod 01/13/24 08:45 01/13/24 09:00 01/13/24 09:02 Temperature Pulse Rate 87 84 86 Pulse Rate [Left P ulse Oximeter] Pulse Rate [Right Radial] Respiratory Rate 22 Blood Pressure 113/58 L Blood Pressure [Ri ght Arm] Blood Pressure [Ri ght Upper Arm] Pulse Oximetry 89 90 89 Oxygen Delivery Me thod 01/13/24 09:15 01/13/24 09:30 01/13/24 09:32 Temperature Pulse Rate 89 88 90 Pulse Rate [Left P ulse Oximeter] Pulse Rate [Right Radial] Respiratory Rate Blood Pressure 94/53 L Blood Pressure [Ri ght Arm] Blood Pressure [Ri ght Upper Arm] Pulse Oximetry 92 93 92 Oxygen Delivery Me thod 01/13/24 09:45 01/13/24 10:00 01/13/24 10:04 Temperature 97.7 F Pulse Rate 89 91 95 Pulse Rate [Left P ulse Oximeter] Pulse Rate [Right Radial] Respiratory Rate Blood Pressure 124/63 Blood Pressure [Ri ght Arm] Blood Pressure [Ri ght Upper Arm] Pulse Oximetry 92 91 92 Oxygen Delivery Me thod 01/13/24 10:05 01/13/24 10:12 01/13/24 10:14 Temperature Pulse Rate 92 90 94 Pulse Rate [Left P ulse Oximeter] Pulse Rate [Right Radial] Respiratory Rate Blood Pressure 95/58 L 94/56 L Blood Pressure [Ri ght Arm] Blood Pressure [Ri ght Upper Arm] Pulse Oximetry 93 93 93 Oxygen Delivery Me thod 01/13/24 10:15 01/13/24 10:16 01/13/24 10:18 Temperature Pulse Rate 89 93 91 Pulse Rate [Left P ulse Oximeter] Pulse Rate [Right Radial] Respiratory Rate Blood Pressure 90/53 L 117/62 Blood Pressure [Ri ght Arm] Blood Pressure [Ri ght Upper Arm] Pulse Oximetry 93 90 92 Oxygen Delivery Me thod 01/13/24 10:19 01/13/24 10:22 01/13/24 11:36 Temperature 97.7 F 99.5 F Pulse Rate 89 91 Pulse Rate [Left P ulse Oximeter] Pulse Rate [Right Radial] 92 Respiratory Rate 22 20 Blood Pressure 123/57 L 127/84 Blood Pressure [Ri ght Arm] 132/61 Blood Pressure [Ri ght Upper Arm] Pulse Oximetry 93 94 93 Oxygen Delivery Me thod Room Air 01/13/24 11:36 01/13/24 11:36 Temperature Pulse Rate Pulse Rate [Left P ulse Oximeter] Pulse Rate [Right Radial] Respiratory Rate 20 Blood Pressure Blood Pressure [Ri ght Arm] Blood Pressure [Ri ght Upper Arm] Pulse Oximetry 93 93 Oxygen Delivery Me thod Room Air <Miguel Angel Shrestha MD - Last Filed: 01/13/24 13:24> Documenting provider has reviewed patient's vital signs: yes <Maggi Garrett MD - Last Filed: 01/14/24 23:56> Common normals: alert <Maggi Garrett MD - Last Filed: 01/14/24 23:56> Other: Mildly hard of hearing but cooperative. Smells of urine, slightly unkempt. No signs of agitation or chemical impairment. I do suspect some mild chronic memory impairment from our interaction. <Maggi Garrett MD - Last Filed: 01/14/24 23:56> HENMT: Common normals: normocephalic and head/scalp atraumatic <Maggi Garrett MD - Last Filed: 01/14/24 23:56> Head and scalp: normocephalic and atraumatic <Maggi Garrett MD - Last Filed: 01/14/24 23:56> Face and sinus: normal facial exam <Maggi Garrett MD - Last Filed: 01/14/24 23:56> Mouth: oral and palatal mucosa normal <Maggi Garrett MD - Last Filed: 01/14/24 23:56> Throat: posterior oropharynx normal <Maggi Garrett MD - Last Filed: 01/14/24 23:56> Eye: Common normals: PERRL and EOMs intact bilaterally <Maggi Garrett MD - Last Filed: 01/14/24 23:56> General eye: normal appearance of both eyes <Maggi Garrett MD - Last Filed: 01/14/24 23:56> Pupil: PERRL <Maggi Garrett MD - Last Filed: 01/14/24 23:56> Neck & C-Spine: Other: Exam is limited by what appears to be chronic kyphosis and difficult range of motion. The tenderness seems to be more muscular than midline cervical spine tenderness but the exam was very difficult and I was not clear that he was accurately understanding my questions. Pain increases with range of motion in every direction which is concerning. <Maggi Garrett MD - Last Filed: 01/14/24 23:56> Chest: Common normals: inspection of chest normal and palpation of chest normal <Maggi Garrett MD - Last Filed: 01/14/24 23:56> Resp: Common normals: normal respiratory effort and no use of accessory muscles <Maggi Garrett MD - Last Filed: 01/14/24 23:56> Effort & inspection: able to speak in complete sentences <Maggi Garrett MD - Last Filed: 01/14/24 23:56> Other: Some mild coarse upper airway sounds and decreased at the bases but the lungs seem without obvious acute crackles or rhonchi. <Maggi Garrett MD - Last Filed: 01/14/24 23:56> Cardio: Common normals: regular rate and regular rhythm <Maggi Garrett MD - Last Filed: 01/14/24 23:56> Rate: regular rate <Maggi Garrett MD - Last Filed: 01/14/24 23:56> Rhythm: regular rhythm <Maggi Garrett MD - Last Filed: 01/14/24 23:56> Other: Heart sounds are distant but I do hear S1 and S2 with no obvious murmur. <Maggi Garrett MD - Last Filed: 01/14/24 23:56> GI: Common normals: Normal to inspection, nondistended, normoactive bowel sounds present, soft to palpation, non-tender, no hepatosplenomegaly and no masses <Maggi Garrett MD - Last Filed: 01/14/24 23:56> Palpation: soft and no hepatosplenomegaly <Maggi Garrett MD - Last Filed: 01/14/24 23:56> Back & Pelvis: Other: Chronic loss of lumbar lordosis but no midline bony tenderness to the thoracic or lumbar spine <Maggi Garrett MD - Last Filed: 01/14/24 23:56> Extremity: Other: Slight abrasion to the right olecranon area. He does not seem reliable with reporting the point of maximal pain on elbow exam as it changed frequently throughout my repeated exams. Mostly seems to localize at the right medial epicondyle, but not well reproducible. He can flex, extend, supinate and pronate. Right wrist is without point bony tenderness. He does have some tenderness to palpation of the very distal humerus. He has tenderness to palpation of the distal clavicle, scapula and glenoid area but can move the shoulder for me on exam. There does not seem to be any effusion to the shoulder. <Maggi Garrett MD - Last Filed: 01/14/24 23:56> Neuro: [place] Coma Scale: document GCS findings (15) <Maggi Garrett MD - Last Filed: 01/14/24 23:56> Common normals: CN's II-XII intact bilaterally, moves all extremities and no focal motor deficits <Maggi Garrett MD - Last Filed: 01/14/24 23:56> Sensorium/orientation: alert <Maggi Garrett MD - Last Filed: 01/14/24 23:56> Psych: Other: Fair insight and judgment. Mildly unkempt but friendly. No signs of paranoia, psychosis or intoxication. <Maggi Garrett MD - Last Filed: 01/14/24 23:56> Skin: Narrative: Other than the mild abrasion on the right elbow, do not appear to be any other injuries today. <Maggi Garrett MD - Last Filed: 01/14/24 23:56> Course Course ED Course: 68-year-old male, rather frail for his age with history of frequent falls, chronic dizziness and COPD. No signs of hypoxia, fever or obvious cardiac issues today contributing to the fall. Nonspecific pain in the elbow and neck difficult to clarify on exam. With his cognitive impairment, I recommend CT scan of the neck with x-rays of the shoulder and elbow. I will give 1 tablet of [place] for pain while we await and SS. Basic labs for hemoglobin, white count, electrolytes, magnesium level, CRP, cardiac enzymes and EKG. He does live alone but has family support nearby. Uses a walker at baseline. Will need a trial of ambulation prior to discharge but I do suspect he will be able to go home. It sounds as though he was able to ambulate reasonably safely with EMS prior to coming to the ED. this is encouraging. Will likely be handing over care to incoming day shift partner. <Maggi Garrett MD - Last Filed: 01/14/24 23:56> Vital Signs Vital signs: Initial Vital Signs Temperature 97.5 F L 01/13/24 06:44 Temperature Source Temporal Artery Scan 01/13/24 06:44 Pulse Rate 100 01/13/24 06:44 Pulse Rhythm Regular 01/13/24 06:44 Respiratory Rate 24 01/13/24 06:44 Blood Pressure 100/82 01/13/24 06:44 Blood Pressure Mean 88 01/13/24 06:44 Blood Pressure Position Semi-Fowlers 01/13/24 06:44 Pulse Oximetry 94 01/13/24 06:44 Oxygen Delivery Method Room Air 01/13/24 06:44 Vital Signs Temperature 97.5 F L 01/13/24 06:44 Pulse Rate 100 01/13/24 06:44 Respiratory Rate 24 01/13/24 06:44 Blood Pressure 100/82 01/13/24 06:44 Pulse Oximetry 94 01/13/24 06:44 Oxygen Delivery Method Room Air 01/13/24 06:44 Temperature 97.3 F L 01/14/24 22:58 Pulse Rate 114 H 01/14/24 22:58 Respiratory Rate 20 01/14/24 22:58 Blood Pressure 149/87 H 01/14/24 22:58 Pulse Oximetry 96 01/14/24 22:58 Oxygen Delivery Method Room Air 01/14/24 22:58 <Maggi Garrett MD - Last Filed: 01/14/24 23:56> Initial Vital Signs Temperature 97.5 F L 01/13/24 06:44 Temperature Source Temporal Artery Scan 01/13/24 06:44 Pulse Rate 100 01/13/24 06:44 Pulse Rhythm Regular 01/13/24 06:44 Respiratory Rate 24 01/13/24 06:44 Blood Pressure 100/82 01/13/24 06:44 Blood Pressure Mean 88 01/13/24 06:44 Blood Pressure Position Semi-Fowlers 01/13/24 06:44 Pulse Oximetry 94 01/13/24 06:44 Oxygen Delivery Method Room Air 01/13/24 06:44 Vital Signs Temperature 97.5 F L 01/13/24 06:44 Pulse Rate 100 01/13/24 06:44 Respiratory Rate 24 01/13/24 06:44 Blood Pressure 100/82 01/13/24 06:44 Pulse Oximetry 94 01/13/24 06:44 Oxygen Delivery Method Room Air 01/13/24 06:44 Temperature 97.3 F L 01/14/24 22:58 Pulse Rate 114 H 01/14/24 22:58 Respiratory Rate 20 01/14/24 22:58 Blood Pressure 149/87 H 01/14/24 22:58 Pulse Oximetry 96 01/14/24 22:58 Oxygen Delivery Method Room Air 01/14/24 22:58 <Miguel Angel Shrestha MD - Last Filed: 01/13/24 13:24> Medications Administered Medications: Generic Name Dose Route Start Last Admin Trade Name Freq PRN Reason Stop Dose Admin Albuterol/Ipratropium 1 neb 01/13/24 12:05 01/14/24 17:43 Iprat-Albut 0.5-2.5 Mg/3 Ml Neb IH 1 neb Q6H JAIRO Administration Aspirin 81 mg 01/14/24 09:00 01/14/24 08:08 Aspirin 81 Mg Tablet Ec PO 81 mg DAILY JAIRO Administration Atorvastatin Calcium 80 mg 01/13/24 21:00 01/14/24 20:39 Atorvastatin Calcium 40 Mg Tablet PO 80 mg HS JAIRO Administration Budesonide 0.5 mg 01/13/24 21:00 01/14/24 20:40 Budesonide 0.5 Mg/2ml Neb NEB 0.5 mg BID JAIRO Administration Doxycycline Hyclate 100 mg 01/14/24 09:00 01/14/24 20:40 Doxycycline Hyclate 100 Mg PO 100 mg BID JAIRO Administration Enoxaparin Sodium 40 mg 01/13/24 21:00 01/14/24 20:40 Enoxaparin 40 Mg/0.4 Ml Inj SUBCUT 40 mg HS JAIRO Administration Glipizide 10 mg 01/14/24 08:00 01/14/24 08:08 Glipizide 5 Mg Tablet PO 10 mg DAILY@0800 JAIRO Administration Glipizide 5 mg 01/14/24 17:30 01/14/24 17:42 Glipizide 5 Mg Tablet PO 5 mg DAILY@1730 JAIRO Administration Insulin Aspart 0 unit 01/13/24 17:30 01/14/24 20:54 Insulin Aspart 100 Unit/Ml SUBCUT 6 unit ACHS JAIRO Administration Protocol Lisinopril 2.5 mg 01/14/24 09:00 01/14/24 08:08 Lisinopril 5 Mg Tablet PO 2.5 mg DAILY JAIRO Administration Mirtazapine 7.5 mg 01/13/24 21:00 01/14/24 20:42 Mirtazapine 15 Mg Tablet PO 7.5 mg HS JAIRO Administration Oseltamivir Phosphate 30 mg 01/14/24 21:00 01/14/24 20:41 Oseltamivir 30 Mg Capsule PO 01/17/24 21:01 30 mg BID JAIRO Administration Potassium Chloride 10 meq 01/14/24 08:00 01/14/24 08:08 Potassium Chloride 10 Meq Capsule Er PO 10 meq DAILYWM JAIRO Administration Prednisone 40 mg 01/14/24 08:00 01/14/24 08:08 Prednisone 20 Mg Tablet PO 40 mg DAILYWM JAIRO Administration Sodium Chloride 5 ml 01/13/24 21:00 01/14/24 20:41 Sodium Chloride 0.9 % (Flush) 10 Ml Syringe IVF 5 ml BID JAIRO Administration Sodium Chloride 1 gm 01/14/24 13:20 01/14/24 18:54 Sodium Chloride 1 Gm Tablet PO 1 gm TIDWM JAIRO Administration Torsemide 20 mg 01/14/24 08:00 01/14/24 08:09 Torsemide 20 Mg Tablet PO 20 mg DAILY@0800 JAIRO Administration Discontinued Medications Generic Name Dose Route Start Last Admin Trade Name Lele PRN Reason Stop Dose Admin Hydrocodone Bitart/Acetaminophen 1 tab 01/13/24 07:01 01/13/24 07:11 Hydrocodone-Acetamin 5-325 Mg 1 Tab PO 01/13/24 07:02 1 tab ONCE ONE Administration Furosemide 60 mg 01/13/24 09:57 01/13/24 10:07 Furosemide 10 Mg/Ml Inj IVP 01/13/24 09:58 60 mg ONCE ONE Administration Sodium Chloride 1,000 mls @ 500 mls/hr 01/13/24 12:00 01/13/24 13:55 0.9 % Sodium Chloride 1000 Ml IV 01/13/24 13:59 500 mls/hr .Q2H JAIRO Administration Sodium Chloride 250 mls @ 250 mls/hr 01/14/24 22:04 01/14/24 22:17 0.9 % Sodium Chloride 250 Ml IV 01/14/24 23:03 250 mls/hr .Q1H ONE Administration Insulin Aspart 10 unit 01/13/24 17:47 01/13/24 18:01 Insulin Aspart 100 Unit/Ml SUBCUT 01/13/24 17:48 10 unit ONCE ONE Administration Insulin Aspart 10 unit 01/14/24 20:45 01/14/24 20:53 Insulin Aspart 100 Unit/Ml SUBCUT 01/14/24 20:46 10 unit ONCE ONE Administration Insulin Aspart 6 unit 01/14/24 23:02 01/14/24 23:25 Insulin Aspart 100 Unit/Ml SUBCUT 01/14/24 23:03 6 unit ONCE ONE Administration Insulin Human Regular 10 unit 01/14/24 07:24 01/14/24 08:22 Insulin Regular 100 Unit/Ml Inj SUBCUT 01/14/24 07:25 10 unit ONCE ONE Administration Insulin Human Regular 10 unit 01/14/24 16:56 01/14/24 17:42 Insulin Regular 100 Unit/Ml Inj IVP 01/14/24 16:57 10 unit ONCE ONE Administration Meclizine HCl 25 mg 01/13/24 08:21 01/13/24 08:34 Meclizine Hcl 25 Mg Tablet PO 01/13/24 08:22 25 mg ONCE ONE Administration Methylprednisolone Sodium Succinate 125 mg 01/13/24 09:58 01/13/24 10:07 Methylprednisolone Sod Succ 62.5 Mg/Ml (125) IVP 01/13/24 09:59 125 mg ONCE ONE Administration Methylprednisolone Sodium Succinate 40 mg 01/13/24 16:00 01/13/24 16:07 Methylprednisolone Sod Succ 40 Mg/Ml IVP 01/13/24 16:01 40 mg ONCE ONE Administration Oseltamivir Phosphate 75 mg 01/13/24 10:07 01/13/24 11:00 Oseltamivir Phosphate 75 Mg Capsule PO 01/13/24 10:08 75 mg ONCE ONE Administration Oseltamivir Phosphate 75 mg 01/13/24 21:00 01/14/24 08:09 Oseltamivir Phosphate 75 Mg Capsule PO 01/18/24 09:01 75 mg BID JAIRO Administration <Maggi Garrett MD - Last Filed: 01/14/24 23:56> Generic Name Dose Route Start Last Admin Trade Name Lele PRN Reason Stop Dose Admin Albuterol/Ipratropium 1 neb 01/13/24 12:05 01/14/24 17:43 Iprat-Albut 0.5-2.5 Mg/3 Ml Neb IH 1 neb Q6H JAIRO Administration Aspirin 81 mg 01/14/24 09:00 01/14/24 08:08 Aspirin 81 Mg Tablet Ec PO 81 mg DAILY JAIRO Administration Atorvastatin Calcium 80 mg 01/13/24 21:00 01/14/24 20:39 Atorvastatin Calcium 40 Mg Tablet PO 80 mg HS JAIRO Administration Budesonide 0.5 mg 01/13/24 21:00 01/14/24 20:40 Budesonide 0.5 Mg/2ml Neb NEB 0.5 mg BID JAIRO Administration Doxycycline Hyclate 100 mg 01/14/24 09:00 01/14/24 20:40 Doxycycline Hyclate 100 Mg PO 100 mg BID JAIRO Administration Enoxaparin Sodium 40 mg 01/13/24 21:00 01/14/24 20:40 Enoxaparin 40 Mg/0.4 Ml Inj SUBCUT 40 mg HS JAIRO Administration Glipizide 10 mg 01/14/24 08:00 01/14/24 08:08 Glipizide 5 Mg Tablet PO 10 mg DAILY@0800 JAIRO Administration Glipizide 5 mg 01/14/24 17:30 01/14/24 17:42 Glipizide 5 Mg Tablet PO 5 mg DAILY@1730 JAIRO Administration Insulin Aspart 0 unit 01/13/24 17:30 01/14/24 20:54 Insulin Aspart 100 Unit/Ml SUBCUT 6 unit ACHS JAIRO Administration Protocol Lisinopril 2.5 mg 01/14/24 09:00 01/14/24 08:08 Lisinopril 5 Mg Tablet PO 2.5 mg DAILY JAIRO Administration Mirtazapine 7.5 mg 01/13/24 21:00 01/14/24 20:42 Mirtazapine 15 Mg Tablet PO 7.5 mg HS JAIRO Administration Oseltamivir Phosphate 30 mg 01/14/24 21:00 01/14/24 20:41 Oseltamivir 30 Mg Capsule PO 01/17/24 21:01 30 mg BID JAIRO Administration Potassium Chloride 10 meq 01/14/24 08:00 01/14/24 08:08 Potassium Chloride 10 Meq Capsule Er PO 10 meq DAILYWM JAIRO Administration Prednisone 40 mg 01/14/24 08:00 01/14/24 08:08 Prednisone 20 Mg Tablet PO 40 mg DAILYWM JAIRO Administration Sodium Chloride 5 ml 01/13/24 21:00 01/14/24 20:41 Sodium Chloride 0.9 % (Flush) 10 Ml Syringe IVF 5 ml BID JAIRO Administration Sodium Chloride 1 gm 01/14/24 13:20 01/14/24 18:54 Sodium Chloride 1 Gm Tablet PO 1 gm TIDWM JAIRO Administration Torsemide 20 mg 01/14/24 08:00 01/14/24 08:09 Torsemide 20 Mg Tablet PO 20 mg DAILY@0800 JAIRO Administration Discontinued Medications Generic Name Dose Route Start Last Admin Trade Name Freq PRN Reason Stop Dose Admin Hydrocodone Bitart/Acetaminophen 1 tab 01/13/24 07:01 01/13/24 07:11 Hydrocodone-Acetamin 5-325 Mg 1 Tab PO 01/13/24 07:02 1 tab ONCE ONE Administration Furosemide 60 mg 01/13/24 09:57 01/13/24 10:07 Furosemide 10 Mg/Ml Inj IVP 01/13/24 09:58 60 mg ONCE ONE Administration Sodium Chloride 1,000 mls @ 500 mls/hr 01/13/24 12:00 01/13/24 13:55 0.9 % Sodium Chloride 1000 Ml IV 01/13/24 13:59 500 mls/hr .Q2H JAIRO Administration Sodium Chloride 250 mls @ 250 mls/hr 01/14/24 22:04 01/14/24 22:17 0.9 % Sodium Chloride 250 Ml IV 01/14/24 23:03 250 mls/hr .Q1H ONE Administration Insulin Aspart 10 unit 01/13/24 17:47 01/13/24 18:01 Insulin Aspart 100 Unit/Ml SUBCUT 01/13/24 17:48 10 unit ONCE ONE Administration Insulin Aspart 10 unit 01/14/24 20:45 01/14/24 20:53 Insulin Aspart 100 Unit/Ml SUBCUT 01/14/24 20:46 10 unit ONCE ONE Administration Insulin Aspart 6 unit 01/14/24 23:02 01/14/24 23:25 Insulin Aspart 100 Unit/Ml SUBCUT 01/14/24 23:03 6 unit ONCE ONE Administration Insulin Human Regular 10 unit 01/14/24 07:24 01/14/24 08:22 Insulin Regular 100 Unit/Ml Inj SUBCUT 01/14/24 07:25 10 unit ONCE ONE Administration Insulin Human Regular 10 unit 01/14/24 16:56 01/14/24 17:42 Insulin Regular 100 Unit/Ml Inj IVP 01/14/24 16:57 10 unit ONCE ONE Administration Meclizine HCl 25 mg 01/13/24 08:21 01/13/24 08:34 Meclizine Hcl 25 Mg Tablet PO 01/13/24 08:22 25 mg ONCE ONE Administration Methylprednisolone Sodium Succinate 125 mg 01/13/24 09:58 01/13/24 10:07 Methylprednisolone Sod Succ 62.5 Mg/Ml (125) IVP 01/13/24 09:59 125 mg ONCE ONE Administration Methylprednisolone Sodium Succinate 40 mg 01/13/24 16:00 01/13/24 16:07 Methylprednisolone Sod Succ 40 Mg/Ml IVP 01/13/24 16:01 40 mg ONCE ONE Administration Oseltamivir Phosphate 75 mg 01/13/24 10:07 01/13/24 11:00 Oseltamivir Phosphate 75 Mg Capsule PO 01/13/24 10:08 75 mg ONCE ONE Administration Oseltamivir Phosphate 75 mg 01/13/24 21:00 01/14/24 08:09 Oseltamivir Phosphate 75 Mg Capsule PO 01/18/24 09:01 75 mg BID JAIRO Administration <Miguel Angel Shrestha MD - Last Filed: 01/13/24 13:24> Medical Decision Making [facility] Narrative Medical decision making narrative: Addendum 01/13/2024 9:12 a.m.: Patient has negative CT scan of the neck, negative shoulder and elbow x-ray. He continues to have an O2 sat that is in the 88 and 89% range, he has got some gurgly respirations, he has a frequent cough. I think checking viral studies, as well as an x-ray and a proBNP would be appropriate. Will check these and disposition pending findings he feels less dizzy. Addendum 10:00 a.m. the patient has a very coarse cough, real readily almost as if fluid related, his chest x-ray appears to show some chronic changes may be some mild haziness at the bases consistent with CHF, he has a history of COPD as well. His proBNP is elevated at 3100. He has O2 sats on room air running 88%. He does feel his breathing is worse than it has been. He has had COPD in the past. I think a course of steroid possibly antibiotic, and hospitalization for some mild diuresis might be helpful. The patient is really weak and really has difficulty even sitting up in bed. I do not think his living arrangement is probably best for him will discuss with hospitalist. He also has influenza a and B started on Tamiflu. Certainly the influenza could exacerbate CHF and exacerbated COPD, which is likely the source of his O2 sat problem. Will get a non-con CT scan given his creatinine being elevated and also a VBG. Dr. Rogers is accepted to as hospital physician <Miguel Angel Shrestha MD - Last Filed: 01/13/24 13:24> Lab Data Lab results reviewed: Yes I reviewed the patient's lab results <Maggi Garrett MD - Last Filed: 01/14/24 23:56> Labs: Lab Results 01/13/24 01/13/24 01/13/24 Range/Units 06:50 07:01 09:13 WBC 8.74 (4.50-11.00) K/uL RBC 3.87 L (4.30-5.90) m/uL Hgb 11.4 L (13.5-17.5) gm/dL Hct 35.8 L (37.0-53.0) % MCV 93 (80-100) fL MCH 30 (26-34) pg MCHC 32 (32-36) gm/dL RDW Coeff of Scott 13.1 (11.5-15.5) % Plt Count 206 (140-440) K/uL Neut % (Auto) 89.6 H (42.0-72.0) % Lymph % (Auto) 3.1 L (20-44) % [place] % (Auto) 6.5 (0.0-11.0) % Eos % (Auto) 0.0 (0.0-7.0) % Baso % (Auto) 0.2 (0.0-3.0) % Neut # (Auto) 7.80 H (1.7-7.0) K/uL Lymph # (Auto) 0.30 L (0.90-2.90) K/uL [place] # (Auto) 0.60 (0.00-0.90) K/UL Eos # (Auto) 0.00 (0.00-0.50) K/uL Baso # (Auto) 0.02 (0.00-0.30) K/uL Abs Immat Gran (auto) 0.05 (0.00-0.30) K/uL Imm/Tot Granulo (auto) 0.6 % VBG pH (7.32-7.43) VBG pCO2 (40-50) mmHG VBG pO2 (25-47) mmHG VBG HCO3 (21-28) mmol/L Sodium 132 L (135-149) mmol/L Potassium 4.4 (3.6-5.1) mmol/L Chloride 101 (96-114) mmol/L Carbon Dioxide 19 L (20-32) mmol/L Anion Gap 12 (7-15) mEq/L BUN 28 (7-30) mg/dL Creatinine 1.8 H (0.5-1.5) mg/dL Estimated GFR 41 ml/min Glucose 212 H (60-115) mg/dL Hemoglobin A1c 8.1 H (0-5.6) % Lactate (0.5-1.9) mmol/L Calcium 8.7 (8.4-10.6) mg/dL Magnesium 1.7 (1.5-2.6) mg/dL Total Bilirubin 0.6 (0.1-1.5) mg/dL GGT 26 (8-55) U/L AST 50 H (12-35) U/L ALT 32 (4-50) U/L Alkaline Phosphatase 170 H (40-150) U/L Total Creatine Kinase 890 H (54-186) U/L Troponin I 0.02 (0.01-0.04) ng/mL C-Reactive Protein 1.8 H (0.5-1.0) mg/dL NT-Pro-B Natriuret Pep 3100 pg/mL Total Protein 7.5 (6.0-8.3) g/dL Albumin 4.1 (3.3-5.0) g/dL Procalcitonin 0.24 (<0.50) ng/mL Urine Color Yellow (Yellow) Urine Appearance Slightly Cloudy A (Clear) Urine pH 5.5 (5.0-8.5) Ur Specific [place] 1.025 (1.000-1.030) Urine Protein 2+ A (Negative) Urine Glucose (UA) Trace A (Negative) Urine Ketones Negative (Negative) Urine Blood 3+ A (Negative) Urine Nitrite Negative (Negative) Urine Bilirubin Negative (Negative) Urine Urobilinogen 0.2 (0.2-1.0) Ur Leukocyte Esterase Negative (Negative) Urine RBC 0-2 (0-2) Urine WBC 2-5 (0-5) Ur Squamous Epith Cells Few (None-Few) Amorphous Sediment Few A (None) Urine Bacteria Few A (None) Hyaline Casts Few (None-Few) Ethyl Alcohol < 0.01 L (0.01-0.03) % SARS-CoV-2 (PCR) Negative SARS-CoV-2 (Negative) Influenza Type A (PCR) POSITIVE PCR FLU A A (Negative) Influenza Type B (PCR) Negative PCR FLU B (Negative) RSV (PCR) Negative PCR RSV (Negative) POC Troponin I 0.03 (0.01-0.04) ng/ml 01/13/24 Range/Units 10:28 WBC (4.50-11.00) K/uL RBC (4.30-5.90) m/uL Hgb (13.5-17.5) gm/dL Hct (37.0-53.0) % MCV (80-100) fL MCH (26-34) pg MCHC (32-36) gm/dL RDW Coeff of Scott (11.5-15.5) % Plt Count (140-440) K/uL Neut % (Auto) (42.0-72.0) % Lymph % (Auto) (20-44) % [place] % (Auto) (0.0-11.0) % Eos % (Auto) (0.0-7.0) % Baso % (Auto) (0.0-3.0) % Neut # (Auto) (1.7-7.0) K/uL Lymph # (Auto) (0.90-2.90) K/uL [place] # (Auto) (0.00-0.90) K/UL Eos # (Auto) (0.00-0.50) K/uL Baso # (Auto) (0.00-0.30) K/uL Abs Immat Gran (auto) (0.00-0.30) K/uL Imm/Tot Granulo (auto) % VBG pH 7.292 L (7.32-7.43) VBG pCO2 50 (40-50) mmHG VBG pO2 32.4 (25-47) mmHG VBG HCO3 24 (21-28) mmol/L Sodium (135-149) mmol/L Potassium (3.6-5.1) mmol/L Chloride (96-114) mmol/L Carbon Dioxide (20-32) mmol/L Anion Gap (7-15) mEq/L BUN (7-30) mg/dL Creatinine (0.5-1.5) mg/dL Estimated GFR ml/min Glucose (60-115) mg/dL Hemoglobin A1c (0-5.6) % Lactate 1.9 (0.5-1.9) mmol/L Calcium (8.4-10.6) mg/dL Magnesium (1.5-2.6) mg/dL Total Bilirubin (0.1-1.5) mg/dL GGT (8-55) U/L AST (12-35) U/L ALT (4-50) U/L Alkaline Phosphatase (40-150) U/L Total Creatine Kinase (54-186) U/L Troponin I (0.01-0.04) ng/mL C-Reactive Protein (0.5-1.0) mg/dL NT-Pro-B Natriuret Pep pg/mL Total Protein (6.0-8.3) g/dL Albumin (3.3-5.0) g/dL Procalcitonin (<0.50) ng/mL Urine Color (Yellow) Urine Appearance (Clear) Urine pH (5.0-8.5) Ur Specific [place] (1.000-1.030) Urine Protein (Negative) Urine Glucose (UA) (Negative) Urine Ketones (Negative) Urine Blood (Negative) Urine Nitrite (Negative) Urine Bilirubin (Negative) Urine Urobilinogen (0.2-1.0) Ur Leukocyte Esterase (Negative) Urine RBC (0-2) Urine WBC (0-5) Ur Squamous Epith Cells (None-Few) Amorphous Sediment (None) Urine Bacteria (None) Hyaline Casts (None-Few) Ethyl Alcohol (0.01-0.03) % SARS-CoV-2 (PCR) (Negative) Influenza Type A (PCR) (Negative) Influenza Type B (PCR) (Negative) RSV (PCR) (Negative) POC Troponin I (0.01-0.04) ng/ml <Maggi Garrett MD - Last Filed: 01/14/24 23:56> Lab Results 01/13/24 01/13/24 01/13/24 Range/Units 06:50 07:01 09:13 WBC 8.74 (4.50-11.00) K/uL RBC 3.87 L (4.30-5.90) m/uL Hgb 11.4 L (13.5-17.5) gm/dL Hct 35.8 L (37.0-53.0) % MCV 93 (80-100) fL MCH 30 (26-34) pg MCHC 32 (32-36) gm/dL RDW Coeff of Scott 13.1 (11.5-15.5) % Plt Count 206 (140-440) K/uL Neut % (Auto) 89.6 H (42.0-72.0) % Lymph % (Auto) 3.1 L (20-44) % [place] % (Auto) 6.5 (0.0-11.0) % Eos % (Auto) 0.0 (0.0-7.0) % Baso % (Auto) 0.2 (0.0-3.0) % Neut # (Auto) 7.80 H (1.7-7.0) K/uL Lymph # (Auto) 0.30 L (0.90-2.90) K/uL [place] # (Auto) 0.60 (0.00-0.90) K/UL Eos # (Auto) 0.00 (0.00-0.50) K/uL Baso # (Auto) 0.02 (0.00-0.30) K/uL Abs Immat Gran (auto) 0.05 (0.00-0.30) K/uL Imm/Tot Granulo (auto) 0.6 % VBG pH (7.32-7.43) VBG pCO2 (40-50) mmHG VBG pO2 (25-47) mmHG VBG HCO3 (21-28) mmol/L Sodium 132 L (135-149) mmol/L Potassium 4.4 (3.6-5.1) mmol/L Chloride 101 (96-114) mmol/L Carbon Dioxide 19 L (20-32) mmol/L Anion Gap 12 (7-15) mEq/L BUN 28 (7-30) mg/dL Creatinine 1.8 H (0.5-1.5) mg/dL Estimated GFR 41 ml/min Glucose 212 H (60-115) mg/dL Hemoglobin A1c 8.1 H (0-5.6) % Lactate (0.5-1.9) mmol/L Calcium 8.7 (8.4-10.6) mg/dL Magnesium 1.7 (1.5-2.6) mg/dL Total Bilirubin 0.6 (0.1-1.5) mg/dL GGT 26 (8-55) U/L AST 50 H (12-35) U/L ALT 32 (4-50) U/L Alkaline Phosphatase 170 H (40-150) U/L Total Creatine Kinase 890 H (54-186) U/L Troponin I 0.02 (0.01-0.04) ng/mL C-Reactive Protein 1.8 H (0.5-1.0) mg/dL NT-Pro-B Natriuret Pep 3100 pg/mL Total Protein 7.5 (6.0-8.3) g/dL Albumin 4.1 (3.3-5.0) g/dL Procalcitonin 0.24 (<0.50) ng/mL Urine Color Yellow (Yellow) Urine Appearance Slightly Cloudy A (Clear) Urine pH 5.5 (5.0-8.5) Ur Specific [place] 1.025 (1.000-1.030) Urine Protein 2+ A (Negative) Urine Glucose (UA) Trace A (Negative) Urine Ketones Negative (Negative) Urine Blood 3+ A (Negative) Urine Nitrite Negative (Negative) Urine Bilirubin Negative (Negative) Urine Urobilinogen 0.2 (0.2-1.0) Ur Leukocyte Esterase Negative (Negative) Urine RBC 0-2 (0-2) Urine WBC 2-5 (0-5) Ur Squamous Epith Cells Few (None-Few) Amorphous Sediment Few A (None) Urine Bacteria Few A (None) Hyaline Casts Few (None-Few) Ethyl Alcohol < 0.01 L (0.01-0.03) % SARS-CoV-2 (PCR) Negative SARS-CoV-2 (Negative) Influenza Type A (PCR) POSITIVE PCR FLU A A (Negative) Influenza Type B (PCR) Negative PCR FLU B (Negative) RSV (PCR) Negative PCR RSV (Negative) POC Troponin I 0.03 (0.01-0.04) ng/ml 01/13/24 Range/Units 10:28 WBC (4.50-11.00) K/uL RBC (4.30-5.90) m/uL Hgb (13.5-17.5) gm/dL Hct (37.0-53.0) % MCV (80-100) fL MCH (26-34) pg MCHC (32-36) gm/dL RDW Coeff of Scott (11.5-15.5) % Plt Count (140-440) K/uL Neut % (Auto) (42.0-72.0) % Lymph % (Auto) (20-44) % [place] % (Auto) (0.0-11.0) % Eos % (Auto) (0.0-7.0) % Baso % (Auto) (0.0-3.0) % Neut # (Auto) (1.7-7.0) K/uL Lymph # (Auto) (0.90-2.90) K/uL [place] # (Auto) (0.00-0.90) K/UL Eos # (Auto) (0.00-0.50) K/uL Baso # (Auto) (0.00-0.30) K/uL Abs Immat Gran (auto) (0.00-0.30) K/uL Imm/Tot Granulo (auto) % VBG pH 7.292 L (7.32-7.43) VBG pCO2 50 (40-50) mmHG VBG pO2 32.4 (25-47) mmHG VBG HCO3 24 (21-28) mmol/L Sodium (135-149) mmol/L Potassium (3.6-5.1) mmol/L Chloride (96-114) mmol/L Carbon Dioxide (20-32) mmol/L Anion Gap (7-15) mEq/L BUN (7-30) mg/dL Creatinine (0.5-1.5) mg/dL Estimated GFR ml/min Glucose (60-115) mg/dL Hemoglobin A1c (0-5.6) % Lactate 1.9 (0.5-1.9) mmol/L Calcium (8.4-10.6) mg/dL Magnesium (1.5-2.6) mg/dL Total Bilirubin (0.1-1.5) mg/dL GGT (8-55) U/L AST (12-35) U/L ALT (4-50) U/L Alkaline Phosphatase (40-150) U/L Total Creatine Kinase (54-186) U/L Troponin I (0.01-0.04) ng/mL C-Reactive Protein (0.5-1.0) mg/dL NT-Pro-B Natriuret Pep pg/mL Total Protein (6.0-8.3) g/dL Albumin (3.3-5.0) g/dL Procalcitonin (<0.50) ng/mL Urine Color (Yellow) Urine Appearance (Clear) Urine pH (5.0-8.5) Ur Specific [place] (1.000-1.030) Urine Protein (Negative) Urine Glucose (UA) (Negative) Urine Ketones (Negative) Urine Blood (Negative) Urine Nitrite (Negative) Urine Bilirubin (Negative) Urine Urobilinogen (0.2-1.0) Ur Leukocyte Esterase (Negative) Urine RBC (0-2) Urine WBC (0-5) Ur Squamous Epith Cells (None-Few) Amorphous Sediment (None) Urine Bacteria (None) Hyaline Casts (None-Few) Ethyl Alcohol (0.01-0.03) % SARS-CoV-2 (PCR) (Negative) Influenza Type A (PCR) (Negative) Influenza Type B (PCR) (Negative) RSV (PCR) (Negative) POC Troponin I (0.01-0.04) ng/ml <Miguel Angel Shrestha MD - Last Filed: 01/13/24 13:24> Discharge Plan Discharge Clinical Impression: Fall, COPD (chronic obstructive pulmonary disease), Influenza A, CHF (congestive heart failure) <Maggi Garrett MD - Last Filed: 01/14/24 23:56> Patient Disposition: Admitted As Observation <Maggi Garrett MD - Last Filed: 01/14/24 23:56>
[2024-01-13] MEDS: HYDROCODONE-ACETAMIN 5-325 MG 1 TAB PO (07:11)
[2024-01-13 07:17] LABS: Troponin, Point-of-Care* 0.03 ng/ml (0.01-0.04)
[2024-01-13 07:27] LABS: Basophils Absolute Auto 0.02 K/uL (0.00-0.30); Basophils Percent Auto 0.2 % (0.0-3.0); Hematocrit 35.8 % (37.0-53.0); Hemoglobin* 11.4 gm/dL (13.5-17.5); Immature Granulocytes Abs Auto 0.05 K/uL (0.00-0.30); Immature Granulocytes Pct Auto 0.6 %; Lymphocytes Percent Auto 3.1 % (20-44); Mean Corpuscular HGB Conc 32 gm/dL (32-36); Mean Corpuscular Hemoglobin 30 pg (26-34); Mean Corpuscular Volume 93 fL (80-100); Monocytes Percent Auto 6.5 % (0.0-11.0); Neutrophils Percent Auto 89.6 % (42.0-72.0); Platelet Count* 206 K/uL (140-440); RDW Coefficient of Variation % 13.1 % (11.5-15.5); Red Blood Count 3.87 m/uL (4.30-5.90); White Blood Count* 8.74 K/uL (4.50-11.00)
[2024-01-13 07:29] LABS: Slide Review Reflex No
[2024-01-13 07:40] LABS: Albumin* 4.1 g/dL (3.3-5.0); Chloride* 101 mmol/L (96-114)
[2024-01-13 07:41] LABS: Potassium* 4.4 mmol/L (3.6-5.1); Sodium* 132 mmol/L (135-149)
[2024-01-13 07:43] LABS: Anion Gap 12 mEq/L (7-15); Aspartate Amino Transferase* 50 U/L (12-35); Bilirubin Total* 0.6 mg/dL (0.1-1.5); Carbon Dioxide* 19 mmol/L (20-32); Creatinine* 1.8 mg/dL (0.5-1.5); Estimated Glomerular Filt Rate 41 ml/min; Total Protein* 7.5 g/dL (6.0-8.3)
[2024-01-13 07:44] LABS: Alanine Aminotransferase* 32 U/L (4-50); Alkaline Phosphatase* 170 U/L (40-150); Blood Urea Nitrogen* 28 mg/dL (7-30); Calcium* 8.7 mg/dL (8.4-10.6); Glucose* 212 mg/dL (60-115); Magnesium* 1.7 mg/dL (1.5-2.6)
[2024-01-13 07:49] LABS: Ethanol* < 0.01 % (0.01-0.03)
--- NOTE | 2024-01-13 08:15 | ED.NURSE ---
Patient complains of dizziness. States he takes meclizine at home every 3 weeks on average. Notified MD that patient is feeling dizzy. Also notified that patient sounds very wet in lungs.
[2024-01-13 08:17] LABS: Appearance Urine Slightly Cloudy (Clear); Bilirubin Urine Negative (Negative); Blood Urine 3+ (Negative); Color Urine Yellow (Yellow); Glucose Urine Trace (Negative); Ketones Urine Negative (Negative); Leukocyte Esterase Urine Negative (Negative); Nitrite Urine Negative (Negative); Protein Urine 2+ (Negative); Specific Gravity Urine 1.025 (1.000-1.030); Urobilinogen Urine 0.2 (0.2-1.0); pH Urine 5.5 (5.0-8.5)
[2024-01-13] MEDS: MECLIZINE HCL 25 MG TABLET PO (08:34)
[2024-01-13 08:41] LABS: C Reactive Protein* 1.8 mg/dL (0.5-1.0)
[2024-01-13 08:42] LABS: Amorphous Sediment Urine Few; Bacteria Urine Few; RBC Urine 0-2 (0-2); Squamous Epithelial Cell Urine Few (None-Few)
[2024-01-13 08:43] LABS: Hyaline Casts Urine Few (None-Few)
--- NOTE | 2024-01-13 09:11 | XR_ITS ---
Patient: MELISSA INIGUEZ Facility:?[facility] Patient ID:?[id number] Site Patient ID:?[id number]. Site :?[id number] Study:?XRay-Chest 1V-01/13/2024 9:29:05 AM Ordering Physician:?DR. GOMEZ Final Report: Indication: Cough. Technique: One view(s) of the chest. Comparison: 08/29/2022. Findings: Interval median sternotomy and left atrial appendage ligation. Unchanged enlargement of the cardiomediastinal silhouette. Pulmonary vasculature is normal. Lungs are well inflated and clear. No focal consolidation, pleural effusion or pneumothorax. No acute osseous abnormality identified.. Impression: Postoperative chest. No acute cardiopulmonary abnormality identified and otherwise no significant change from prior. Dictated by Anita Escobar MD @ 01/13/2024 9:38:07 AM Signed by:?Anita Escobar MD @01/13/2024 9:38:07 AM (Electronic Signature)
[2024-01-13 09:54] LABS: NT Pro B Type NatriureticPept* 3100 pg/mL
--- NOTE | 2024-01-13 09:54 | ED.NURSE ---
Patient ate all his breakfast
[2024-01-13 09:59] LABS: PCR FLU A POSITIVE PCR FLU A (Negative); PCR FLU B Negative PCR FLU B (Negative); PCR RSV Negative PCR RSV (Negative); SARS PCR* Negative SARS-CoV-2 (Negative)
[2024-01-13] MEDS: METHYLPREDNISOLONE SOD SUCC 62.5 MG/ML (125) 125 MG IVP (10:07)
[2024-01-13] MEDS: FUROSEMIDE 10 MG/ML inj 60 MG IVP (10:07)
--- NOTE | 2024-01-13 10:13 | CT_ITS ---
Patient: MELISSA INIGUEZ Facility:?[facility] Patient ID:?[id number] Site Patient ID:?[id number]. Site :?[id number] Study:?CT-Chest W/O-01/13/2024 11:02:26 AM Ordering Physician:JET Final Report: Indication: Cough Technique: CT of the chest was performed without intravenous contrast. Please note that all CT scans at this facility use dose modulation, iterative reconstruction, and/or weight-based dosing when appropriate to reduce radiation dose to as low as reasonably achievable. Comparison: 01/13/2024, 01/10/2023 Findings: Slightly suboptimal examination secondary to motion artifact. Medical devices: None. Thyroid: Normal. Lymph nodes: Limited evaluation without IV contrast. No supraclavicular, axillary, mediastinal, or hilar lymphadenopathy. Nonspecific mildly prominent subcentimeter mediastinal lymph nodes are favored to be reactive. Vasculature: Limited evaluation without IV contrast. Aorta and main pulmonary artery diameters are within normal range. Moderate aortic calcification. Common origin of the right brachiocephalic and left common carotid arteries. Heart: Moderate coronary artery calcification. No pericardial effusion. 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 Other mediastinal structures: No significant abnormality. Lung parenchyma: Possible scattered areas of centrilobular nodularity in the posterior right upper lobe (3/32). Airways: Mild bronchial wall thickening. Pleura: No significant abnormality. Chest wall: Postsurgical changes from median sternotomy. Moderate fat containing ventral hernia along the inferior aspect of the sternal incision. Upper abdomen: Normal. Musculoskeletal: Moderate multilevel degenerative changes of the visualized spine. Impression: Slightly suboptimal examination secondary to motion artifact. Possible scattered areas of centrilobular nodularity in the posterior right upper lobe and mild bronchial wall thickening. Findings may represent airways infection or inflammation. Please note that all CT scans at this facility use dose modulation, iterative reconstruction, and/or weight-based dosing when appropriate to reduce radiation dose to as low as reasonably achievable. Dictated by Claudy Funez MD @ 01/13/2024 11:35:55 AM Signed by:?Claudy Funez MD @01/13/2024 11:35:55 AM (Electronic Signature)
[2024-01-13 10:32] LABS: HCO3 VBG 24 mmol/L (21-28); PCO2 VBG 50 mmHG (40-50); PO2 VBG 32.4 mmHG (25-47); pH VBG 7.292 (7.32-7.43)
[2024-01-13] MEDS: OSELTAMIVIR PHOSPHATE 75 MG CAPSULE PO ×2 (11:00→20:58)
--- NOTE | 2024-01-13 11:01 | PC.NURSE ---
Patient and belongings transported to Med surg. Report given to CHANTAL Harrington. Patient will update his son.
--- NOTE | 2024-01-13 11:35 | P.IMHP_ITS ---
Hospitalist- H&P: HPI History of Present Illness Date Seen: 01/13/24 Chief complaint: Repeated falls, arm pain Narrative: ADMISSION HISTORY AND PHYSICAL - HOSPITALIST Chief Complaint: Influenza A, Fall, COPD - multiple medical problems HPI: 68-year-old male with a history of coronary artery disease status post three-vessel CABG, diabetes, stroke, COPD, sleep apnea, obesity, cognitive decline and history of compensated heart failure presents after a fall and inability to get up in his apartment early this morning. ER note reviewed. He was able to have his [id number] and son tried to help him. This was not successful. He they called EMS. It took 3 people from EMS to stand him up. Then he was able to uses walker and partially dressed himself in order to then decided to come in for further evaluation. He states he has been coughing and slightly unwell for about 2 weeks. In the ED he tested positive for influenza A, mild elevation in his BNP was also noted. Chest x-ray and non con chest CT were reassuring. His COVID and RSV were negative. His troponin was negative. Basic chemistry showed he has a mild KURTIS. His previous creatinine was 1.6 and he is currently 1.8. Venous blood gas showed he was mildly acidotic at 7.2. He is not typically on home O2 but had some mild hypoxia noted in the ED 86-88%. Supplemental oxygen was subsequently applied. However by the time he got to the floor he was able to be weaned on to room air. ER COURSE: Patient was given his 1st dose of Tamiflu, IV dose of Solu-Medrol 125 mg, furosemide 60 mg IV, a dose of his Lortab in meclizine that he has used previous Given his oxygen requirement at least in the emergency room and his tachypnea, KURTIS, influenza diagnosis with weakness and history of several chronic medical conditions it felt best for hospital medicine to evaluate and admit for further cares. CODE STATUS: FULL CODE EMERGENCY CONTACT PLAN: Gordon Khan? Son?Rel to Pat? [phone]?Cell Phone I've updated the PFSH, medications and allergies in the Expanse tabs. INVESTIGATIONS: LABS/MICRO/ECG/IMAGING -I reviewed shoulder, elbow, chest xray and cspine CT done in the ED -I reviewed labs and ordered new labs: lactate, A1C, magnesium, procalcitonin, and GGT -continued tamiflu and ordered bolus and updated Echo labs thus far: No elevation is white blood cell count. His hemoglobin is stable. Blood gas 7.29, lactate normal CO2 is normal at 50, glucose 212 Troponin 0.02 BNP previously was 250 and is now 3100 Sodium is little low at 132. His bicarb is 19. His creatinine is 1.8 with a BUN of 28. -positive influenza a CT Chest w/o contrast (KURTIS) - today Impression: Slightly suboptimal examination secondary to motion artifact. Possible scattered areas of centrilobular nodularity in the posterior right upper lobe and mild bronchial wall thickening. Findings may represent airways infection or inflammation. 08/15/22 Final Impressions: 1. Normal left ventricular size, mildly increased wall thickness, normal global systolic function, calculated EF of 55 %. 2. The mitral valve is normal, mild to moderate mitral regurgitation. 3. The ascending aorta is normal for age/sex/bsa with a maximal diameter of 4.0 cm. REVIEW OF SYSTEMS: 12-point ROS completed with patient and negative unless otherwise stated in HPI or below. PHYSICAL EXAM: CONSTITUTIONAL: [place], disshelved, looks older than stated age, mild tachypnea noted without overt resp distress VITAL SIGNS: see record. HEENT: Normocephalic, atraumatic. PERRL, EOMI, conjunctivae pink, no scleral ict erus. Ears and nose externally normal. Pharynx normal. NECK: No JVD. No carotid bruit, no thyromegaly, no adenopathy. CHEST: Clear to auscultation bilaterally HEART: S1 and S2 normal. No harsh murmurs. Edema MUSCULOSKELETAL: No gross joint deformity or swelling. NEURO: Cranial nerves intact. Grossly intact. No asymmetric findings. SKIN: No rashes, petechiae, concerning changes PSYCHIATRIC: Euthymic. ADMIT TO MEDSURG: FLOOR CARE DVT: Lovenox GI: PO intake Time spent: Today I spent 75 minutes seeing the patient, discussing the patient with ER staff, reviewing Expanse and EPIC notes/diagnostics, discussing the care plan with our care time that includes social work, PT/OT, pharmacy, RT, penitentiary and documenting my impressions and plan in the medical record. coronary artery disease and non STEMI, COPD, congestive heart failure, diabetes mellitus type 2, history of TIA and stroke, and aortic dilatation [facility] Medical History (Updated 01/13/24 @ 13:02 by Petrona Rogers MD) Heart failure with preserved ejection fraction ?I50.30 - Unspecified diastolic (congestive) heart failure (ICD-10) H/O medication noncompliance ?Z91.14 - Patient's other noncompliance with medication regimen (ICD-10) Ascending aorta dilation ?I77.810 - Thoracic aortic ectasia (ICD-10) Essential hypertension ?I10 - Essential (primary) hypertension (ICD-10) Vertigo ?R42 - Dizziness and giddiness (ICD-10) CVA (cerebral vascular accident) ?I63.9 - Cerebral infarction, unspecified (ICD-10) Syncope ?R55 - Syncope and collapse (ICD-10) GREGORIO (obstructive sleep apnea) ?G47.33 - Obstructive sleep apnea (adult) (pediatric) (ICD-10) Mixed hyperlipidemia ?E78.2 - Mixed hyperlipidemia (ICD-10) Meniere disease ?H81.09 - Meniere's disease, unspecified ear (ICD-10) Gastric ulcer ?K25.9 - Gastric ulcer, unspecified as acute or chronic, without hemorrhage or perforation (ICD-10) H/O TIA (transient ischemic attack) and stroke ?Z86.73 - Personal history of transient ischemic attack (TIA), and cerebral infarction without residual deficits (ICD-10) Type 2 diabetes mellitus ?E11.9 - Type 2 diabetes mellitus without complications (ICD-10) CAD (coronary artery disease) ?I25.10 - Atherosclerotic heart disease of [place] coronary artery without angina pectoris (ICD-10) Surgical History (Updated 01/13/24 @ 12:54 by Petrona Rogers MD) History of esophagogastroduodenoscopy ?Z98.890 - Other specified postprocedural states (ICD-10) History of mastoidectomy ?Z90.89 - Acquired absence of other organs (ICD-10) S/P CABG x 3 ?Z95.1 - Presence of aortocoronary bypass graft (ICD-10) Social History Smoking Status: Former smoker Do you use any of these nicotine containing products: None Second hand tobacco smoke exposure: No How often do you have a drink containing alcohol: never How often do you have six or more drinks on one occasion: Never AUDIT-C Alcohol total score: 0 Non-prescribed substance use: denies use Caffeine: Yes (1 cup of coffee/day) service: No Meds Home Medications and Allergies Home Medications Medication Instructions Recorded Confirmed Type albuterol sulfate 90 mcg/actuation 2 puff inhalation Q4H PRN 06/04/22 01/13/24 History aerosol inhaler glipizide 5 mg tablet 5 - 10 mg PO BID 06/04/22 01/13/24 History meclizine 25 mg tablet 25 mg PO TID PRN 06/04/22 01/13/24 History metformin 1,000 mg tablet 1,000 mg PO BID 06/04/22 01/13/24 History atorvastatin 80 mg tablet 80 mg PO HS 08/30/22 01/13/24 History lisinopril 2.5 mg tablet 2.5 mg PO DAILY 01/13/24 01/13/24 History mirtazapine 7.5 mg tablet 7.5 mg PO HS 01/13/24 01/13/24 History Allergies Allergy/AdvReac Type Severity Reaction Status Date / Time gadodiamide Allergy Unknown Verified 08/29/22 23:22 diagnostic x-ray materials Allergy Unknown Uncoded 08/14/22 21:01 Exam Const: Vital Signs, click to edit/add: Vital Signs - 24 hr 01/13/24 06:44 01/13/24 08:07 01/13/24 08:08 Temperature 97.5 F L Pulse Rate 89 87 Pulse Rate [Left P ulse Oximeter] 100 Respiratory Rate 24 22 Blood Pressure 112/59 L Blood Pressure [Ri ght Upper Arm] 100/82 Pulse Oximetry 94 93 90 Oxygen Delivery Me thod Room Air 01/13/24 08:15 01/13/24 08:35 01/13/24 08:35 Temperature 97.4 F L Pulse Rate 82 90 Pulse Rate [Left P ulse Oximeter] Respiratory Rate Blood Pressure Blood Pressure [Ri ght Upper Arm] Pulse Oximetry 90 89 Oxygen Delivery Me thod 01/13/24 08:45 01/13/24 09:00 01/13/24 09:02 Temperature Pulse Rate 87 84 86 Pulse Rate [Left P ulse Oximeter] Respiratory Rate 22 Blood Pressure 113/58 L Blood Pressure [Ri ght Upper Arm] Pulse Oximetry 89 90 [facility] 01[facility] 09:15 01/13/24 09:30 01/13/24 09:32 Temperature Pulse Rate 89 88 90 Pulse Rate [Left P ulse Oximeter] Respiratory Rate Blood Pressure 94/53 L Blood Pressure [Ri ght Upper Arm] Pulse Oximetry 92 93 92 [facility] 01/13/24 09:45 01/13/24 10:00 01/13/24 10:04 Temperature 97.7 F Pulse Rate 89 91 95 Pulse Rate [Left P ulse Oximeter] Respiratory Rate Blood Pressure 124/63 Blood Pressure [Ri ght Upper Arm] Pulse Oximetry 92 91 92 [facility] 01/13/24 10:05 01/13/24 10:12 01/13/24 10:14 Temperature Pulse Rate 92 90 94 Pulse Rate [Left P ulse Oximeter] Respiratory Rate Blood Pressure 95/58 L 94/56 L Blood Pressure [Ri ght Upper Arm] Pulse Oximetry 93 93 93 [facility] 01/13/24 10:15 01/13/24 10:16 01/13/24 10:18 Temperature Pulse Rate 89 93 91 Pulse Rate [Left P ulse Oximeter] Respiratory Rate Blood Pressure 90/53 L 117/62 Blood Pressure [Ri ght Upper Arm] Pulse Oximetry 93 90 92 [facility] 01/13/24 10:19 01/13/24 10:22 Temperature 97.7 F Pulse Rate 89 91 Pulse Rate [Left P ulse Oximeter] Respiratory Rate 22 Blood Pressure 123/57 L 127/84 Blood Pressure [Ri ght Upper Arm] Pulse Oximetry 93 94 Oxygen Delivery [facility] Hospitalist - H&P: Result Labs Labs: Short CBC 01/13/24 Range/Units 06:50 WBC 8.74 (4.50-11.00) K/uL Hgb 11.4 L (13.5-17.5) gm/dL Hct 35.8 L (37.0-53.0) % Plt Count 206 (140-440) K/uL BMP 01/13/24 06:50 Sodium 132 L Potassium 4.4 Chloride 101 Carbon Dioxide 19 L BUN 28 Creatinine 1.8 H Glucose 212 H Calcium 8.7 Liver Function 02/28/24 Range/Units 06:50 Total Bilirubin 0.6 (0.1-1.5) mg/dL AST 50 H (12-35) U/L ALT 32 (4-50) U/L Alkaline Phosphatase 170 H (40-150) U/L Albumin 4.1 (3.3-5.0) g/dL Urine 01/13/24 Range/Units 07:01 Urine Color Yellow (Yellow) Urine Appearance Slightly Cloudy A (Clear) Urine pH 5.5 (5.0-8.5) Ur Specific [place] 1.025 (1.000-1.030) Urine Protein 2+ A (Negative) Urine Glucose (UA) Trace A (Negative) Assessment and Plan Assessment and plan (1) Influenza A: Problem comment: tamiflu started 01/13 with first dose in the ED on room air upon arrival to the floor - mildly tachypneic but otherwise stable Status: Acute (2) Acute exacerbation of chronic obstructive pulmonary disease: Problem comment: steroids in the ED, IV solumederol RT evaluated: Aerobika and nebs oxygen initially administered in the ED - weaned to room air Status: Acute (3) Metabolic acidosis: Status: Acute (4) KURTIS (acute kidney injury): Status: Acute (5) Hyponatremia: Status: Acute (6) Cognitive decline: Status: Acute (7) Fall: Problem comment: DOI 01/13 - bumped and bruised. CT reviewed. -family tried to get him up, needed EMS - brought in for eval Status: Acute (8) CAD (coronary artery disease): Problem comment: NSTEMI August 2022, status post 3-vessel CABG with a MICHEL to the LAD, SVG to RCA, and SVG to OM. Status: Acute (9) Type 2 diabetes mellitus: Problem comment: orals on hold; SSI Status: Acute (10) Vertigo: Problem comment: OT to see continue meclizine prn Status: Acute (11) Essential hypertension: Problem comment: lisinopril, torsemide Status: Acute (12) CHF (congestive heart failure): Problem comment: 2021 3V CABG BNP elevated from previous rec'd lasix IV in the ED but has KURTIS fluid bolus with concern for inducing pulmonary edema concern noted echo will be updated troponin neg ECG reviewed Status: Acute
[2024-01-13 11:57] LABS: Lactate* 1.9 mmol/L (0.5-1.9)
[2024-01-13 12:14] LABS: Gamma Glutamyl Transpeptidase* 26 U/L (8-55)
--- NOTE | 2024-01-13 12:18 | RESP.RT ---
Patient admitted with influenza. Per patient he takes Albuterol inhaler at home as needed. Coarse breathsounds throughout. Patient with shortness of breath at rest however does not feel short of breath. States this is how I usually am. RR 24, Spo2 95 % on room air, HR 90. Discussed assessment with .
[2024-01-13 12:27] LABS: Troponin I* 0.02 ng/mL (0.01-0.04)
[2024-01-13 12:31] LABS: Procalcitonin* 0.24 ng/mL (<0.50)
[2024-01-13 13:22] LABS: Hemoglobin A1C* 8.1 % (0-5.6)
[2024-01-13] MEDS: 0.9 % SODIUM CHLORIDE 1000 ml 1,000 ML 500 ML IV (13:55)
[2024-01-13] MEDS: IPRAT-ALBUT 0.5-2.5 MG/3 ML NEB 1 NEB IH ×2 (14:31→17:47)
[2024-01-13] MEDS: METHYLPREDNISOLONE SOD SUCC 40 MG/ML IVP (16:07)
[2024-01-13] MEDS: INSULIN ASPART 100 UNIT/ML SUBCUT ×2 (16:40→21:04)
[2024-01-13 17:16] LABS: HCO3 VBG 21 mmol/L (21-28); PCO2 VBG 41 mmHG (40-50); pH VBG 7.314 (7.32-7.43)
[2024-01-13] MEDS: INSULIN ASPART 100 UNIT/ML 10 UNIT SUBCUT (18:01)
[2024-01-13] MEDS: ATORVASTATIN CALCIUM 40 MG TABLET 80 MG PO (20:50)
[2024-01-13] MEDS: MIRTAZAPINE 15 MG TABLET 7.5 MG PO (20:51)
[2024-01-13] MEDS: ENOXAPARIN 40 MG/0.4 ML INJ SUBCUT (20:51)
[2024-01-13] MEDS: SODIUM CHLORIDE 0.9 % (FLUSH) 10 ML SYRINGE 5 ML IVF (20:53)
[2024-01-13] MEDS: BUDESONIDE 0.5 MG/2ML NEB NEB (20:57)
[2024-01-14] VITALS (10 sets, daily range): BP systolic 95–149; BP diastolic 60–87; PULSE 91–126; RESP 20; TEMP 36.3–36.4; O2SAT 92–97; BMI 41.5
--- NOTE | 2024-01-14 03:24 | PC.NURSE ---
Pt sleeping well. VSS He is up with SBA of 1, gait belt and walker. When fast asleep his O2 sats dropped to 86% on RA. When awake he has been 93% on RA. He stayed at 86% for about 5 min so oxygen put on at .5L NC and has been 95%
[2024-01-14 06:13] LABS: HCO3 VBG 22 mmol/L (21-28); PCO2 VBG 45 mmHG (40-50); PO2 VBG 52.8 mmHG (25-47); pH VBG 7.291 (7.32-7.43)
[2024-01-14 06:18] LABS: Hematocrit 34.8 % (37.0-53.0); Hemoglobin* 11.2 gm/dL (13.5-17.5); Mean Corpuscular HGB Conc 32 gm/dL (32-36); Mean Corpuscular Hemoglobin 30 pg (26-34); Mean Corpuscular Volume 93 fL (80-100); Platelet Count* 195 K/uL (140-440); Red Blood Count 3.75 m/uL (4.30-5.90); White Blood Count* 9.79 K/uL (4.50-11.00)
[2024-01-14 06:21] LABS: Slide Review Reflex No
[2024-01-14 06:36] LABS: Albumin* 3.7 g/dL (3.3-5.0); Chloride* 100 mmol/L (96-114); Sodium* 129 mmol/L (135-149)
[2024-01-14 06:37] LABS: Potassium* 4.3 mmol/L (3.6-5.1)
[2024-01-14 06:38] LABS: Creatinine* 1.8 mg/dL (0.5-1.5); Estimated Glomerular Filt Rate 41 ml/min
[2024-01-14 06:39] LABS: Alanine Aminotransferase* 36 U/L (4-50); Alkaline Phosphatase* 143 U/L (40-150); Anion Gap 11 mEq/L (7-15); Aspartate Amino Transferase* 68 U/L (12-35); Bilirubin Total* 0.4 mg/dL (0.1-1.5); Blood Urea Nitrogen* 45 mg/dL (7-30); Carbon Dioxide* 18 mmol/L (20-32); Total Protein* 6.9 g/dL (6.0-8.3)
[2024-01-14 06:40] LABS: Calcium* 8.2 mg/dL (8.4-10.6)
[2024-01-14 06:42] LABS: C Reactive Protein* 3.2 mg/dL (0.5-1.0)
[2024-01-14] MEDS: IPRAT-ALBUT 0.5-2.5 MG/3 ML NEB 1 NEB IH ×4 (06:45→17:43)
[2024-01-14 06:50] LABS: Troponin I* 0.02 ng/mL (0.01-0.04)
[2024-01-14 07:01] LABS: Glucose* 414 mg/dL (60-115); NT Pro B Type NatriureticPept* 2370 pg/mL
[2024-01-14 07:45] LABS: Creatine Kinase* 890 U/L (54-186)
[2024-01-14] MEDS: INSULIN ASPART 100 UNIT/ML SUBCUT ×4 (08:07→20:54)
[2024-01-14] MEDS: lisinopriL 5 MG TABLET 2.5 MG PO (08:08)
[2024-01-14] MEDS: POTASSIUM CHLORIDE 10 MEQ CAPSULE ER PO (08:08)
[2024-01-14] MEDS: glipiZIDE 5 MG TABLET 10 MG PO (08:08)
[2024-01-14] MEDS: ASPIRIN 81 MG TABLET EC PO (08:08)
[2024-01-14] MEDS: predniSONE 20 MG TABLET 40 MG PO (08:08)
[2024-01-14] MEDS: OSELTAMIVIR PHOSPHATE 75 MG CAPSULE PO (08:09)
[2024-01-14] MEDS: TORSEMIDE 20 MG TABLET PO (08:09)
[2024-01-14] MEDS: DOXYCYCLINE HYCLATE 100 MG PO ×2 (11:01→20:40)
[2024-01-14] MEDS: BUDESONIDE 0.5 MG/2ML NEB NEB ×2 (11:02→20:40)
[2024-01-14] MEDS: SODIUM CHLORIDE 0.9 % (FLUSH) 10 ML SYRINGE 5 ML IVF ×2 (11:02→20:41)
--- NOTE | 2024-01-14 11:14 | P.IMPN_ITS ---
Progress Note: A&P Assessment and plan (1) Influenza A: Problem details: tamiflu started 01/13 with first dose in the ED on room air, resp distress improved Status: Acute (2) Acute exacerbation of chronic obstructive pulmonary disease: Problem details: steroids in the ED, IV solumederol (transition to oral ) RT evaluated: Aerobika and nebs oxygen initially administered in the ED - weaned to room air procalcitonin and crp trending up; added oral doxycycline Status: Acute (3) Metabolic acidosis: Problem details: mild CKD Status: Acute (4) KURTIS (acute kidney injury): Problem details: may be progressive CKD. 1.6 --> 1.8 Status: Acute (5) Hyponatremia: Problem details: 132 --> 129 1800 cc fluid restriction salt tabs Status: Acute (6) Cognitive decline: Problem details: on MOCA Status: Acute (7) Fall: Problem details: DOI 01/13 - bumped and bruised. CT reviewed. -family tried to get him up, needed EMS - brought in for eval Status: Acute (8) CAD (coronary artery disease): Problem details: NSTEMI August 2022, status post 3-vessel CABG with a MICHEL to the LAD, SVG to RCA, and SVG to OM. Status: Acute (9) Type 2 diabetes mellitus: Problem details: orals on hold; SSI Status: Acute (10) Vertigo: Problem details: OT to see continue meclizine prn Status: Acute (11) Essential hypertension: Problem details: lisinopril, torsemide Status: Acute (12) CHF (congestive heart failure): Problem details: 2021 3V CABG BNP elevated from previous increased daily torsemide 10mg --> 20mg echo will be updated troponin neg ECG reviewed Status: Acute (13) Hyperglycemia: Problem details: held metformin due to metabolic acidosis, restarted glucotrol SSI likely from IV steroids Status: Acute Subjective Date Seen: 01/14/24 Interval history: Daily Progress Note - Hospital Medicine Day #: 2 CC: Influenza A, COPD/CHF mild excerbations, fall without injury, dementia OVERNIGHT UPDATES FROM STAFF & MED, LAB, IMAGING UPDATES -stable night -remains on room air - dips to 88% when he is sleeping -no fever -eating well Objective: disshelved. no resp distress. tachypnea looks improved. Vitals: see above Lungs: scattered rhonchi. Cardiac: S1S2. Disposition/Potential discharge - Likely to return to previous living situation. Today I spent 50minutes seeing the patient, reviewing Expanse and EPIC notes/diagnostics, discussing the care plan with our care time that includes social work, PT/OT, pharmacy, RT, long term and documenting my impressions and plan in the medical record. Exam Const: Vital Signs, click to edit/add: Vital Signs - 24 hr 01/13/24 11:36 01/13/24 11:36 01/13/24 11:36 Temperature 99.5 F Pulse Rate Pulse Rate [Right Radial] 92 Respiratory Rate 20 20 Blood Pressure [Ri ght Arm] 132/61 Pulse Oximetry 93 93 93 Oxygen Delivery Me thod Room Air Room Air 01/13/24 12:01 01/13/24 12:08 01/13/24 15:00 Temperature 99.5 F Pulse Rate 95 Pulse Rate [Right Radial] 90 Respiratory Rate 20 Blood Pressure [Ri ght Arm] 131/58 L Pulse Oximetry 93 Oxygen Delivery Me thod Room Air Room Air 01/13/24 15:00 01/13/24 16:05 01/13/24 23:21 Temperature Pulse Rate 88 88 Pulse Rate [Right Radial] 90 Respiratory Rate 20 Blood Pressure [Ri ght Arm] Pulse Oximetry Oxygen Delivery Me thod 01/14/24 00:03 01/14/24 03:00 01/14/24 07:00 Temperature 97.6 F 97.6 F 97.3 F L Pulse Rate Pulse Rate [Right Radial] 91 97 111 H Respiratory Rate 20 20 20 Blood Pressure [Ri ght Arm] 117/66 126/67 95/70 Pulse Oximetry 93 97 93 Oxygen Delivery Me thod Room Air Room Air Room Air Labs Labs: Laboratory Results - last 24 hr 01/13/24 01/13/24 01/13/24 06:50 10:28 11:49 WBC RBC Hgb Hct MCV MCH MCHC Plt Count VBG pH VBG pCO2 VBG pO2 VBG HCO3 Sodium Potassium Chloride Carbon Dioxide Anion Gap BUN Creatinine Estimated GFR Glucose Hemoglobin A1c 8.1 H Lactate 1.9 Calcium Total Bilirubin GGT 26 AST ALT Alkaline Phosphatase Total Creatine Kinase 890 H Troponin I 0.02 C-Reactive Protein NT-Pro-B Natriuret Pep Total Protein Albumin Procalcitonin 0.24 Lab Acknowledgement Test Added 01/13/24 01/14/24 01/14/24 17:00 05:53 07:20 WBC 9.79 RBC 3.75 L Hgb 11.2 L Hct 34.8 L MCV 93 MCH 30 MCHC 32 Plt Count 195 VBG pH 7.314 L 7.291 L VBG pCO2 41 45 VBG pO2 48.0 H 52.8 H VBG HCO3 21 22 Sodium 129 L Potassium 4.3 Chloride 100 Carbon Dioxide 18 L Anion Gap 11 BUN 45 H Creatinine 1.8 H Estimated GFR 41 Glucose 414 H* Hemoglobin A1c Lactate Calcium 8.2 L Total Bilirubin 0.4 GGT AST 68 H ALT 36 Alkaline Phosphatase 143 Total Creatine Kinase Troponin I 0.02 C-Reactive Protein 3.2 H NT-Pro-B Natriuret Pep 2370 Total Protein 6.9 Albumin 3.7 Procalcitonin 0.60 H Lab Acknowledgement Test Added
--- NOTE | 2024-01-14 16:48 | PC.SOCIAL ---
Addendum entered by TAINA Preston 01/14/24 17:06: Phone call to pt's [id number] April Khan and provided update on home care per pt's request. Addendum entered by TAINA Preston 01/14/24 17:02: Provided update to pt on home care. Pt will be at home and confirms the dates/times for home care work for him. Original Note: Discharge planning- Per MD, pt will likely discharge tomorrow. Per therapy, pt will need home care for PT and OT. Contacted Fariba at [facility]. [facility] can admit pt for services with nurse Mary Ann at 9:00 am on Thursday (01/18/24), Physical therapy (Kari) will go to home on Thursday (01/17) at 1:00 pm, and OT worker Alia will go to pt's home next Thursday (time is TBD). Completed face to face for home care orders and secure e-mailed to Theresa at [facility]. Provided update to charge nurse. Social work will follow up as needed.
[2024-01-14] MEDS: SODIUM CHLORIDE 1 GM TABLET PO ×2 (17:41→18:54)
[2024-01-14] MEDS: glipiZIDE 5 MG TABLET PO (17:42)
--- NOTE | 2024-01-14 20:33 | PC.NURSE ---
End of shift [id number] - Pt alert, oriented to self, place, situation. Frequently asked to orient to time during shift. Pt continent of bowel and bladder, up to bathroom with standby assistance and walker. Tolerating RA, regular diet, fluids. Pt blood glucose reading consistently high during shift, MD made aware. Orders given per JAN. Pt denies pain, SOB, dizziness during shift, however pt did have episode of dizziness at end of shift. Blood glucose reading taken, orders given. Pt appears to be resting at end of shift.
[2024-01-14] MEDS: ATORVASTATIN CALCIUM 40 MG TABLET 80 MG PO (20:39)
[2024-01-14] MEDS: ENOXAPARIN 40 MG/0.4 ML INJ SUBCUT (20:40)
[2024-01-14] MEDS: OSELTAMIVIR 30 MG CAPSULE PO (20:41)
[2024-01-14] MEDS: MIRTAZAPINE 15 MG TABLET 7.5 MG PO (20:42)
[2024-01-14] MEDS: INSULIN ASPART 100 UNIT/ML 10 UNIT SUBCUT (20:53)
--- NOTE | 2024-01-14 21:46 | PC.NURSE ---
EKG completed at approximately 1945 per order given MD Jensen due to tachycardia of 147 noted with movement and blood glucose of 590. EKG results given to MD Jensen for review.
[2024-01-14] MEDS: 0.9 % SODIUM CHLORIDE 250 ml 250 ML IV (22:17)
[2024-01-14] MEDS: INSULIN ASPART 100 UNIT/ML 6 UNIT SUBCUT (23:25)
[2024-01-15] VITALS (8 sets, daily range): BP systolic 98–159; BP diastolic 58–68; PULSE 91–126; RESP 20; TEMP 36.4–37.2; O2SAT 94–98
[2024-01-15] MEDS: IPRAT-ALBUT 0.5-2.5 MG/3 ML NEB 1 NEB IH ×5 (00:07→23:50)
[2024-01-15] MEDS: MECLIZINE HCL 25 MG TABLET PO (03:43)
--- NOTE | 2024-01-15 06:37 | PC.NURSE ---
End of shift note [id number]: Pt noted to be alert & oriented x 4 and able to make needs known though does have signs of cognitive impairment. He has been continent of bowel and bladder. Pt afebrile throughout the shift. Pt has been noted to be tachycardic throughout the shift which was also noted by day shift RN yesterday. MD Jensen updated of pt?s tachycardia of 126 noted at start of shift and EKG was completed per order. Pt on tele with sinus arrhythmia with tachycardia noted. Pt noted to be hyperglycemic throughout the shift with blood glucose readings of 590 and 529 with Novolog insulin given per SS order and orders given by MD Jensen after being updated regarding pt?s elevated blood sugar readings. Blood glucose of 368 noted at 0237. Pt has?been denying symptoms of hyperglycemia noted when asked. IV to L AC patent and SL. Pt wears 0.5 liter oxygen at NOC due to hx of GREGORIO. Pt MODOC at baseline and wears bilateral hearing aids. Pt transfers/ambulates in room with SBA using 4WW though technical document writer noted pt to have gotten up out of bed?without putting call light on or using walker at approximately 0345. Change Lead noted pt to be in his bathroom trying to fill his water pitcher up. Change Lead provided reeducation of the importance of adhering to current [address]. Pt was accepting of reeducation though has needed reminders several times throughout the shift as to the fluid restriction in place as well as why it has been ordered. Bed alarm initiated after technical document writer noted pt to have self-transferred to bathroom without using his walker. Pt noted to have shortness of breath with exertion and is currently on continuous pulse ox monitoring.
[2024-01-15 06:56] LABS: HCO3 VBG 22 mmol/L (21-28); PCO2 VBG 44 mmHG (40-50); PO2 VBG 46.1 mmHG (25-47); pH VBG 7.307 (7.32-7.43)
[2024-01-15 07:31] LABS: Chloride* 99 mmol/L (96-114); Sodium* 128 mmol/L (135-149)
[2024-01-15 07:32] LABS: Potassium* 4.1 mmol/L (3.6-5.1)
--- NOTE | 2024-01-15 07:32 | PC.NURSE ---
Pt refused to wash up and change clothes last evening despite staff encouragement and reapproaching.
[2024-01-15 07:34] LABS: Creatinine* 2.1 mg/dL (0.5-1.5); Estimated Glomerular Filt Rate 34 ml/min
[2024-01-15 07:35] LABS: Anion Gap 12 mEq/L (7-15); Blood Urea Nitrogen* 57 mg/dL (7-30); Carbon Dioxide* 17 mmol/L (20-32); Glucose* 318 mg/dL (60-115)
[2024-01-15 07:36] LABS: Calcium* 8.2 mg/dL (8.4-10.6)
[2024-01-15 07:38] LABS: C Reactive Protein* 1.2 mg/dL (0.5-1.0)
[2024-01-15 07:49] LABS: Procalcitonin* 0.63 ng/mL (<0.50)
--- NOTE | 2024-01-15 08:18 | PM.IMPN1 ---
Progress Note: A&P Assessment and plan (1) Influenza A: Problem details: tamiflu started 01/13 (5 day regimen) with first dose in the ED on room air, resp distress improved Status: Acute (2) Acute exacerbation of chronic obstructive pulmonary disease: Problem details: steroids in the ED, IV solumederol (transition to oral - holding all steroids 01/14 --> BS 600) RT evaluated: Aerobika and nebs oxygen initially administered in the ED - weaned to room air procalcitonin and crp trending up; added oral doxycycline Status: Acute (3) Sinus tachycardia: Problem details: starting on HR>100 consistently EKG sinus no chest pain/SOB that is new KURTIS/CKD precludes CTA 01/14 = increasing lovenox to treatment dosing and getting b/l LE u/s (neg) IV metoprolol Status: Acute (4) Hyperglycemia: Problem details: held metformin due to metabolic acidosis restarted 01/14, restarted glucotrol SSI likely from IV steroids Status: Acute (5) KURTIS (acute kidney injury): Problem details: may be progressive CKD. 1.6 --> 1.8 --> 2.1 Status: Acute (6) Metabolic acidosis: Problem details: mild CKD Status: Acute (7) Cognitive decline: Problem details: on MOCA Status: Acute (8) Fall: Problem details: DOI 01/13 - bumped and bruised. CT reviewed. -family tried to get him up, needed EMS - brought in for eval Status: Acute (9) CAD (coronary artery disease): Problem details: NSTEMI August 2022, status post 3-vessel CABG with a MICHEL to the LAD, SVG to RCA, and SVG to OM. Status: Acute (10) Type 2 diabetes mellitus: Problem details: restarted home orals held prednisone 01/14 hyperglycemic response extreme to 600 with steroids for COPD Status: Acute (11) Vertigo: Problem details: OT to see continue meclizine prn Status: Acute (12) Essential hypertension: Problem details: lisinopril, torsemide Status: Acute (13) Hyponatremia: Problem details: 132 --> 129 --> 128. corrects to 133. all pseudo given hyperglycemia Status: Acute (14) CHF (congestive heart failure): Problem details: 2022 3V CABG BNP elevated from previous increased daily torsemide 10mg --> 20mg --> given KURTIS, back to 10mg on 01/15 echo will be updated troponin neg ECG reviewed Status: Acute Subjective Date Seen: 01/15/24 Interval history: Daily Progress Note - Hospital Medicine #: 3 CC: Influenza A, COPD/CHF mild excerbations, fall without injury, dementia OVERNIGHT UPDATES FROM STAFF & MED, LAB, IMAGING UPDATES -more sinus tachycardia noted in the last 24 hours - EKG = sinus -creat in climbing -procal is climbing -BS have been high (12/18 solu-medrol and prednisone, holding orals ...) -dizzy spell overnight Objective: disshelved. no resp distress. tachypnea looks improved. Vitals: see above Lungs: scattered rhonchi. Cardiac: S1S2. Disposition/Potential discharge - Likely to return to previous living situation vs TCU Today I spent 50minutes seeing the patient, reviewing Expanse and EPIC notes/diagnostics, discussing the care plan with our care time that includes social work, PT/OT, pharmacy, RT, shelter and documenting my impressions and plan in the medical record. Exam Const: Vital Signs, click to edit/add: Vital Signs - 24 hr 01/14/24 11:00 01/14/24 11:43 01/14/24 15:00 Temperature 97.4 F L Pulse Rate Pulse Rate [Pulse Oximeter] 118 H Pulse Rate [Right Radial] 105 H Respiratory Rate 20 Blood Pressure [Ri ght Arm] 132/80 Pulse Oximetry 95 95 Oxygen Delivery Me thod Room Air Oxygen Flow Rate 01/14/24 15:00 01/14/24 19:38 01/14/24 22:58 Temperature 97.6 F 97.3 F L Pulse Rate 122 H Pulse Rate [Pulse Oximeter] Pulse Rate [Right Radial] 126 H 114 H Respiratory Rate 20 20 Blood Pressure [Ri ght Arm] 111/60 149/87 H Pulse Oximetry 92 96 Oxygen Delivery Me thod Room Air Room Air Oxygen Flow Rate 01/14/24 23:00 01/14/24 23:07 01/15/24 02:42 Temperature 98.1 F Pulse Rate 113 H Pulse Rate [Pulse Oximeter] 109 H Pulse Rate [Right Radial] 114 H Respiratory Rate 20 20 Blood Pressure [Ri ght Arm] 127/68 Pulse Oximetry 94 Oxygen Delivery Me thod Nasal Cannula Oxygen Flow Rate 0.5 Labs Labs: Laboratory Results - last 24 hr 01/15/24 06:02 VBG pH 7.307 L VBG pCO2 44 VBG pO2 46.1 VBG HCO3 22 Sodium 128 L Potassium 4.1 Chloride 99 Carbon Dioxide 17 L Anion Gap 12 BUN 57 H Creatinine 2.1 H Estimated GFR 34 Glucose 318 H Calcium 8.2 L C-Reactive Protein 1.2 H Procalcitonin 0.63 H
[2024-01-15] MEDS: INSULIN ASPART 100 UNIT/ML SUBCUT ×4 (08:43→21:25)
[2024-01-15] MEDS: TORSEMIDE 20 MG TABLET PO (08:44)
[2024-01-15] MEDS: glipiZIDE 5 MG TABLET 10 MG PO (08:44)
[2024-01-15] MEDS: POTASSIUM CHLORIDE 10 MEQ CAPSULE ER PO (08:44)
[2024-01-15] MEDS: DOXYCYCLINE HYCLATE 100 MG PO ×2 (08:44→21:18)
[2024-01-15] MEDS: lisinopriL 5 MG TABLET 2.5 MG PO (08:45)
[2024-01-15] MEDS: ASPIRIN 81 MG TABLET EC PO (08:45)
[2024-01-15] MEDS: SODIUM CHLORIDE 0.9 % (FLUSH) 10 ML SYRINGE 5 ML IVF ×2 (08:45→21:20)
[2024-01-15] MEDS: METFORMIN 1,000 MG TABLET 1000 MG PO ×2 (08:45→17:41)
[2024-01-15] MEDS: OSELTAMIVIR 30 MG CAPSULE PO ×2 (08:45→21:20)
[2024-01-15] MEDS: SODIUM CHLORIDE 1 GM TABLET PO ×3 (08:45→17:42)
[2024-01-15] MEDS: ENOXAPARIN 100 MG/ML INJ SUBCUT ×2 (08:50→21:18)
[2024-01-15] MEDS: BUDESONIDE 0.5 MG/2ML NEB NEB ×2 (08:50→21:21)
--- NOTE | 2024-01-15 09:15 | US_ITS ---
Patient: MELISSA INIGUEZ Facility:?[facility] Patient ID:?[id number] Site Patient ID:?[id number]. Site :?[id number] Study:?US-Extremity Bilateral LEV BILATERAL-01/15/2024 9:44:25 AM Ordering Physician:?DORA HAMMER Final Report: INDICATION: Leg swelling. TECHNIQUE: Ultrasound venous duplex bilateral lower extremity. Compression venous exam was performed using colbert-scale, color Doppler, and spectral Doppler analysis. COMPARISON: None available. FINDINGS: Deep veins: Sonographic imaging demonstrates the bilateral common femoral, deep femoral, superficial femoral, popliteal, posterior tibial and peroneal veins to be fully compressible with normal color Doppler blood flow. Superficial veins: Visualized portions of the greater saphenous veins are fully compressible. IMPRESSION: Normal bilateral lower extremity venous ultrasound, no sign of deep venous thrombosis. Dictated by Anita Escobar MD @ 01/15/2024 9:49:24 AM Signed by:?Anita Escobar MD @01/15/2024 9:49:24 AM (Electronic Signature)
[2024-01-15] MEDS: METOPROLOL TARTRATE 1 MG/ML inj 5 MG IVP (12:40)
[2024-01-15 13:04] LABS: Creatine Kinase* 2142 U/L (54-186)
--- NOTE | 2024-01-15 13:51 | PC.SOCIAL ---
Discharge planning: Physician added home health nursing to home care order for PT and OT. New face to face with these orders was sent to [facility] and confirmed receipt. [facility] plans to open pt to care on Thursday as discharge is expected over the weekend.
[2024-01-15] MEDS: glipiZIDE 5 MG TABLET PO (17:41)
[2024-01-15] MEDS: SODIUM BICARBONATE 650 MG TABLET PO (17:42)
--- NOTE | 2024-01-15 18:43 | PC.NURSE ---
End of Shift: Patient pleasant and cooperative. [place], ambulates to BR using GB and 4 wheeled walker and tolerating well. Patient on RA and sating at 94%. Patient denies N/V/Pain, BG 294, 382, 356 Sliding scale novolog administered. Patient Sinus Tach on Tele. MD aware.
[2024-01-15] MEDS: ATORVASTATIN CALCIUM 40 MG TABLET 80 MG PO (21:18)
[2024-01-15] MEDS: METOPROLOL TARTRATE 25 MG TABLET PO (21:18)
[2024-01-15] MEDS: MIRTAZAPINE 15 MG TABLET 7.5 MG PO (21:19)
[2024-01-16] VITALS (9 sets, daily range): BP systolic 102–155; BP diastolic 53–76; PULSE 76–106; RESP 20; TEMP 36.1–36.9; O2SAT 91–95
[2024-01-16] MEDS: MECLIZINE HCL 25 MG TABLET PO (03:01)
[2024-01-16] MEDS: ALBUTEROL INHALER 2 PUFF IH (03:05)
[2024-01-16] MEDS: ONDANSETRON 2 MG/ML inj 4 MG IVP (03:44)
[2024-01-16] MEDS: SODIUM CHLORIDE 0.9 % (FLUSH) 10 ML SYRINGE 5 ML IVF ×3 (03:44→20:31)
[2024-01-16] MEDS: IPRAT-ALBUT 0.5-2.5 MG/3 ML NEB 1 NEB IH ×4 (05:41→23:43)
--- NOTE | 2024-01-16 06:36 | PC.NURSE ---
End of shift note [id number]: Pt continues to be alert & oriented x 4 though does have signs of dementia noted such as attempting to self-transfer despite education from staff to use call light and wait for assistance. Therefore, bed and chair alarms utilized due to pt fall risk. Pt remains on tele with sinus arrhythmia noted. Heart rate WNL this shift and pt has been afebrile. He continues to transfer with SBA using GB and walker. Pt mostly continent of bladder with occasional urinary incontinence. IV to L AC patent and SL. PRN Albuterol inhaler given for audible wheezing noted after transferring from bathroom to bed this morning. Pt did have one episode of clear emesis after taking HS medications last evening and c/o nausea later on in the shift with both PRN Zofran and Meclizine given. Blood glucose of 268 last evening with no s/s of hyperglycemia noted.
[2024-01-16 06:52] LABS: Hemoglobin* 10.1 gm/dL (13.5-17.5); Mean Corpuscular HGB Conc 33 gm/dL (32-36); Mean Corpuscular Hemoglobin 30 pg (26-34); Mean Corpuscular Volume 91 fL (80-100); Platelet Count* 184 K/uL (140-440); Red Blood Count 3.42 m/uL (4.30-5.90)
[2024-01-16 07:15] LABS: Slide Review Reflex No
[2024-01-16 07:20] LABS: Albumin* 3.3 g/dL (3.3-5.0); Chloride* 96 mmol/L (96-114); Sodium* 127 mmol/L (135-149)
[2024-01-16 07:23] LABS: Alkaline Phosphatase* 133 U/L (40-150); Anion Gap 14 mEq/L (7-15); Aspartate Amino Transferase* 60 U/L (12-35); Bilirubin Total* 0.4 mg/dL (0.1-1.5); Blood Urea Nitrogen* 66 mg/dL (7-30); Carbon Dioxide* 17 mmol/L (20-32); Creatinine* 2.9 mg/dL (0.5-1.5); Estimated Glomerular Filt Rate 23 ml/min; Total Protein* 6.3 g/dL (6.0-8.3)
[2024-01-16 07:24] LABS: Alanine Aminotransferase* 42 U/L (4-50); Calcium* 7.9 mg/dL (8.4-10.6); Glucose* 174 mg/dL (60-115); Phosphorus* 3.4 mg/dL (2.5-4.5)
[2024-01-16 07:26] LABS: C Reactive Protein* 0.9 mg/dL (0.5-1.0)
[2024-01-16 07:35] LABS: Procalcitonin* 0.58 ng/mL (<0.50)
[2024-01-16 08:26] LABS: HCO3 VBG 21 mmol/L (21-28); PCO2 VBG 39 mmHG (40-50); PO2 VBG 30.4 mmHG (25-47); pH VBG 7.344 (7.32-7.43)
[2024-01-16] MEDS: ENOXAPARIN 100 MG/ML INJ SUBCUT (08:42)
[2024-01-16] MEDS: INSULIN ASPART 100 UNIT/ML SUBCUT ×4 (08:43→20:31)
[2024-01-16] MEDS: POTASSIUM CHLORIDE 10 MEQ CAPSULE ER PO (08:44)
[2024-01-16] MEDS: ASPIRIN 81 MG TABLET EC PO (08:44)
[2024-01-16] MEDS: glipiZIDE 5 MG TABLET 10 MG PO (08:44)
[2024-01-16] MEDS: OSELTAMIVIR 30 MG CAPSULE PO ×2 (08:44→20:31)
[2024-01-16] MEDS: METFORMIN 1,000 MG TABLET 500 MG PO ×2 (08:45→17:31)
[2024-01-16] MEDS: SODIUM BICARBONATE 650 MG TABLET PO ×3 (08:45→17:31)
[2024-01-16] MEDS: DOXYCYCLINE HYCLATE 100 MG PO ×2 (08:45→20:29)
[2024-01-16] MEDS: TORSEMIDE 5 MG TABLET 10 MG PO (08:46)
[2024-01-16] MEDS: METOPROLOL TARTRATE 25 MG TABLET PO ×2 (08:51→20:29)
[2024-01-16] MEDS: BUDESONIDE 0.5 MG/2ML NEB NEB ×2 (08:55→20:29)
--- NOTE | 2024-01-16 12:57 | RESP.RT ---
Patient sitting up in chair, appears comfortable, no SOB at this time. On room air, SaO2 95%, BBS with rhonchi inspiratory/expiratory all tatum. Use of IS when encouraged to do so. Patient given extension for MDI with explanation for use. Patient needs re-enforcement for use of extension and IS.
--- NOTE | 2024-01-16 15:49 | P.IMPN_ITS ---
Progress Note: A&P Assessment and plan (1) Influenza A: Problem details: tamiflu started 01/13 (5 day regimen) with first dose in the ED on room air, resp distress improved Status: Acute (2) Acute exacerbation of chronic obstructive pulmonary disease: Problem details: Treated with inhaled bronchodilators and doxycycline. Probably due to influenza. Given Solu-Medrol but this caused severe hyperglycemia so was discontinued. Status: Acute (3) Sinus tachycardia: Problem details: starting on HR>100 consistently EKG sinus no chest pain/SOB that is new Status: Acute (4) Hyperglycemia: Problem details: held metformin due to metabolic acidosis restarted 01/14, restarted glucotrol SSI likely from IV steroids Status: Acute (5) KURTIS (acute kidney injury): Problem details: may be progressive CKD. 1.6 to 2.9. Continue to monitor. Status: Acute (6) Metabolic acidosis: Problem details: mild CKD. sodium bicarb added. Continue to monitor. Status: Acute (7) Cognitive decline: Problem details: on MOCA Status: Acute (8) Fall: Problem details: DOI 01/13 - bumped and bruised. CT reviewed. -family tried to get him up, needed EMS - brought in for eval Status: Acute (9) CAD (coronary artery disease): Problem details: NSTEMI August 2022, status post 3-vessel CABG with a MICHEL to the LAD, SVG to RCA, and SVG to OM. Status: Acute (10) Type 2 diabetes mellitus: Problem details: restarted home orals. Reduce metformin due to renal function. hyperglycemic response extreme to 600 with steroids for COPD Status: Acute (11) Vertigo: Problem details: OT to see continue meclizine prn Status: Acute (12) Essential hypertension: Problem details: lisinopril, torsemide Status: Acute (13) Hyponatremia: Problem details: 132 to 127 . Still abnormal despite correction from hyperglycemia. Sodium bicarb, fluid restriction and monitor. Status: Acute (14) CHF (congestive heart failure): Problem details: 2021 3V CABG BNP elevated from previous Does not appear to be having pulmonary edema. No extra tremor edema of significance either. Resume baseline medications. Status: Acute Time Spent With Patient Total time spent: Total time spent is 60minutes, 40 minutes in coordination care, chart review, discussion with patient other providers ongoing management of multiple problems noted above. Subjective Date Seen: 01/16/24 Interval history: 68-year-old male admitted to the hospital even with the assistance of his daughter in-law and son. He EMS was called to transport the hospital. He was profoundly weak. He was found to have influenza a in the emergency department. Started on treatment with Tamiflu. There is also concern about COPD and CHF exacerbations. He is given systemic corticosteroids but this causes severe hyperglycemia and so this was stopped. Blood sugars have improved since then He was treated with furosemide for possible heart failure. He has over last 2 days qiu maintaining his O2 sats on room air and reports his breathing is close to baseline. He has had a resting sinus tachycardia and he was started on metoprolol for this. This is thought to be a new problem. He is not having any chest pain or fever. He had an echocardiogram which showed heart failure with preserved ejection fraction. He had acute kidney injury with his creatinine going from 1.3 November 25 2023 to 1.8 on admission to 2.9 today. He developed hyponatremia with his sodium going from 136 November 25 2023 to 127 today. He has been on a fluid restriction and just started on sodium chloride and then sodium bicarbonate tablets. Functional evaluation raise concerns about his ability to ambulate independently in his apartment. Initially it was thought that he would not bili do this but he has made some improvement over the last 2 days. His walking well with a walker. He had cognitive evaluation and scored 14/30 on a [place]. He is anxious to go home and with the support and supervision of his son and [id number] this may yet be possible. Exam Narrative: Exam Narrative: He is alert and appears in no distress. He has audible wheezing and rhonchi heard which is suspected to be upper airway. Respirations through an open mouth are relatively clear to auscultation. He has somewhat diminished breath sounds but no marked wheezing or rales or rhonchi. Fair air exchange in all lung f ields. Cardiovascular: S1, S2, regular rate and rhythm. Abdomen: Bowel sounds active. Abdomen is soft without tenderness or mass. Const: Vital Signs, click to edit/add: Vital Signs - 24 hr 01/15/24 19:35 01/15/24 23:00 01/15/24 23:08 Temperature 98.1 F Pulse Rate 91 Pulse Rate [Pulse Oximeter] 98 91 Respiratory Rate 20 20 Blood Pressure [Ri ght Arm] 98/58 L Pulse Oximetry 94 Oxygen Delivery Me thod Room Air 01/15/24 23:47 01/16/24 03:00 01/16/24 07:00 Temperature 97.5 F L 98.0 F Pulse Rate Pulse Rate [Pulse Oximeter] 91 92 106 H Respiratory Rate 20 20 20 Blood Pressure [Ri ght Arm] 120/65 116/62 Pulse Oximetry 97 93 Oxygen Delivery Me thod Room Air Room Air 01/16/24 07:00 01/16/24 07:00 01/16/24 11:00 Temperature 98.5 F Pulse Rate 76 Pulse Rate [Pulse Oximeter] 106 H Respiratory Rate 20 Blood Pressure [Ri ght Arm] 102/53 L Pulse Oximetry 95 95 Oxygen Delivery Me thod Room Air 01/16/24 11:00 01/16/24 12:56 01/16/24 15:00 Temperature 98.1 F Pulse Rate Pulse Rate [Pulse Oximeter] 82 87 Respiratory Rate 20 20 20 Blood Pressure [Ri ght Arm] 108/76 Pulse Oximetry 95 95 Oxygen Delivery Me thod Room Air Room Air 01/16/24 15:00 01/16/24 15:00 Temperature 98.1 F Pulse Rate 92 Pulse Rate [Pulse Oximeter] 87 Respiratory Rate 20 Blood Pressure [Ri ght Arm] 155/69 H Pulse Oximetry 93 Oxygen Delivery Me thod Room Air Documenting provider has reviewed patient's vital signs: yes Labs Labs: Laboratory Results - last 24 hr 01/16/24 01/16/24 05:37 07:53 WBC 7.70 RBC 3.42 L Hgb 10.1 L Hct 31.0 L MCV 91 MCH 30 MCHC 33 Plt Count 184 VBG pH 7.344 VBG pCO2 39 L VBG pO2 30.4 VBG HCO3 21 Sodium 127 L Potassium 4.0 Chloride 96 Carbon Dioxide 17 L Anion Gap 14 BUN 66 H Creatinine 2.9 H Estimated Creat Clear 20.70 Estimated GFR 23 Glucose 174 H Calcium 7.9 L Phosphorus 3.4 Total Bilirubin 0.4 AST 60 H ALT 42 Alkaline Phosphatase 133 C-Reactive Protein 0.9 Total Protein 6.3 Albumin 3.3 Procalcitonin 0.58 H TSH 1.430 Free T4 Cancelled Lab Acknowledgement Test Added
[2024-01-16] MEDS: glipiZIDE 5 MG TABLET PO (17:31)
--- NOTE | 2024-01-16 19:07 | PC.NURSE ---
End of Shift: Patient pleasant and cooperative. [place], ambulates to BR using GB and 4 wheeled walker and tolerating well. Patient on RA and sating at 94%. Patient denies N/V/Pain, Patient Sinus Arrhythmia on Tele. MD aware.
[2024-01-16] MEDS: ATORVASTATIN CALCIUM 40 MG TABLET 80 MG PO (20:29)
[2024-01-16] MEDS: MIRTAZAPINE 15 MG TABLET 7.5 MG PO (20:30)
[2024-01-16] MEDS: ACETAMINOPHEN 325 MG TABLET PO (21:24)
[2024-01-17] VITALS (8 sets, daily range): BP systolic 124–161; BP diastolic 55–79; PULSE 66–99; RESP 20; TEMP 36.4–36.7; O2SAT 92–96
[2024-01-17] MEDS: IPRAT-ALBUT 0.5-2.5 MG/3 ML NEB 1 NEB IH ×4 (05:30→23:41)
--- NOTE | 2024-01-17 06:38 | PC.NURSE ---
End of shift note [id number]: Pt alert & oriented x 4 when assessed last evening though has intermittent forgetfulness at times and needs reminders with safety such as alerting staff when needing to get up to go to the bathroom. He also believed it was evening time when assisted with toileting this morning. He transfers/ambulates with SBA using walker and GB. Pt continues to have intermittent nonproductive cough. Pulse noted to be slightly tachycardic at start of shift though has been WNL remainder of shift. Pt remains on telemetry with NSR noted and he has been afebrile throughout the shift. Pt continent of bladder. IV to L AC patent and SL. PRN Tylenol given this shift for pt c/o ?08/25? R rib pain likely due to coughing and pt having a fall to R side before admission. No further c/o pain noted. O2 0.5 LPM administered via NC when pt sleeping as he has hx of GREGORIO and O2 sat drops as low as mid 80's when sleeping on RA. Pt does take continuous pulse ox sensor off at times and needs staff reminders to leave on. Blood glucose of 288 last evening.
[2024-01-17 06:59] LABS: HCO3 VBG 25 mmol/L (21-28); PCO2 VBG 46 mmHG (40-50); PO2 VBG 37.7 mmHG (25-47); pH VBG 7.334 (7.32-7.43)
[2024-01-17 07:27] LABS: Chloride* 98 mmol/L (96-114); Potassium* 4.6 mmol/L (3.6-5.1); Sodium* 128 mmol/L (135-149)
[2024-01-17 07:30] LABS: Anion Gap 9 mEq/L (7-15); Blood Urea Nitrogen* 70 mg/dL (7-30); Carbon Dioxide* 21 mmol/L (20-32); Creatinine* 2.3 mg/dL (0.5-1.5); Estimated Glomerular Filt Rate 30 ml/min
[2024-01-17 07:31] LABS: Calcium* 8.3 mg/dL (8.4-10.6); Glucose* 184 mg/dL (60-115)
[2024-01-17 07:34] LABS: C Reactive Protein* 1.7 mg/dL (0.5-1.0)
[2024-01-17 07:48] LABS: Procalcitonin* 0.37 ng/mL (<0.50)
[2024-01-17] MEDS: INSULIN ASPART 100 UNIT/ML SUBCUT ×3 (07:56→20:30)
[2024-01-17] MEDS: OSELTAMIVIR 30 MG CAPSULE PO (09:14)
[2024-01-17] MEDS: ASPIRIN 81 MG TABLET EC PO (09:32)
[2024-01-17] MEDS: ENOXAPARIN 100 MG/ML INJ SUBCUT (09:32)
[2024-01-17] MEDS: glipiZIDE 5 MG TABLET 10 MG PO (09:32)
[2024-01-17] MEDS: BUDESONIDE 0.5 MG/2ML NEB NEB ×2 (09:32→19:56)
[2024-01-17] MEDS: METOPROLOL TARTRATE 25 MG TABLET PO ×2 (09:32→20:27)
[2024-01-17] MEDS: DOXYCYCLINE HYCLATE 100 MG PO (09:32)
[2024-01-17] MEDS: METFORMIN 1,000 MG TABLET 500 MG PO ×2 (09:35→17:57)
[2024-01-17] MEDS: POTASSIUM CHLORIDE 10 MEQ CAPSULE ER PO (09:35)
[2024-01-17] MEDS: SODIUM BICARBONATE 650 MG TABLET PO ×2 (09:35→17:57)
[2024-01-17] MEDS: TORSEMIDE 5 MG TABLET 10 MG PO (09:35)
[2024-01-17] MEDS: SODIUM CHLORIDE 0.9 % (FLUSH) 10 ML SYRINGE 5 ML IVF ×2 (09:40→20:28)
--- NOTE | 2024-01-17 12:33 | US_ITS ---
Final Report Patient: MELISSA INIGUEZ Facility:?[facility] Patient ID:?[id number] Site Patient ID:?[id number]. Site :?[id number] Study:?US Abdomen RUQ-01/17/2024 1:56:45 PM Ordering Physician:DORA LOPEZ Final Report: Indication: Postprandial nausea TECHNIQUE: Ultrasound abdomen limited. Sonographic images of the right upper quadrant were obtained using colbert-scale and color Doppler images. Comparison: None FINDINGS: Liver: Mildly heterogeneous echotexture. No masses. No intrahepatic biliary dilatation. Gallbladder: No stones or sludge. Normal wall thickness. No pericholecystic fluid. Common bile duct: 5 mm. Pancreas: Not well visualized. Right kidney: Grossly unremarkable kidney without evidence of hydronephrosis or mass. Aorta: Mildly ectatic infrarenal abdominal aorta measuring up to 3 centimeters. Impression: Mildly heterogeneous echotexture. Otherwise, unremarkable right upper quadrant ultrasound Dictated by Osiel Carpenter MD @ 01/17/2024 2:34:08 PM (Electronic Signature)
[2024-01-17 13:03] LABS: Albumin* 3.8 g/dL (3.3-5.0)
[2024-01-17 13:06] LABS: Alanine Aminotransferase* 44 U/L (4-50); Alkaline Phosphatase* 132 U/L (40-150); Aspartate Amino Transferase* 59 U/L (12-35); Bilirubin Direct* 0.5 mg/dL (0.0-0.5); Bilirubin Total* 0.8 mg/dL (0.1-1.5); Creatine Kinase* 856 U/L (54-186); Total Protein* 7.1 g/dL (6.0-8.3)
[2024-01-17 13:18] LABS: Troponin I* 0.02 ng/mL (0.01-0.04)
--- NOTE | 2024-01-17 14:31 | PM.IMPN1 ---
Progress Note: A&P Assessment and plan (1) Influenza A: Problem details: tamiflu started 01/13 (5 day regimen) with first dose in the ED on room air, resp distress improved. Status: Acute (2) Acute exacerbation of chronic obstructive pulmonary disease: Problem details: Treated with inhaled bronchodilators and doxycycline. Probably due to influenza. Given Solu-Medrol but this caused severe hyperglycemia so was discontinued. Status: Acute (3) Sinus tachycardia: Problem details: starting on HR>100 consistently EKG sinus no chest pain/SOB that is new Status: Acute (4) Hyperglycemia: Problem details: held metformin due to metabolic acidosis restarted 01/14, restarted glucotrol SSI likely from IV steroids Status: Acute (5) KURTIS (acute kidney injury): Problem details: may be progressive CKD. 1.6 to 2.9. Continue to monitor. Renal dosing of medications. Status: Acute (6) Metabolic acidosis: Problem details: mild CKD. sodium bicarb added. Continue to monitor. Status: Acute (7) Cognitive decline: Problem details: on MOCA Status: Acute (8) Fall: Problem details: DOI 01/13 - bumped and bruised. CT reviewed. -family tried to get him up, needed EMS - brought in for eval Status: Acute (9) CAD (coronary artery disease): Problem details: NSTEMI August 2022, status post 3-vessel CABG with a MICHEL to the LAD, SVG to RCA, and SVG to OM. Status: Acute (10) Type 2 diabetes mellitus: Problem details: restarted home orals. Reduce metformin due to renal function. hyperglycemic response extreme to 600 with steroids for COPD Status: Acute (11) Vertigo: Problem details: OT to see continue meclizine prn Status: Acute (12) Essential hypertension: Problem details: Continue torsemide. Hold lisinopril due to kidney injury Status: Acute (13) Hyponatremia: Problem details: 132 to 127 . Still abnormal despite correction from hyperglycemia. Sodium bicarb, fluid restriction and monitor. Status: Acute (14) CHF (congestive heart failure): Problem details: 2021 3V CABG BNP elevated from previous Does not appear to be having pulmonary edema. No extra tremor edema of significance either. Resume baseline medications. Status: Acute (15) Nausea: Problem details: Right upper quadrant ultrasound does not show obvious biliary disease. Discontinue doxycycline and Tamiflu as a potential cause for this. Status: Acute (16) Suspected venous thromboembolism (VTE): Problem details: On therapeutic Lovenox. Plan chest CT for definitive diagnosis when renal function improves Status: Acute Plan Continue in-hospital for monitoring of electrolyte abnormalities, respiratory status, nausea and anorexia, acute kidney injury. Anticipate discharge to home when clinically improved. Time Spent With Patient Total time spent: Total time spent today is 45 minutes, 30 minutes in coordination of care discussing with patient and other providers ongoing management of multiple problems noted above Subjective Date Seen: 01/17/24 Interval history: 68-year-old male admitted to the hospital even with the assistance of his daughter in-law and son. He EMS was called to transport the hospital. He was profoundly weak. He was found to have influenza a in the emergency department. Started on treatment with Tamiflu. There is also concern about COPD and CHF exacerbations. He is given systemic corticosteroids but this causes severe hyperglycemia and so this was stopped. Blood sugars have improved since then He was treated with furosemide for possible heart failure. He has over last 2 days qiu maintaining his O2 sats on room air and reports his breathing is close to baseline. He has had a resting sinus tachycardia and he was started on metoprolol for this. This is thought to be a new problem. He is not having any chest pain or fever. He had an echocardiogram which showed heart failure with preserved ejection fraction. He had acute kidney injury with his creatinine going from 1.3 November 25 2023 to 1.8 on admission to 2.9 today. He developed hyponatremia with his sodium going from 136 November 25 2023 to 127 today. He has been on a fluid restriction and just started on sodium chloride and then sodium bicarbonate tablets. Functional evaluation raise concerns about his ability to ambulate independently in his apartment. Initially it was thought that he would not bili do this but he has made some improvement over the last 2 days. His walking well with a walker. He had cognitive evaluation and scored 14/30 on a [place]. He is anxious to go home and with the support and supervision of his son and [id number] this may yet be possible. Today reports that he has been having postprandial nausea. He has been eating very little because he gets an upset stomach. He remains on therapeutic dose of Lovenox for concern about VTE/PE. Consider CT for PE study when creatinine improves Exam Narrative: Exam Narrative: He is alert and appears in no distress. He has noisy breathing but not increased rate or work of breathing. Respirations with rhonchi but otherwise clear. Minimal expiratory wheezing. Mildly decreased breath sounds throughout. Cardiovascular: S1, S2, regular rate and rhythm. Abdomen: Bowel sounds active. Abdomen is soft without tenderness. Extremities with 1 to 2+ edema bilaterally. Const: Vital Signs, click to edit/add: Vital Signs - 24 hr 01/16/24 15:00 01/16/24 15:00 01/16/24 15:00 Temperature 98.1 F Pulse Rate 92 Pulse Rate [Pulse Oximeter] 87 87 Respiratory Rate 20 20 Blood Pressure [Ri ght Arm] 155/69 H Pulse Oximetry 93 Oxygen Delivery Me thod Room Air Oxygen Flow Rate 01/16/24 19:34 01/16/24 22:55 01/16/24 23:05 Temperature 98.5 F Pulse Rate 78 Pulse Rate [Pulse Oximeter] 105 H 105 H Respiratory Rate 20 20 Blood Pressure [Ri ght Arm] 106/60 Pulse Oximetry 93 Oxygen Delivery Me thod Room Air Oxygen Flow Rate 01/16/24 23:44 01/17/24 03:10 01/17/24 07:00 Temperature 96.9 F L 97.6 F Pulse Rate Pulse Rate [Pulse Oximeter] 77 66 94 Respiratory Rate 20 20 20 Blood Pressure [Ri ght Arm] 139/57 L 124/55 L Pulse Oximetry 91 92 Oxygen Delivery Me thod Nasal Cannula Nasal Cannula Oxygen Flow Rate 0.5 0.5 01/17/24 07:00 01/17/24 07:00 01/17/24 11:00 Temperature 97.6 F Pulse Rate 91 Pulse Rate [Pulse Oximeter] 94 Respiratory Rate 20 Blood Pressure [Ri ght Arm] 136/69 Pulse Oximetry 93 93 Oxygen Delivery Me thod Room Air Oxygen Flow Rate 01/17/24 11:00 Temperature 98.0 F Pulse Rate Pulse Rate [Pulse Oximeter] 83 Respiratory Rate 20 Blood Pressure [Ri ght Arm] 139/68 Pulse Oximetry 93 Oxygen Delivery Me thod Room Air Oxygen Flow Rate Documenting provider has reviewed patient's vital signs: yes Labs Labs: Laboratory Results - last 24 hr 01/17/24 01/17/24 01/17/24 05:44 12:35 12:45 VBG pH 7.334 VBG pCO2 46 VBG pO2 37.7 VBG HCO3 25 Sodium 128 L Potassium 4.6 Chloride 98 Carbon Dioxide 21 Anion Gap 9 BUN 70 H Creatinine 2.3 H Estimated Creat Clear 26.10 Estimated GFR 30 Glucose 184 H Calcium 8.3 L Total Bilirubin 0.8 Direct Bilirubin 0.5 AST 59 H ALT 44 Alkaline Phosphatase 132 Total Creatine Kinase 856 H Troponin I 0.02 C-Reactive Protein 1.7 H Total Protein 7.1 Albumin 3.8 Procalcitonin 0.37 Lab Acknowledgement Test Added Test Added
[2024-01-17] MEDS: glipiZIDE 5 MG TABLET PO (17:57)
[2024-01-17] MEDS: ATORVASTATIN CALCIUM 40 MG TABLET 80 MG PO (20:26)
[2024-01-17] MEDS: MIRTAZAPINE 15 MG TABLET 7.5 MG PO (20:27)
[2024-01-17] MEDS: MELATONIN 3 MG TABLET PO (23:40)
--- NOTE | 2024-01-18 | CT_ITS ---
Patient: MELISSA INIGUEZ Facility:?[facility] Patient ID:?[id number] Site Patient ID:?[id number]. Site :?[id number] Study:?CT-Chest PE 95CC ISOVUE 370-01/18/2024 10:22:28 AM Ordering Physician:ARCHANA Final Report: Indication: Dyspnea, tachycardia Technique: CT angiogram of the chest was performed for evaluation of pulmonary embolism. 95 mL of Isovue 370 intravenous contrast was administered. Comparison: 01/10/2023 Findings: CARDIOVASCULAR: Diagnostic quality: Contrast opacification of the pulmonary arterial circulation is adequate for assessment of pulmonary embolism. Study is not significantly limited by respiratory motion artifact. Pulmonary arteries: No filling defects to suggest pulmonary embolism. Not enlarged. Heart: No interventricular septal deviation. Normal in size. Moderate coronary artery calcification. No significant valvular calcification. Postsurgical changes from coronary artery bypass grafting. Pericardium: No pericardial effusion. Thoracic aorta: Moderate aortic calcification. Common origin of the right brachiocephalic and left common carotid arteries. REMAINING CHEST: Medical devices: None. Thyroid: Normal. Lymph nodes: No supraclavicular, axillary, mediastinal, or hilar lymphadenopathy. Nonspecific mildly prominent subcentimeter mediastinal lymph nodes are favored to be reactive. Other mediastinal structures: No significant abnormality. Lung parenchyma: No significant abnormality. Airways: Moderate bronchial wall thickening. Pleura: No significant abnormality. Chest wall: Postsurgical changes from median sternotomy. Moderate fat containing ventral hernia is seen in the lower chest/upper abdomen. Upper abdomen: No significant abnormality. Musculoskeletal: Moderate multilevel degenerative changes of the visualized spine. Impression: 1. No acute pulmonary embolism. 2. Moderate bronchial wall thickening may represent airways infection or inflammation. Please note that all CT scans at this facility use dose modulation, iterative reconstruction, and/or weight-based dosing when appropriate to reduce radiation dose to as low as reasonably achievable. Dictated by Claudy Funez MD @ 01/18/2024 10:39:51 AM ----- ADDENDUM ----- Report communicated to Dr. Manuel Harper at 10:43 a.m. on 01/18/2024. Dictated by Claudy Funez MD @ Jan 18 2024 10:43AM Signed by:?Claudy Funez MD @01/18/2024 10:39:51 AM (Electronic Signature)
[2024-01-18] MEDS: MELATONIN 3 MG TABLET PO (01:17)
[2024-01-18 03:11] VITALS: BP 147/67; PULSE 86; RESP 18; TEMP 36.1; O2SAT 92
[2024-01-18] MEDS: IPRAT-ALBUT 0.5-2.5 MG/3 ML NEB 1 NEB IH ×2 (05:35→12:12)
--- NOTE | 2024-01-18 06:37 | PC.NURSE ---
End of shift note [id number]: Pt noted to be alert & oriented x 4 and able to make needs known though does attempt self-transfer at times. Bed alarm utilized d/t fall risk. Pt continues to report nonproductive and coarse cough with scheduled nebulizer treatments administered. IS performed though pt only able to achieve 1000 mL. VSS and pt has been afebrile throughout the shift. Blood glucose of 244 last evening. Pt slept intermittently throughout the night despite receiving 6 mg of PRN Melatonin. He has been continent of bladder throughout the night. IV to L AC patent and SL. Pt continues to transfer with SBA. Tubigrip in place to R arm to help protect healing abrasion near R elbow.
[2024-01-18 06:43] LABS: HCO3 VBG 23 mmol/L (21-28); PCO2 VBG 31 mmHG (40-50); pH VBG 7.482 (7.32-7.43)
[2024-01-18 07:00] VITALS: BP 144/63; PULSE 89; PULSE 95; RESP 20; TEMP 36.6; O2SAT 93
[2024-01-18 07:17] LABS: Chloride* 101 mmol/L (96-114); Potassium* 4.7 mmol/L (3.6-5.1); Sodium* 129 mmol/L (135-149)
[2024-01-18 07:19] LABS: Creatinine* 1.5 mg/dL (0.5-1.5); Est. Creatinine Clearance* 40.01; Estimated Glomerular Filt Rate 51 ml/min
[2024-01-18 07:20] LABS: Anion Gap 9 mEq/L (7-15); Blood Urea Nitrogen* 55 mg/dL (7-30); Carbon Dioxide* 19 mmol/L (20-32); Glucose* 136 mg/dL (60-115)
[2024-01-18 07:21] LABS: Calcium* 8.2 mg/dL (8.4-10.6)
[2024-01-18 07:23] LABS: C Reactive Protein* 1.4 mg/dL (0.5-1.0)
[2024-01-18 07:37] LABS: Procalcitonin* 0.25 ng/mL (<0.50)
[2024-01-18] MEDS: BUDESONIDE 0.5 MG/2ML NEB NEB (08:28)
[2024-01-18] MEDS: METOPROLOL TARTRATE 25 MG TABLET PO (08:28)
[2024-01-18] MEDS: ASPIRIN 81 MG TABLET EC PO (08:28)
[2024-01-18] MEDS: SODIUM BICARBONATE 650 MG TABLET PO (08:28)
[2024-01-18] MEDS: glipiZIDE 5 MG TABLET 10 MG PO (08:28)
[2024-01-18] MEDS: POTASSIUM CHLORIDE 10 MEQ CAPSULE ER PO (08:28)
[2024-01-18] MEDS: diphenhydrAMINE 25 MG CAPSULE 50 MG PO (08:28)
[2024-01-18] MEDS: ENOXAPARIN 100 MG/ML INJ SUBCUT (08:29)
[2024-01-18] MEDS: SODIUM CHLORIDE 0.9 % (FLUSH) 10 ML SYRINGE 5 ML IVF (08:29)
[2024-01-18] MEDS: METFORMIN 1,000 MG TABLET 500 MG PO (08:29)
[2024-01-18] MEDS: HYDROCORTISONE SOD SUCCINATE 50 MG/ML inj 200 MG IVP (08:29)
--- NOTE | 2024-01-18 09:30 | CT_ITS ---
Patient: MELISSA INIGUEZ Facility:?[facility] Patient ID:?[id number] Site Patient ID:?[id number]. Site :?[id number] Study:?CT-Abdomen/Pelvis 95CC ISOVUE 370-01/18/2024 10:24:04 AM Ordering Physician:?DR. HARPER Final Report: INDICATION: Abdominal pain, nausea TECHNIQUE: CT of the abdomen and pelvis was obtained with 95 mL of Isovue 370 intravenous contrast. Please note that all CT scans at this facility use dose modulation, iterative reconstruction, and/or weight-based dosing when appropriate to reduce radiation dose to as low as reasonably achievable. COMPARISON: 09/30/2016 FINDINGS: Suboptimal examination as a small portion of the right abdomen was excluded from the field of view. Lower thorax: Please see separately dictated same day CT of the chest. Liver and biliary tree: Small amount of focal fat is seen adjacent to the falciform ligament. Gallbladder: Normal. Spleen: Normal. Pancreas: Mild fatty atrophy. Adrenal glands: Normal. Kidneys and ureters: No hydronephrosis. No obstructing renal calculi. Gastrointestinal tract: Moderate sigmoid diverticulosis without CT evidence of acute diverticulitis. No evidence of bowel obstruction. Normal appendix. Peritoneal cavity: Normal. Bladder: Normal. Pelvic organs: Normal. Vasculature: Moderate calcification. Lymph nodes: Normal. Abdominal wall: Moderate fat containing upper abdominal ventral hernia. Small fat containing periumbilical hernia. Moderate fat containing left inguinal hernia. Musculoskeletal: Moderate degenerative changes of the bilateral hips. Moderate multilevel degenerative changes of the visualized spine. IMPRESSION: 1. Suboptimal examination as a small portion of the right abdomen was excluded from the field of view. 2. Moderate sigmoid diverticulosis without CT evidence of acute diverticulitis. No evidence of bowel obstruction. Please note that all CT scans at this facility use dose modulation, iterative reconstruction, and/or weight-based dosing when appropriate to reduce radiation dose to as low as reasonably achievable. Dictated by Claudy Funez MD @ 01/18/2024 10:55:54 AM ----- ADDENDUM ----- Report confirmed with Dr. Harper at 11:01 on 01/18/2024. Dictated by Claudy Funez MD @ Jan 18 2024 11:12AM Signed by:?Claudy Funez MD @01/18/2024 10:55:54 AM (Electronic Signature)
[2024-01-18 11:00] VITALS: BP 134/60; PULSE 84; RESP 18; TEMP 36.4; O2SAT 93
[2024-01-18] MEDS: INSULIN ASPART 100 UNIT/ML SUBCUT (12:12)
--- NOTE | 2024-01-18 12:20 | PM.DS1 ---
DS: Providers Provider Date Seen: 01/18/24 Date of admission: 01/13/24 11:41 Primary care physician: Hannah Stein DO Admitting Clinician: Petrona Rogers MD Attending Physician on discharge: Manoj Harper MD Date of Discharge: 01/18/24 DS: Diagnosis Discharge Diagnosis (1) Influenza A: Status: Acute Problem details: tamiflu started 01/13 (5 day regimen) with first dose in the ED on room air, resp distress improved. (2) KURTIS (acute kidney injury): Status: Acute Problem details: may be progressive CKD. 1.6 to 2.9 and down to 1.5 on discharge. Continue to monitor. Renal dosing of medications. (3) Metabolic acidosis: Status: Acute Problem details: mild CKD. sodium bicarb added. Continue to monitor. Bicarb is 19 on discharge (4) Acute exacerbation of chronic obstructive pulmonary disease: Status: Acute Problem details: Treated with inhaled bronchodilators and doxycycline. Probably due to influenza. Given Solu-Medrol but this caused severe hyperglycemia so was discontinued. Chest CT showed radiographic evidence of bronchitis/bronchial wall thickening (5) Cognitive decline: Status: Acute Problem details: on MOCA. Current plan is for home health nursing and family to provide some support and supervision. (6) Fall: Status: Acute Problem details: DOI 01/13 - bumped and bruised. CT reviewed. -family tried to get him up, needed EMS - brought in for eval (7) CAD (coronary artery disease): Status: Acute Problem details: NSTEMI August 2022, status post 3-vessel CABG with a MICHEL to the LAD, SVG to RCA, and SVG to OM. (8) Type 2 diabetes mellitus: Status: Acute Problem details: restarted home orals. Reduce metformin due to renal function. hyperglycemic response to steroids for COPD. Blood sugar got as high as 600 (9) Vertigo: Status: Acute Problem details: Chronic recurrent problem. (10) Essential hypertension: Status: Acute Problem details: Continue torsemide. Lisinopril held briefly due to acute kidney injury. Close outpatient following of renal function and electrolytes (11) CHF (congestive heart failure): Status: Acute Problem details: Echo shows preserved ejection fraction. Volume status is been relatively stable during his hospital stay (12) Physical deconditioning: Status: Acute Problem details: Quite weak and quite dyspneic with activity. Strongly encouraged him to be more physically active at home (13) Suspected venous thromboembolism (VTE): Status: Acute Problem details: On admission had tachycardia dyspnea and elevated D-dimer. Was treated initially with therapeutic Lovenox. Today chest CT shows no PE. (14) Nausea: Status: Acute Problem details: Right upper quadrant ultrasound does not show obvious biliary disease. Discontinue doxycycline and Tamiflu as a potential cause for this. (15) Sinus tachycardia: Status: Acute Problem details: Had sinus tachycardia through his hospital stay. Other than influenza no other obvious cause. Started on metoprolol for this with good rate control and tolerated it well (16) Hyperglycemia: Status: Acute Problem details: Severe hyperglycemia from systemic steroids. Resumed on home medications with fair blood sugar control. Metformin reduced due to reduced kidney function (17) Hyponatremia: Status: Acute Problem details: 132 to 129 on discharge . Still abnormal despite correction from hyperglycemia. Started on sodium bicarbonate. Needs close follow-up (18) Contrast media allergy: Status: Acute Problem details: Patient's record indicates an allergy to IV contrast. [facility] records indicated that he passed out when he received IV contrast in the past. Over the past urine half he has had 3 pulmonary CTA studies. With each study he had premedication and no complications. DS: Summary Hospital Course Hospital Course: 68-year-old male admitted to the hospital even with the assistance of his daughter in-law and son. He EMS was called to transport the hospital. He was profoundly weak. He was found to have influenza a in the emergency department. Started on treatment with Tamiflu. There is also concern about COPD and CHF exacerbations. He is given systemic corticosteroids but this causes severe hyperglycemia and so this was stopped. Blood sugars have improved since then He was treated with furosemide for possible heart failure. He has over last 2 days qiu maintaining his O2 sats on room air and reports his breathing is close to baseline. He has had a resting sinus tachycardia and he was started on metoprolol for this. This is thought to be a new problem. He is not having any chest pain or fever. He had an echocardiogram which showed heart failure with preserved ejection fraction. He had acute kidney injury with his creatinine going from 1.3 November 25 2023 to 1.8 on admission to 2.9 down to 1.5 on discharge today. He developed hyponatremia with his sodium going from 136 November 25 2023 to 127 today. He has been on a fluid restriction and just started on sodium chloride and then sodium bicarbonate tablets. Functional evaluation raise concerns about his ability to ambulate independently in his apartment. Initially it was thought that he would not bili do this but he has made some improvement over the last 3 days. His walking well with a walker. He had cognitive evaluation and scored 14/30 on a [place]. He is anxious to go home and with the support and supervision of his son and [id number]. Yesterday he had postprandial nausea. He has been eating very little because he gets an upset stomach. On discharge this is better. He remains on therapeutic dose of Lovenox for concern about VTE/PE. Chest abdomen and pelvis CT done today without findings of PE. He did have bronchial wall thickening on his chest CT. No acute abdominal findings. Time Spent with Patient Time attestation: Total time spent providing and/or coordinating discharge services: Exam Narrative: Exam Narrative: He is alert and appears in no distress. He is oriented to his circumstances. Oropharynx small airway. Prominent upper respiratory breath sounds with rhonchi and wheezing. Lung sounds are relatively normal with occasional rhonchi. No marked wheezing no marked prolonged expiratory phase. Modestly decreased air exchange in all lung ttaum. Cardiovascular: S1, S2, regular rate and rhythm. Abdomen is soft without tenderness. Extremities with 1+ edema bilaterally. Const: Vital Signs, click to edit/add: Vital Signs - 24 hr 01/17/24 15:00 01/17/24 15:00 01/17/24 15:00 Temperature 98.0 F Pulse Rate 91 Pulse Rate [Pulse Oximeter] 83 83 Respiratory Rate 20 20 Blood Pressure [Le ft Arm] Blood Pressure [Ri ght Arm] 161/79 H Pulse Oximetry 96 Oxygen Delivery Me thod Room Air 01/17/24 19:23 01/17/24 23:00 01/17/24 23:02 Temperature 98.0 F Pulse Rate 73 Pulse Rate [Pulse Oximeter] 99 99 Respiratory Rate 20 20 Blood Pressure [Le ft Arm] Blood Pressure [Ri ght Arm] 133/70 Pulse Oximetry 92 Oxygen Delivery Me thod Room Air 01/17/24 23:37 01/18/24 03:11 01/18/24 07:00 Temperature 97.5 F L 97.0 F L Pulse Rate 89 Pulse Rate [Pulse Oximeter] 79 86 Respiratory Rate 20 18 Blood Pressure [Le ft Arm] Blood Pressure [Ri ght Arm] 145/68 H 147/67 H Pulse Oximetry 92 92 Oxygen Delivery Me thod Room Air Room Air 01/18/24 07:00 01/18/24 07:00 01/18/24 11:00 Temperature 97.9 F Pulse Rate Pulse Rate [Pulse Oximeter] 95 95 Respiratory Rate 20 20 Blood Pressure [Le ft Arm] 144/63 H Blood Pressure [Ri ght Arm] Pulse Oximetry 93 93 Oxygen Delivery Me thod Room Air 01/18/24 11:00 Temperature 97.5 F L Pulse Rate Pulse Rate [Pulse Oximeter] 84 Respiratory Rate 18 Blood Pressure [Le ft Arm] 134/60 Blood Pressure [Ri ght Arm] Pulse Oximetry 93 Oxygen Delivery Me thod Room Air Documenting provider has reviewed patient's vital signs: yes DS: Data Data Completed and Pending Labs on day of discharge: Labs from last 24 hours 01/18/24 01/17/24 01/17/24 06:05 12:45 12:35 VBG pH 7.482 H VBG pCO2 31 L VBG pO2 77.0 H VBG HCO3 23 Sodium 129 L Potassium 4.7 Chloride 101 Carbon Dioxide 19 L Anion Gap 9 BUN 55 H Creatinine 1.5 Estimated Creat Clear 40.01 Estimated GFR 51 Glucose 136 H Calcium 8.2 L Total Bilirubin Direct Bilirubin AST ALT Alkaline Phosphatase Total Creatine Kinase Troponin I C-Reactive Protein 1.4 H Total Protein Albumin Procalcitonin 0.25 Lab Acknowledgement Test Added Test Added 01/17/24 05:44 VBG pH VBG pCO2 VBG pO2 VBG HCO3 Sodium Potassium Chloride Carbon Dioxide Anion Gap BUN Creatinine Estimated Creat Clear Estimated GFR Glucose Calcium Total Bilirubin 0.8 Direct Bilirubin 0.5 AST 59 H ALT 44 Alkaline Phosphatase 132 Total Creatine Kinase 856 H Troponin I 0.02 C-Reactive Protein Total Protein 7.1 Albumin 3.8 Procalcitonin Lab Acknowledgement Preliminary micro results at discharge 01/13/24 17:00 Blood Culture - Preliminary Blood NO GROWTH AFTER 96 HOURS 01/13/24 17:09 Blood Culture - Preliminary Blood NO GROWTH AFTER [address] scan - chest: My impression: Indication: Dyspnea, tachycardia Technique: CT angiogram of the chest was performed for evaluation of pulmonary embolism. 95 mL of Isovue 370 intravenous contrast was administered. Comparison: 01/10/2023 Findings: CARDIOVASCULAR: Diagnostic quality: Contrast opacification of the pulmonary arterial circulation is adequate for assessment of pulmonary embolism. Study is not significantly limited by respiratory motion artifact. Pulmonary arteries: No filling defects to suggest pulmonary embolism. Not enlarged. Heart: No interventricular septal deviation. Normal in size. Moderate coronary artery calcification. No significant valvular calcification. Postsurgical changes from coronary artery bypass grafting. Pericardium: No pericardial effusion. Thoracic aorta: Moderate aortic calcification. Common origin of the right brachiocephalic and left common carotid arteries. REMAINING CHEST: Medical devices: None. Thyroid: Normal. Lymph nodes: No supraclavicular, axillary, mediastinal, or hilar lymphadenopathy. Nonspecific mildly prominent subcentimeter mediastinal lymph nodes are favored to be reactive. Other mediastinal structures: No significant abnormality. Lung parenchyma: No significant abnormality. Airways: Moderate bronchial wall thickening. Pleura: No significant abnormality. Chest wall: Postsurgical changes from median sternotomy. Moderate fat containing ventral hernia is seen in the lower chest/upper abdomen. Upper abdomen: No significant abnormality. Musculoskeletal: Moderate multilevel degenerative changes of the visualized spine. Impression: 1. No acute pulmonary embolism. 2. Moderate bronchial wall thickening may represent airways infection or inflammation. CT scan - abdomen: Radiologist's impression: INDICATION: Abdominal pain, nausea TECHNIQUE: CT of the abdomen and pelvis was obtained with 95 mL of Isovue 370 intravenous contrast. Please note that all CT scans at this facility use dose modulation, iterative reconstruction, and/or weight-based dosing when appropriate to reduce radiation dose to as low as reasonably achievable. COMPARISON: 09/30/2016 FINDINGS: Suboptimal examination as a small portion of the right abdomen was excluded from the field of view. Lower thorax: Please see separately dictated same day CT of the chest. Liver and biliary tree: Small amount of focal fat is seen adjacent to the falciform ligament. Gallbladder: Normal. Spleen: Normal. Pancreas: Mild fatty atrophy. Adrenal glands: Normal. Kidneys and ureters: No hydronephrosis. No obstructing renal calculi. Gastrointestinal tract: Moderate sigmoid diverticulosis without CT evidence of acute diverticulitis. No evidence of bowel obstruction. Normal appendix. Peritoneal cavity: Normal. Bladder: Normal. Pelvic organs: Normal. Vasculature: Moderate calcification. Lymph nodes: Normal. Abdominal wall: Moderate fat containing upper abdominal ventral hernia. Small fat containing periumbilical hernia. Moderate fat containing left inguinal hernia. Musculoskeletal: Moderate degenerative changes of the bilateral hips. Moderate multilevel degenerative changes of the visualized spine. IMPRESSION: 1. Suboptimal examination as a small portion of the right abdomen was excluded from the field of view. 2. Moderate sigmoid diverticulosis without CT evidence of acute diverticulitis. No evidence of bowel obstruction. Discharge Plan Discharge Disposition: Home, Self-Care Date of Admission: 01/13/24 11:41 Attending Provider on Discharge: Manuel Harper Primary Care Provider: Hannah Stein Condition: Improved Anticipated Discharge Date/Time: 01/18/24 14:00 Discharge Medications: New sodium bicarbonate 650 mg Tablet 650 mg PO BIDWM Qty: 60 0RF budesonide 0.5 mg/2 mL Suspension For Nebulization 0.5 mg NEB BID Qty: 60 0RF metoprolol succinate [Toprol XL] 50 mg tablet extended release 24 hr 50 mg PO DAILY Qty: 30 0RF Continued albuterol sulfate 90 mcg/actuation HFA aerosol inhaler 2 puff INHALATION Q4H PRN Patient Comments: Inhale 2 Puffs by mouth every 4 hours if needed. glipizide 5 mg tablet 5 - 10 mg PO BID Rx Instructions: 10 MG BREAKFAST 5 MG EVENING MEAL meclizine 25 mg tablet 25 mg PO TID PRN aspirin 81 mg tablet,delayed release (DR/EC) 81 mg PO DAILY Qty: 30 0RF lisinopril 2.5 mg tablet 2.5 mg PO DAILY mirtazapine 7.5 mg tablet 7.5 mg PO HS torsemide 10 mg tablet 10 mg PO DAILY Qty: 30 2RF potassium chloride 10 mEq capsule, extended release 10 meq PO DAILY Qty: 30 2RF atorvastatin 80 mg tablet 80 mg PO HS Changed metformin 1,000 mg tablet 1,000 mg PO DAILY Qty: 30 0RF Discharge Orders: Discharge Order (Routine); Ordered 01/18/24 Ordered By: Manuel Harper Patient Education: Metoprolol (By mouth), Budesonide (By breathing), Sodium Bicarbonate (By mouth), Influenza (DC), Fall Prevention for Older Adults (GEN), COPD (Chronic Obstructive Pulmonary Disease) (GEN) Activity Level: Activity as Tolerated Discharge Diet: Heart Healthy (2 gm sodium, low fat) Follow Up Appointments: Detert,Hannah L, DO [Primary Care Provider] - 01/25/24 8:10 am (Appointment in 1 week. Check basic metabolic panel in 1 week.) Forms: [employer] Instructions
--- NOTE | 2024-01-18 13:16 | PC.NURSE ---
[employer] called and spoke with patient's son, Gordon, informing him of patient's planned discharge at 1400 today. Discharge education on medication changes and exercise recommendations reviewed with Gordon who verbalized understanding.
--- NOTE | 2024-01-18 14:00 | PC.SOCIAL ---
Provided update to Fariba at [facility] informing that pt will discharge today. Fariba informs that they will see pt on Thursday in home. Social work will follow up as needed.
--- NOTE | 2024-01-18 14:19 | PC.NURSE ---
Discharge note: Pt A&O x4, afebrile and VSS today. He is SBA with 4ww and gait belt for transfers and ambulation. Pt got a shower with PT today and tolerated well. TELE showed NSR and was discontinued after his shower. PIV in left AC SL and C/D/I; removed prior to discharge with catheter intact. Pt declined having any pain, nausea or SOB at rest or with ambulation. Appetite remains poor, needed convincing to eat half a sandwich for lunch prior to discharge. Blood sugars: 147; no insulin > 249; Novolog 2 units given. LS remain diminished with inspiratory & expiratory rhonchi. Right elbow abrasion currently HI- Tubi-lan analyst sent home with patient. Pt had a chest/abd CT and a CT PE study done today with no acute findings and negative for PE. Discharge education was reviewed with patient?s [id number] over the phone and was also e-mailed to her as patient forgot his paperwork. ?
== END 2024-01-18 14:00 | disposition home or self-care (01) | DRG 193 ==
LOC: ED 10:16 → MEDSURG 11:03
PROVIDERS: Family Medicine; Admitting Provider Family Medicine; Emergency Provider Family Medicine; PCP Family Medicine; Visit Provider Family Medicine
DX: J10.1 Influenza due to other identified influenza virus with other respiratory manifestations (principal); I50.33 Acute on chronic diastolic (congestive) heart failure; N17.8 Other acute kidney failure; I13.0 Hypertensive heart and chronic kidney disease with heart failure and stage 1 through stage 4 chronic kidney disease, or unspecified chronic kidney disease; J44.1 Chronic obstructive pulmonary disease with (acute) exacerbation; E87.21 Acute metabolic acidosis; E87.1 Hypo-osmolality and hyponatremia; Z87.891 Personal history of nicotine dependence; E11.22 Type 2 diabetes mellitus with diabetic chronic kidney disease; N18.30 Chronic kidney disease, stage 3 unspecified; Z79.84 Long term (current) use of oral hypoglycemic drugs; G47.33 Obstructive sleep apnea (adult) (pediatric); E78.2 Mixed hyperlipidemia; Z86.73 Personal history of transient ischemic attack (TIA), and cerebral infarction without residual deficits; I25.10 Atherosclerotic heart disease of native coronary artery without angina pectoris; R41.81 Age-related cognitive decline; W18.11XA Fall from or off toilet without subsequent striking against object, initial encounter; Z91.81 History of falling; R42 Dizziness and giddiness; R00.0 Tachycardia, unspecified; E11.65 Type 2 diabetes mellitus with hyperglycemia; T38.0X5A Adverse effect of glucocorticoids and synthetic analogues, initial encounter; S50.01XA Contusion of right elbow, initial encounter; R11.0 Nausea
CPT/HCPCS: 36415; 71045; 71250; 71275; 72125; 73030; 73080; 74177; 76705; 80048; 80053; 80076; 81001; 81003; 82077; 82550; 82803; 82962; 82977; 83036; 83605; 83735; 83880; 84100; 84145; 84439; 84443; 84484; 85025; 85027; 86140; 87040; 87086; 87631; 93005; 93306; 93970; 94640; 94761; 97110; 97112; 97116; 97161; 97165; 97530; 97535; 99285; A9270; J1650; J1720; J1940; J2405; J2920; J2930; J7030; J7050; J7512; J7626; Q9967